=== PATIENT | female | born 1995 | race Caucasian/White ===

== ENCOUNTER 2016-12-07 15:36 | Inpatient (IN) | payer OTHER, MEDICAID ==
[~2016-12-07] VITALS: Ht 160 cm; Wt 86.2 kg
[~2016-12-07 15:36] MED LIST: /QUET25TA OR; ACET65TA OR; ZOLO25TA OR
[2016-12-07 16:21] LABS: MEAN CORPUSCULAR HGB CONC 35.8 g/dl (32.0-36.5); WHITE BLOOD COUNT 8.9 K/mm3 (4.0-10.0)
[2016-12-07 16:36] LABS: CONTROL LINE HCG INT CTR LINE PRESENT
[2016-12-07 16:42] LABS: METHADONE URINE NEGATIVE (NEGATIVE)
[2016-12-07 16:51] LABS: ALBUMIN 3.9 GM/DL (3.2-5.2); ALBUMIN/GLOBULIN RATIO 1.05 (1.00-1.93); ALKALINE PHOSPHATASE 64 U/L (45-117); ALT/SGPT 33 U/L (12-78); ANION GAP 9 MEQ/L (8-16); AST/SGOT 21 U/L (15-37); BILIRUBIN,DIRECT 0.2 MG/DL (0.0-0.2); BLOOD UREA NITROGEN 12 MG/DL (7-18); CALCIUM LEVEL 9.2 MG/DL (8.5-10.1); CARBON DIOXIDE LEVEL 24 MEQ/L (21-32); CHLORIDE LEVEL 104 MEQ/L (98-107); GLUCOSE, FASTING 82 MG/DL (70-105); POTASSIUM SERUM 3.9 MEQ/L (3.5-5.1); SODIUM LEVEL 137 MEQ/L (136-145); TOTAL PROTEIN 7.6 GM/DL (6.4-8.2)
[2016-12-07] MEDS ORDERED: NITROFURANTOIN (MACROBID) 100 MG CAP PO ONE (17:45)
[2016-12-07] MEDS ORDERED: GARC500T PO (18:10)
[2016-12-07] MEDS ORDERED: EXCETAB80 PO (18:10)
[2016-12-07 20:46] VITALS: BP 124/79
[2016-12-07] MEDS ORDERED: MOM 30ML SUSPENSION UDC PO PRN (21:45)
[2016-12-07] MEDS: traZODone 50 MG TAB PO PRN (23:31)
[2016-12-08 06:00] VITALS: BP 116/57
[2016-12-08 06:42] VITALS: BP 144/60
[2016-12-08] MEDS: MAALOX 30 ML SUSP *UDC PO PRN (13:08)
[2016-12-08] MEDS: EXCEDRIN MIGRAINE TABLET PO PRN (15:14)
[2016-12-08 18:00] VITALS: BP 132/74
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
[2016-12-08] MEDS: QUEtiapine FUMARATE 50 MG TAB PO SCH (22:02)
[2016-12-08] MEDS: AMOXICILLIN 500 MG CAP PO SCH (22:07)
[2016-12-08] MEDS ORDERED: SODIUM CHLORIDE NASAL 0.65% SPRAY BTL (OCEAN) PRN (23:00)
--- NOTE | 2016-12-09 03:44 | HPE ---
DATE OF ADMISSION: 12/07/2016 HISTORY OF PRESENT ILLNESS: Please refer to psychiatric history and evaluation for further details on this admission. This examination and history is intended for medical issues, which may need treatment, followup or consult on this 20-year-old female. ALLERGIES: None. PRIMARY CARE PROVIDER: Dr. Jonas. SOCIAL HISTORY: She is single. She has a boyfriend. Ethyl alcohol (EtOH) on weekends. Smokes one pack per day. Recreational drug use marijuana. PAST MEDICAL HISTORY: Negative. PAST SURGICAL HISTORY: Negative. HOME MEDICATIONS: None. FAMILY HISTORY: Noncontributory. REVIEW OF SYSTEMS: Was done. She was complaining of some pharyngitis, especially the right back side of her throat. She was complaining of some discomfort on bilateral thighs where she had done self-inflicted superficial lacerations. She was complaining of dry nostrils. Otherwise, 10-system review was unremarkable. PHYSICAL EXAMINATION: 20-year-old cooperative female in no acute distress. Height 63 inches, weight 85.5 kg, body mass index (BMI) 33.4. Blood pressure 124/79, pulse 77, respirations 18, temperature 97.4. The patient is alert and oriented times three. Pupils equal and react to light. Extraocular muscles intact. Cornea and sclerae clear. Conjunctivae were normal. No facial asymmetry. Pharynx is reddened. Tongue and gums pink and moist. Tongue is midline. Upper lip piercing present. Two lower lip piercings present. No redness. Neck is supple without lymphadenopathy. No thyromegaly, no goiter. Chest clear to auscultation without wheeze or retraction. Heart is regular. Abdomen is benign. Bowel sounds positive. Genitourinary/rectal: Not done. Extremities: No cyanosis, clubbing or edema. Numerous superficial lacerations bilateral thighs. Peripheral pulses equal and palpable bilaterally. IMPRESSION/PLAN: 1. Pharyngitis, tonsillitis. Amoxicillin 500 mg by mouth every 8 hours for 10 days. 2. Bacitracin to bilateral thighs for superficial lacerations. No other acute medical issues.
[2016-12-09] MEDS: AMOXICILLIN 500 MG CAP PO SCH ×3 (06:11→21:23)
[2016-12-09 06:33] VITALS: BP 126/64
[2016-12-09] MEDS: BACITRACIN OINT 30GM TOP SCH ×2 (08:40→21:00)
[2016-12-09] MEDS: VENLAFAXINE **XR** 75MG CAPSULE PO SCH (08:40)
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
[2016-12-09] MEDS: EXCEDRIN MIGRAINE TABLET PO PRN (11:59)
[2016-12-09 18:00] VITALS: BP 147/79
[2016-12-09] MEDS: hydrOXYzine 50 MG TAB PO PRN (19:03)
[2016-12-09] MEDS: QUEtiapine FUMARATE 50 MG TAB PO SCH (21:23)
[2016-12-10] MEDS: AMOXICILLIN 500 MG CAP PO SCH ×3 (05:55→21:31)
[2016-12-10 06:44] VITALS: BP 113/66
[2016-12-10] MEDS: VENLAFAXINE **XR** 75MG CAPSULE PO SCH (08:29)
[2016-12-10] MEDS: BACITRACIN OINT 30GM TOP SCH ×2 (08:30→21:00)
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
[2016-12-10] MEDS: MAALOX 30 ML SUSP *UDC PO PRN (16:21)
[2016-12-10 18:00] VITALS: BP 156/82
[2016-12-10] MEDS: hydrOXYzine 50 MG TAB PO PRN (18:04)
[2016-12-10] MEDS: QUEtiapine FUMARATE 50 MG TAB PO SCH (21:36)
[2016-12-10] MEDS: traZODone 50 MG TAB PO PRN (21:36)
[2016-12-11 06:07] VITALS: BP 112/69
[2016-12-11] MEDS: AMOXICILLIN 500 MG CAP PO SCH ×3 (06:12→21:44)
[2016-12-11] MEDS: VENLAFAXINE **XR** 75MG CAPSULE PO SCH (08:14)
[2016-12-11] MEDS: BACITRACIN OINT 30GM TOP SCH ×2 (08:15→21:00)
[2016-12-11] MEDS: hydrOXYzine 50 MG TAB PO PRN (11:30)
[2016-12-11] MEDS: MAALOX 30 ML SUSP *UDC PO PRN (13:27)
--- NOTE | 2016-12-11 17:47 | IPN ---
DATE: 12/11/2016 20-year-old female admitted for depression and self inflicted cutting. The patient was thinking on overdosing. SUBJECTIVE: "I am feeling better." OBJECTIVE: The patient is improving slowly. The patient reports, "I am sweaty," possibly a side effect of Effexor. The patient is able to contract for safety during the interview. She is interacting better with other patients and staff. The patient appears motivated for treatment. There is no evidence of psychotic symptoms. MENTAL STATUS EXAMINATION: The patient is dressed in [facility]. The patient is cooperative during the interview, has fair eye contact. Speech is normal in rate, volume, articulation. Is coherent and spontaneous. Mood is depressed and anxious but improving. Affect is congruent with mood. No delusions or hallucinations. Memory, attention, and concentration are fair. The patient is able to contract for safety during her hospitalization and denies suicidal or homicidal ideation during the interview. Insight and judgment is limited. ASSESSMENT: 1. Depression. 2. Suicidal ideation. PLAN: 1. Continue with Effexor XR 75 mg by mouth in the morning. 2. Continue with Seroquel 50 mg by mouth at night. 3. Continue with hydroxyzine 50 mg by mouth at night as needed for anxiety.
[2016-12-11 18:00] VITALS: BP 146/77
--- NOTE | 2016-12-11 20:56 | ECGEPIP ---
Stationary ECG Study [facility] Test Date: 2016-12-10 Pat Name: SUJATA PARHAM Department: Room: [place] [address] Gender: F Administration Clerk: FRIDA : 1995 Requested By: Yaquelin Manning Order Number: [id number] Reading MD: Maykel Valente Measurements Intervals [place] Rate: 72 P: 61 WI: 160 QRS: 59 QRSD: 96 T: 51 QT: 412 QTc: 451 Interpretive Statements SINUS RHYTHM Borderline QTc Comparison tracing not on file Electronically Signed On 12-11-2016 20:56:17 EDT by Maykel Valente
[2016-12-11] MEDS: QUEtiapine FUMARATE 50 MG TAB PO SCH (21:44)
[2016-12-11] MEDS: traZODone 50 MG TAB PO PRN (21:44)
[2016-12-12] MEDS: AMOXICILLIN 500 MG CAP PO SCH ×3 (06:08→20:23)
[2016-12-12 06:36] VITALS: BP 116/53
[2016-12-12] MEDS: EXCEDRIN MIGRAINE TABLET PO PRN (08:17)
[2016-12-12] MEDS: VENLAFAXINE **XR** 75MG CAPSULE PO SCH (08:17)
[2016-12-12] MEDS: BACITRACIN OINT 30GM TOP SCH ×2 (08:18→20:23)
[2016-12-12] MEDS: MAALOX 30 ML SUSP *UDC PO PRN (11:22)
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
[2016-12-12] MEDS: hydrOXYzine 50 MG TAB PO PRN (15:34)
[2016-12-12 18:30] VITALS: BP 134/77
[2016-12-12] MEDS: QUEtiapine FUMARATE 50 MG TAB PO SCH (21:34)
[2016-12-12] MEDS: traZODone 50 MG TAB PO PRN (21:34)
[2016-12-13] MEDS: AMOXICILLIN 500 MG CAP PO SCH (06:08)
[2016-12-13 07:17] VITALS: BP 151/70
[2016-12-13] MEDS: MAALOX 30 ML SUSP *UDC PO PRN (07:40)
[2016-12-13] MEDS: VENLAFAXINE **XR** 75MG CAPSULE PO SCH (08:12)
[2016-12-13] MEDS: BACITRACIN OINT 30GM TOP SCH (08:16)
[2016-12-13 11:14] VITALS: BP 148/76
[2016-12-13] MEDS ORDERED: TRAZO50TA PO (11:34)
[2016-12-13] MEDS ORDERED: HYDRO50TAB PO (11:34)
[2016-12-13] MEDS ORDERED: VENL75CA PO (11:34)
[2016-12-13] MEDS ORDERED: QUET5TAB PO (11:34)
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
[2016-12-13] MEDS ORDERED: AMOX500C PO (11:59)
== END 2016-12-13 12:15 | disposition home or self-care (01) | DRG 754 ==
LOC: M ED 16:20 → M ED INP 19:17 → M PSY 20:40
PROVIDERS: ADMIT Psychiatry & Neurology Psychiatry; ATTEND Psychiatry & Neurology Psychiatry
DX: F32.9 Major depressive disorder, single episode, unspecified (principal); F60.3 Borderline personality disorder; F43.10 Post-traumatic stress disorder, unspecified; F60.7 Dependent personality disorder; F50.2 Bulimia nervosa; Z79.899 Other long term (current) drug therapy; F17.200 Nicotine dependence, unspecified, uncomplicated; J03.90 Acute tonsillitis, unspecified

== ENCOUNTER 2017-08-14 16:55 | Inpatient (IN) | payer OTHER, MEDICAID ==
[2017-08-14 17:58] LABS: HEMATOCRIT 41.9 % (36.0-47.0); HEMOGLOBIN 14.1 g/dl (12.0-16.0); MEAN CORPUSCULAR HEMOGLOBIN 30.3 pg (27.0-33.0); MEAN CORPUSCULAR HGB CONC 33.7 g/dl (32.0-36.5); MEAN CORPUSCULAR VOLUME 89.9 fl (80.0-96.0); PLATELET COUNT, AUTOMATED 313 10^3/uL (150-450); RED BLOOD COUNT 4.66 10^6/uL (4.00-5.40); RED CELL DISTRIBUTION WIDTH 12.8 % (11.5-14.5); WHITE BLOOD COUNT 7.6 10^3/uL (4.0-10.0)
[2017-08-14 18:16] LABS: CONTROL LINE HCG INT CTR LINE PRESENT; HCG, SERUM QUALITATIVE NEGATIVE (NEGATIVE)
[2017-08-14 18:21] LABS: AMPHETAMINES LEVEL URINE NEGATIVE (NEGATIVE); BARBITURATES URINE NEGATIVE (NEGATIVE); BENZODIAZEPINES URINE NEGATIVE (NEGATIVE); CANNABINOIDS URINE POSITIVE (NEGATIVE); COCAINE METABOLITE URINE NEGATIVE (NEGATIVE); METHADONE URINE NEGATIVE (NEGATIVE); OPIATES URINE NEGATIVE (NEGATIVE); PHENCYCLIDINE URINE NEGATIVE (NEGATIVE)
[2017-08-14 18:30] LABS: ALBUMIN 3.9 GM/DL (3.2-5.2); ALBUMIN/GLOBULIN RATIO 1.18 (1.00-1.93); ALKALINE PHOSPHATASE 88 U/L (45-117); ALT/SGPT 34 U/L (12-78); ANION GAP 9 MEQ/L (8-16); AST/SGOT 17 U/L (7-37); BILIRUBIN,DIRECT < 0.1 MG/DL (0.0-0.2); BILIRUBIN,TOTAL 0.3 MG/DL (0.2-1.0); BLOOD UREA NITROGEN 14 MG/DL (7-18); CALCIUM LEVEL 8.7 MG/DL (8.5-10.1); CARBON DIOXIDE LEVEL 26 MEQ/L (21-32); CHLORIDE LEVEL 106 MEQ/L (98-107); ETHYL ALCOHOL (ETHANOL) < 0.003 % (0.000-0.010); GLUCOSE, FASTING 73 MG/DL (70-100); POTASSIUM SERUM 3.7 MEQ/L (3.5-5.1); SALICYLATE LEVEL < 1.7 MG/DL (5.0-30.0); SODIUM LEVEL 141 MEQ/L (136-145); TOTAL PROTEIN 7.2 GM/DL (6.4-8.2)
[2017-08-14 18:37] LABS: ACETAMINOPHEN LEVEL < 2.0 UG/ML (10.0-30.0)
[2017-08-14] MEDS ORDERED: MOM 30ML SUSPENSION UDC PO (19:15)
[2017-08-14] MEDS ORDERED: MAALOX 30 ML SUSP *UDC PO (19:15)
[2017-08-14] MEDS: traZODone 50 MG TAB PO (22:02)
[2017-08-14] MEDS: NICOTINE 21MG/24HR 1 EA TRANSDERMAL TD (22:02)
[2017-08-15] MEDS: INFLUENZA QUADRIVALENT PF VACCINE 0.5ML SYRINGE (90686) IM (08:19)
[2017-08-15] MEDS: hydrOXYzine 50 MG TAB PO ×2 (08:20→19:11)
[2017-08-15] MEDS: VENLAFAXINE **XR** 75MG CAPSULE PO (08:21)
[2017-08-15] MEDS: QUEtiapine FUMARATE 50 MG TAB PO ×2 (08:21→21:12)
[2017-08-15] MEDS ORDERED: QUEtiapine FUMARATE 100 MG TAB PO (21:00)
[2017-08-15] MEDS: traZODone 50 MG TAB PO (21:12)
[2017-08-16] MEDS: QUEtiapine FUMARATE 25 MG TAB PO (08:31)
[2017-08-16] MEDS: VENLAFAXINE **XR** 75MG CAPSULE PO (08:31)
[2017-08-16] MEDS: NICOTINE 21MG/24HR 1 EA TRANSDERMAL TD (08:31)
[2017-08-16] MEDS: hydrOXYzine 50 MG TAB PO (15:51)
[2017-08-16] MEDS: traZODone 50 MG TAB PO (21:17)
[2017-08-16] MEDS: QUEtiapine FUMARATE 50 MG TAB PO (21:17)
[2017-08-17] MEDS: QUEtiapine FUMARATE 25 MG TAB PO (08:43)
[2017-08-17] MEDS: VENLAFAXINE **XR** 75MG CAPSULE PO (08:43)
[2017-08-17] MEDS: NICOTINE 21MG/24HR 1 EA TRANSDERMAL TD (08:45)
[2017-08-17] MEDS: hydrOXYzine 50 MG TAB PO (11:56)
[2017-08-17] MEDS: ACETAMINOPHEN TAB 650MG DOSE (2X325MG) PO (15:16)
[2017-08-17] MEDS: QUEtiapine FUMARATE 50 MG TAB PO (21:58)
[2017-08-17] MEDS: traZODone 50 MG TAB PO (21:58)
[2017-08-17] MEDS: PRAZOSIN 1 MG CAP PO (21:59)
[2017-08-18] MEDS: QUEtiapine FUMARATE 25 MG TAB PO (09:14)
[2017-08-18] MEDS: VENLAFAXINE **XR** 75MG CAPSULE PO (09:14)
== END 2017-08-18 13:23 | disposition home or self-care (01) | DRG 755 ==
LOC: M ED 16:55 → M ED INP 19:09 → M PSY 21:05
DX: F43.23 Adjustment disorder with mixed anxiety and depressed mood (principal); F50.9 Eating disorder, unspecified; F12.90 Cannabis use, unspecified, uncomplicated; F60.3 Borderline personality disorder; M54.5 Low back pain; G47.00 Insomnia, unspecified; F41.9 Anxiety disorder, unspecified; F17.200 Nicotine dependence, unspecified, uncomplicated; Z79.899 Other long term (current) drug therapy

== ENCOUNTER → 2017-10-31 | Outpatient (REF) | payer OTHER, MEDICAID ==
[2017-11-01 12:41] LABS: CHLAMYDIA DNA AMPLIFICATION NEGATIVE (NEGATIVE); GC DNA AMPLIFICATION NEGATIVE (NEGATIVE)
== END ==
LOC: M SFHCLERA 20:26
DX: Z20.2 Contact with and (suspected) exposure to infections with a predominantly sexual mode of transmission (principal)

== ENCOUNTER 2017-11-23 18:40 | Emergency (ER) | payer OTHER ==
[2017-11-23] MEDS: NS 1,000 ML IV (20:00)
[2017-11-23 20:35] LABS: BASO % 0.3 % (0.0-1.0); EOS % 0.7 % (0.0-3.0); HEMATOCRIT 40.6 % (36.0-47.0); HEMOGLOBIN 13.4 g/dl (12.0-15.5); IMMATURE GRANULOCYTE % 0.2 % (0-3.0); LYMPH # 2.3 10^3/uL (1.5-6.5); LYMPH % 38.7 % (24.0-44.0); MEAN CORPUSCULAR HEMOGLOBIN 29.8 pg (27.0-33.0); MEAN CORPUSCULAR VOLUME 90.2 fl (80.0-96.0); MONO # 0.5 10^3/uL (0.0-0.8); MONO % 8.4 % (0.0-5.0); NEUTROPHILS # 3.1 10^3/uL (1.8-7.7); NEUTROPHILS % 51.7 % (36.0-66.0); PLATELET COUNT, AUTOMATED 281 10^3/uL (150-450); RED CELL DISTRIBUTION WIDTH 13.3 % (11.5-14.5); WHITE BLOOD COUNT 6.1 10^3/uL (4.0-10.0)
[2017-11-23 20:46] LABS: INR 1.06; PROTHROMBIN TIME 13.9 SECONDS (12.4-14.5)
[2017-11-23 20:47] LABS: PARTIAL THROMBOPLASTIN TIME 33.5 SECONDS (26.8-37.9)
[2017-11-23 21:02] LABS: CONTROL LINE HCG INT CTR LINE PRESENT; HCG, SERUM QUALITATIVE NEGATIVE (NEGATIVE)
[2017-11-23 21:06] LABS: ALBUMIN/GLOBULIN RATIO 1.11 (1.00-1.93); ALKALINE PHOSPHATASE 73 U/L (45-117); ALT/SGPT 25 U/L (12-78); ANION GAP 4 MEQ/L (8-16); AST/SGOT 20 U/L (7-37); BILIRUBIN,DIRECT 0.1 MG/DL (0.0-0.2); BILIRUBIN,TOTAL 0.4 MG/DL (0.2-1.0); BLOOD UREA NITROGEN 11 MG/DL (7-18); CALCIUM LEVEL 8.9 MG/DL (8.5-10.1); CARBON DIOXIDE LEVEL 30 MEQ/L (21-32); CHLORIDE LEVEL 108 MEQ/L (98-107); CREATININE FOR GFR 0.72 MG/DL (0.55-1.30); GLUCOSE, FASTING 77 MG/DL (70-100); LIPASE 71 U/L (73-393); SODIUM LEVEL 142 MEQ/L (136-145); TOTAL PROTEIN 7.6 GM/DL (6.4-8.2)
[2017-11-23 21:13] LABS: LACTIC ACID SEPSIS PROTOCOL 1.3 MMOL/L (0.4-2.0)
[2017-11-23 22:13] LABS: CHLAMYDIA DNA AMPLIFICATION NEGATIVE (NEGATIVE); GC DNA AMPLIFICATION NEGATIVE (NEGATIVE)
== END 2017-11-23 21:55 | disposition home or self-care (01) ==
LOC: M ED 18:40
DX: K60.2 Anal fissure, unspecified (principal); K58.9 Irritable bowel syndrome, unspecified; F50.2 Bulimia nervosa; K64.9 Unspecified hemorrhoids; F41.9 Anxiety disorder, unspecified; F32.9 Major depressive disorder, single episode, unspecified; F17.200 Nicotine dependence, unspecified, uncomplicated; Z79.899 Other long term (current) drug therapy
CPT/HCPCS: 83690

== ENCOUNTER 2017-12-23 11:49 | Emergency (ER) | payer OTHER ==
[2017-12-23] MEDS: DERMABOND TOPICAL SKIN ADHESIVE TOP (12:31)
== END 2017-12-23 13:22 | disposition home or self-care (01) ==
LOC: M ED 11:49
DX: S61.412A Laceration without foreign body of left hand, initial encounter (principal); W26.0XXA Contact with knife, initial encounter; Y92.832 Beach as the place of occurrence of the external cause; Y93.89 Activity, other specified; F17.200 Nicotine dependence, unspecified, uncomplicated; E07.9 Disorder of thyroid, unspecified; E28.2 Polycystic ovarian syndrome; F33.9 Major depressive disorder, recurrent, unspecified; F41.9 Anxiety disorder, unspecified; Z79.899 Other long term (current) drug therapy; Z86.59 Personal history of other mental and behavioral disorders
CPT/HCPCS: 12001

== ENCOUNTER 2018-01-01 12:51 | Emergency (ER) | payer OTHER ==
[2018-01-01 14:13] LABS: BASO % 0.2 % (0.0-1.0); EOS % 0.2 % (0.0-3.0); HEMOGLOBIN 14.7 g/dl (12.0-15.5); IMMATURE GRANULOCYTE % 0.2 % (0-3.0); LYMPH # 1.4 10^3/uL (1.5-6.5); LYMPH % 16.3 % (24.0-44.0); MEAN CORPUSCULAR HEMOGLOBIN 30.4 pg (27.0-33.0); MEAN CORPUSCULAR HGB CONC 34.2 g/dl (32.0-36.5); MEAN CORPUSCULAR VOLUME 88.8 fl (80.0-96.0); MONO % 11.7 % (0.0-5.0); NEUTROPHILS # 6.1 10^3/uL (1.8-7.7); NEUTROPHILS % 71.4 % (36.0-66.0); PLATELET COUNT, AUTOMATED 256 10^3/uL (150-450); RED BLOOD COUNT 4.84 10^6/uL (4.00-5.40); RED CELL DISTRIBUTION WIDTH 13.3 % (11.5-14.5); WHITE BLOOD COUNT 8.6 10^3/uL (4.0-10.0)
[2018-01-01] MEDS: ONDANSETRON 4MG/2ML VIAL (J2405) IV (14:14)
[2018-01-01] MEDS: NS 1,000 ML IV (14:14)
[2018-01-01 14:16] LABS: KETONE, URINE AUTO RFX NEGATIVE (NEGATIVE); LEUKOCYTE ESTERASE UR AUTO RFX TRACE (NEGATIVE); NITRITE, URINE AUTO RFX NEGATIVE (NEGATIVE); RBC, URINE AUTO RFX 1 /HPF (0-3); SPECIFIC GRAVITY UR AUTO RFX 1.002 (1.002-1.035); SQUAM EPITHELIAL CELL UR AURFX 1 /HPF (0-6); WBC, URINE AUTO RFX 2 /HPF (0-3)
[2018-01-01 14:25] LABS: CONTROL LINE HCG INT CTR LINE PRESENT; HCG, SERUM QUALITATIVE NEGATIVE (NEGATIVE)
[2018-01-01 14:34] LABS: ALBUMIN 3.7 GM/DL (3.2-5.2); ALBUMIN/GLOBULIN RATIO 0.88 (1.00-1.93); ALKALINE PHOSPHATASE 103 U/L (45-117); ALT/SGPT 27 U/L (12-78); ANION GAP 9 MEQ/L (8-16); AST/SGOT 13 U/L (7-37); BILIRUBIN,DIRECT 0.1 MG/DL (0.0-0.2); BILIRUBIN,TOTAL 0.4 MG/DL (0.2-1.0); BLOOD UREA NITROGEN 10 MG/DL (7-18); CALCIUM LEVEL 8.8 MG/DL (8.5-10.1); CARBON DIOXIDE LEVEL 25 MEQ/L (21-32); CHLORIDE LEVEL 107 MEQ/L (98-107); CREATININE FOR GFR 0.87 MG/DL (0.55-1.30); GLOMERULAR FILTRATION RATE > 60.0 (>60); GLUCOSE, FASTING 88 MG/DL (70-100); LIPASE 72 U/L (73-393); POTASSIUM SERUM 3.6 MEQ/L (3.5-5.1); SODIUM LEVEL 141 MEQ/L (136-145); TOTAL PROTEIN 7.9 GM/DL (6.4-8.2)
[2018-01-01] MEDS: KETOROLAC 30 MG/ML VIAL (J1885) IV (14:34)
[2018-01-01] MEDS ORDERED: ISOVUE-370 76% 100ML VIAL (Q9967) As Ordered (14:51)
[2018-01-01 17:36] LABS: CHLAMYDIA DNA AMPLIFICATION NEGATIVE (NEGATIVE); GC DNA AMPLIFICATION NEGATIVE (NEGATIVE)
== END 2018-01-01 16:05 | disposition home or self-care (01) ==
LOC: M ED 12:51
DX: R10.9 Unspecified abdominal pain (principal); R11.0 Nausea; R19.7 Diarrhea, unspecified; K60.2 Anal fissure, unspecified; R93.5 Abnormal findings on diagnostic imaging of other abdominal regions, including retroperitoneum; E28.2 Polycystic ovarian syndrome; E07.9 Disorder of thyroid, unspecified; F41.9 Anxiety disorder, unspecified; F17.210 Nicotine dependence, cigarettes, uncomplicated; Z79.899 Other long term (current) drug therapy
CPT/HCPCS: J2405

== ENCOUNTER 2018-03-02 23:10 | Emergency (ER) | payer OTHER | END 2018-03-03 00:33 | disposition home or self-care (01) | LOC: M ED 23:10 | DX: T76.21XA Adult sexual abuse, suspected, initial encounter (principal); Y92.9 Unspecified place or not applicable; Y93.9 Activity, unspecified; F41.9 Anxiety disorder, unspecified; Z79.899 Other long term (current) drug therapy | CPT/HCPCS: 99282 ==

== ENCOUNTER 2018-05-25 14:16 | Emergency (ER) | payer OTHER, MEDICAID | END 2018-05-25 15:06 | disposition home or self-care (01) | LOC: M ED 14:16 | DX: R21 Rash and other nonspecific skin eruption (principal) | CPT/HCPCS: 99282 ==

== ENCOUNTER 2018-07-01 12:41 | Emergency (ER) | payer OTHER ==
[~2018-07-01] VITALS: Ht 162.6 cm; Wt 90.9 kg
[~2018-07-01 12:41] MED LIST changes: +ACYC400T; +AMOX500C PO; +AUGM875T28 PO; +BENA25CA4 PO; +BENT10CA PO; +BUSP10TA; +BUSP10TA PO; +BUSP30TA PO; +DOXE50CA PO; +EFFE75CA2 PO; +EXCETAB80 PO; +GARC500T PO; +HYDR50TA70; +HYDR50TA70 PO; +HYDRO50TAB PO; +PRAZ1CAP PO; +PRED20TA PO; +QUET5TAB PO; +SERO1TAB PO; +SERO1TAB3 PO; +SERO200T PO; +SERO50TA PO; +TOPI25TA10; +TRAZ-160; +TRAZ-160 PO; +TRAZO50TA PO; +VENL100T PO; +VENL75CA2; +VENL75CA2 PO; +VENL75TA2 PO; +ZOFR4TAB14 PO; +buspar PO
[2018-07-01 14:21] LABS: URINE PREG TEST POSITIVE (NEGATIVE)
[2018-07-01 15:42] VITALS: BP 118/72
== END 2018-07-01 15:44 | disposition home or self-care (01) ==
LOC: M ED 12:41
DX: F33.9 Major depressive disorder, recurrent, unspecified (principal); F19.20 Other psychoactive substance dependence, uncomplicated; J45.909 Unspecified asthma, uncomplicated; E28.2 Polycystic ovarian syndrome; F50.2 Bulimia nervosa; Z79.899 Other long term (current) drug therapy; Z87.891 Personal history of nicotine dependence

== ENCOUNTER 2019-03-30 18:07 | Inpatient (IN) | payer OTHER ==
[~2019-03-30] VITALS: Ht 162.6 cm; Wt 113.3 kg
[~2019-03-30 18:07] MED LIST changes: -/QUET25TA OR; +HYDR1TAB33 PO; -HYDRO50TAB PO; +SERO1TAB3 OR; -TRAZ-160; -TRAZ-160 PO; +TRAZ-252; +TRAZ-252 PO; +TRAZ1TAB10 PO; -TRAZO50TA PO
[2019-03-30] MEDS ORDERED: VALA1TAB2 (18:16)
[2019-03-30] MEDS ORDERED: METF500T13 (18:16)
[2019-03-30 19:14] LABS: HEMOGLOBIN 11.8 g/dl (12.0-15.5); MEAN CORPUSCULAR HEMOGLOBIN 26.9 pg (27.0-33.0); MEAN CORPUSCULAR HGB CONC 31.9 g/dl (32.0-36.5); MEAN CORPUSCULAR VOLUME 84.3 fl (80.0-96.0); PLATELET COUNT, AUTOMATED 335 10^3/uL (150-450); RED BLOOD COUNT 4.39 10^6/uL (4.00-5.40); WHITE BLOOD COUNT 7.3 10^3/uL (4.0-10.0)
[2019-03-30 19:36] LABS: AMPHETAMINES LEVEL URINE NEGATIVE (NEGATIVE); BARBITURATES URINE NEGATIVE (NEGATIVE); BENZODIAZEPINES URINE NEGATIVE (NEGATIVE); CANNABINOIDS URINE NEGATIVE (NEGATIVE); COCAINE METABOLITE URINE NEGATIVE (NEGATIVE); METHADONE URINE NEGATIVE (NEGATIVE); OPIATES URINE NEGATIVE (NEGATIVE); PHENCYCLIDINE URINE NEGATIVE (NEGATIVE)
[2019-03-30 19:47] LABS: HCG, SERUM QUALITATIVE NEGATIVE (NEGATIVE)
[2019-03-30 19:52] LABS: ALT/SGPT 110 U/L (12-78); BLOOD UREA NITROGEN 12 MG/DL (7-18); CARBON DIOXIDE LEVEL 26 MEQ/L (21-32); CHLORIDE LEVEL 106 MEQ/L (98-107); CREATININE FOR GFR 0.73 MG/DL (0.55-1.30); GLOMERULAR FILTRATION RATE > 60.0 (>60); GLUCOSE, FASTING 82 MG/DL (70-100); SODIUM LEVEL 141 MEQ/L (136-145)
[2019-03-30 19:53] LABS: ACETAMINOPHEN LEVEL < 2.0 UG/ML (10.0-30.0); ALBUMIN 3.4 GM/DL (3.2-5.2); BILIRUBIN,DIRECT < 0.1 MG/DL (0.0-0.2); BILIRUBIN,TOTAL 0.2 MG/DL (0.2-1.0); ETHYL ALCOHOL (ETHANOL) < 0.003 % (0.000-0.010); SALICYLATE LEVEL < 1.7 MG/DL (5.0-30.0); TOTAL PROTEIN 6.7 GM/DL (6.4-8.2)
[2019-03-30] MEDS ORDERED: MOM 30ML SUSPENSION UDC PO PRN (23:15)
[2019-03-30] MEDS ORDERED: MAALOX 30 ML SUSP *UDC PO PRN (23:15)
[2019-03-30] MEDS ORDERED: VALT500T PO (23:39)
[2019-03-30] MEDS ORDERED: IBUP1TAB7 PO (23:39)
[2019-03-30] MEDS ORDERED: CETI10TA8 PO (23:39)
[2019-03-30] MEDS ORDERED: METF-839 PO (23:39)
[2019-03-31 01:45] VITALS: BP_SYST 118; BP_SYST 132; BP_DIAS 53; BP_DIAS 82
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
[2019-03-31] MEDS: ACETAMINOPHEN TAB 650MG DOSE (2X325MG) PO PRN ×2 (11:30→19:55)
--- NOTE | 2019-03-31 13:28 | HPEPDOC ---
[facility] Medical History & Physical Date of Admission Mar 31, 2019 Date of Service: Mar 31, 2019 History and Physical Chief complaint: depression History of present illness: This is the 23-year-old female with no significant medical history except for PCOD which she takes metformin and history of shingles , comes to the psychiatric unit and we have been consulted for medical reasons. The patient states that she delivered few weeks back and after that lately she has been having emotional outbursts and has been thinking of harming her baby. She also states that she got so depressed that she was planning to get into a car, but because she thought her family and did not do so. She went to her psychiatrist who told her to come and get admitted to the hospital. She currently has been admitted to the psychiatric facility and the management will be as per him. She denies any shortness of breath, any chest pain, any headache. She states that he does not have any intentions of hurting himself or anybody else at this point of time. Family history. Diabetes Social history. Occasional marijuana smoker. Denies any drug abuse. Denies any recreational drug use. Past medical history PCO S Past surgical history none as per patient Review of systems. Pertinent positive findings as per HPI and is negative PHYSICAL EXAMINATION: General: The patient is awake, alert, oriented x3, sitting up in the bed in no apparent distress. Head and Neck Exam: Extraocular muscles intact. Pupils equally round and re active to light. Mucous membranes are moist. Neck is supple. There is no jugular venous distention (JVD). Cardiovascular: S1 and S2, regular rate. No real edema Respiratory: Clear auscultation Abdomen: Soft. Positive bowel sounds. Nontender. No organomegaly. Genitourinary: Deferred Musculoskeletal: Clubbing of the fingernails, no cyanosis was noted. Central Nervous System ([employer]): No focal deficit. Power is 5/5 in all extremities. Medications reviewed Radiology reviewed Assessment and plan This is a 30-year-old male was been admitted to the psychiatric facility for clinical depression and we have been consulted for medical management. 1. depression. Management is per psychiatry. 2. History of PCO S. , Continue metformin Diet as per psychiatric Thank so much for consulting us on this patient, please reconsult if needed. We'll sign off Vital Signs Vital Signs Date Time Temp Pulse Resp B/P (MAP) Pulse Ox O2 Delivery O2 Flow Rate FiO2 03/31/19 01:45 97.9 85 16 132/82 (99) 03/31/19 01:45 97 03/30/19 23:27 Room Air Laboratory Data Labs 24H Laboratory Tests 2 03/30/19 19:04: Nucleated Red Blood Cells % (auto) 0.0, Anion Gap 9, Glomerular Filtration Rate > 60.0, Calcium Level 9.0, Aspartate Amino Transf (AST/SGOT) 59H, Alanine Aminotransferase (ALT/SGPT) 110H, Alkaline Phosphatase 131H, Total Bilirubin 0.2, Direct Bilirubin < 0.1, Total Protein 6.7, Albumin 3.4, Albumin/Globulin Ratio 1.03, Thyroid Stimulating Hormone (TSH) 5.620H, Human Chorionic Gonadotropin, Qual NEGATIVE, Salicylates Level < 1.7L, Urine Amphetamines Screen NEGATIVE, Urine Benzodiazepines Screen NEGATIVE, Urine Opiates Screen NEGATIVE, Urine Methadone Screen NEGATIVE, Acetaminophen Level < 2.0L, Urine Barbiturates Screen NEGATIVE, Urine Phencyclidine Screen NEGATIVE, Urine Cocaine Metabolite Screen NEGATIVE, Urine Cannabinoids Screen NEGATIVE, Ethyl Alcohol Level < 0.003 CBC/BMP Laboratory Tests 03/30/19 19:04 Red Blood Count 4.39, Mean Corpuscular Volume 84.3, Mean Corpuscular Hemoglobin 26.9 L, Mean Corpuscular Hemoglobin Concent 31.9 L, Red Cell Distribution Width 15.9 H Home Medications Scheduled Cetirizine HCl (Cetirizine HCl) 10 Mg Tablet, 10 MG PO DAILY Metformin HCl (Metformin HCl) 500 Mg Tablet, 500 MG PO QPM TAKES AT DINNERTIME Valacyclovir HCl (Valtrex) 500 Mg Tablet, 1,000 MG PO DAILY Scheduled PRN Ibuprofen (Ibuprofen) 800 Mg Tablet, 800 MG PO Q8H PRN for PAIN Allergies Coded Allergies: latex (Verified Allergy, Intermediate, Rash and itchiness, 03/31/19) A-FIB/CHADSVASC A-FIB History Current/History of A-Fib/PAF?: No Current PO Anticoag Therapy: No WINSTON DIMAS MD Mar 31, 2019 13:28
[2019-03-31 15:34] VITALS: BP 131/61
[2019-03-31] MEDS: metFORMIN (GLUCOPHAGE) 500 MG TAB PO SCH (20:56)
[2019-04-01 06:31] VITALS: BP 139/60
[2019-04-01 08:18] LABS: HEMOGLOBIN A1c 4.6 %
[2019-04-01 08:32] LABS: CHOLESTEROL RISK RATIO 3.634 (<5)
[2019-04-01] MEDS: ACETAMINOPHEN TAB 650MG DOSE (2X325MG) PO PRN ×2 (08:33→15:06)
[2019-04-01] MEDS: valACYclovir HCL 500 MG TAB PO SCH (08:33)
--- NOTE | 2019-04-01 10:27 | MHIPNPDOC ---
[facility] Progress Note Progress Note DATE OF SERVICE: 04/01/19 HISTORY: The patient is a 23-year-old woman who presents to [facility] with severe suicidal thoughts and thoughts of injuring her young infant giovanna carreon has recently born several weeks ago. She reports that since his , she has become extremely stressed, has had low mood, loss of energy, fatigue, concentration problems, excessive guilt and difficulty adjusting to the situation. She reports having a history of bipolar disorder with manic episodes as well as mixed episodes where she increases her energy level, decreases her wa ed for sleep and has episodes of impulsivity with increased anger and irritability. She reports that she was taken off her medication when she was and now restarted on them. She was previously on Abilify. She reports that she is concerned about her thoughts towards her infant and had avoided the infant and brought herself in for assessment due to concerns. I discussed with the patient the concerns with her situation and that due the concerning thoughts hospital will need to report this to CPS, she became fairly upset. Additionally, when she was asked to be seen on the unit, it was declined due to policy additionally as well as safety, she left the interview and slammed the doors with engaging of further behavioral problems. VITAL SIGNS: See below. NEW TEST RESULTS: See below. CURRENT MEDICATIONS: See below. MENTAL STATUS EXAMINATION: General: Well dressed with good hygiene Speech: Spontaneous and fluid Thought processes: Linear and logical MSK: Smooth and coordinated gait, no signs of tremors or involuntary orofacial movements Thought content: depressed, SI toward herself, no long toward her son, denies intent/plan Abstract reasoning, and computation: Intact Description of associations: Intact Description of abnormal or psychotic thoughts: SI toward herself, no long toward her son, denies intent/plan. Denies any auditory or visual hallucinations. Does not appear to be responding to internal stimuli. Judgment: Poor. Insight: Poor. Orientation: Alert and orientated 3 Cognition: Grossly normal Recent and remote memory: Intact Attention span and concentration: Intact Fund of knowledge: Adequate Mood: "better" Affect: Highly dysthymic with a constricted range. DIAGNOSES: Bipolar disorder type 2, depressed. Borderline personality disorder. PTSD, chronic. ASSESSMENT:Pt seen and states she feels a little better today after starting abilify that she states she tolerating well. Continues to endorse SI toward herself with no intent or plan and denies HI toward her 7wk old son. States she's taken a lot of SSRI and SNRI meds in the past that she never really found beneficial. Is agreeable to trying prozac for depression as it should work well with the use of abilify as an antidepressant augmenter. Risks/benefits discussed. Continues to endorses depressed mood but states it is mildly better today. STates she slept well last night. Denies hallucinations, delusions. Feels safe here. MANAGEMENT PLAN: start prozac for mood Medications: Abilify 5 mg nightly prozac 20mg daily TIME SPENT: 30 minutes. Vital Signs Vital Signs Date Time Temp Pulse Resp B/P (MAP) Pulse Ox O2 Delivery O2 Flow Rate FiO2 04/01/19 06:31 98.6 65 16 139/60 (86) 03/31/19 01:45 97 03/30/19 23:27 Room Air Laboratory Data 24H Labs Laboratory Tests 2 04/01/19 07:34: Estimated Mean Plasma Glucose 85, Hemoglobin A1c 4.6, Triglycerides Level 143, LDL Cholesterol 108H, Total Cholesterol 189, Non-HDL Cholesterol (LDL + VLDL) 137, Total HDL Cholesterol 52, Cholesterol/HDL Ratio 3.634 Current Medications Current Medications Medications (Trade) Dose Ordered Sig/Rafael Route PRN Reason Start Time Stop Time Status Last Admin Dose Admin Acetaminophen (Tylenol Tab) 650 mg Q6HP PRN PO HEADACHE or DISCOMFORT 03/30/19 23:15 04/01/19 08:33 Al Hydrox/Mg Hydrox/Simethicone (Mylanta) 30 ml Q4HP PRN PO HEARTBURN/INDIGESTION 03/30/19 23:15 Aripiprazole (AbiLIFY) 5 mg QHS PO 03/31/19 21:00 03/31/19 19:56 Home Med (Med Rec Complete!) ASDIRECTED XX 03/30/19 23:45 03/30/19 23:45 DC Magnesium Hydroxide (Milk Of Magnesia) 30 ml DAILYPRN PRN PO CONSTIPATION 03/30/19 23:15 Metformin HCl (Glucophage) 500 mg QPM@1800 PO 03/31/19 18:00 03/31/19 20:56 Olanzapine (ZyPREXA ZYDIS) 5 mg Q6HP PRN PO ANXIETY/AGITATION 03/30/19 23:15 Trazodone HCl (Desyrel) 50 mg QHSP PRN PO INSOMNIA 03/30/19 23:15 Valacyclovir HCl (Valtrex) 1,000 mg DAILY PO 04/01/19 09:00 04/01/19 08:33 Allergies Coded Allergies: latex (Verified Allergy, Intermediate, Rash and itchiness, 03/31/19) ROHIT COBB DO Apr 01, 2019 10:27 am
[2019-04-01] MEDS ORDERED: FLUoxetine 20 MG CAP PO ONE (11:00)
[2019-04-01] MEDS: CETIRIZINE (ZyrTEC) 10 MG TAB PO SCH ×2 (12:35→20:51)
[2019-04-01] MEDS: metFORMIN (GLUCOPHAGE) 500 MG TAB PO SCH (17:07)
[2019-04-01 18:38] VITALS: BP 142/85
[2019-04-01] MEDS: traZODone 50 MG TAB PO PRN (20:51)
[2019-04-02 05:58] VITALS: BP 104/51
[2019-04-02 06:02] VITALS: BP 104/51
--- NOTE | 2019-04-02 09:06 | MHIPNPDOC ---
[facility] Progress Note Progress Note DATE OF SERVICE: 04/02/19 HISTORY: The patient is a 23-year-old woman who presents to [facility] with severe suicidal thoughts and thoughts of injuring her young infant giovanna carreon has recently born several weeks ago. She reports that since his , she has become extremely stressed, has had low mood, loss of energy, fatigue, concentration problems, excessive guilt and difficulty adjusting to the situation. She reports having a history of bipolar disorder with manic episodes as well as mixed episodes where she increases her energy level, decreases her me ed for sleep and has episodes of impulsivity with increased anger and irritability. She reports that she was taken off her medication when she was and now restarted on them. She was previously on Abilify. She reports that she is concerned about her thoughts towards her infant and had avoided the infant and brought herself in for assessment due to concerns. I discussed with the patient the concerns with her situation and that due the concerning thoughts hospital will need to report this to CPS, she became fairly upset. Additionally, when she was asked to be seen on the unit, it was declined due to policy additionally as well as safety, she left the interview and slammed the doors with engaging of further behavioral problems. VITAL SIGNS: See below. NEW TEST RESULTS: none CURRENT MEDICATIONS: See below. MENTAL STATUS EXAMINATION: General: Well dressed with good hygiene Speech: Spontaneous and fluid Thought processes: Linear and logical MSK: Smooth and coordinated gait, no signs of tremors or involuntary orofacial movements Thought content: depressed, denies SI and HI toward her son, denies intent/plan Abstract reasoning, and computation: Intact Description of associations: Intact Description of abnormal or psychotic thoughts: SI toward herself, no long toward her son, denies intent/plan. Denies any auditory or visual hallucinations. Does not appear to be responding to internal stimuli. Judgment: Poor. Insight: Poor. Orientation: Alert and orientated 3 Cognition: Grossly normal Recent and remote memory: Intact Attention span and concentration: Intact Fund of knowledge: Adequate Mood: "better" Affect: less dysthymic with a constricted range. DIAGNOSES: Bipolar disorder type 2, depressed. Borderline personality disorder. PTSD, chronic. ASSESSMENT:Pt seen and states she feels a "better... just tired" today. States she's tolerating her newly started prozac and is finding it beneficial, tolerating it well in combination with abilify. Denies SI today and HI toward her son. States she's missing her son very much and is hopeful to having special visitation privileges with him on Friday which I agreed to let her have. Continues to endorses depressed mood but states it is mildly getting better today. States she slept really well last night. States she's attending groups and finding it beneficial. Denies SI/HI, hallucinations, delusions. Feels safe here. MANAGEMENT PLAN: continue plan Medications: Abilify 5 mg nightly prozac 20mg daily TIME SPENT: 30 minutes. Vital Signs Vital Signs Date Time Temp Pulse Resp B/P (MAP) Pulse Ox O2 Delivery O2 Flow Rate FiO2 04/02/19 06:02 98.3 66 20 104/51 (68) 03/31/19 01:45 97 03/30/19 23:27 Room Air Current Medications Current Medications Medications (Trade) Dose Ordered Sig/Rafael Route PRN Reason Start Time Stop Time Status Last Admin Dose Admin Acetaminophen (Tylenol Tab) 650 mg Q6HP PRN PO HEADACHE or DISCOMFORT 03/30/19 23:15 04/01/19 15:06 Al Hydrox/Mg Hydrox/Simethicone (Mylanta) 30 ml Q4HP PRN PO HEARTBURN/INDIGESTION 03/30/19 23:15 Aripiprazole (AbiLIFY) 5 mg QHS PO 03/31/19 21:00 04/01/19 20:51 Cetirizine HCl (ZyrTEC) 5 mg BID PO 04/01/19 13:00 04/02/19 21:01 04/01/19 20:51 Fluoxetine HCl (PROzac) 20 mg DAILY PO 04/02/19 09:00 Home Med (Med Rec Complete!) ASDIRECTED XX 03/30/19 23:45 03/30/19 23:45 DC Magnesium Hydroxide (Milk Of Magnesia) 30 ml DAILYPRN PRN PO CONSTIPATION 03/30/19 23:15 Metformin HCl (Glucophage) 500 mg QPM@1800 PO 03/31/19 18:00 04/01/19 17:07 Olanzapine (ZyPREXA ZYDIS) 5 mg Q6HP PRN PO ANXIETY/AGITATION 03/30/19 23:15 Trazodone HCl (Desyrel) 50 mg QHSP PRN PO INSOMNIA 03/30/19 23:15 04/01/19 20:51 Valacyclovir HCl (Valtrex) 1,000 mg DAILY PO 04/01/19 09:00 04/01/19 08:33 Allergies Coded Allergies: latex (Verified Allergy, Intermediate, Rash and itchiness, 03/31/19) ROHIT COBB DO Apr 02, 2019 9:06 am
[2019-04-02] MEDS: valACYclovir HCL 500 MG TAB PO SCH (09:22)
[2019-04-02] MEDS: FLUoxetine 20 MG CAP PO SCH (09:22)
[2019-04-02] MEDS: CETIRIZINE (ZyrTEC) 10 MG TAB PO SCH ×2 (09:22→21:15)
[2019-04-02] MEDS: metFORMIN (GLUCOPHAGE) 500 MG TAB PO SCH (17:17)
[2019-04-02 18:10] VITALS: BP 141/82
[2019-04-02] MEDS: traZODone 50 MG TAB PO PRN (21:14)
[2019-04-03 06:31] VITALS: BP 105/57
[2019-04-03] MEDS: valACYclovir HCL 500 MG TAB PO SCH (08:35)
[2019-04-03] MEDS: FLUoxetine 20 MG CAP PO SCH (08:35)
--- NOTE | 2019-04-03 10:06 | MHIPNPDOC ---
[facility] Progress Note Progress Note Inpatient Progress Note Mariaelena Elmore MRN: N/A Date of : N/A Date of Service: 04/03/2019 History of Present Illness The patient is a 23-year-old woman who presents to [facility] with severe suicidal thoughts and thoughts of injuring her young who has recently born several weeks ago. She reports that since his , she has become extremely stressed, has had low mood, loss of energy, fatigue, concentration problems, excessive guilt and difficulty adjusting to the situation. She reports having a history of bipolar disorder with manic episodes as well as mixed episodes where she increases her energy level, decreases her need for sleep and has episodes of impulsivity with increased anger and irritability. She reports that she was taken off her medication when she was and now restarted on them. She was previously on Abilify. She reports that she is concerned about her thoughts towards her infant and had avoided the infant and brought herself in for assessment due to concerns. I discussed with the patient the concerns with her situation and that due the nature of this that the hospital will need to report this to CPS, she became fairly upset. Additionally, when she was asked to be seen on the unit, it was declined due to policy additionally as well as safety, she left the interview and slammed the doors with engaging of further behavioral problems. Interval History The patient is met with today. She reports that she still has some on-again off- again mood problems, at times numb and at other times depressed. She has had no major problems. Denies any suicidal or homicidal ideation towards her infant. She reports that she has had some minor improvement from the Prozac and the Abilify and describes that she is making some slow progress. She reports that at times, she will feel fairly depressed and at other times, she will feel numb. She is unclear as to if there are any stressors. No major events overnight. Review Of Systems General: Denies fever or weight changes Cardiovascular: Denies Chest pain or palpitations GI: Denies Nausea, vomiting, or bowel changes Respiratory: Denies shortness of breath or cough Neuro: Denies dizziness, tremors Derm: Denies any rashes or pruritus : Denies any dysuria or hesitancy MSK: Denies any muscle tightness or stiffness HEENT: Denies any vision changes or headaches Heme/Lymph: Denies any bruising or bleeding Endo: Denies any cold/heat intolerance or water intake changes Psychotherapy None on this visit. Vital Signs Reviewed. Mental Status Examination General: Well dressed with good hygiene Speech: Spontaneous and fluid Thought processes: Linear and logical MSK: Smooth and coordinated gait, no signs of tremors or involuntary orofacial movements Thought content: Severe hopelessness. Abstract reasoning, and computation: Intact Description of associations: Intact Description of abnormal or psychotic thoughts: Denies any suicidal or homicidal ideation. Denies auditory or visual hallucinations. Judgment: Improving Insight: Improving Orientation: Alert and orientated 3 Cognition: Grossly normal Recent and remote memory: Intact Attention span and concentration: Intact Fund of knowledge: Adequate Mood: "Fine" Affect: Highly dysthymic with a constricted range. Diagnoses Bipolar disorder type 1, most recent episode depressed. Borderline personality disorder. PTSD, chronic. Assessment and Plan Continue medications as below. Disposition The patient will need a longer inpatient admission in order to effectively treat her depression and mood variation and to ascertain her stability for possible discharge. Time Spent 20 minutes [id number]. Friday Vital Signs Vital Signs Date Time Temp Pulse Resp B/P (MAP) Pulse Ox O2 Delivery O2 Flow Rate FiO2 04/03/19 06:31 97.2 74 20 105/57 (73) 03/31/19 01:45 97 03/30/19 23:27 Room Air Laboratory Data 24H Labs Laboratory Tests 2 04/02/19 22:15: Urine Color YELLOW, Urine Appearance CLEAR, Urine pH 5.0, Urine Specific Penrose 1.015, Urine Protein NEGATIVE, Urine Glucose (UA) NEGATIVE, Urine Ketones NEGATIVE, Urine Blood NEGATIVE, Urine Nitrite NEGATIVE, Urine Bilirubin NEGATIVE, Urine Urobilinogen 0.2, Urine Leukocyte Esterase NEGATIVE, Urine WBC (Auto) 1, Urine RBC (Auto) 1, Urine Hyaline Casts (Auto) 0, Urine Bacteria (Auto) NEGATIVE, Urine Squamous Epithelial Cells 2, Urine Sperm (Auto) Current Medications Current Medications Medications (Trade) Dose Ordered Sig/Rafael Route PRN Reason Start Time Stop Time Status Last Admin Dose Admin Acetaminophen (Tylenol Tab) 650 mg Q6HP PRN PO HEADACHE or DISCOMFORT 03/30/19 23:15 04/01/19 15:06 Al Hydrox/Mg Hydrox/Simethicone (Mylanta) 30 ml Q4HP PRN PO HEARTBURN/INDIGESTION 03/30/19 23:15 Aripiprazole (AbiLIFY) 5 mg QHS PO 03/31/19 21:00 04/02/19 21:14 Cetirizine HCl (ZyrTEC) 5 mg BID PO 04/01/19 13:00 04/02/19 21:01 DC 04/02/19 21:15 Fluoxetine HCl (PROzac) 20 mg DAILY PO 04/02/19 09:00 04/03/19 08:35 Home Med (Med Rec Complete!) ASDIRECTED XX 03/30/19 23:45 03/30/19 23:45 DC Magnesium Hydroxide (Milk Of Magnesia) 30 ml DAILYPRN PRN PO CONSTIPATION 03/30/19 23:15 Metformin HCl (Glucophage) 500 mg QPM@1800 PO 03/31/19 18:00 04/02/19 17:17 Olanzapine (ZyPREXA ZYDIS) 5 mg Q6HP PRN PO ANXIETY/AGITATION 03/30/19 23:15 Trazodone HCl (Desyrel) 50 mg QHSP PRN PO INSOMNIA 03/30/19 23:15 04/02/19 21:14 Valacyclovir HCl (Valtrex) 1,000 mg DAILY PO 04/01/19 09:00 04/03/19 08:35 Allergies Coded Allergies: latex (Verified Allergy, Intermediate, Rash and itchiness, 03/31/19) DAVID MOURA DO Apr 03, 2019 10:06
[2019-04-03 15:49] VITALS: BP 137/75
[2019-04-03] MEDS: metFORMIN (GLUCOPHAGE) 500 MG TAB PO SCH (17:20)
[2019-04-03] MEDS: OLANZapine ORAL DISINTEGRATING TAB 5MG PO PRN (19:33)
[2019-04-03] MEDS: traZODone 50 MG TAB PO PRN (21:08)
[2019-04-04 06:35] VITALS: BP 91/53
[2019-04-04] MEDS: valACYclovir HCL 500 MG TAB PO SCH (08:33)
[2019-04-04] MEDS: OLANZapine ORAL DISINTEGRATING TAB 5MG PO PRN ×2 (08:33→23:08)
[2019-04-04] MEDS: FLUoxetine 10 MG CAP PO SCH (08:33)
--- NOTE | 2019-04-04 12:58 | MHIPNPDOC ---
[facility] Progress Note Progress Note Inpatient Progress Note Mariaelena Elmore MRN: N/A Date of : N/A Date of Service: 04/04/2019 History of Present Illness The patient is a 23-year-old woman who presents to [facility] with severe suicidal thoughts and thoughts of injuring her young who has recently born several weeks ago. She reports that since his , she has become extremely stressed, has had low mood, loss of energy, fatigue, concentration problems, excessive guilt and difficulty adjusting to the situation. She reports having a history of bipolar disorder with manic episodes as well as mixed episodes where she increases her energy level, decreases her need for sleep and has episodes of impulsivity with increased anger and irritability. She reports that she was taken off her medication when she was and now restarted on them. She was previously on Abilify. She reports that she is concerned about her thoughts towards her infant and had avoided the infant and brought herself in for assessment due to concerns. I discussed with the patient the concerns with her situation and that due the nature of this that the hospital will need to report this to CPS, she became fairly upset. Additionally, when she was asked to be seen on the unit, it was declined due to policy additionally as well as safety, she left the interview and slammed the doors with engaging of further behavioral problems. Interval History The patient is met with today. She reports doing well. Her mood, focus, concentration, energy, and motivation are much improved. She reports that she feels for discharge of the unit. She has been engaging in groups and becoming more social, no major problems overnight. Review Of Systems General: Denies fever or weight changes Cardiovascular: Denies Chest pain or palpitations GI: Denies Nausea, vomiting, or bowel changes Respiratory: Denies shortness of breath or cough Neuro: Denies dizziness, tremors Derm: Denies any rashes or pruritus : Denies any dysuria or hesitancy MSK: Denies any muscle tightness or stiffness HEENT: Denies any vision changes or headaches Heme/Lymph: Denies any bruising or bleeding Endo: Denies any cold/heat intolerance or water intake changes Psychotherapy None on this visit. Vital Signs Reviewed. Mental Status Examination General: Well dressed with good hygiene Speech: Spontaneous and fluid Thought processes: Linear and logical MSK: Smooth and coordinated gait, no signs of tremors or involuntary orofacial movements Thought content: Severe hopelessness. Abstract reasoning, and computation: Intact Description of associations: Intact Description of abnormal or psychotic thoughts: Denies any suicidal or homicidal ideation. Denies auditory or visual hallucinations. Judgment: Improving Insight: Improving Orientation: Alert and orientated 3 Cognition: Grossly normal Recent and remote memory: Intact Attention span and concentration: Intact Fund of knowledge: Adequate Mood: "Fine" Affect: Less dysthymic. Diagnoses Bipolar disorder type 1, most recent episode depressed. Borderline personality disorder. PTSD, chronic. Assessment and Plan Continue medications as below. Disposition The patient will need a longer inpatient admission in order to effectively treat her depression and mood variation and to ascertain her stability for possible discharge. Time Spent 20 minutes [id number]. Friday Vital Signs Vital Signs Date Time Temp Pulse Resp B/P (MAP) Pulse Ox O2 Delivery O2 Flow Rate FiO2 04/04/19 06:35 99.0 60 14 91/53 (66) 03/31/19 01:45 97 03/30/19 23:27 Room Air Current Medications Current Medications Medications (Trade) Dose Ordered Sig/Rafael Route PRN Reason Start Time Stop Time Status Last Admin Dose Admin Acetaminophen (Tylenol Tab) 650 mg Q6HP PRN PO HEADACHE or DISCOMFORT 03/30/19 23:15 04/01/19 15:06 Al Hydrox/Mg Hydrox/Simethicone (Mylanta) 30 ml Q4HP PRN PO HEARTBURN/INDIGESTION 03/30/19 23:15 Aripiprazole (AbiLIFY) 5 mg QHS PO 03/31/19 21:00 04/03/19 21:08 Cetirizine HCl (ZyrTEC) 5 mg BID PO 04/01/19 13:00 04/02/19 21:01 DC 04/02/19 21:15 Fluoxetine HCl (PROzac) 20 mg DAILY PO 04/02/19 09:00 04/03/19 13:26 DC 04/03/19 08:35 Fluoxetine HCl (PROzac) 30 mg DAILY PO 04/04/19 09:00 04/04/19 08:33 Home Med (Med Rec Complete!) ASDIRECTED XX 03/30/19 23:45 03/30/19 23:45 DC Magnesium Hydroxide (Milk Of Magnesia) 30 ml DAILYPRN PRN PO CONSTIPATION 03/30/19 23:15 Metformin HCl (Glucophage) 500 mg QPM@1800 PO 03/31/19 18:00 04/03/19 17:20 Olanzapine (ZyPREXA ZYDIS) 5 mg Q6HP PRN PO ANXIETY/AGITATION 03/30/19 23:15 04/04/19 08:33 Trazodone HCl (Desyrel) 50 mg QHSP PRN PO INSOMNIA 03/30/19 23:15 04/03/19 21:08 Valacyclovir HCl (Valtrex) 1,000 mg DAILY PO 04/01/19 09:00 04/04/19 08:33 Allergies Coded Allergies: latex (Verified Allergy, Intermediate, Rash and itchiness, 03/31/19) DAVID MOURA DO Apr 04, 2019 12:58
[2019-04-04 15:36] VITALS: BP 128/76
[2019-04-04] MEDS: metFORMIN (GLUCOPHAGE) 500 MG TAB PO SCH (17:36)
[2019-04-04] MEDS: traZODone 50 MG TAB PO PRN (21:00)
[2019-04-05 06:26] VITALS: BP 122/69
[2019-04-05] MEDS: valACYclovir HCL 500 MG TAB PO SCH (08:31)
[2019-04-05] MEDS: FLUoxetine 10 MG CAP PO SCH (08:32)
--- NOTE | 2019-04-05 09:07 | MHIPNPDOC ---
[facility] Progress Note Progress Note DATE OF SERVICE: 04/05/19 HISTORY: The patient is a 23-year-old woman who presents to [facility] with severe suicidal thoughts and thoughts of injuring her young infant giovanna carreon has recently born several weeks ago. She reports that since his , she has become extremely stressed, has had low mood, loss of energy, fatigue, concentration problems, excessive guilt and difficulty adjusting to the situation. She reports having a history of bipolar disorder with manic episodes as well as mixed episodes where she increases her energy level, decreases her de ed for sleep and has episodes of impulsivity with increased anger and irritability. She reports that she was taken off her medication when she was and now restarted on them. She was previously on Abilify. She reports that she is concerned about her thoughts towards her infant and had avoided the infant and brought herself in for assessment due to concerns. I discussed with the patient the concerns with her situation and that due the concerning thoughts hospital will need to report this to CPS, she became fairly upset. Additionally, when she was asked to be seen on the unit, it was declined due to policy additionally as well as safety, she left the interview and slammed the doors with engaging of further behavioral problems. VITAL SIGNS: See below. NEW TEST RESULTS: none CURRENT MEDICATIONS: See below. MENTAL STATUS EXAMINATION: General: Well dressed with good hygiene Speech: Spontaneous and fluid Thought processes: Linear and logical MSK: Smooth and coordinated gait, no signs of tremors or involuntary orofacial movements Thought content: depressed, denies SI and HI toward her son, denies intent/plan Abstract reasoning, and computation: Intact Description of associations: Intact Description of abnormal or psychotic thoughts: SI toward herself, no long toward her son, denies intent/plan. Denies any auditory or visual hallucinations. Does not appear to be responding to internal stimuli. Judgment: Poor. Insight: Poor. Orientation: Alert and orientated 3 Cognition: Grossly normal Recent and remote memory: Intact Attention span and concentration: Intact Fund of knowledge: Adequate Mood: "alright" Affect: congruent, euthymic DIAGNOSES: Bipolar disorder type 2, depressed. Borderline personality disorder. PTSD, chronic. ASSESSMENT:Pt seen and states she feels a "alright" today. States she say her son yesterday during visiting hours and that it was "great" as he's starting to "extension course coordinator" among other behavioral growth. Denies any thoughts to harm him during visiting hours and just enjoyed being with him. States she's tolerating her newly started prozac and is finding it beneficial, tolerating it well in combination with abilify. Denies SI today and HI toward her son. Continues to endorses depressed mood but states it is getting better today. States she slept really well last night. States she's attending groups and finding it beneficial. Denies SI/HI, hallucinations, delusions. Feels safe here. MANAGEMENT PLAN: continue plan Medications: Abilify 5 mg nightly prozac 20mg daily TIME SPENT: 30 minutes. Vital Signs Vital Signs Date Time Temp Pulse Resp B/P (MAP) Pulse Ox O2 Delivery O2 Flow Rate FiO2 04/05/19 06:26 97.6 81 12 122/69 (86) 03/31/19 01:45 97 03/30/19 23:27 Room Air Current Medications Current Medications Medications (Trade) Dose Ordered Sig/Rafael Route PRN Reason Start Time Stop Time Status Last Admin Dose Admin Acetaminophen (Tylenol Tab) 650 mg Q6HP PRN PO HEADACHE or DISCOMFORT 03/30/19 23:15 04/01/19 15:06 Al Hydrox/Mg Hydrox/Simethicone (Mylanta) 30 ml Q4HP PRN PO HEARTBURN/INDIGESTION 03/30/19 23:15 Aripiprazole (AbiLIFY) 5 mg QHS PO 03/31/19 21:00 04/04/19 21:00 Cetirizine HCl (ZyrTEC) 5 mg BID PO 04/01/19 13:00 04/02/19 21:01 DC 04/02/19 21:15 Fluoxetine HCl (PROzac) 20 mg DAILY PO 04/02/19 09:00 04/03/19 13:26 DC 04/03/19 08:35 Fluoxetine HCl (PROzac) 30 mg DAILY PO 04/04/19 09:00 04/05/19 08:32 Home Med (Med Rec Complete!) ASDIRECTED XX 03/30/19 23:45 03/30/19 23:45 DC Magnesium Hydroxide (Milk Of Magnesia) 30 ml DAILYPRN PRN PO CONSTIPATION 03/30/19 23:15 Metformin HCl (Glucophage) 500 mg QPM@1800 PO 03/31/19 18:00 04/04/19 17:36 Olanzapine (ZyPREXA ZYDIS) 5 mg Q6HP PRN PO ANXIETY/AGITATION 03/30/19 23:15 04/04/19 23:08 Trazodone HCl (Desyrel) 50 mg QHSP PRN PO INSOMNIA 03/30/19 23:15 04/04/19 21:00 Valacyclovir HCl (Valtrex) 1,000 mg DAILY PO 04/01/19 09:00 04/05/19 08:31 Allergies Coded Allergies: latex (Verified Allergy, Intermediate, Rash and itchiness, 03/31/19) ROHIT COBB DO Apr 05, 2019 9:07 am
[2019-04-05] MEDS: metFORMIN (GLUCOPHAGE) 500 MG TAB PO SCH (17:28)
[2019-04-05 18:01] VITALS: BP 145/88
[2019-04-05] MEDS: traZODone 50 MG TAB PO PRN (21:28)
[2019-04-05] MEDS: ACETAMINOPHEN TAB 650MG DOSE (2X325MG) PO PRN (22:42)
[2019-04-06 06:37] VITALS: BP 108/58
[2019-04-06] MEDS: ACETAMINOPHEN TAB 650MG DOSE (2X325MG) PO PRN (07:06)
[2019-04-06] MEDS: OLANZapine ORAL DISINTEGRATING TAB 5MG PO PRN (08:18)
[2019-04-06] MEDS: FLUoxetine 10 MG CAP PO SCH (08:18)
[2019-04-06] MEDS: valACYclovir HCL 500 MG TAB PO SCH (08:18)
[2019-04-06] MEDS ORDERED: ABIL1TAB11 PO ×2 (08:59→10:51)
[2019-04-06] MEDS ORDERED: FLUO10CA8 PO (08:59)
--- NOTE | 2019-04-06 08:59 | MHDSPDOC ---
[facility] Discharge Summary Discharge Summary DATE OF ADMISSION: Mar 30, 2019 at 11:04 pm DATE OF DISCHARGE: Apr 06, 2019 DISCHARGE DIAGNOSES: Bipolar disorder type 2, depressed. Borderline personality disorder. PTSD, chronic. REASON FOR ADMISSION: The patient is a 23-year-old woman who presents to [facility] with severe suicidal thoughts and thoughts of injuring her young infant who has recently born several weeks ago. She reports that since his , she has become extremely stressed, has had low mood, loss of energy, fatigue, concentration problems, excessive guilt and difficulty adjusting to the situation. She reports having a history of bipolar disorder with manic episodes as well as mixed episodes where she increases her energy level, decreases her need for sleep and has episodes of impulsivity with increased anger and irritabi lity. She reports that she was taken off her medication when she was and now restarted on them. She was previously on Abilify. She reports that she is concerned about her thoughts towards her infant and had avoided the and brought herself in for assessment due to concerns. I discussed with the patient the concerns with her situation and that due the concerning thoughts hospital will need to report this to CPS, she became fairly upset. Additionally, when she was asked to be seen on the unit, it was declined due to policy additionally as well as safety, she left the interview and slammed the doors with engaging of further behavioral problems. CONSULTANTS INVOLVED: none TREATMENT AND PROGRESS ON THE UNIT : Pt was admitted to [facility], seen for psychiatric assessment and restarted on abilify 5mg qhs for bipolar d/o. She was started on prozac increased to 30mg daily for mood. She was provided trazodone 50mg qhs prn insomnia. Pt found her medications beneficial and tolerated them well. She had a visit with her infant son during her admission that pt enjoyed and denied thoughts to harm her son but more care for and love him during her visit. Per staff her visit went very well. She attended groups daily during her stay. Her symptoms improved with treatment. On day of discharge she denied depression, anxiety, insomnia, SI/HI, hallucinations, delusions. She was discharged home after family meeting with her mother with follow-up at [facility]. She felt safe for discharge. DISCHARGE ASSESSMENT: Pt seen and states she feels a "good" today and is looking forward to going home and being with her son who she misses. She denies thoughts to harm her son or herself. States she's tolerating her newly started prozac and is finding it beneficial, tolerating it well in combination with abilify. Denies SI today and HI toward her son. States she slept really well last night. States she's attending groups and finding it beneficial. Denies depression, anxiety, insomnia, SI/HI, hallucinations, delusions. Feels safe to discharge home with her mother today. MENTAL STATUS EXAMINATION ON DISCHARGE: General: Well dressed with good hygiene Speech: Spontaneous and fluid Thought processes: Linear and logical MSK: Smooth and coordinated gait, no signs of tremors or involuntary orofacial movements Thought content: depressed, denies SI and HI toward her son, denies intent/plan Abstract reasoning, and computation: Intact Description of associations: Intact Description of abnormal or psychotic thoughts: SI toward herself, no long toward her son, denies intent/plan. Denies any auditory or visual hallucinations. Does not appear to be responding to internal stimuli. Judgment: good. Insight: good. Orientation: Alert and orientated 3 Cognition: Grossly normal Recent and remote memory: Intact Attention span and concentration: Intact Fund of knowledge: Adequate Mood: "good" Affect: congruent, euthymic MEDICATIONS ON DISCHARGE: Abilify 5 mg nightly prozac 30mg daily PLAN/FOLLOWUP ARRANGEMENTS: D/c home with follow-up at [facility]. The amount of time spent in the coordination of care for this patient was approximately 30 minutes. Vital Signs/I&Os Vital Signs Date Time Temp Pulse Resp B/P (MAP) Pulse Ox O2 Delivery O2 Flow Rate FiO2 04/06/19 06:37 97.7 55 12 108/58 (75) 03/31/19 01:45 97 Medications Scheduled Cetirizine HCl (Cetirizine HCl) 10 Mg Tablet, 10 MG PO DAILY, (Reported) Metformin HCl (Metformin HCl) 500 Mg Tablet, 500 MG PO QPM, (Reported) TAKES AT DINNERTIME Valacyclovir HCl (Valtrex) 500 Mg Tablet, 1,000 MG PO DAILY, (Reported) Scheduled PRN Ibuprofen (Ibuprofen) 800 Mg Tablet, 800 MG PO Q8H PRN for PAIN, (Reported) Allergies Coded Allergies: latex (Verified Allergy, Intermediate, Rash and itchiness, 03/31/19) ROHIT COBB DO Apr 06, 2019 8:59 am
[2019-04-06] MEDS ORDERED: PROZ10CA7 PO (10:51)
[2019-04-06] MEDS ORDERED: TRAZ-252 PO (10:51)
[2019-04-06] MEDS ORDERED: ZYPR5TAB2 PO (19:27)
== END 2019-04-06 12:15 | disposition home or self-care (01) | DRG 753 ==
LOC: M ED 18:07 → M ED INP 23:04 → M PSY 03-31 01:43
PROVIDERS: ADMIT Psychiatry & Neurology Psychiatry; ATTEND Psychiatry & Neurology Psychiatry
DX: F31.81 Bipolar II disorder (principal); F60.3 Borderline personality disorder; F43.12 Post-traumatic stress disorder, chronic; Z91.14 Patient's other noncompliance with medication regimen; Z79.899 Other long term (current) drug therapy; Z91.040 Latex allergy status; F53.0 Postpartum depression; E28.2 Polycystic ovarian syndrome; Z86.19 Personal history of other infectious and parasitic diseases

== ENCOUNTER 2019-05-24 19:42 | Inpatient (IN) | payer OTHER ==
[~2019-05-24] VITALS: Ht 162.6 cm; Wt 113.2 kg
[~2019-05-24 19:42] MED LIST changes: +ABIL1TAB11 PO; +CETI10TA8 PO; +FLUO10CA8 PO; +IBUP1TAB7 PO; +METF-839 PO; +METF500T13; +PROZ10CA7 PO; +VALA1TAB2; +VALT500T PO; +ZYPR5TAB2 PO
[2019-05-24] MEDS ORDERED: FLUO10CA8 PO (20:03)
[2019-05-24] MEDS ORDERED: RISP0.253 PO (20:03)
[2019-05-24] MEDS ORDERED: PROAAER10 INH (20:04)
[2019-05-24 21:00] LABS: HEMATOCRIT 42.1 % (36.0-47.0); MEAN CORPUSCULAR HEMOGLOBIN 26.6 pg (27.0-33.0); MEAN CORPUSCULAR HGB CONC 30.9 g/dl (32.0-36.5); MEAN CORPUSCULAR VOLUME 86.1 fl (80.0-96.0); PLATELET COUNT, AUTOMATED 409 10^3/uL (150-450); RED BLOOD COUNT 4.89 10^6/uL (4.00-5.40); WHITE BLOOD COUNT 10.5 10^3/uL (4.0-10.0)
[2019-05-24 21:11] LABS: AMPHETAMINES LEVEL URINE NEGATIVE (NEGATIVE); BARBITURATES URINE NEGATIVE (NEGATIVE); BENZODIAZEPINES URINE NEGATIVE (NEGATIVE); CANNABINOIDS URINE POSITIVE (NEGATIVE); COCAINE METABOLITE URINE NEGATIVE (NEGATIVE); METHADONE URINE NEGATIVE (NEGATIVE); OPIATES URINE NEGATIVE (NEGATIVE); PHENCYCLIDINE URINE NEGATIVE (NEGATIVE)
[2019-05-24 21:19] LABS: HCG, SERUM QUALITATIVE NEGATIVE (NEGATIVE)
[2019-05-24 21:20] LABS: ACETAMINOPHEN LEVEL < 2.0 UG/ML (10.0-30.0); ALT/SGPT 52 U/L (12-78); BILIRUBIN,DIRECT < 0.1 MG/DL (0.0-0.2); BILIRUBIN,TOTAL 0.4 MG/DL (0.2-1.0); BLOOD UREA NITROGEN 10 MG/DL (7-18); CALCIUM LEVEL 9.7 MG/DL (8.5-10.1); CARBON DIOXIDE LEVEL 23 MEQ/L (21-32); CHLORIDE LEVEL 107 MEQ/L (98-107); CREATININE FOR GFR 0.94 MG/DL (0.55-1.30); ETHYL ALCOHOL (ETHANOL) < 0.003 % (0.000-0.010); GLOMERULAR FILTRATION RATE > 60.0 (>60); GLUCOSE, FASTING 93 MG/DL (70-100); POTASSIUM SERUM 3.8 MEQ/L (3.5-5.1); SALICYLATE LEVEL < 1.7 MG/DL (5.0-30.0); SODIUM LEVEL 140 MEQ/L (136-145); TOTAL PROTEIN 7.7 GM/DL (6.4-8.2)
[2019-05-24] MEDS ORDERED: MAALOX 30 ML SUSP *UDC PO PRN (23:15)
[2019-05-24] MEDS ORDERED: ACETAMINOPHEN TAB 650MG DOSE (2X325MG) PO PRN (23:15)
[2019-05-24] MEDS ORDERED: MOM 30ML SUSPENSION UDC PO PRN (23:15)
[2019-05-25 01:00] VITALS: BP 129/75
[2019-05-25] MEDS: traZODone 50 MG TAB PO PRN ×2 (01:14→21:54)
[2019-05-25 06:41] VITALS: BP 120/75
[2019-05-25] MEDS: NICOTINE 21MG/24HR 1 EA TRANSDERMAL TD SCH (09:05)
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
[2019-05-25] MEDS ORDERED: FLUoxetine 20 MG CAP PO ONE (12:00)
[2019-05-25] MEDS: hydrOXYzine 50 MG TAB PO PRN ×2 (13:12→21:54)
[2019-05-25] MEDS: metFORMIN (GLUCOPHAGE) 500 MG TAB PO SCH (17:32)
[2019-05-25 18:06] VITALS: BP 132/69
[2019-05-25] MEDS: TRIAMCINOLONE ACET 0.1% OINTMENT 15 GM TOP SCH (21:00)
[2019-05-25] MEDS: diphenhydrAMINE CREAM 30GM TOP SCH (21:45)
[2019-05-26 06:28] VITALS: BP 133/82
--- NOTE | 2019-05-26 07:28 | HPE ---
DATE OF ADMISSION: 05/24/2019 CHIEF COMPLAINT: Depression. HISTORY OF PRESENT ILLNESS: This is a 23-year-old female, history of depression, bipolar disorder, posttraumatic stress disorder (PTSD), admitted to the inpatient mental health unit due to suicidal ideation. Patient has a past history of asthma, polycystic ovarian syndrome (PCOS) and cyst in the right ovary on chronic metformin and valacyclovir requesting resumption of the metformin and valacyclovir. She complains of bilateral erythematous rash on the skin in the upper extremities. No fever, chills. Neck rigidity that has been there for several years, worsened in the past month described as pruritic. PAST MEDICAL HISTORY: PCOS. Cyst in the right ovary. Depression and suicidal ideation. Bipolar disorder. Posttraumatic stress disorder. PAST SURGICAL HISTORY: None. SOCIAL HISTORY: Lives in [place]. Has a 2-month-old child. Unemployed. Has a GED. Never been . FAMILY HISTORY: Mother and father alive and well. No medical problems. Patient smokes cigarettes and social alcohol use. PHYSICAL EXAMINATION: Temperature 97.5, pulse 87, respiratory rate 18, blood pressure 170/82, 100% on room air. Generally, awake, alert, oriented times three. Answers questions appropriately. Lungs are clear to auscultation. No wheezing, rales or rhonchi. Heart: S1, S2, sinus rhythm. Abdomen: Obese, soft, nontender, nondistended. Extremities: No edema. Extremities has an erythematous generalized nontender rash on the bilateral upper extremities only. LABORATORY DATA: White count 10.5, hemoglobin 13, hematocrit 42, platelet count 409. Sodium 140, potassium 3.8, chloride 107, bicarbonate 23, BUN, creatinine 0.94, glucose 93. TSH 5.19. HOSPITAL MEDICATIONS: - Prozac - Valtrex - Abilify - Kenalog - Benadryl - metformin - Atarax - nicotine patch - Desyrel - Tylenol - Milk of Magnesia - Mylanta ASSESSMENT/PLAN: 23-year-old female with PCOS, asthma, right ovarian cyst, bipolar disorder, admitted to inpatient mental health unit ([facility]). Current Issues: 1. Rash: Topical triamcinolone, topical Benadryl cream. 2. PCOS: Resumed on home dose of metformin. 3. Depression, bipolar disorder: Managed by psychiatrist. 4. Deep venous thrombosis (DVT) prophylaxis: Encourage ambulation. MTDD
[2019-05-26] MEDS: NICOTINE 21MG/24HR 1 EA TRANSDERMAL TD SCH (08:12)
[2019-05-26] MEDS: TRIAMCINOLONE ACET 0.1% OINTMENT 15 GM TOP SCH ×2 (08:12→20:10)
[2019-05-26] MEDS: FLUoxetine 20 MG CAP PO SCH (08:13)
[2019-05-26] MEDS: valACYclovir HCL 500 MG TAB PO SCH (08:13)
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
[2019-05-26] MEDS: hydrOXYzine 50 MG TAB PO PRN ×2 (11:22→18:47)
[2019-05-26] MEDS: metFORMIN (GLUCOPHAGE) 500 MG TAB PO SCH (17:10)
[2019-05-26 19:06] VITALS: BP 142/86
[2019-05-26] MEDS: traZODone 50 MG TAB PO PRN (20:09)
[2019-05-26] MEDS: diphenhydrAMINE CREAM 30GM TOP SCH (20:10)
[2019-05-27 06:34] VITALS: BP 114/70
[2019-05-27] MEDS: TRIAMCINOLONE ACET 0.1% OINTMENT 15 GM TOP SCH ×2 (08:09→20:18)
[2019-05-27] MEDS: FLUoxetine 20 MG CAP PO SCH (08:10)
[2019-05-27] MEDS: valACYclovir HCL 500 MG TAB PO SCH (08:10)
[2019-05-27] MEDS: NICOTINE 21MG/24HR 1 EA TRANSDERMAL TD SCH (08:10)
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
[2019-05-27] MEDS ORDERED: ARIPiprazole MONOHYDRATE 400 MG INJ (ABILIFY)(J0401) IM ONE (14:00)
[2019-05-27] MEDS: hydrOXYzine 50 MG TAB PO PRN ×2 (14:01→20:21)
[2019-05-27] MEDS: metFORMIN (GLUCOPHAGE) 500 MG TAB PO SCH (17:23)
[2019-05-27 18:00] VITALS: BP 117/59
[2019-05-27] MEDS: traZODone 50 MG TAB PO PRN (20:21)
[2019-05-27] MEDS: diphenhydrAMINE CREAM 30GM TOP SCH (20:21)
[2019-05-28 06:17] VITALS: BP 120/59
[2019-05-28] MEDS: TRIAMCINOLONE ACET 0.1% OINTMENT 15 GM TOP SCH (09:00)
[2019-05-28] MEDS ORDERED: HYDR50TA70 PO (09:03)
[2019-05-28] MEDS ORDERED: TRAZ-252 PO (09:03)
[2019-05-28] MEDS ORDERED: ABIL1INJ2 IM (09:03)
[2019-05-28] MEDS ORDERED: FLUO20CA19 PO (09:03)
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
[2019-05-28] MEDS: FLUoxetine 20 MG CAP PO SCH (09:13)
[2019-05-28] MEDS: NICOTINE 21MG/24HR 1 EA TRANSDERMAL TD SCH (09:14)
[2019-05-28] MEDS: valACYclovir HCL 500 MG TAB PO SCH (09:14)
== END 2019-05-28 11:00 | disposition home or self-care (01) | DRG 753 ==
LOC: M ED 19:42 → M ED INP 23:08 → M PSY 05-25 00:15
PROVIDERS: ADMIT Psychiatry & Neurology Psychiatry; ATTEND Psychiatry & Neurology Psychiatry
DX: F31.9 Bipolar disorder, unspecified (principal); E28.2 Polycystic ovarian syndrome; F43.10 Post-traumatic stress disorder, unspecified; Z79.899 Other long term (current) drug therapy; R21 Rash and other nonspecific skin eruption

== ENCOUNTER 2019-09-23 16:25 | Inpatient (IN) | payer OTHER ==
[~2019-09-23] VITALS: Ht 160 cm; Wt 118.2 kg
[~2019-09-23 16:25] MED LIST changes: +ABIL1INJ2 IM; +FLUO10CA15 PO; -FLUO10CA8 PO; +FLUO20CA22 PO; +PROAAER10 INH; +RISP0.253 PO; -VALA1TAB2; +VALA1TAB5
[2019-09-23 17:28] LABS: HEMATOCRIT 39.1 % (36.0-47.0); MEAN CORPUSCULAR HEMOGLOBIN 26.3 pg (27.0-33.0); MEAN CORPUSCULAR HGB CONC 30.7 g/dl (32.0-36.5); MEAN CORPUSCULAR VOLUME 85.7 fl (80.0-96.0); PLATELET COUNT, AUTOMATED 289 10^3/uL (150-450); RED BLOOD COUNT 4.56 10^6/uL (4.00-5.40)
[2019-09-23 17:54] LABS: HCG, SERUM QUALITATIVE NEGATIVE (NEGATIVE)
[2019-09-23 18:03] LABS: ACETAMINOPHEN LEVEL < 2.0 UG/ML (10.0-30.0); ALBUMIN 3.5 GM/DL (3.2-5.2); ALT/SGPT 45 U/L (12-78); BILIRUBIN,DIRECT < 0.1 MG/DL (0.0-0.2); BILIRUBIN,TOTAL 0.2 MG/DL (0.2-1.0); BLOOD UREA NITROGEN 22 MG/DL (7-18); CALCIUM LEVEL 8.4 MG/DL (8.5-10.1); CARBON DIOXIDE LEVEL 26 MEQ/L (21-32); CHLORIDE LEVEL 111 MEQ/L (98-107); CREATININE FOR GFR 0.77 MG/DL (0.55-1.30); ETHYL ALCOHOL (ETHANOL) < 0.003 % (0.000-0.010); GLOMERULAR FILTRATION RATE > 60.0 (>60); GLUCOSE, FASTING 79 MG/DL (70-100); POTASSIUM SERUM 4.4 MEQ/L (3.5-5.1); SALICYLATE LEVEL < 1.7 MG/DL (5.0-30.0); SODIUM LEVEL 141 MEQ/L (136-145); TOTAL PROTEIN 6.9 GM/DL (6.4-8.2)
[2019-09-23 18:08] LABS: AMPHETAMINES LEVEL URINE NEGATIVE (NEGATIVE); BARBITURATES URINE NEGATIVE (NEGATIVE); BENZODIAZEPINES URINE NEGATIVE (NEGATIVE); CANNABINOIDS URINE NEGATIVE (NEGATIVE); COCAINE METABOLITE URINE NEGATIVE (NEGATIVE); METHADONE URINE NEGATIVE (NEGATIVE); OPIATES URINE NEGATIVE (NEGATIVE); PHENCYCLIDINE URINE NEGATIVE (NEGATIVE)
[2019-09-23] MEDS ORDERED: traZODone 50 MG TAB PO PRN (18:45)
[2019-09-23] MEDS ORDERED: MAALOX 30 ML SUSP *UDC PO PRN (18:45)
[2019-09-23] MEDS ORDERED: ACETAMINOPHEN TAB 650MG DOSE (2X325MG) PO PRN (18:45)
[2019-09-23] MEDS ORDERED: MOM 30ML SUSPENSION UDC PO PRN (18:45)
[2019-09-23] MEDS ORDERED: TRAZ-189 PO (19:10)
[2019-09-23] MEDS ORDERED: MELO7.5T35 PO (19:10)
[2019-09-23] MEDS ORDERED: OMEP-218 PO (19:10)
[2019-09-23] MEDS ORDERED: FLUO40CA PO (19:10)
[2019-09-23] MEDS ORDERED: VALT1TAB PO (19:10)
[2019-09-23] MEDS ORDERED: ABIL1INJ2 IM (19:10)
[2019-09-23] MEDS ORDERED: ALPR0.25 PO (19:10)
[2019-09-23] MEDS ORDERED: PRAZ2CAP PO (19:10)
[2019-09-23] MEDS ORDERED: CLONI1TA PO (19:10)
[2019-09-23] MEDS ORDERED: TOPI25TA10 PO (19:10)
[2019-09-23 20:07] VITALS: BP 141/71
[2019-09-23] MEDS: cloNIDine 0.1 MG TAB PO SCH (21:10)
[2019-09-23] MEDS: TOPIRAMATE (TopAMAX) 25 MG TAB PO SCH (21:10)
[2019-09-23] MEDS: traZODone 100 MG TAB PO SCH (21:11)
[2019-09-23] MEDS: PRAZOSIN 1 MG CAP PO SCH (21:11)
[2019-09-24 06:32] VITALS: BP 126/61
[2019-09-24] MEDS: valACYclovir HCL 500 MG TAB PO SCH (08:35)
[2019-09-24] MEDS: OMEPRAZOLE 20 MG CAP PO SCH (08:35)
[2019-09-24] MEDS: cloNIDine 0.1 MG TAB PO SCH ×2 (08:35→20:38)
[2019-09-24] MEDS: MELOXICAM (MOBIC) 7.5 MG TAB PO SCH (08:35)
[2019-09-24] MEDS: FLUoxetine 20 MG CAP PO SCH (08:35)
[2019-09-24] MEDS: NICOTINE 21MG/24HR 1 EA TRANSDERMAL TD SCH (08:36)
--- NOTE | 2019-09-24 10:31 | HPEPDOC ---
General Date of Admission Sep 23, 2019 at 18:35 Date of Service: Sep 24, 2019 Chief Complaint The patient is a 23-year-old female admitted with a reason for visit of Unspecified Depressive Disorder. Source: Patient Exam Limitations: No limitations Associated Symptoms: Denies Symptoms History of Present Illness Patient is a 23-year-old female who was admitted to the behavioral health unit with a diagnosis of worsening depression, with suicide attempt. Patient reports a history of depression, she has not missed her medications. However, yesterday she signed the adoption papers for her son; her parents will be taking full cus tody. Patient has superficial cuts to her left arm. She contacted her counselor who then directed her to the hospital. Patient has a past medical history which includes PCOS, GERD, fibromyalgia, herp es, and shingles. She has denied any new or worsening medical concerns. Home Medications Scheduled Aripiprazole (Abilify Maintena) 400 Mg Suser.syr, 400 MG IM QMONTH, (Reported) APPT. SCHEDULED FOR September Clonidine Hcl (Clonidine HCl) 0.1 Mg Tablet, 0.1 MG PO BID, (Reported) Fluoxetine Hcl (Fluoxetine HCl) 40 Mg Capsule, 40 MG PO DAILY, (Reported) Meloxicam (Meloxicam) 7.5 Mg Tablet, 7.5 MG PO DAILY, (Reported) Metformin HCl (Metformin HCl) 500 Mg Tablet, 500 MG PO QPM, (Reported) TAKES AT DINNERTIME Omeprazole (Omeprazole) 20 Mg Capsule.dr, 20 MG PO DAILY, (Reported) Prazosin Hcl (Prazosin HCl) 2 Mg Capsule, 2 MG PO QHS, (Reported) Topiramate (Topiramate) 25 Mg Tablet, 25 MG PO QHS, (Reported) Trazodone HCl (Trazodone HCl) 100 Mg Tablet, 100 MG PO QHS, (Reported) Valacyclovir HCl (Valtrex) 1,000 Mg Tablet, 1 GM PO DAILY, (Reported) Scheduled PRN Alprazolam (Alprazolam) 0.25 Mg Tablet, 0.25 MG PO DAILY PRN for ANXIETY, (Reported) Allergies Coded Allergies: latex (Verified Allergy, Intermediate, Rash and itchiness, 03/31/19) Past Medical History Medical History PCOS, GERD, fibromyalgia, herpes, and shingles. Surgical History Family History Significant Family History: No pertinent family hx Social History * Smoker: current smoker, other (started developing 3 or 4 months ago; former cigarette smoker) Alcohol: occationally Drugs: denies, other (previously used marijuana) A-FIB/CHADSVASC A-FIB History Current/History of A-Fib/PAF?: No Current PO Anticoag Therapy: No Review of Systems Constitutional: Denies: Chills, Fever, Night Sweats Eyes: Denies: Pain ENT: Denies: Head Aches Skin: Denies: Rash Pulmonary: Denies: Dyspnea, Cough Cardiovascular: Denies: Chest Pain, Palpitations, Edema Gastrointestinal: Denies: Nausea, Vomiting, Abdominal Pain, Diarrhea, Constipation Genitourinary: Denies: Dysuria Hematologic: Denies: Bruising Musculoskeletal: Denies: Neck Pain, Back Pain, Joint Pain, Muscle Pain, Spasms Neurological: Denies: Weakness, Numbness Psych: Reports: Depression, Thoughts of Self Harm; Denies: Mood Normal, Thoughts of Harming Other Physical Examination General Exam: Positive: Alert, No Acute Distress Eye Exam: Positive: PERRLA, Conjunctiva & lids normal, EOMI; Negative: Sclera icteric ENT Exam: Positive: Atraumatic, Mucous membr. moist/pink, Pharynx Normal Neck Exam: Positive: Supple; Negative: thyromegaly Chest Exam: Positive: Clear to auscultation, Normal air movement Heart Exam: Positive: Rate Normal, Regular Rhythm, Normal S1, Normal S2; Negative: Murmurs, Rubs Telemetry: Positive: No significant arrhythmia Abdomen Exam: Positive: Normal bowel sounds, Soft; Negative: Tenderness Extremity Exam: Positive: Normal pulses; Negative: Clubbing, Cyanosis, Edema Skin Exam: Positive: Nl turgor and temperature Neuro Exam: Positive: Normal Gait, Normal Speech, Cranial Nerves 3-12 NL Psych Exam: Negative: Mood NL (depressed) Vital Signs Vital Signs Date Time Temp Pulse Resp B/P (MAP) Pulse Ox O2 Delivery O2 Flow Rate FiO2 09/24/19 08:35 128/61 09/24/19 06:32 99.2 61 16 09/23/19 20:07 100 Room Air Laboratory Data Labs 24H Laboratory Tests 2 09/23/19 17:12: Nucleated Red Blood Cells % (auto) 0.0, Anion Gap 4L, Glomerular Filtration Rate > 60.0, Calcium Level 8.4L, Total Bilirubin 0.2, Direct Bilirubin < 0.1, Aspartate Amino Transf (AST/SGOT) 18, Alanine Aminotransferase (ALT/SGPT) 45, Alkaline Phosphatase 82, Total Protein 6.9, Albumin 3.5, Albumin/Globulin Ratio 1.03, Thyroid Stimulating Hormone (TSH) 3.020, Human Chorionic Gonadotropin, Qual NEGATIVE, Salicylates Level < 1.7L, Urine Opiates Screen NEGATIVE, Urine Methadone Screen NEGATIVE, Acetaminophen Level < 2.0L, Urine Barbiturates Screen NEGATIVE, Urine Phencyclidine Screen NEGATIVE, Urine Amphetamines Screen NEGATIVE, Urine Benzodiazepines Screen NEGATIVE, Urine Cocaine Metabolite Screen NEGATIVE, Urine Cannabinoids Screen NEGATIVE, Ethyl Alcohol Level < 0.003 CBC/BMP Laboratory Tests 09/23/19 17:12 Assessment/Plan Patient is a 23-year-old female who was admitted to the behavioral health unit with a diagnosis of worsening depression, with suicide attempt. Patient reports a history of depression, she has not missed her medications. However, yesterday she signed the adoption papers for her son; her parents will be taking full custody. Patient has superficial cuts to her left arm. She contacted her counselor who then directed her to the hospital. Patient has a past medical history which includes PCOS, GERD, fibromyalgia, herpes, and shingles. She has denied any new or worsening medical concerns. Depression with suicidal thoughts. Management per psychiatry PCOS Continue metformin Herpes simplex/shingles prophylaxis. Continue valacyclovir GERD. Continue omeprazole Fibromyalgia. Continue meloxicam Medicine will sign off at this time. Please feel free to re-consult as needed. Plan / VTE VTE Prophylaxis Ordered?: No PEYTON VANCE PA-C Sep 24, 2019 10:31
--- NOTE | 2019-09-24 10:38 | MHHPEPDOC ---
[facility] History & Physical History and Physical DATE OF ADMISSION: Sep 23, 2019 at 18:35 New Patient Mariaelena Elmore MRN: N/A Date of : N/A Date of Service: 09/24/2019 Chief Complaint "I don't like people." History of Present Illness The patient a 23-year-old woman with likely borderline personality disorder presents after reportedly having some stressors in the form of her child being taken by her mother and custody being surrendered. The patient currently lives [facility]. She reported some difficulties with low mood and hopelessness and reported suicidal ideation for several days presenting for unclear reasons. For admission, she was admitted at abundance of caution. When I met with the patient, she reported that she was not suicidal and that her adjustment had improved. The patient has a reported history of bipolar with p otential manic episodes, however, they have never been observed at this time. Her psychosocial information is updated as appropriate. She reports no changes in her other psychiatric symptoms. Review Of Systems Depression: As above. Anxiety: No changes. Jena: No changes. Psychotic: No changes. Trauma: No changes. Borderline: No changes. Past Psychiatric History The patient was last admitted in June, is on several different medication. She is at [facility] for therapy and medications. She reports suicide attempts in the past, but reportedly vague. Allergies Please see below. Family Psychiatric History Reportedly has family members substance abuse problems, but no metal health or suicide in the family. Social History The patient lives in the local area, is unmarried and has her first child who is several months-old who is in custody of her mother. She lives at [facility] at this time. She has no history of legal problems, completed her GED. She has been convicted of young theft, but no violent crime. Substance Abuse History The patient denies any excessive alcohol use, tobacco or illicit drug use, denies history of substance use treatment. Medical History Patient has no significant past medical history. Mental Status Examination General: Well dressed with good hygiene Speech: Spontaneous and fluid Thought processes: Linear and logical MSK: Smooth and coordinated gait, no signs of tremors or involuntary orofacial movements Thought content: Future orientated Abstract reasoning, and computation: Intact Description of associations: Intact Description of abnormal or psychotic thoughts: Denies any suicidal or homicidal ideation. Denies any auditory or visual hallucinations. Does not appear to be responding to internal stimuli. Does not appear to be endorsing any bizarre or paranoid ideation. Judgment: Chronically limited Insight: Chronically limited Orientation: Alert and orientated 3 Cognition: Grossly normal Recent and remote memory: Intact Attention span and concentration: Intact Fund of knowledge: Adequate Mood: "okay" Affect: Euthymic with a full range Diagnoses Unspecified depressive disorder. Like adjustment versus fabrication. Borderline personality disorder. Unspecified bipolar disorder-unclear if manufactured as well. Assessment and Plan Unspecified depressive disorder: Resume patient's home medications. Borderline personality disorder: Monitor for disruptive behavior convert to voluntary status. Disposition Patient will be observed over the weekend as [facility] will not be able to bring her back at this time due to the coronavirus epidemic. She will be scheduled for discharge on Friday. Problem List 1. Risk of suicide. 2. Ineffective coping. Initial Treatment Plan 1. Patient was admitted on a 9.39 legal status. 2. Complete history was obtained. 3. With patients permission, family will be contacted and database will be expanded. 4. Patients medication regimen will be reviewed and changed accordingly. 5. Patient will be provided with protected environment. 6. Patient will be treated with individual, group, and milieu therapies. 7. Patient will receive supportive psych-education. 8. Discharge planning will commence immediately. 9. Outpatient follow-up treatment will be strongly recommended. 10. The initial treatment plan will focus initially on: Estimated Length Of Stay 3 days. Time Spent 70 minutes with greater than 50% of time on counselling section and coordination of care. Friday Vital Signs Vital Signs Date Time Temp Pulse Resp B/P (MAP) Pulse Ox O2 Delivery O2 Flow Rate FiO2 09/24/19 08:35 128/61 09/24/19 06:32 99.2 61 16 09/23/19 20:07 100 Room Air Laboratory Data 24H Labs Laboratory Tests 2 09/23/19 17:12: Nucleated Red Blood Cells % (auto) 0.0, Anion Gap 4L, Glomerular Filtration Rate > 60.0, Calcium Level 8.4L, Total Bilirubin 0.2, Direct Bilirubin < 0.1, Aspartate Amino Transf (AST/SGOT) 18, Alanine Aminotransferase (ALT/SGPT) 45, Alkaline Phosphatase 82, Total Protein 6.9, Albumin 3.5, Albumin/Globulin Ratio 1.03, Thyroid Stimulating Hormone (TSH) 3.020, Human Chorionic Gonadotropin, Qual NEGATIVE, Salicylates Level < 1.7L, Urine Opiates Screen NEGATIVE, Urine Methadone Screen NEGATIVE, Acetaminophen Level < 2.0L, Urine Barbiturates Screen NEGATIVE, Urine Phencyclidine Screen NEGATIVE, Urine Amphetamines Screen NE GATIVE, Urine Benzodiazepines Screen NEGATIVE, Urine Cocaine Metabolite Screen NEGATIVE, Urine Cannabinoids Screen NEGATIVE, Ethyl Alcohol Level < 0.003 CBC/BMP Laboratory Tests 09/23/19 17:12 Medications Scheduled Aripiprazole (Abilify Maintena) 400 Mg Suser.syr, 400 MG IM QMONTH, (Reported) APPT. SCHEDULED FOR September Clonidine Hcl (Clonidine HCl) 0.1 Mg Tablet, 0.1 MG PO BID, (Reported) Fluoxetine Hcl (Fluoxetine HCl) 40 Mg Capsule, 40 MG PO DAILY, (Reported) Meloxicam (Meloxicam) 7.5 Mg Tablet, 7.5 MG PO DAILY, (Reported) Metformin HCl (Metformin HCl) 500 Mg Tablet, 500 MG PO QPM, (Reported) TAKES AT DINNERTIME Omeprazole (Omeprazole) 20 Mg Capsule.dr, 20 MG PO DAILY, (Reported) Prazosin Hcl (Prazosin HCl) 2 Mg Capsule, 2 MG PO QHS, (Reported) Topiramate (Topiramate) 25 Mg Tablet, 25 MG PO QHS, (Reported) Trazodone HCl (Trazodone HCl) 100 Mg Tablet, 100 MG PO QHS, (Reported) Valacyclovir HCl (Valtrex) 1,000 Mg Tablet, 1 GM PO DAILY, (Reported) Scheduled PRN Alprazolam (Alprazolam) 0.25 Mg Tablet, 0.25 MG PO DAILY PRN for ANXIETY, (Reported) Allergies Coded Allergies: latex (Verified Allergy, Intermediate, Rash and itchiness, 03/31/19) ADVID MOURA DO Sep 24, 2019 10:38
[2019-09-24 16:25] VITALS: BP 123/58
[2019-09-24] MEDS ORDERED: metFORMIN (GLUCOPHAGE) 500 MG TAB PO SCH (18:00)
[2019-09-24] MEDS: PRAZOSIN 1 MG CAP PO SCH (20:38)
[2019-09-24] MEDS: traZODone 100 MG TAB PO SCH (20:38)
[2019-09-24] MEDS: TOPIRAMATE (TopAMAX) 25 MG TAB PO SCH (20:38)
[2019-09-25 06:15] VITALS: BP 141/77
[2019-09-25] MEDS: valACYclovir HCL 500 MG TAB PO SCH (08:14)
[2019-09-25] MEDS: OMEPRAZOLE 20 MG CAP PO SCH (08:14)
[2019-09-25] MEDS: FLUoxetine 20 MG CAP PO SCH (08:14)
[2019-09-25 08:15] VITALS: BP 130/68
[2019-09-25] MEDS: NICOTINE 21MG/24HR 1 EA TRANSDERMAL TD SCH (08:15)
[2019-09-25] MEDS: cloNIDine 0.1 MG TAB PO SCH (08:15)
[2019-09-25] MEDS: MELOXICAM (MOBIC) 7.5 MG TAB PO SCH (08:16)
--- NOTE | 2019-09-25 12:29 | MHDSPDOC ---
[facility] Discharge Summary Discharge Summary DATE OF ADMISSION: Sep 23, 2019 at 18:35 DATE OF DISCHARGE: 09/25/19 Mariaelena Elmore Discharge Mariaelena Elmore Select Gender MRN: N/A Date of : MM/DD/YYYY Date of Service: 09/25/2019 Diagnoses Unspecified depressive disorder. Like adjustment versus fabrication. Borderline personality disorder. Unspecified bipolar disorder-unclear if manufactured as well. History of Present Illness The patient is a 23-year-old woman with likely borderline personality disorder presents after reportedly having some stressors in the form of her child being taken by her mother and custody being surrendered. The patient currently lives at [facility]. She reported some difficulties with low mood and hopelessness and reported suicidal ideation for several days presenting for unclear reasons. For admission, she was admitted at abundance of caution. When I met with the patient, she reported that she was not suicidal and that her adjustment had improved. The patient has a reported history of bipolar with potential manic episodes, however, they have never been observed at this time. Her psychosocial information is updated as appropriate. She reports no changes in her other psychiatric symptoms. Consultants Involved Hospitalist/PCP screening Treatment and Progress On The Unit Patient was admitted to the inpatient unit where her suicidality resolved quite quickly, she denied any suicidality once she had reached the unit. Reports situational anxiety and depression. The patient was observed for 48 hours and subsequently once discharge plans could be made, she was arranged for discharge. No behavioral problems, attended groups when available on the unit. Discharge Assessment 23-year-old woman with a history of borderline personality disorder admitted after some situational stressors, improves with supportive treatment only. The patient at the time of discharge did not meet criteria for involuntary admission/extension due to having a normal mental status exam, fair insight into the situation, They are engaged in the discharge process, as well as being friendly and amenable in behavioral control and havent been engaging in any observed concerning behavior or ideation recently. They decline voluntary extension/admission at this time and must be discharged in good bakari, as Im unable to make a case for holding the patient against their will. They may have historical risk factors of admissions and other interactions with psychiatry however, those are not modifiable from a clinical perspective. The patient will need to be discharged in good bakari. Mental Status Examination General: Well dressed with good hygiene Speech: Spontaneous and fluid Thought processes: Linear and logical MSK: Smooth and coordinated gait, no signs of tremors or involuntary orofacial movements Thought content: Future orientated Abstract reasoning, and computation: Intact Description of associations: Intact Description of abnormal or psychotic thoughts: Denies any suicidal or homicidal ideation. Denies any auditory or visual hallucinations. Does not appear to be responding to internal stimuli. Does not appear to be endorsing any bizarre or paranoid ideation. Judgment: Chronically limited. Insight: Chronically limited. Orientation: Alert and orientated 3 Cognition: Grossly normal Recent and remote memory: Intact Attention span and concentration: Intact Fund of knowledge: Adequate Mood: "okay" Affect: Euthymic with a full range Follow Up The social work team worked during the predischarge meeting in order to evaluate for further issues of lethality address them fully before discharge. They worked on safety planning with the patient's family members in order to ensure that the patient will have a safe and effective discharge. Time Spent The amount of time spent in the coordination of care for this patient was approximately 45 minutes. Vital Signs/I&Os Vital Signs Date Time Temp Pulse Resp B/P (MAP) Pulse Ox O2 Delivery O2 Flow Rate FiO2 09/25/19 08:15 130/68 09/25/19 06:15 98.8 63 16 09/23/19 20:07 100 Room Air Medications Scheduled Aripiprazole (Abilify Maintena) 400 Mg Suser.syr, 400 MG IM QMONTH, (Reported) APPT. SCHEDULED FOR September Clonidine Hcl (Clonidine HCl) 0.1 Mg Tablet, 0.1 MG PO BID, (Reported) Fluoxetine Hcl (Fluoxetine HCl) 40 Mg Capsule, 40 MG PO DAILY, (Reported) Meloxicam (Meloxicam) 7.5 Mg Tablet, 7.5 MG PO DAILY, (Reported) Metformin HCl (Metformin HCl) 500 Mg Tablet, 500 MG PO QPM, (Reported) TAKES AT DINNERTIME Nicotine (Nicotine Patch) 21 Mg Patch.td24, 1 PATCH TD DAILY for tobacco for 30 Days, #30 Omeprazole (Omeprazole) 20 Mg Capsule.dr, 20 MG PO DAILY, (Reported) Prazosin Hcl (Prazosin HCl) 2 Mg Capsule, 2 MG PO QHS, (Reported) Topiramate (Topiramate) 25 Mg Tablet, 25 MG PO QHS, (Reported) Trazodone HCl (Trazodone HCl) 100 Mg Tablet, 100 MG PO QHS, (Reported) Valacyclovir HCl (Valtrex) 1,000 Mg Tablet, 1 GM PO DAILY, (Reported) Scheduled PRN Alprazolam (Alprazolam) 0.25 Mg Tablet, 0.25 MG PO DAILY PRN for ANXIETY, (Reported) Allergies Coded Allergies: latex (Verified Allergy, Intermediate, Rash and itchiness, 03/31/19) DAVID MOURA DO Sep 25, 2019 12:29
[2019-09-25] MEDS ORDERED: NICO21PAT TD (13:12)
== END 2019-09-25 15:30 | disposition home or self-care (01) | DRG 754 ==
LOC: M ED 16:25 → M ED INP 18:35 → M PSY 19:42
PROVIDERS: ADMIT Psychiatry & Neurology Psychiatry; ATTEND Psychiatry & Neurology Addiction Medicine
DX: F32.9 Major depressive disorder, single episode, unspecified (principal); Z63.5 Disruption of family by separation and divorce; E28.2 Polycystic ovarian syndrome; K21.9 Gastro-esophageal reflux disease without esophagitis; M79.7 Fibromyalgia; B00.9 Herpesviral infection, unspecified; Z86.19 Personal history of other infectious and parasitic diseases; Z91.040 Latex allergy status; Z79.899 Other long term (current) drug therapy; F17.200 Nicotine dependence, unspecified, uncomplicated; F60.3 Borderline personality disorder; Z81.4 Family history of other substance abuse and dependence; F43.20 Adjustment disorder, unspecified; Z76.5 Malingerer [conscious simulation]

== ENCOUNTER 2019-10-15 14:00 | Emergency (ER) | payer OTHER ==
[~2019-10-15] VITALS: Ht 162.6 cm; Wt 119.0 kg
[~2019-10-15 14:00] MED LIST changes: +ALPR0.25 PO; +CLONI1TA PO; +FLUO40CA PO; +MELO7.5T35 PO; +NICO21PAT TD; +OMEP-218 PO; +PRAZ2CAP PO; +TOPI25TA10 PO; +TRAZ-189 PO; +VALT1TAB PO
[2019-10-15] MEDS ORDERED: METF500T13 PO (14:25)
[2019-10-15] MEDS ORDERED: GABA-843 PO (14:25)
[2019-10-15] MEDS ORDERED: PRED10TA2 (14:25)
[2019-10-15] MEDS ORDERED: HYDR-3363 PO (14:25)
[2019-10-15] MEDS ORDERED: BACL10TA8 PO (14:25)
[2019-10-15 14:59] LABS: BASO % 0.1 % (0.0-1.0); EOS % 0.1 % (0.0-3.0); HEMATOCRIT 39.2 % (36.0-47.0); HEMOGLOBIN 12.8 g/dl (12.0-15.5); LYMPH # 0.9 10^3/uL (1.5-5.0); LYMPH % 11.6 % (24.0-44.0); MEAN CORPUSCULAR HEMOGLOBIN 26.9 pg (27.0-33.0); MEAN CORPUSCULAR HGB CONC 32.7 g/dl (32.0-36.5); MEAN CORPUSCULAR VOLUME 82.5 fl (80.0-96.0); MONO # 0.2 10^3/uL (0.0-0.8); MONO % 1.8 % (0.0-5.0); PLATELET COUNT, AUTOMATED 332 10^3/uL (150-450); RED BLOOD COUNT 4.75 10^6/uL (4.00-5.40); WHITE BLOOD COUNT 8.1 10^3/uL (4.0-10.0)
[2019-10-15 15:32] LABS: ERYTHROCYTE SEDIMENTATION RATE 12 mm/hr (0-20)
--- NOTE | 2019-10-15 15:55 | REP ---
CT STUDY OF THE CERVICAL SPINE WITHOUT CONTRAST: HISTORY: Arm tingling. No comparison cervical spine imaging. TECHNIQUE: Helical scanning is acquired and overlapping 2 mm high resolution axial images were generated and reviewed at bone and soft tissue window settings. Coronal and sagittal multiplanar re-formations images are generated. CT FINDINGS: There is no evidence of cervical spine element fracture. No skull base fracture is seen. Cervical vertebral body heights are preserved. Alignment is normal. Facet joints are normally aligned bilaterally at each cervical level on multiplanar re-formations images. No evidence of cervical disc protrusion or paraspinal lesion. No extra vertebral abnormality is seen. IMPRESSION: Negative CT study of the cervical spine without contrast. No fracture or other acute abnormality seen. Electronically Signed by Weston Deshpande MD 10/15/2019 04:27 P
[2019-10-15 15:56] VITALS: BP 114/56
--- NOTE | 2019-10-15 15:59 | REP ---
CT LUMBAR SPINE WITHOUT CONTRAST: HISTORY: Worsening back pain. Comparison is made with plain radiographs from August 15, [address] images from January 01, 2018. FINDINGS: Lumbar vertebral body heights are preserved alignment is normal. There is no evidence of spondylolysis or spondylolisthesis. Axial and sagittal images taken at L5-S1 demonstrate a broad-based central focal disc protrusion with associated discogenic spurring. The disc protrusion measures 6 mm in greatest anteroposterior dimension and contacts the ventral margin of the thecal sac. It is unchanged from the January 01, [address] study[address] There is no evidence of neural foraminal narrowing. There is no bony destructive lesion. At L4-5 there is no evidence of disc protrusion, central canal stenosis, or foraminal stenosis. The L3-4 disc level demonstrates minimal diffuse disc bulging. L2-3 and L1-2 disc level are unremarkable. IMPRESSION: Chronic central broad-based focal disc protrusion at L5-S1 with associated spurring unchanged from January 01, 2018. Minimal disc bulging L3-4. Otherwise negative CT study of the lumbar spine. Electronically Signed by Weston Deshpande MD 10/15/2019 04:28 P
== END 2019-10-15 15:58 | disposition home or self-care (01) ==
LOC: M ED 14:00
DX: M54.16 Radiculopathy, lumbar region (principal); M51.27 Other intervertebral disc displacement, lumbosacral region; G89.29 Other chronic pain; E11.9 Type 2 diabetes mellitus without complications; K21.9 Gastro-esophageal reflux disease without esophagitis; G43.909 Migraine, unspecified, not intractable, without status migrainosus; E28.2 Polycystic ovarian syndrome; M79.7 Fibromyalgia; F31.9 Bipolar disorder, unspecified; F43.10 Post-traumatic stress disorder, unspecified; F25.9 Schizoaffective disorder, unspecified; F17.210 Nicotine dependence, cigarettes, uncomplicated; Z91.040 Latex allergy status; Z79.899 Other long term (current) drug therapy; Z79.84 Long term (current) use of oral hypoglycemic drugs

== ENCOUNTER 2020-07-17 17:54 | Emergency (ER) | payer OTHER ==
[~2020-07-17] VITALS: Ht 162.6 cm; Wt 125.4 kg
[~2020-07-17 17:54] MED LIST changes: +BACL10TA8 PO; -FLUO10CA15 PO; +FLUO10CA16 PO; +GABA-282 PO; +HYDR-3363 PO; +METF500T13 PO; +PRED10TA2
--- OUTSIDE RECORDS SUMMARY | 2020-07-17 18:01 | CCD | Continuity of Care Document ---
Author Author Mariaelena DONALDSON PA Organization Unknown Address [address] [facility] [place] [address] Phone [phone] Care Team Providers Care Secondary Special Education Teacher Name Role Phone Kate Chauhan PA-C AUTM Elba Frazier MD AUTM Unavailable Problems Description No Information Available Social History Type Date Description Comments Sex Unknown ETOH Use Rarely consumes alcohol Tobacco Use Start: Unknown Patient is a current smoker, smo kes every day Allergies, Adverse Reactions, Alerts Description No Known Drug Allergies Medications Active Medications SIG Qnty Indications Ordering Provide r Date Tizanidine HCL 4mg Tablets 1 by mouth three times a day 30tabs Lanre Miramontes MD 05/18/2020 Gabapentin 300mg Capsules 1 tab po qhs for one week, then one tab po bid for one week then one tab po tid 90caps Lanre Miramontes MD 05/18/2020 Freestyle Lite Test Strips T est qid Unknown Freestyle Lancets Misc Test qid Unknown Aripiprazole 5mg Tablets T yazmin 1 T PO qd Unknown Albuterol Sulfate (2 .5mg/3ML) 0.083% Nebulizer Inhale [address] Nebulizer Q 4 To 6 H prn For Acute Asthma Symp toms Unknown Hydroxyzine HCL 50mg Tablets TK 1 T PO Q 6 H Pra And Agitation. Unknown Prazosin HCL 1mg Capsules TK One C PO hs PRF Nightmares. Unknown Polyethylene Glycol 3350 17gm Pack et Take 1 Packet Dissolved In Water qd Unknown 0 Bupropion HCL 75mg Tablets Unknown Abilify Maintena 400mg Prsy Unknown Metformin HCL ER 500mg Tablets ER 24HR TK 2 TS PO bid Unknown Valacyclovir HCL 1gm Tablets TK 1 T PO qd For Suppression Of Recurrent Herpes Unknown Oxcarbazepine 150mg Tablets Unknown Omeprazole 20mg Capsules Kate Chavarria PA-C Meloxicam 7.5mg Tablets Kate Chauhan PA-C Clonidine HCL 0.1mg Tablets Unknown Trazodone HCL 100mg Tablets Unknown Baclofen 10mg Tablets Kate Chauhan PA-C History Medications Gabapentin 300mg Capsules 1 tab po qhs for one week, then one tab po bid for one week then one tab po tid 90caps Lanre Miramontes MD 05/18/2020 - 05/18/2020 Immunizations Description No Information Available Vital Signs Date Vital Result Comment 01/12/2020 11:03am Body Temperature 96.0 F Height 65 inches 5'5" Weight 278.00 lb BMI (Body Mass Index) 46.3 kg/m2 Results Description No Information Available Procedures Date Code Description Status 01/12/2020 75337 Nerve Conduction 7-8 Studies Com pleted 01/12/2020 31131 Needle Electromyography,Complete Five Or More Muscles Studied Completed 12/23/2019 07730 Manual Therapy Each 15 Minutes C ompleted 12/23/2019 86215 Therapeutic Procedure, Each 15 M inutes Completed 12/20/2019 53417 Manual Therapy Each 15 Minutes C ompleted 12/20/2019 54611 Therapeutic Procedure, Each 15 M inutes Completed 12/16/2019 96862 Manual Therapy Each 15 Minutes C ompleted 12/16/2019 57291 Therapeutic Procedure, Each 15 M inutes Completed 12/16/2019 38670 Electrical Stimulati on Manual, Each 15 Min, Constant Attendance Completed 12/09/2019 55034 Manual Therapy Each 15 Minutes C ompleted 12/09/2019 47690 Therapeutic Procedure, Each 15 M inutes Completed 12/09/2019 03108 Electrical Stimulati on Manual, Each 15 Min, Constant Attendance Completed 11/23/2019 02569 Physical Therapy Eval - Mod Comp lexity Completed 11/23/2019 70881 Electrical Stimulati on Manual, Each 15 Min, Constant Attendance Completed Medical Devices Description No Information Available Encounters Type Date Location Provider Dx Diagnosis Office Visit 05/18/2020 2:40p [place] MENDEZ Dubois 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, lumbosacral region M51.27 Other intervertebral disc di splacement, lumbosacral region M54.16 Radiculopathy, lumbar region Office Visit 02/22/2020 11:00a [place] MENDEZ Dubois 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, lumbosacral region M51.27 Other intervertebral disc di splacement, lumbosacral region Office Visit 01/12/2020 11:00a [place] Nik Madrid MD 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, lumbosacral region M51.37 Other intervertebral disc de generation, lumbosacral region M51.27 Other intervertebral disc di splacement, lumbosacral region Office Visit 12/20/2019 1:00p [place] MENDEZ Dubois M54.16 Radiculopathy, lumbar region M51.26 Other intervertebral disc di splacement, lumbar region Assessments Date Code Description Provider 05/18/2020 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, lumbosacral region MENDEZ Dubois 05/18/2020 M51.27 Other intervertebral disc displa cement, lumbosacral region MENDEZ Dubois 05/18/2020 M54.16 Radiculopathy, lumbar region Celia MENDEZ Miranda 02/22/2020 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, lumbosacral region MENDEZ Dubois 02/22/2020 M51.27 Other intervertebral disc displa cement, lumbosacral region MENDEZ Dubois 01/12/2020 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, lumbosacral region Nik Madrid MD 01/12/2020 M51.37 Other intervertebral disc degene ration, lumbosacral region Nik Madrid MD 01/12/2020 M51.27 Other intervertebral disc displa cement, lumbosacral region Nik Madrid MD 12/23/2019 M54.16 Radiculopathy, lumbar region Marjorie francisca Garner, P.T.A. 12/20/2019 M54.16 Radiculopathy, lumbar region Marjorie francisca Garner, P.T.A. 12/20/2019 M54.16 Radiculopathy, lumbar region Celia Donaldson, PA 12/20/2019 M51.26 Other intervertebral disc displa cement, lumbar region Joel Donaldson, PA 12/16/2019 M54.16 Radiculopathy, lumbar region Marjorie francisca Garner, P.T.A. 12/09/2019 M54.16 Radiculopathy, lumbar region All daniela Lucero, MSPT 11/23/2019 M54.16 Radiculopathy, lumbar region All daniela Lucero, MSPT Plan of Treatment No Information Available Functional Status Description No Information Available Mental Status Description No Information Available Referrals Refer to Dr Reason for Referral Status Appt Date Suleiman Brown MD EM[facility] NO AUTH REQUIRED TO SCHEDULING NT Create d [address] [place], [place] [address] [phone] PT - 10 VISITS FROM 11/23-01/30/20 AUTH #[id number] 102. BS Created
--- OUTSIDE RECORDS SUMMARY | 2020-07-17 18:01 | CCD | Summary of Care ---
Author Author [facility] Address Unknown Phone Unavailable Care Team Providers Care Orchestra Leader Name Role Phone Elba Frazier MD PCP Reason for Visit * Reason Comments ED To ED Transfer Encounter Details Care Team Description Date Type Department Shilpi Michaud MD [address] [place] [address] [phone] Jason Knutson MD [address] [place] [address] [phone] Lumbosacral disc herniation (Primary Dx) 07/14/2020 Emergency [facility] [address] [place] [address] Allergies No Known Allergiesdocumented as of this encounter (statuses as of 07/14/2020) Medications End Date Status Medication Sig Dispensed Refills Start Date Active ARIPiprazole 10 MG Oral 0 Tablet (ABILIFY) 1 Active buPROPion HCl ER (XL) 300 0 MG Oral Tablet Extended 0 Release 24 Hour (WELLBUTRIN XL) Active Gabapentin 300 MG Oral 0 Capsule (NEURONTIN) 0 Active OXcarbazepine 150 MG Oral 0 Tablet (TRILEPTAL) 0 Active tiZANidine HCl 4 MG Oral 0 Tablet (ZANAFLEX) 0 Active traZODone HCl 100 MG Oral 0 Tablet (DESYREL) 0 07/21/2020 Active methylPREDNISolone 4 MG follow 21 tablet 0 Oral Tablet Therapy Pack package 1 (MEDROL DOSEPACK) directions documented as of this encounter (statuses as of 07/14/2020) Active Problems Not on filedocumented as of this encounter (statuses as of 07/14/2020) Social History Date Tobacco Use Types Packs/Day Years Used Former Smoker Sex Assigned at Date Recorded Not on file Date Recorded COVID-19 Exposure Response 07/13/2020 9:32 PM EST In the last month, have you been in contact with No / Unsure someone who was confirmed or suspected to have Coronavirus / COVID-19? documented as of this encounter Last Filed Vital Signs Reading Time Taken Comments Vital Sign 131/75 07/14/2020 1:23 PM EST Blood Pressure 77 07/14/2020 1:23 PM EST Pulse 36.7 C (98.1 F) 07/14/2020 1:23 PM EST Temperature 16 07/14/2020 1:23 PM EST Respiratory Rate 98% 07/14/2020 1:23 PM EST Oxygen Saturation - - Inhaled Oxygen Concentration 123.8 kg (273 lb) 07/14/2020 2:42 AM EST Weight 162.6 cm (5' 4") 07/14/2020 2:42 AM EST Height 46.86 07/14/2020 2:42 AM EST Body Mass Index documented in this encounter Discharge Instructions * Attachments The following attachments cannot be sent through Care Everywhere.* Herniated Intervertebral Disc (Armenian) documented in this encounter ED Notes * Judy Ponce RN - 07/14/2020 1:28 PM EST Written and verbal instructions given and pt discharged to home * Judy Ponce RN - 07/14/2020 10:35 AM EST Pt states pain increased 6/10 and feels nauseas due to not eating since yesterda y Will advise the doctor * Judy Ponce RN - 07/14/2020 10:20 AM EST Neurosurgery again at the bedside * Judy Ponce RN - 07/14/2020 9:57 AM EST oob and ambulates to the bathroom without difficulty * Judy Ponce RN - 07/14/2020 9:29 AM EST Neurosurgery at bedside * Judy Ponce RN - 07/14/2020 8:58 AM EST Pt resting comfortably At this time. Expressing no needs or concerns during niesha rly rounding. Safety maintained, will continue to monitor * Judy Ponce RN - 07/14/2020 8:18 AM EST Pt resting comfortably At this time. Expressing no needs or concerns during niesha rly rounding. Safety maintained, will continue to monitor * Erika Ma MD - 07/14/2020 8:00 AM EST The patient was initially seen and examined by the previous team; please see Dr. Serna's note for the complete history and physical as well as the initial imp ression and plan. In brief, Mariaelena Elmore is a 24 year old woman who presented as a transfer fo r lumbar spine MRI. At the time of signout, I reviewed all labs and imaging as available. The patien t was pending interpretation of her MRI at the time of signout. MRI showed mild discogenic degenerative changes with large central disc protrusi on at L5-S1 with 5 mm of retropulsion causing moderate central canal stenosis an d mild bilateral neural foraminal narrowing. On reassessment, she was resting co mfortably. She did complain of mild abdominal discomfort and nausea from having been n.p.o. for so long. She was given acetaminophen and ondansetron. Neurosurgical consultation was obtained. After a lengthy discussion with the barron rodgers, the plan was ultimately made for a short course of steroids and follow-up in 1 week to plan for likely outpatient procedure. She was instructed to return for any worsening symptoms. She expressed understanding of the results, plan, and return precautions. Impression: Lumbosacral disc herniation Condition: Stable Disposition: Discharged Erika Ma MD Resident 07/14/20 1313 Associated attestation - Jason Knutson MD - 07/14/2020 2:30 PM EST I saw and evaluated the patient. Discussed with the resident and agree with res idents findings as documented in the resident's note. * Judy Ponce RN - 07/14/2020 7:45 AM EST Returns from MRI Awake and alert ,back pain /10 Numbness and tingling genital area Rectal tone normal Numbness to inner thigh area has subsided Dr Michaud at bedside for examination Awaiting MRI results * Judy Ponce RN - 07/14/2020 7:20 AM EST Report received Pt remains in MRI * Marleny Diamond LPN - 07/14/2020 6:26 AM EST Pt reports that after ambulating her pain has started to come back. 10/14 * Katie Gresham RN - 07/14/2020 2:28 AM EST Transfer from [facility]. Pt has a hx of back issues from age 15 and stat es a couple days ago she went to get up and began with intense low back pain. Pe r report, pt has L5-L6 slipped disc. C/o right inner thigh numbness and genital numbness. Denies incontinence. Tylenol and Vicodin PO given prior to transport. documented in this encounter Plan of Treatment Health Maintenance Due Date Last Done Comments MMR Vaccines (1 of - 1997 Standard series) Varicella Vaccines (1 of 1997 2 - 2-dose childhood series) DTaP,Tdap,and Td Vaccines 12/26/2003 (1 - Tdap) HPV Vaccines (1 - 2-dose 12/26/2007 series) HIV Screening 2009 Chlamydia Screening 2012 Cervical Cancer Screening 2017 3 years Influenza Vaccine 04/06/2020 Pneumococcal Vaccine: 65+ 2061 Years (1 of 1 - PPSV23) HIB Vaccines Aged Out No longer eligible based on patient's age to complete this topic Hepatitis A Vaccines Aged Out No longer eligibl e based on patient's age to complete this topic Hepatitis B Vaccines Aged Out No longer eligibl e based on patient's age to complete this topic IPV Vaccines Aged Out No longer eligible based on patient's age to complete this topic Pneumococcal Vaccine: Aged Out No longer eligib le based on patient's age to Pediatrics (0 to 5 Years) complete this topic and At-Risk Patients (6 to 64 Years) documented as of this encounter Procedures Comments Procedure Name Priority Date/Time Associated Diag nosis MR LUMBAR SPINE WITHOUT STAT 07/14/2020 CONTRAST 65279 7:37 AM EST documented in this encounter Results * MR Lumbar Spine without Contrast (07/14/2020 7:37 AM EST) Specimen Impressions Performed At IMPRESSION: [facility] 1. Mild discogenic degenerative changes w ith large central disc protrusion at L5-S1 with 5 mm of retropulsion causing moderate central canal stenosis and mild bilateral neural foraminal narrowing. 2. Signal characteristics in the conus me dullaris and cauda equina nerve roots is normal. No evidence of arachnoiditis. N o intradural or extradural collection. No edematous changes. Narrative Performed At EXAMINATION: MR LUMBAR SPINE WITHOUT IV CONTRAST 7214 8 [facility] CLINICAL INDICATION: Lumbar pain, leg n umbness. Canal narrowing on prior outside CT. TECHNIQUE: Multiplanar, multisequence M R images of the lumbar spine were obtained without contrast. COMPARISON: Outside CT lumbar spine sánchez ed 07/13/2020. FINDINGS: For the purpose of counting t he vertebrae, the lowest complete intervertebral disc space is designated L5-S1. No significant scoliotic changes. Mild intervertebral disc space narrowing with disc desiccation at L5-S1 level. Verteb ral heights are preserved. Focal T2 and STIR intermediate signal hyperintensity within the T12 vertebral body may reflect degenerative change. Vertebral body marrow signal is otherwise within normal limits. There is grade 1 retroli sthesis of L5 on S1. Alignment is normal otherwise. Conus medullaris ends at L1 level and cauda equina nerve root signal is normal. There is a large central dis c protrusion at L5-S1 with 5 mm of retropulsion. This causes moderate foca l central canal and mild bilateral neural foraminal narrowing at L5-S1. Mild eh enital central canal narrowing is seen throughout. There is no high-grade cent ral canal or neural narrowing or nerve root impingement seen and lumbar spine. The ligaments are intact. No prevertebral collections are seen. Sacr oiliac joint is grossly unremarkable bilaterally. The paraspinal soft tissue s are unremarkable. Procedure Note Interface, Received Via [employer] [facility] - 07/14/2020 8:37 AM EST EXAMINATION: MR LUMBAR SPINE WITHOUT IV CONTRAST 09670 CLINICAL INDICATION: Lumbar pain, leg numbness. Canal narrowing on prior outside CT. TECHNIQUE: Multiplanar, multisequence MR images of the lumbar spine were obtained without contrast. COMPARISON: Outside CT lumbar spine dated 07/13/2020. FINDINGS: For the purpose of counting the vertebrae, the lowest complete intervertebral disc space is designated L5-S1. No significant scoliotic changes. Mild intervertebral disc space narrowing with disc desiccation at L5-S1 level. Vertebral heights are preserved. Focal T2 and STIR intermediate signal hyperintensity within the T12 vertebral body may reflect degenerative change. Vertebral body marrow signal is otherwise within normal limits. There is grade 1 retrolisthesis of L5 on S1. Alignment is normal otherwise. Conus medullaris ends at L1 level and cauda equina nerve root signal is normal. There is a large central disc protrusion at L5-S1 with 5 mm of retropulsion. This causes moderate focal central canal and mild bilateral neural foraminal narrowing at L5-S1. Mild congenital central canal narrowing is seen throughout. There is no high-grade central canal or neural narrowing or nerve root impingement seen and lumbar spine. The ligaments are intact. No prevertebral collections are seen. Sacroiliac joint is grossly unremarkable bilaterally. The paraspinal soft tissues are unremarkable. IMPRESSION: 1. Mild discogenic degenerative changes with large central disc protrusion at L5-S1 with 5 mm of retropulsion causing moderate central canal stenosis and mild bilateral neural foraminal narrowing. 2. Signal characteristics in the conus medullaris and cauda equina nerve roots is normal. No evidence of arachnoiditis. No intradural or extradural collection. No edematous changes. Performing Organization Address City/State/Zipcode Ph one Number [facility] [address] [place] [address] documented in this encounter Visit Diagnoses Diagnosis Lumbosacral disc herniation - Primary Displacement of lumbar intervertebral d isc without myelopathy documented in this encounter Administered Medications Action Date Dose Rate Site Medication Order MAR Action 07/14/2020 11:25 AM EST 975 mg acetaminophen (TYLENOL) tablet 975 mg Given 975 mg, Oral, Once, Fri07/14/20 at 1045, For 1 dose, Maximum daily dose of acetaminophen is 3,000 mg from all sources in 24 hours., 07/14/2020 11:25 AM EST 4 mg ondansetron (ZOFRAN-ODT) disintegrating Given tablet 4 mg 4 mg, Oral, Once, Fri07/14/20 at 1130, For 1 dose, Dissolve on tongue., documented in this encounter
--- OUTSIDE RECORDS SUMMARY | 2020-07-17 18:01 | CCD | Continuity of Care Document ---
Author Author Mariaelena GRIMES PA Organization Unknown Address [address] [facility] [place] [address] Phone [phone] Care Team Providers Care Visual Merchandising Coordinator Name Role Phone Kate Chauhan PA-C AUTM [...] Available Procedures Date Code Description Status 01/12/2020 58093 Nerve Conduction 7-8 Studies Com pleted 01/12/2020 82735 Needle Electromyography,Complete Five Or More Muscles Studied Completed 12/23/2019 25069 Manual Therapy Each 15 Minutes C ompleted 12/23/2019 35134 Therapeutic Procedure, Each 15 M inutes Completed 12/20/2019 00117 Manual Therapy Each 15 Minutes C ompleted 12/20/2019 34281 Therapeutic Procedure, Each 15 M inutes Completed 12/16/2019 63052 Manual Therapy Each 15 Minutes C ompleted 12/16/2019 23215 Therapeutic Procedure, Each 15 M inutes Completed 12/16/2019 91906 Electrical Stimulati on Manual, Each 15 Min, Constant Attendance Completed 12/09/2019 50855 Manual Therapy Each 15 Minutes C ompleted 12/09/2019 89458 Therapeutic Procedure, Each 15 M inutes Completed 12/09/2019 43732 Electrical Stimulati on Manual, Each 15 Min, Constant Attendance Completed Medical Devices Description No Information Available Encounters Type Date Location Provider Dx Diagnosis Office Visit 05/18/2020 2:40p [place] MENDEZ Dubois 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, lumbosacral region M51.27 Other intervertebral disc di splacement, lumbosacral region Office Visit 02/22/2020 11:00a [place] MENDEZ Dubois 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, lumbosacral region M51.27 Other intervertebral disc di splacement, lumbosacral region Office Visit 01/12/2020 11:00a [place] Nik Madrid MD 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, lumbosacral region M51.37 Other intervertebral disc de generation, lumbosacral region M51.27 Other intervertebral disc di splacement, lumbosacral region Office Visit 12/20/2019 1:00p [place] M54.16 Radiculopathy, lumbar region M51.26 Other intervertebral disc di splacement, lumbar region Assessments Date Code Description Provider 05/18/2020 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, lumbosacral region MENDEZ Dubois 05/18/2020 M51.27 Other intervertebral disc displa cement, lumbosacral region MENDEZ Dubois 02/22/2020 M47.27 Other spondylosis with radiculop athy, [...] P.T.A. 12/20/2019 M54.16 Radiculopathy, lumbar region Marjorie Garner P.T.ARuby 12/20/2019 M54.16 Radiculopathy, lumbar region [place] MENDEZ Miranda 12/20/2019 M51.26 Other intervertebral disc displa cement, lumbar region MENDEZ Dubois 12/16/2019 M54.16 Radiculopathy, lumbar region Marjorie Garner P.T.ARuby 12/09/2019 M54.16 Radiculopathy, lumbar region Deniz Lucero, MSPT Plan of Treatment No Information Available Functional Status Description No Information Available Mental Status Description No Information Available Referrals Refer to Dr Reason for Referral Status Appt Date Suleiman Brown MD EMG NO AUTH REQUIRED TO SCHEDULING NT Create d [address] [facility], [address] [place] [id number] [phone]
--- OUTSIDE RECORDS SUMMARY | 2020-07-17 18:02 | CCD ---
Author Author [facility] Organization [facility] Address Unknown Phone Unavailable Care Team Providers Care Human Resources Technician Name Role Phone Aye VAN Unavailable Unavailable Shelia Brown MD Unavailable Unavailable Shelia Brown MD Unavailable Unavailable Shelia Brown MD Unavailable Unavailable Shelia Brown MD Unavailable Unavailable Shelia Brown MD Unavailable Unavailable Shelia Brown MD Unavailable Unavailable Shelia Brown MD Unavailable Unavailable Shelia Brown MD Unavailable Unavailable Shelia Brown MD Unavailable Unavailable Shelia Brown MD Unavailable Unavailable Shelia Brown MD Unavailable Unavailable Shelia Brown MD Unavailable Unavailable Shelia Brown MD Unavailable Unavailable Shelia Brown MD Unavailable Unavailable Shelia Brown MD Unavailable Unavailable Brown, L Suleiman ADRIAN Unavailable Unavailable Brown, Shelia Bearden MD Unavailable Unavailable Brown, L Suleiman ADRIAN Unavailable Unavailable Brown, L Suleiman ADRIAN Unavailable Unavailable Brown, L Suleiman ADRIAN Unavailable Unavailable Brown, L Suleiman ADRIAN Unavailable Unavailable Brown, Shelia Bearden MD Unavailable Unavailable Brown, Shelia Bearden MD Unavailable Unavailable Brown, Shelia Bearden MD Unavailable Unavailable Brown, Shelia Bearden MD Unavailable Unavailable Brown, L Suleiman ADRIAN Unavailable Unavailable Brown, L Suleiman ADRIAN Unavailable Unavailable Brown, L Suleiman ADRIAN Unavailable Unavailable Brown, L Suleiman ADRIAN Unavailable Unavailable Brown, L Suleiman ADRIAN Unavailable Unavailable Brown, L Suleiman ADRIAN Unavailable Unavailable Brown, L Suleiman ADRIAN Unavailable Unavailable Brown, L Suleiman ADRIAN Unavailable Unavailable Brown, L Suleiman ADRIAN Unavailable Unavailable Brown, Shelia Bearden MD Unavailable Unavailable Brown, L Suleiman ADRIAN Unavailable Unavailable Brown, L Suleiman ADRIAN Unavailable Unavailable Brown, Shelia Bearden MD Unavailable Unavailable Brown, Shelia Bearden MD Unavailable Unavailable Brown, Shelia Bearden MD Unavailable Unavailable Brown, Shelia Bearden MD Unavailable Unavailable Brown, Shelia Bearden MD Unavailable Unavailable Bronw, Shelia Bearden MD Unavailable Unavailable Brown, L Suleiman ADRIAN Unavailable Unavailable Brown, Shelia Bearden MD Unavailable Unavailable Brown, L Suleiman ADRIAN Unavailable Unavailable Brown, L Suleiman ADRIAN Unavailable Unavailable Cathie MAYER MD Unavailable Unavailable Cathie MAYER MD Unavailable Unavailable Cathie MAYER MD Unavailable Unavailable Cathie MAEYR MD Unavailable Unavailable DRAZEK, I JERMAINE PA Unavailable Unavailable DRAZEK, I JERMAINE PA Unavailable Unavailable DRAZEK, I JERMAINE PA Unavailable Unavailable DRAZEK, I JERMAINE PA Unavailable Unavailable DRAZEK, I JERMAINE PA Unavailable Unavailable DRAZEK, I JERMAINE PA Unavailable Unavailable DRAZEK, I JERMAINE PA Unavailable Unavailable DRAZEK, I JERMAINE PA Unavailable Unavailable DRAZEK, I JERMAINE PA Unavailable Unavailable DRAZEK, I JERMAINE PA Unavailable Unavailable DRAZEK, I JERMAINE PA Unavailable Unavailable DRAZEK, I JERMAINE PA Unavailable Unavailable DRAZEK, I JERMAINE PA Unavailable Unavailable DRAZEK, I JERMAINE PA Unavailable Unavailable DRAZEK, I JERMAINE PA Unavailable Unavailable DRAZEK, I JERMAINE PA Unavailable Unavailable DRAZEK, I JERMAINE PA Unavailable Unavailable DRAZEK, I JERMAINE PA Unavailable Unavailable DRAZEK, I JERMAINE PA Unavailable Unavailable DRAZEK, I JERMAINE PA Unavailable Unavailable DRAZEK, I JERMAINE PA Unavailable Unavailable DRAZEK, I JERMAINE PA Unavailable Unavailable DRAZEK, I JERMAINE PA Unavailable Unavailable DRAZEK, I JERMAINE PA Unavailable Unavailable DRAZEK, I JERMAINE PA Unavailable Unavailable DRAZEK, I JERMAINE PA Unavailable Unavailable DRAZEK, I JERMAINE PA Unavailable Unavailable DRAZEK, I JERMAINE PA Unavailable Unavailable DRAZEK, I JERMAINE PA Unavailable Unavailable DRAZEK, I JERMAINE PA Unavailable Unavailable COOK, B KALEB FISHING TACKLE REPAIRER Unavailable Unavailable COOK, B KALEB FISHING TACKLE REPAIRER Unavailable Unavailable COOK, B KALEB FISHING TACKLE REPAIRER Unavailable Unavailable COOK, B KALEB FISHING TACKLE REPAIRER Unavailable Unavailable COOK, B KALEB FISHING TACKLE REPAIRER Unavailable Unavailable COOK, B KALEB FISHING TACKLE REPAIRER Unavailable Unavailable COOK, B KALEB FISHING TACKLE REPAIRER Unavailable Unavailable COOK, B KALEB FISHING TACKLE REPAIRER Unavailable Unavailable COOK, B KALEB FISHING TACKLE REPAIRER Unavailable Unavailable COOK, B KALEB FISHING TACKLE REPAIRER Unavailable Unavailable COOK, B KALEB FISHING TACKLE REPAIRER Unavailable Unavailable COOK, B KALEB FISHING TACKLE REPAIRER Unavailable Unavailable COOK, B KALEB FISHING TACKLE REPAIRER Unavailable Unavailable COOK, B KALEB FISHING TACKLE REPAIRER Unavailable Unavailable COOK, B KALEB FISHING TACKLE REPAIRER Unavailable Unavailable COOK, B KALEB FISHING TACKLE REPAIRER Unavailable Unavailable COOK, B KALEB FISHING TACKLE REPAIRER Unavailable Unavailable COOK, B KALEB FISHING TACKLE REPAIRER Unavailable Unavailable COOK, B KALEB FISHING TACKLE REPAIRER Unavailable Unavailable COOK, B KALEB FISHING TACKLE REPAIRER Unavailable Unavailable COOK, B KALEB FISHING TACKLE REPAIRER Unavailable Unavailable COOK, B KALEB FISHING TACKLE REPAIRER Unavailable Unavailable COOK, B KALEB FISHING TACKLE REPAIRER Unavailable Unavailable COOK, B KALEB FISHING TACKLE REPAIRER Unavailable Unavailable COOK, B KALEB FISHING TACKLE REPAIRER Unavailable Unavailable COOK, B KALEB FISHING TACKLE REPAIRER Unavailable Unavailable COOK, B KALEB FISHING TACKLE REPAIRER Unavailable Unavailable COOK, B KALEB FISHING TACKLE REPAIRER Unavailable Unavailable COOK, B KALEB FISHING TACKLE REPAIRER Unavailable Unavailable COOK, B KALEB FISHING TACKLE REPAIRER Unavailable Unavailable COOK, B KALEB FISHING TACKLE REPAIRER Unavailable Unavailable COOK, B KALEB FISHING TACKLE REPAIRER Unavailable Unavailable COOK, B KALEB FISHING TACKLE REPAIRER Unavailable Unavailable COOK, B KALEB FISHING TACKLE REPAIRER Unavailable Unavailable COOK, B KALEB FISHING TACKLE REPAIRER Unavailable Unavailable COOK, B KALEB FISHING TACKLE REPAIRER Unavailable Unavailable COOK, B KALEB FISHING TACKLE REPAIRER Unavailable Unavailable COOK, B KALEB FISHING TACKLE REPAIRER Unavailable Unavailable COOK, B KALEB FISHING TACKLE REPAIRER Unavailable Unavailable COOK, B KALEB FISHING TACKLE REPAIRER Unavailable Unavailable COOK, B KALEB FISHING TACKLE REPAIRER Unavailable Unavailable COOK, B KALEB FISHING TACKLE REPAIRER Unavailable Unavailable COOK, B KALEB FISHING TACKLE REPAIRER Unavailable Unavailable COOK, B KALEB FISHING TACKLE REPAIRER Unavailable Unavailable COOK, B KALEB FISHING TACKLE REPAIRER Unavailable Unavailable COOK, B KALEB FISHING TACKLE REPAIRER Unavailable Unavailable COOK, B KALEB FISHING TACKLE REPAIRER Unavailable Unavailable COOK, B KALEB FISHING TACKLE REPAIRER Unavailable Unavailable COOK, B KALEB FISHING TACKLE REPAIRER Unavailable Unavailable COOK, B KALEB FISHING TACKLE REPAIRER Unavailable Unavailable COOK, B KALEB FISHING TACKLE REPAIRER Unavailable Unavailable COOK, B KALEB FISHING TACKLE REPAIRER Unavailable Unavailable COOK, B KALEB FISHING TACKLE REPAIRER Unavailable Unavailable COOK, B KALEB FISHING TACKLE REPAIRER Unavailable Unavailable COOK, B KALEB FISHING TACKLE REPAIRER Unavailable Unavailable COOK, B KALEB FISHING TACKLE REPAIRER Unavailable Unavailable COOK, B KALEB FISHING TACKLE REPAIRER Unavailable Unavailable COOK, B KALEB FISHING TACKLE REPAIRER Unavailable Unavailable COOK, B KALEB FISHING TACKLE REPAIRER Unavailable Unavailable COOK, B KALEB FISHING TACKLE REPAIRER Unavailable Unavailable COOK, B KALEB FISHING TACKLE REPAIRER Unavailable Unavailable COOK, B KALEB FISHING TACKLE REPAIRER Unavailable Unavailable COOK, B KALEB FISHING TACKLE REPAIRER Unavailable Unavailable Crystal DIXON MD Unavailable Unavailable Crystal DIXON MD Unavailable Unavailable Crystal DIXON MD Unavailable Unavailable Crystal DIXON MD Unavailable Unavailable Crystal DIXON MD Unavailable Unavailable GALSUSANA SIMS MD Unavailable Unavailable GALGANSUSANA Crum MD Unavailable Unavailable GALGANOSUSANA MD Unavailable Unavailable GALGANOSUSANA MD Unavailable Unavailable GALGANOSUSANA MD Unavailable Unavailable GALGANOSUSANA MD Unavailable Unavailable GALGANOSUSANA MD Unavailable Unavailable GALGANOSUSANA MD Unavailable Unavailable GALGANOSUSANA MD Unavailable Unavailable GALGANOSUSANA MD Unavailable Unavailable GALGANOSUSANA MD Unavailable Unavailable GALGANOSUSANA MD Unavailable Unavailable GALGANOSUSANA MD Unavailable Unavailable GALGANOSUSANA MD Unavailable Unavailable GALGANSUSANA Crum MD Unavailable Unavailable GALGANSUSANA Crum MD Unavailable Unavailable GALGANOSUSANA MD Unavailable Unavailable GALGANOSUSANA MD Unavailable Unavailable GALGANOSUSANA MD Unavailable Unavailable GALGANOSUSANA MD Unavailable Unavailable GALGANOSUSANA MD Unavailable Unavailable GALGANOSUSANA MD Unavailable Unavailable GALGANOSUSANA MD Unavailable Unavailable GALGANOSUSANA MD Unavailable Unavailable GALGANOSUSANA MD Unavailable Unavailable GALGANOSUSANA MD Unavailable Unavailable GALGANOSUSANA MD Unavailable Unavailable GALGANOSUSANA MD Unavailable Unavailable Chauhan, M Kate PA-C Unavailable Unavailable Chauhan, M Kate PA-C Unavailable Unavailable Chauhan, M Kate PA-C Unavailable Unavailable Chauhan, M Kate PA-C Unavailable Unavailable Chauhan, M Kate PA-C Unavailable Unavailable Chauhan, M Kate PA-C Unavailable Unavailable Chauhan, M Kate PA-C Unavailable Unavailable Chauhan, M Kate PA-C Unavailable Unavailable Chauhan, M Kate PA-C Unavailable Unavailable Chauhan, M Kate PA-C Unavailable Unavailable Chauhan, M Kate PA-C Unavailable Unavailable Chauhan, M Kate PA-C Unavailable Unavailable Chauhan, M Kate PA-C Unavailable Unavailable Chauhan, M Kate PA-C Unavailable Unavailable Chauhan, M Kate PA-C Unavailable Unavailable Chauhan, M Kate PA-C Unavailable Unavailable Chauhan, M Kate PA-C Unavailable Unavailable Chauhan, M Kate PA-C Unavailable Unavailable Chauhan, M Kate PA-C Unavailable Unavailable Chauhan, M Kate PA-C Unavailable Unavailable Chauhan, M Kate PA-C Unavailable Unavailable Chauhan, M Kate PA-C Unavailable Unavailable Chauhan, M Kate PA-C Unavailable Unavailable Chauhan, M Kate PA-C Unavailable Unavailable Chauhan, M Kate PA-C Unavailable Unavailable Chauhan, M Kate PA-C Unavailable Unavailable Chauhan, M Kate PA-C Unavailable Unavailable Chauhan, M Kate PA-C Unavailable Unavailable Chauhan, M Kate PA-C Unavailable Unavailable Chauhan, M Kate PA-C Unavailable Unavailable Chauhan, M Kate PA-C Unavailable Unavailable Kunnumpurath, F Elba MD Unavailable Unavailable Kunnumpurath, F Elba MD Unavailable Unavailable Kunnumpurath, F Elba MD Unavailable Unavailable Kunnumpurath, F Elba MD Unavailable Unavailable Kunnumpurath, F Elba MD Unavailable Unavailable Kunnumpurath, F Elba MD Unavailable Unavailable Kunnumpurath, F Elab MD Unavailable Unavailable Kunnumpurath, F Elba MD Unavailable Unavailable Kunnumpurath, F Elba MD Unavailable Unavailable Kunnumpurath, F Elba MD Unavailable Unavailable Kunnumpurath, F Elba MD Unavailable Unavailable Kunnumpurath, F Elba MD Unavailable Unavailable Kunnumpurath, F Elba MD Unavailable Unavailable Kunnumpurath, F Elba MD Unavailable Unavailable Kunnumpurath, F Elba MD Unavailable Unavailable Kunnumpurath, F Elba MD Unavailable Unavailable Kunnumpurath, F Elba MD Unavailable Unavailable Kunnumpurath, F Elba MD Unavailable Unavailable Kunnumpurath, F Elba MD Unavailable Unavailable Kunnumpurath, F Elba MD Unavailable Unavailable Kunnumpurath, F Elba MD Unavailable Unavailable Kunnumpurath, F Elba MD Unavailable Unavailable Kunnumpurath, F Elba MD Unavailable Unavailable Kunnumpurath, F Elba MD Unavailable Unavailable Kunnumpurath, F Elba MD Unavailable Unavailable Kunnumpurath, F Elba MD Unavailable Unavailable Kunnumpurath, F Elba MD Unavailable Unavailable Kunnumpurath, F Elba MD Unavailable Unavailable Kunnumpurath, F Elba MD Unavailable Unavailable Kunnumpurath, F Elba MD Unavailable Unavailable Kunnumpurath, F Elba MD Unavailable Unavailable Kunnumpurath, F Elba MD Unavailable Unavailable Kunnumpurath, F Elba MD Unavailable Unavailable Kunnumpurath, F Elba MD Unavailable Unavailable Kunnumpurath, F Leba MD Unavailable Unavailable Kunnumpurath, F Elba MD Unavailable Unavailable Kunnumpurath, F Elba MD Unavailable Unavailable Kunnumpurath, F Elba MD Unavailable Unavailable Kunnumpurath, F Elba MD Unavailable Unavailable Kunnumpurath, F Elba MD Unavailable Unavailable Kunnumpurath, F Elba MD Unavailable Unavailable Kunnumpurath, F Elba MD Unavailable Unavailable Kunnumpurath, F Elba MD Unavailable Unavailable Kunnumpurath, F Elba MD Unavailable Unavailable Kunnumpurath, F Elba MD Unavailable Unavailable Kunnumpurath, F Elba MD Unavailable Unavailable Kunnumpurath, F Elba MD Unavailable Unavailable Kunnumpurath, F Elba MD Unavailable Unavailable Kunnumpurath, F Elba MD Unavailable Unavailable Kunnumpurath, F Elba MD Unavailable Unavailable Kunnumpurath, F Elba MD Unavailable Unavailable Kunnumpurath, F Elba MD Unavailable Unavailable Kunnumpurath, F Elba MD Unavailable Unavailable Kunnumpurath, F Elba MD Unavailable Unavailable Kunnumpurath, F Elba MD Unavailable Unavailable Kunnumpurath, F Elba MD Unavailable Unavailable Kunnumpurath, F Elba MD Unavailable Unavailable Kunnumpurath, F Elba MD Unavailable Unavailable Kunnumpurath, F Elba MD Unavailable Unavailable Kunnumpurath, F Elba MD Unavailable Unavailable Kunnumpurath, F Elba MD Unavailable Unavailable Kunnumpurath, F Elba MD Unavailable Unavailable Kunnumpurath, F Elba MD Unavailable Unavailable Kunnumpurath, F Elba MD Unavailable Unavailable Kunnumpurath, F Elba MD Unavailable Unavailable Kunnumpurath, F Elba MD Unavailable Unavailable Kunnumpurath, F Elba MD Unavailable Unavailable Kunnumpurath, F Elba MD Unavailable Unavailable Kunnumpurath, F Elba MD Unavailable Unavailable Kunnumpurath, F Elba MD Unavailable Unavailable Kunnumpurath, F Elba MD Unavailable Unavailable Kunnumpurath, F Elba MD Unavailable Unavailable Kunnumpurath, F Elba MD Unavailable Unavailable Kunnumpurath, F Elba MD Unavailable Unavailable Kunnumpurath, F Elba MD Unavailable Unavailable Kunnumpurath, F Elba MD Unavailable Unavailable TURRIN, ZOILA Unavailable Unavailable TURRIN, ZOILA Unavailable Unavailable TURRIN, ZOILA Unavailable Unavailable TURRIN, ZOILA Unavailable Unavailable LISA, F AURORA DO Unavailable LISA, F AURORA DO Unavailable LISA, F AURORA DO Unavailable LISA, F AURORA DO Unavailable LISA, F AURORA DO Unavailable LISA, F AURORA DO Unavailable LISA, F AURORA DO Unavailable LISA, F AURORA DO Unavailable LISA, F AURORA DO Unavailable LISA, F AURORA DO Unavailable LISA, F AURORA DO Unavailable LISA, F AURORA DO Unavailable LISA, F AURORA DO Unavailable LISA, F AURORA DO Unavailable LISA, F AURORA DO Unavailable LISA, F AURORA DO Unavailable LISA, F AURORA DO Unavailable LISA, F AURORA DO Unavailable LISA, F AURORA DO Unavailable LISA, F AURORA DO Unavailable LISA, F AURORA DO Unavailable LISA, F AURORA DO Unavailable LISA, F AURORA DO Unavailable LISA, F AURORA DO Unavailable LISA, F AURORA DO Unavailable LISA, F AURORA DO Unavailable LISA, F AURORA DO Unavailable LISA, F AURORA DO Unavailable LISA, F AURORA DO Unavailable Sergio, L Jagjit CNM Unavailable Unavailable Sergio, L Jagjit CNM Unavailable Unavailable Sergio, L Jagjit CNM Unavailable Unavailable Sergio, L Jagjit CNM Unavailable Unavailable Sergio, L Jagjit CNM Unavailable Unavailable Sergio, L Jagjit CNM Unavailable Unavailable Sergio, L Jagjit CNM Unavailable Unavailable Sergio, L Jagjit CNM Unavailable Unavailable Sergio, L Jagjit CNM Unavailable Unavailable Sergio, L Jagjit CNM Unavailable Unavailable Sergio, L Jagjit CNM Unavailable Unavailable Sergio, L Jagjit CNM Unavailable Unavailable Sergio, L Jagjit CNM Unavailable Unavailable Sergio, L Jagjit CNM Unavailable Unavailable Sergio, L Jagjit CNM Unavailable Unavailable Sergio, L Jagjit CNM Unavailable Unavailable Sergio, L Jagjit CNM Unavailable Unavailable Sergio, L Jagjit CNM Unavailable Unavailable Sergio, L Jagjit CNM Unavailable Unavailable Sergio, L Jagjit CNM Unavailable Unavailable Sergio, L Jagjit CNM Unavailable Unavailable Sergio, L Jagjit CNM Unavailable Unavailable Sergio, L Jagjit CNM Unavailable Unavailable Sergio, L Jagjit CNM Unavailable Unavailable Sergio, L Jagjit CNM Unavailable Unavailable Sergio, L Jagjit CNM Unavailable Unavailable Sergio, L Jagjit CNM Unavailable Unavailable Sergio, L Jagjit CNM Unavailable Unavailable TOVAR, FRANCISCO HERNANDEZ FISHING TACKLE REPAIRER Unavailable Unavailable TOVAR, FRANCISCO HERNANDEZ FISHING TACKLE REPAIRER Unavailable Unavailable TOVAR, FRANCISCO HERNANDEZ FISHING TACKLE REPAIRER Unavailable Unavailable TOVAR, FRANCISOC HERNANDEZ FISHING TACKLE REPAIRER Unavailable Unavailable TOVAR, FRANCISCO HERNANDEZ FISHING TACKLE REPAIRER Unavailable Unavailable TOVAR, FRANCISCO HERNANDEZ FISHING TACKLE REPAIRER Unavailable Unavailable TOVAR, FRANCISCO HERNANDEZ FISHING TACKLE REPAIRER Unavailable Unavailable TOVAR, FRANCISCO HERNANDEZ FISHING TACKLE REPAIRER Unavailable Unavailable TOVAR, FRANCISCO HERNANDEZ FISHING TACKLE REPAIRER Unavailable Unavailable TOVAR, FRANCISCO HERNANDEZ FISHING TACKLE REPAIRER Unavailable Unavailable TOVAR, FRANCISCO HERNANDEZ FISHING TACKLE REPAIRER Unavailable Unavailable TOVAR, FRANCISCO HERNANDEZ FISHING TACKLE REPAIRER Unavailable Unavailable TOVAR, FRANCISCO HERNANDEZ FISHING TACKLE REPAIRER Unavailable Unavailable TOVAR, FRANCISCO HERNANDEZ FISHING TACKLE REPAIRER Unavailable Unavailable TOVAR, FRANCISCO HERNANDEZ FISHING TACKLE REPAIRER Unavailable Unavailable TOVAR, FRANCISCO HERNANDEZ FISHING TACKLE REPAIRER Unavailable Unavailable TOVAR, FRANCISCO HERNANDEZ FISHING TACKLE REPAIRER Unavailable Unavailable TOVAR, FRANCISCO HERNANDEZ FISHING TACKLE REPAIRER Unavailable Unavailable TOVAR, FRANCISCO HERNANDEZ FISHING TACKLE REPAIRER Unavailable Unavailable TOVAR, FRANCISCO HERNANDEZ FISHING TACKLE REPAIRER Unavailable Unavailable TOVAR, FRANCISCO HERNANDEZ FISHING TACKLE REPAIRER Unavailable Unavailable TOVAR, FRANCISCO HERNANDEZ FISHING TACKLE REPAIRER Unavailable Unavailable TOVAR, FRANCISCO HERNANDEZ FISHING TACKLE REPAIRER Unavailable Unavailable Chauhan, M Kate PA-C Unavailable Unavailable Chauhan, M Kate PA-C Unavailable Unavailable Chauhan, M Kate PA-C Unavailable Unavailable Chauhan, M Kate PA-C Unavailable Unavailable Chauhan, M Kate PA-C Unavailable Unavailable Chauhan, M Kate PA-C Unavailable Unavailable Chauhan, M Kate PA-C Unavailable Unavailable Chauhan, M Kate PA-C Unavailable Unavailable Chauhan, M Kate PA-C Unavailable Unavailable Chauhan, M Kate PA-C Unavailable Unavailable Chauhan, M Kate PA-C Unavailable Unavailable Chauhan, M Kate PA-C Unavailable Unavailable Chauhan, M Kate PA-C Unavailable Unavailable Chauhan, M Kate PA-C Unavailable Unavailable Chauhan, M Kate PA-C Unavailable Unavailable Chauhan, M Kate PA-C Unavailable Unavailable Chauhan, M Kate PA-C Unavailable Unavailable Chauhan, M Kate PA-C Unavailable Unavailable Chauhan, M Kate PA-C Unavailable Unavailable Chauhan, M Kate PA-C Unavailable Unavailable Chauhan, M Kate PA-C Unavailable Unavailable Chauhan, M Kate PA-C Unavailable Unavailable Chauhan, M Kate PA-C Unavailable Unavailable Chauhan, M Kate PA-C Unavailable Unavailable Chauhan, M Kate PA-C Unavailable Unavailable Chauhan, M Kate PA-C Unavailable Unavailable Chauhan, M Kate PA-C Unavailable Unavailable Chauhan, M Kate PA-C Unavailable Unavailable Chauhan, M Kate PA-C Unavailable Unavailable Chauhan, M Kate PA-C Unavailable Unavailable Chauhan, M Kate PA-C Unavailable Unavailable Nik Madrid Unavailable Unavailable Julius Nik Unavailable Unavailable [place], Nik Unavailable Unavailable [place], Nik Unavailable Unavailable [place], Nik Unavailable Unavailable [place], Nik Unavailable Unavailable [place], Nik Unavailable Unavailable [place], Nik Unavailable Unavailable [place], Nik Unavailable Unavailable [place], Nik Unavailable Unavailable [place], Nik Unavailable Unavailable [place], Nik Unavailable Unavailable [place], Nik Unavailable Unavailable [place], Nik Unavailable Unavailable [place], Nik Unavailable Unavailable [place], Nik Unavailable Unavailable [place], Nik Unavailable Unavailable [place], Nik Unavailable Unavailable [place], Nik Unavailable Unavailable [place], Nik Unavailable Unavailable [place], Nik Unavailable Unavailable [place], Nik Unavailable Unavailable [place], Nik Unavailable Unavailable [place], Nik Unavailable Unavailable [place], Nik Unavailable Unavailable [place], Nik Unavailable Unavailable [place], Nik Unavailable Unavailable [place], Nik Unavailable Unavailable [place], Nik Unavailable Unavailable [place], Nik Unavailable Unavailable [place], Nik Unavailable Unavailable [place], Nik Unavailable Unavailable [place], Nik Unavailable Unavailable [place], Nik Unavailable Unavailable [place], Nik Unavailable Unavailable [place], Nik Unavailable Unavailable [place], Nik Unavailable Unavailable [place], Nik Unavailable Unavailable [place], Nik Unavailable Unavailable [place], Nik Unavailable Unavailable [place], Nik Unavailable Unavailable [place], Nik Unavailable Unavailable [place], Nik Unavailable Unavailable [place], Nik Unavailable Unavailable Brown, Shelia Bearden MD Unavailable Unavailable Brown, Shelia Bearden MD Unavailable Unavailable Brown, Shelia Bearden MD Unavailable Unavailable BrownShelia MD Unavailable Unavailable BrownShelia MD Unavailable Unavailable BrownShelia MD Unavailable Unavailable BrownShelia MD Unavailable Unavailable BrownShelia MD Unavailable Unavailable BrownShelia MD Unavailable Unavailable BrownShelia MD Unavailable Unavailable BrownShelia MD Unavailable Unavailable BrownShelia MD Unavailable Unavailable BrownShelia MD Unavailable Unavailable BrownShelia MD Unavailable Unavailable BrownShelia MD Unavailable Unavailable BrownShelia MD Unavailable Unavailable BrownShelia MD Unavailable Unavailable BrownShelia MD Unavailable Unavailable BrownShelia MD Unavailable Unavailable BrownShelia MD Unavailable Unavailable BrownShelia MD Unavailable Unavailable BrownShelia MD Unavailable Unavailable BrownShelia MD Unavailable Unavailable BrownShelia MD Unavailable Unavailable BrownShelia MD Unavailable Unavailable BrownShelia MD Unavailable Unavailable BrownShelia MD Unavailable Unavailable BrownShelia MD Unavailable Unavailable BrownShelia MD Unavailable Unavailable BrownShelia MD Unavailable Unavailable BrownShelia MD Unavailable Unavailable BrownShelia MD Unavailable Unavailable BrownShelia MD Unavailable Unavailable BrownShelia MD Unavailable Unavailable Brown, L Suleiman MD Unavailable Unavailable Brown, L Suleiman MD Unavailable Unavailable Brown, L Suleiman MD Unavailable Unavailable Brown, L Suleiman MD Unavailable Unavailable Brown, L Suleiman MD Unavailable Unavailable Brown, L Suleiman MD Unavailable Unavailable Brown, L Suleiman MD Unavailable Unavailable Brown, L Suleiman MD Unavailable Unavailable Brown, L Suleiman MD Unavailable Unavailable Brown, L Suleiman MD Unavailable Unavailable Brown, L Suleiman MD Unavailable Unavailable Brown, L Suleiman MD Unavailable Unavailable Brown, L Suleiman MD Unavailable Unavailable Re-disclosure Warning The records that you are about to access may contain information from federally-assisted alcohol or drug abuse programs. If such information is present, then the following federally mandated warning applies: This information has been disclosed to you from records protected by federal confidentiality rules (42 CFR part 2). The federal rules prohibit you from making any further disclosure of this information unless further disclosure is expressly permitted by the written consent of the person to whom it pertains or as otherwise permitted by 42 CFR part 2. A general authorization for the release of medical or other information is NOT sufficient for this purpose. The Federal rules restrict any use of the information to criminally investigate or prosecute any alcohol or drug abuse patient.The records that you are about to access may contain highly sensitive health information, the redisclosure of which is protected by Article 27-F of the [facility] Public Health law. If you continue you may have access to information: Regarding HIV / AIDS; Provided by facilities licensed or operated by the [facility] Office of Mental Health; or Provided by the [facility] Office for People With Developmental Disabilities. If such information is present, then the following [facility] mandated warning applies: This information has been disclosed to you from confidential records which are protected by state law. State law prohibits you from making any further disclosure of this information without the specific written consent of the person to whom it pertains, or as otherwise permitted by law. Any unauthorized further disclosure in violation of state law may result in a fine or fdc sentence or both. A general authorization for the release of medical or other information is NOT sufficient authorization for further disc losure. Allergies and Adverse Reactions Type Description Substance Reaction Status Data Source(s ) No Known Drug Allergies No Known Drug Allergies [facility] No Known Environmental Allergies No Known Environmental Al lergies [facility] No Known Food Allergies No Known Food Allergies [facility] Family History Family Member Name Family Member Gender Family Member Status Date o f Status Description Data Source(s) Unknown Female Problem [facility] ([facility]) Encounters Encounter Providers Location Date Indications Data Source(s ) Outpatient Attender: SUSANA DUKES MD 07/25/2020 12:00:0 0 AM EST [facility] Emergency Attender: FLORENCIO DIXON MDAttender: ALEXEI MAYER MD 07A-ERMADULT 07/13/2020 09:32:00 PM EST - 07/14/2020 01:36:00 PM EST Other intervertebral disc displacement, lumbosacral region [facility] Other intervertebral disc displacement, lumbosacral region Patient discharged. Emergency Attender: REHAN MOSERCOConsultant: Elba orta MD 07/13/2020 06:06:00 PM EST - 07/14/2020 12:42:[address] [facility] Patient discharged. Office Visit Attender: JERMAINE SIMMS Physical Therapy 2019 01:40:00 PM EST [facility] ([facility]) Outpatient Attender: JERMAINE SIMMS Physical Therapy 02/22/2020 1 1:00:00 AM EDT [facility] ([facility]) Outpatient Attender: HERNANDEZ TOVAR NPConsultant: Elba mcdermott MD 02/01/2020 09:01:00 AM EDT - 02/01/2020 09:01:[address] [facility] Outpatient Attender: HERNANDEZ TOVAR NP Family Practice 02/01/2020 09 :00:00 AM EDT [facility] ([facility]) OFFICE OUTPATIENT NEW 30 MINUTES Attender: Nik Madrid Physical Therapy 01/12/2020 11:00:00 AM EDT [facility] ([facility]) Outpatient Attender: KALEB ARROYO NP Physical Therapy 01/05/2020 0 2:45:00 PM EDT [facility] ([facility]) Outpatient Attender: Kate SIMMS-CConsultant: Elba rose MD 12/30/2019 11:22:00 AM EDT - 12/30/2019 11:22:[address] [facility] Outpatient Attender: Elba Frazier MD Family Practice 0 12/28/2019 03:20:00 PM EDT [facility] ([facility]) Outpatient Attender: Elba Frazier MDConsultant: Elba scruggs MD 12/28/2019 02:59:00 PM EDT - 12/28/2019 02:59:[address] [facility] Outpatient Attender: JERMAINE SIMMS Physical Therapy 12/20/2019 0 1:00:00 PM EDT [facility] ([facility]) Outpatient Referrer: Suleiman Brown MD 11/25/2019 10:38:00 AM EDT [facility] Outpatient Referrer: Suleiman Brown MD 11/25/2019 10:34:00 AM EDT [facility] Outpatient Referrer: Suleiman Brown MD 11/20/2019 01:48:00 PM EDT [facility] Outpatient Referrer: Suleiman Brown MD 11/17/2019 02:40:00 PM EDT [facility] Outpatient Referrer: Suleiman Brown MD 11/17/2019 02:37:00 PM EDT [facility] Outpatient 11/17/2019 02:34:00 PM EDT [facility] Outpatient 11/17/2019 02:27:00 PM EDT [facility] Outpatient 11/10/2019 06:10:00 AM EDT [facility] Outpatient Attender: Suleiman Brown MD Physical Therapy 11/09/2019 1 0:30:00 AM EDT [facility] ([facility]) Outpatient Attender: Kate SIMMS-CConsultant: Elba rose MD 10/29/2019 08:13:00 AM EDT - 10/29/2019 08:13:[address] [facility] Outpatient Attender: Elba Frazier MDConsultant: Elba scrgugs MD 10/19/2019 10:19:00 AM EDT - 10/19/2019 10:19:[address] [facility] Outpatient Attender: Elba Frazier MDConsultant: Elba scruggs MD 10/15/2019 01:25:00 PM EDT - 10/15/2019 01:25:[address] [facility] Office Visit Attender: Elba Frazier MD Family Practice 0 10/15/2019 01:00:00 PM EDT [facility] ([facility]) Outpatient Attender: Elba Frazier MDAttender: Kate THOMASCConsultant: Elba Frazier MD 10/13/2019 03:40:00 PM EDT - 10/13/2019 03:40:[address] [facility] Outpatient Attender: Elba Frazier MD Family Practice 0 10/13/2019 03:40:00 PM EDT [facility] ([facility]) Outpatient Attender: Kate THOMASCConsultant: Elba rose MD 10/05/2019 03:01:00 PM EDT - 10/05/2019 03:01:[address] [facility] Outpatient Attender: Kate Chauhan PA-C 09/17/2019 10:07:00 AM EDT R30.9 [facility] R30.9 Outpatient Attender: Kate GILMOREonsultant: Elba rose MD 09/17/2019 08:43:00 AM EDT - 09/17/2019 08:43:[address] [facility] Outpatient 08/28/2019 02:10:00 PM EST [facility] Emergency Attender: AURORA GONZALEZ DOConsultant: Elba wan MD 08/28/2019 02:05:00 PM EST - 08/28/2019 05:58:00 PM [facility] Patient discharged. Outpatient Attender: Jagjit GONZALEStt teresa: Elba Frazier MDConsultant: Elba Frazier MD 08/10/2019 02:10:00 PM EST - 08/10/2019 02:10:00 PM [facility] Outpatient Attender: Jagjit Hill CNMRef errer: Jagjit BARRIOSMConsultant: Elba Frazier MD 08/10/2019 01:22:00 PM EST - 08/10/2019 01:32:00 PM [facility] Patient discharged. Outpatient Attender: Jagijt BARRIOS Family Practice 08/10/2019 0 1:15:00 PM EST [facility] ([facility]) Outpatient Attender: Elba Frazier MDConsultant: Elba scruggs MD 08/04/2019 01:01:00 PM EST - 08/04/2019 01:01:00 PM [facility] Outpatient Attender: Elba Frazier MD Family Practice 0 08/04/2019 12:00:00 PM EST [facility] ([facility]) Outpatient Attender: Elba Frazier MDConsultant: Elba scruggs MD 07/21/2019 08:38:00 AM EST - 07/21/2019 08:38:[address] [facility] Outpatient Attender: Elba Frazier MD Family Practice 0 07/21/2019 07:40:00 AM EST [facility] ([facility]) Outpatient Attender: Elba Frazier MDConsultant: Elba scruggs MD 06/08/2019 10:02:00 AM EST - 06/08/2019 10:02:00 AM [facility] Outpatient Attender: Elba Frazier MD Family Practice 1 08/09/2018 09:00:00 AM EST [facility] ([facility]) Outpatient Attender: Jagjit ENCISOonsultant: Elba wan MD 05/07/2019 08:27:00 AM EDT - 05/07/2019 08:27:[address] [facility] Emergency Attender: ZOILA DUConsultant: Elba wan MD 05/03/2019 01:53:00 PM EDT - 05/03/2019 02:44:[address] [facility] Patient discharged. Outpatient Attender: Jagjit ENCISOonsultant: Elba wan MD 04/27/2019 11:50:00 AM EDT - 04/27/2019 12:50:[address] [facility] Outpatient Attender: Kate THOMASCConsultant: Elba rose MD 04/12/2019 12:46:36 PM EDT - 04/12/2019 02:09:[address] [facility] Patient discharged. Medications Medication Brand Name Start Date Product Form Dose Route Admi nistrative Instructions Pharmacy Instructions Status Indications Reaction Description Data Source(s) 4 mg 07/15/2020 12:00:00 AM EST tablets,dose pack 21 TAKE DIRECTED TAKE DIRECTED SOLD: 07/15/2020 [facility] Ondansetron 4 MG Disintegrating Oral Tab let ondansetron (ZOFRAN-ODT) disintegrating tablet 4 mg ondansetron (ZOFRAN-ODT) disintegrating tablet 4 mg 07/14/2020 11:30:00 AM EST 4 mg Oral completed 4 mg, Oral, Once, Fri07/14/20 at 1130, For 1 dose
Dissolve on tongue.
[facility] Medication administered onsite Acetaminophen 325 MG Oral Tablet acetaminophen (TYLENO L) tablet 975 mg acetaminophen (TYLENOL) tablet 975 mg 07/14/2020 10:45:00 AM EST 97 5 mg Oral completed 975 mg, Oral, O nce, Fri07/14/20 at 1045, For 1 dose
Maximum daily dose of acetaminophen is 3,000 mg from all sources in 24 hours.
[facility] Medication administered onsite methylPREDNISolone 4 MG Oral Tablet Therapy Pack (MEDROL DOS TIGIST) 1448-1736-24 07/14/2020 12:00:00 AM EST active follow package directions [facility] aripiprazole 10 MG Oral Tablet ARIPiprazole 10 MG Oral Tablet (ABILIFY) ARIPiprazole 10 MG Oral Tablet (ABILIFY) 07/11/2020 12:00:00 AM EST active [facility] oxcarbazepine 150 MG Oral Tablet OXcarbazepine 150 MG Oral Tablet (TRILEPTAL) OXcarbazepine 150 MG Oral Tablet (TRILEPTAL) 07/06/2020 12:00:00 AM EST active [facility] 24 HR Bupropion Hydrochloride 300 MG Ext ended Release Oral Tablet buPROPion HCl ER (XL) 300 MG Oral Tablet Extended Release 24 Hour (WELLBUTRIN XL) buPROPion HCl ER (XL) 300 MG Oral Tablet Extended Release 24 Hour (WELLBUTRIN XL) 07/05/2020 12:00:00 AM EST active [facility] Trazodone Hydrochloride 100 MG Oral Tabl et traZODone HCl 100 MG Oral Tablet (DESYREL) traZODone HCl 100 MG Oral Tablet (DESYREL) 07/05/2020 12:00: 00 AM EST [facility] gabapentin 300 MG Oral Capsule Gabapentin 300 MG Oral Capsule (NEURONTIN) Gabapentin 300 MG Oral Capsule (NEURONTIN) 06/16/2020 12:00:00 AM EST active [facility] tizanidine 4 MG Oral Tablet tiZANidine HCl 4 MG Oral T ablet (ZANAFLEX) tiZANidine HCl 4 MG Oral Tablet (ZANAFLEX) 06/14/2020 12:00:00 AM EST active [facility] tizanidine 4 MG Oral Tablet Tizanidine HCL 05/18/2020 12:00:00 AM EST ORAL active [facility] ([facility] gabapentin 300 MG Oral Capsule Gabapentin 05/18/2020 12:00:00 AM EST ORAL completed [facility] ([facility] gabapentin 300 MG Oral Capsule Gabapentin 05/18/2020 12:00:00 AM EST ORAL active [facility] ([facility] ) Azithromycin 500 MG Oral Tablet Azithromycin 02/03/2020 12:00:00 AM E DT ORAL active [facility] ([facility]) Fluconazole 150 MG Oral Tablet Fluconazole 02/01/2020 12:00:00 AM EDT ORAL active [facility] ([facility]) 24 HR Metformin hydrochloride 500 MG Extended Release Oral Tablet Metformin HCL ER 01/05/2020 12:00:00 AM EDT ORAL active [facility] ([facility] meloxicam 7.5 MG Oral Tablet Meloxicam 11/12/2019 12:00:00 AM EDT active [facility] ([facility]) gabapentin 300 MG Oral Capsule Gabapentin 10/13/2019 12:00:00 AM EDT ORAL active [facility] ([facility]) Prednisone 10 MG Oral Tablet Prednisone 10/13/2019 12:00:00 AM EDT ORAL completed [facility] ([facility]) Baclofen 10 MG Oral Tablet Baclofen 10/05/2019 12:00:00 AM EDT ORAL active [facility] ([facility]) Omeprazole 20 MG Delayed Release Oral Capsule Omeprazole 09/17/2019 12:00:00 AM EDT ORAL active [facility] ([facility]) meloxicam 7.5 MG Oral Tablet [Mobic] Mobic 09/17/2019 12:00:00 AM EDT ORAL completed [facility] ([facility]) Metronidazole 500 MG Oral Tablet Metronidazole 08/17/2019 12:00:00 AM EST ORAL completed [facility] ([facility]) Cholecalciferol 1000 UNT Oral Capsule Vitamin D3 08/04/2019 12:00:00 AM EST ORAL completed [facility] ([facility]) Triamcinolone Acetonide 5 MG/ML Topical Cream Triamcinolone Acetonide 08/04/2019 12:00:00 AM EST completed [facility] ([facility]) Mupirocin 0.02 MG/MG Topical Ointment Mupirocin 06/08/2019 12:00:00 AM EST completed [facility] ([facility]) Prednisone 10 MG Oral Tablet Prednisone 04/21/2019 12:00:00 AM EDT ORAL completed [facility] ([facility]) Azithromycin 250 MG Oral Tablet Azithromycin 04/17/2019 12:00:00 AM E DT ORAL completed [facility] ([facility]) Nebulizer 04/17/2019 12:00:00 AM EDT complete d [facility] ([facility]) Albuterol 0.83 MG/ML Inhalant Solution Albuterol Sulfate 1 12:00:00 AM EDT completed [facility] ([facility]) Nebulizer Kit/Tubing/Mouthpiece 04/17/2019 12:00:00 AM EDT completed [facility] ([facility]) Misoprostol 0.2 MG Oral Tablet Misoprostol 04/15/2019 12:00:00 AM EDT completed [facility] ([facility]) cetirizine hydrochloride 10 MG Oral Tablet [Zyrtec] Zyrtec A llergy 03/25/2019 12:00:00 AM EDT ORAL completed [facility] ([facility]) Insurance Providers Payer name Policy type / Coverage type Policy ID Covered republican ID Covered republican's relationship to [place] Policy [place] Plan Information PHILLIP [id number] SP [id number] PHILLIP Bose [id number] Self [id number] [place] [id number] 18 [id number] [facility] [id number] S [id number] [place] [id number] S [id number] [place] -PHYSIC[place] [id number] 18 [id number] [place] [id number] 18 [id number] PHILLIP CARE [id number] 18 [id number] UNAVAILABLE UNAVAILA BLE [place] -RECURRING [id number] 18 [id number] [place] -[place]/P [id number] 18 [id number] [employer] [id number] Self 7 [id number] [place] [id number] Self [id number] [employer] Commercial [id number] Self 7 [id number] [place] [id number] Self 7 [id number] [employer] [id number] Self 7 [id number] [place] [employer] [place] [id number] Self 7 [id number] [employer] Commercial [id number] Self 7 [id number] [employer] [place] [id number] Self 7 [id number] [employer] Commercial [id number] Self 7 [id number] [place] [employer] [place] [id number] Self 7 [id number] [employer] Commercial [id number] Self 7 [id number] [place] [employer] [place] [id number] Self 7 [id number] [employer] Commercial [id number] Self 7 [id number] [employer] [place] [id number] Self 7 [id number] [employer] Commercial [id number] Self 7 [id number] [employer] [place] [id number] Self 7 [id number] [employer] [id number] Self 7 [id number] [employer] [place] [id number] Self 7 [id number] [employer] Commercial [id number] Self 7 [id number] [employer] [place] [id number] Self 7 [id number] [employer] Commercial [id number] Self 7 [id number] [place] [employer] [place] [id number] Self 7 [id number] [employer] Commercial [id number] Self 7 [id number] [place] [employer] [place] Commercial [id number] Self 7 [id number] [employer] [id number] Self 7 [id number] [place] [employer] [place] Commercial [id number] Self 7 [id number] ANSI-Medicaid [id number] ANSI-Commercial [id number] [employer] [id number] Self 7 [id number] [employer] [place] Commercial [id number] Self [id number] [facility] OFFICE OF VICTIM SERVICES [id number] SP [id number] MEDICAID [id number] SP [id number] ANSI-Medicaid [id number] ANSI-Commercial [id number] [employer] Commercial [id number] Self 7 [id number] [employer] [place] Commercial [id number] Self 7 [id number] [employer] [id number] Self 7 [id number] [employer] [place] [id number] Self 7 [id number] [employer] Commercial [id number] Self 7 [id number] [place] [employer] [place] [id number] Self 7 [id number] [place] [employer] [place] Commercial [id number] Self 7 [id number] [employer] Commercial [id number] Self 7 [id number] PHILLIP CARE [facility] XIX MAN -CLINIC [id number] 18 [id number] [employer] [place] Commercial [id number] Self 7 [id number] [employer] Commercial [id number] Self 7 [id number] [employer] Commercial [id number] Self 7 [id number] [place] [employer] [place] Commercial [id number] Self 7 [id number] Phillip [employer] Commercial [id number] Self 7 [id number] [place] Commercial [id number] Self 7 [id number] [place] [employer] [place] Commercial [id number] Self 7 [id number] [employer] Commercial [id number] Self 7 [id number] [facility] [place] [id number] SF2 [id number] MEDICAID -RECURRING [id number] [place] [id number] 18 [id number] [place] [employer] [place] [id number] Self [id number] [place] [id number] [place] [employer] [place] Commercial Self N REGIONAL CLAIMS JENNIFER-PHYSICIAN [id number] 19 [id number] N REGIONAL CLAIMS JENNIFER-CLINIC [id number] 19 [id number] [place] -CLINIC [id number] 18 [id number] [place] [id number] 18 [id number] N REGIONAL CLAIMS JENNIFER-RECURRING [id number] 19 [id number] N REGIONAL CLAIMS JENNIFER-O/P [id number] 19 [id number] Problems, Conditions, and Diagnoses Code Display Name Description Problem Type Effective Dates Data Source(s) 862409005 Obesity Obesity Problem 08/04/2019 12:00:00 AM ES T [facility] ([facility]) [id number] Contact dermatitis Contact dermatitis Problem 12:00:00 AM EST [facility] ([facility]) [id number] Polycystic ovary syndrome Polycystic ovary syndrome Pr oblem 07/21/2019 12:00:00 AM EST [facility] ([facility]) 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 K45229 Encounter for routine checking of intrau terine contraceptive device Encounter for routine checking of intrauterine contraceptive device Diagnosis 02/01/2020 09:01:[address] [facility] B373 Candidiasis of vulva and vagina Candidiasis of vulva a nd vagina Diagnosis 02/01/2020 09:01:[address] [facility] N49072 Encounter for gynecological examination (general) (routine) with abnormal findings Encounter for gynecological examination (general) (routine) with abnormal findings Diagnosis 02/01/2020 09:01:[address] [facility] R635 Abnormal weight gain Abnormal weight gain Diagnosis 12/30/2019 11:22:[address] 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 M545 Low back pain Low back pain Diagnosis 10/19/2019 10:19:[address] [facility] [id number] Sprain of ligaments of lumbar spine, ini tial encounter Sprain of ligaments of lumbar spine, initial encounter Diagnosis 0 03:40:[address] [facility] F339 Major depressive disorder, recurrent, un specified Major depressive disorder, recurrent, unspecified Diagnosis 10/05/2019 03:01:[address] [facility] A6004 Herpesviral vulvovaginitis Herpesviral vulvovaginitis Diagnosis 09/17/2019 08:43:[address] [facility] R309 Painful micturition, unspecified Painful micturi tion, unspecified Diagnosis 09/17/2019 08:43:[address] [facility] K219 Gastro-esophageal reflux disease without esophagitis Gastro-esophageal reflux disease without esophagitis Diagnosis 09/17/2019 08:43:[address] [facility] K5900 Constipation, unspecified Constipation, unspecified Di agnosis 09/17/2019 08:43:[address] [facility] Z7984 intermediate designer (current) use of oral hypoglyc emic drugs intermediate designer (current) use of oral hypoglycemic drugs Diagnosis 08/28/2019 02:05:00 PM [facility] J78023 Nicotine dependence, other tobacco produ ct, uncomplicated Nicotine dependence, other tobacco product, uncomplicated Diagnosis 08/28 02:05:00 PM [facility] R1033 Periumbilical pain Periumbilical pain Diagnosis 02:05:00 PM [facility] R1031 Right lower quadrant pain Right lower quadrant pain Di agnosis 08/28/2019 02:05:00 PM [facility] N760 Acute vaginitis Acute vaginitis Diagnosis 08/10/2019 02:1 0:00 PM [facility] Z113 Encounter for screening for infections with a predominantly sexual mode of transmission Encounter for screening for infections w ith a predominantly sexual mode of transmission Diagnosis 08/10/2019 01:22:00 PM [facility] E559 Vitamin D deficiency, unspecified Vitamin D defi ciency, unspecified Diagnosis 08/04/2019 01:01:00 PM [facility] F419 Anxiety disorder, unspecified Anxiety disorder, unspec ified Diagnosis 08/04/2019 01:01:00 PM [facility] F3289 Other specified depressive episodes Other specif ied depressive episodes Diagnosis 08/04/2019 01:01:00 PM [facility] Z6841 Body mass index (BMI) 40.0-44.9, adult B majo mass index (BMI) 40.0-44.9, adult Diagnosis 08/04/2019 01:01:00 PM [facility] E669 Obesity, unspecified Obesity, unspecified Diagnosis 08/04/2019 01:01:00 PM [facility] L309 Dermatitis, unspecified Dermatitis, unspecified Diagno sis 08/04/2019 01:01:00 PM [facility] Z0001 Encounter for general adult medical exam ination with abnormal findings Encounter for general adult medical examination with abnormal findings Diagnosis 08/04/2019 01:01:00 PM [facility] E871 Hypo-osmolality and hyponatremia Hypo-osmolality and hyponatremia Diagnosis 07/21/2019 08:38:00 AM [facility] D649 Anemia, unspecified Anemia, unspecified Diagnosis 0 07/21/2019 08:38:00 AM [facility] R946 Abnormal results of thyroid function amparo dies Abnormal results of thyroid function studies Diagnosis 06/08/2019 10:02:00 AM [facility] R0789 Other chest pain Other chest pain Diagnosis 06/08/2019 10 :02:00 AM [facility] F319 Bipolar disorder, unspecified Bipolar disorder, unspec ified Diagnosis 06/08/2019 10:02:00 AM [facility] L739 Follicular disorder, unspecified Follicular diso rder, unspecified Diagnosis 06/08/2019 10:02:00 AM [facility] Surgeries/Procedures Procedure Description Date Indications Data Source(s) MRI SPINAL CANAL LUMBAR W/O CONTRAST MATERIAL MR LUMB AR SPINE WITHOUT CONTRAST 98021 STAT 07/14/2020 7:37 AM EST 07/14/2020 07:37 :27 AM [facility] Needle electromyography, each extremity, with related paraspinal areas, when performed, done with nerve conduction, amplitude and latency/velocity study; complete, five or more muscles studied, innervated by three or more nerves or four or more spinal levels (list separately in addition to the code for primary procedure). 01/12/2020 12:00:00 AM EDT [facility] T ([facility]) 99360 Nerve conduction studies 7-8 studies NEW 201201/12/2020 12:00:00 AM EDT [facility] ([facility]) THERAPEUTIC PX 1/> AREAS EACH 15 MIN EXERCISES 12:00:00 AM EDT [facility] ([facility]) MANUAL THERAPY TQS 1/> REGIONS EACH 15 MINUTES 12:00:00 AM EDT [facility] ([facility] ) THERAPEUTIC PX 1/> AREAS EACH 15 MIN EXERCISES 12:00:00 AM EDT [facility] ([facility] ) MANUAL THERAPY TQS 1/> REGIONS EACH 15 MINUTES 12:00:00 AM EDT [facility] ([facility]) APPL MODALITY 1/> AREAS ELEC STIMJ EA 15 MIN 0 12:00:00 AM EDT [facility] ([facility]) THERAPEUTIC PX 1/> AREAS EACH 15 MIN EXERCISES 12:00:00 AM EDT [facility] ([facility]) MANUAL THERAPY TQS 1/> REGIONS EACH 15 MINUTES 12:00:00 AM EDT [facility] ([facility]) APPL MODALITY 1/> AREAS ELEC STIMJ EA 15 MIN 0 12:00:00 AM EDT [facility] ([facility]) THERAPEUTIC PX 1/> AREAS EACH 15 MIN EXERCISES 12:00:00 AM EDT [facility] ([facility]) MANUAL THERAPY TQS 1/> REGIONS EACH 15 MINUTES 12:00:00 AM EDT [facility] ([facility]) APPL MODALITY 1/> AREAS ELEC STIMJ EA 15 MIN 0 12:00:00 AM EDT [facility] ([facility]) Physical Therapy Eval - Mod Complexity 11/23/2019 12:0 0:00 AM EDT [facility] ([facility]) X-Ray Spine Lumbosacral Complete Inc Bending Views Min Of 6 11/09/2019 12:00:00 AM EDT [facility] ([facility]) Brief Emotional/Behav Assessment W/ Scoring Doc Per Standard Inst 07/21/2019 12:00:00 AM EST [facility] ([facility]) Results ID Date Data Source [id number] 07/16/2020 08:49:07 AM EST [facility] Name Value Range Interpretation Code Description Data Maribell rce(s) Supporting Document(s) Consultation [facility] ABTQXb0vOhLJUwDf22/ISEvbCAEbl0HoYGdaZEj8SOpnHEXdZ0EiTFW7iK8zLNI9CNxOKvPqDxWyEUVo [facility] QwIicREfWsRGYuOmqSGzHvBCynPlvgvWUlZG1IgMB7LLEdA39uXNPkROMtW3NrUQApWls+Xz3TVLExmA SrQY4ETwsU7R5rAicVTw4+1i5Sou96j2yKmrzn0sfhV5fOQnDndGWukI6g1Ep5XnIbu8Jf033kXu4rtd V2942z8j2XOW3prrr350boJ0Q91s9nG/SjndK1q3Bb [file] 4EBBBkPM9JFWRqJdVcATGWMfSaGLUmSiIwSjNvWIQG KZroCSKyX8LwFRD8LOGvYc7WZZQeWV2QOWSaFXPhXLG+Lj1SDXExYT2cfzJiiZS1GYW+Od1NMDMwRZl3 B3W3GGOkLXf5M6EDS5MIINJyNJabBKtfLREvVEx1Y6H8SWRwZ4BLG4Rmzhshlh9+IZ8UU94FCJDmZSh5 W4D2iFZmL8E0sUeDhVN2CW2YHM1XvJo9uZTesT2+IC 7NU3ZKJaBpDRo7G3V1jOUgY3X2nMdWbUR0AV9UAK8ToDKaDFAzjzIjUx1kK6ZWGTpGWbMALLR7DV8VaW PdQA0MrIQTK0XfbJPcFc6xVJnmrEZzwC3oCq2yKFbvPH5XGcTHFBjCDFJ0VN5WsIZeVI0XwLZRK6JvpD ZtAv5oFHxsmIYzcm5+RV0ZTHNpMe6CFf8+DQplbmRv XvuQUlXrIYHqh2LcOSf3BS9PYL6isBkvUZI1Cj6OiUI1nWHkD5kIFN0ArCUzR71cpYMrQQGmSv6XLlK3 fbIjkH6VXA83kLZzx3S5DOHxU3fcBWxpo77qMByoFWfUUI9tPKCBMMyaVBxcHOE3WwVjkzhoYCFxVr6P GbKvKTz7hT6iyYR3YHN3RftbmDTsLUirOuWoQjSzSb I0rIsujeu6SLaeTW6kUMfypmofKYXiRrq+IBrtYYXfUXUuOhcMTEDimI2kucI7mnZtLBedwZBwJo5wp5 f3OjguFh8pBf8nZMl0UeRrTkSgIQEqVt8roT70AYcperRwZh5UZlWbKEF3Z7YaXvfFOMS+DQogIDwveD l5cBGrRGVsZw8INLTqBXYeTLDsQACjFKSzBSKfTSMr ICAgICAgICAgICAgICAgICAgICAgICAgICAgICAgICAgICAgICAgICAgICAgICAgICAgICAgICAgICAg XYHfWKUeUKAwXYEuUBXiXMAcAV3KNMDgVBBsPBArJJBxOLFbFXBaTMTaSDJlTLGpJXTgHHSoATRsAWYz ICAgICAgICAgICAgICAgICAgICAgICAgICAgICAgIC AdUTZvSXMqZRLpDFHgZCApPZQjUZUxIFRlNUEhRE3ELCOlGAAgMRUqZALdGIIuSBDxJYVdJNWtFHVbHY AgICAgICAgICAgICAgICAgICAgICAgICAgICAgICAgICAgICAgICAgICAgICAgICAgICAgICAgICAgIC GnFOPbQBBxYITiHO4PIUJiFABrWEKuWFTuXKApGWRp ICAgICAgICAgICAgICAgICAgICAgICAgICAgICAgICAgICAgICAgICAgICAgICAgICAgICAgICAgICAg ZVDoHYNjTANfPIRtTQPdJYDuKXXfXQ7YEMQeYNWjSXOxCOSxGFOgJUYtWKCvBNMxFJQnFPZrSOYcHIId ICAgICAgICAgICAgICAgICAgICAgICAgICAgICAgIC XlHXUjMRTwOBLwXBYfJAPbQBHiTSMxXKTnJFAmQWHlQL8NXTXsCEJvTYMbTCLnDASgRIAcALXhGBLuQQ AgICAgICAgICAgICAgICAgICAgICAgICAgICAgICAgICAgICAgICAgICAgICAgICAgICAgICAgICAgIC AtCYAtEDRjDHDlFFTxDE9DCZPwTMUcTYLrYYRtHCCy ICAgICAgICAgICAgICAgICAgICAgICAgICAgICAgICAgICAgICAgICAgICAgICAgICAgICAgICAgICAg RMSfEMDdTTDlEGDsMDOiMABnXWElGEMnZA6EUSEwLULrRIWnEDUqSRFiLGAlWJGyGILwTHJdFREaEZUd ICAgICAgICAgICAgICAgICAgICAgICAgICAgICAgIC IqEDKrLFLsXQVrBBClYZFhALPpCVOvRRJoKAGqSGUbEXVqOT2EUGQzLLCaILYkLKDzVZKyMAQeGNIwBW AgICAgICAgICAgICAgICAgICAgICAgICAgICAgICAgICAgICAgICAgICAgICAgICAgICAgICAgICAgIC KdPHElXVXyKOJlBNNhSOPvYO5KDHJqEMWtLCCpRVKp ICAgICAgICAgICAgICAgICAgICAgICAgICAgICAgICAgICAgICAgICAgICAgICAgICAgICAgICAgICAg VLLcWWYiNOIdNVWdQZBgTZRyJBIpOKQfUIEgXX2DNN79eFQlk8S4YCLkMS8yyyg/Jj5CJBhsdrNkxLIq WR3ONuCtIW9jdj9WRqWmBZ3hxl9UETxWSbWyH8V2kL UcIJAmEIRFPnOnU46eCXwuSx52SOwqZYXoNzJoJMr1Yt7XNmUxZ3juWSQzFnT7WRDpLkE3LMCdCoL6GM KhLvNnYQSqSGInKS1KWVMvM731suHmXI0SJp7KXiPiNS4jqe3ACwWsPNPmMohEZrz3OPbiLD7LsQRrgC ShDFYpFWAUWyGgM1svp4XyLqYnBFLQEQbqDA8Qh3Wf dCAxDQo+Ky2EWT8fr0PtVQmnETTsQM0sbf6PVCyGQcGmR0VpeIdvXCUjlvT8xMKuKJO2OR6rpRGkPYkd PIXIcs53RTFfIO3REDE8IHKwEF6aJALlGJIwCvTcIYZQGK9CSBKdKZPumCQuCBOaCBBVBT5FFVkjPMN9 BGLhbgFktHQbKZdsKZ6YIORnpyJiKyItQRVHEUj+Pg 0MCG7vw1ZwSBnhTOPhVT3eff8LNJgXPfMvT2S8iTAxS2K7FCgoQb6FZSBuWSMnGiAlUXFPOYwwHW7ZFC 8auuI0QZ3WdXVpQIVtKLXbjLOoXXo0M47cdFUuRRevTW1XURO+Nuvia+Xm1OPXOlDSEyQBWfStUcAGBGSk AlA6AfM2WEv0YkS4YeYV43vTnbylKuNQaqHF9KHS4r TYBbBKPHKP7PbOBcrQ8nhnEjKoLlZUISSrHkV64onHQwLSJgZQGwZQHsMj8HAQXjS9BqmnFrjGosnnZp EUAzVELVYR3IPCedgbVybEJoiSpqWC57yWqxOJ3EVw9NUgSwTM9yhc6ViAKtPk3EWWKlHj9QTXKuMTVs KMNxJEQ9FMKrJdVbXVyyBDKmGKSoSDK0SJCtBAPqOH 8KDoVsXBEbZCksCYZjPDQuSHExjd8QRSDnQRL1CFXsYbMjJOWrKZGzDRdlSBLqHSEaCTK0UOMzPXXuWL 4AAuEuWQWbYXQ3CbMeQTEfSSMynk1YOQXpPUWaCgr2RJElKHChFWUcKLwwBXVcYAC8GSo9EMLeEDNrXL 6ZAbFbPUJnVWZwPNFiKMYwGDBcka5ARFZkYIPzAMf9 CiVaEUKaKXFgNAlkUZMbVGTkYEh6RQLhOSSgFG1FZeLkDEJlRKHuBFBaZKVuAODskm0VWKUuSEIhYCZj AUFjJCDsUFGzREooHPOsYEUdKrZ3SLGzHKBePF3FVdLmSTVcZBL8ZnDbRKQoVEWnct1UYIZwZRFiIgO2 GZNlVXBaMYWuDOwbZCLiPUNpJqI7FKWlWFVbRE2EWx HsJOKtSIC8NRzxVACoIAUmtm0BZPWvFGUxYiy1NjAhDHLeMCCdEPivEHZnLPI7NOYfZRVuOMTeNK4GFq AiTLLcHsJ4VsSlOHIzGWHgsa9CYCAkZHSdXTJ8JRDnECRzLMVfLSkqQGFnYCS6LKZ2DANsFBPnBE4VMj NqBKYdKlC3WnHyHNRtDJHgtg5SVUIsSLIkDoPpCTBz MGCqEZMvZClcBUExIAA0Wio1DQJzONYyBJ9OVqDaWIPgIzE1GrGnOXRzHSStqo0WRTOgHFX0HKD1QNWi STHhQSUpHCaxOCFmNAX7NiI0TBOtFXQiEN8VDuChLUReHOl6TpxwBRNgCCDokf6OYASxEAC2LZLqNjKl KFYcZAOmOZyrKFVnFMX8UdGvQXAwSYWrXT8VKzPrSK KnIKv1INDbWMEwOQMkkg3FKZQwOWV6KUR8JxRlKUWlBKRxSAdzQWZkIWXxVfK0MBNvZTZwXQ5IVrNnHV ImKIWdIfhfQOJyATYxeq6RpAWezKtdhn3WJVnIVh3DvEhzVLM0ZZqjOu6gsMYvRXRvUPBZCt8JkqDzWY TjDUZFEYedSQRzYRS9UtN1BOSwI4UwYYM0GmVbLYG7 NPL3EDIbUVEmUIB0JhE1XuaiXTogZrTxQDFgRUt3DMBeBlp2HgccTHU5RVVcBll+OF1lQVw+Uz3Xd1Ry ecP1lcQyOHn7SJNrWz5RKPMCU9VYJq== ID Date Data Source [id number] 07/14/2020 02:30:56 PM EST [facility] Name Value Range Interpretation Code Description Data Maribell rce(s) Supporting Document(s) ED Provider Note [facility] VPTCBq8dSwBHTuZp45/WMUtdTVYcq2NfSPavWPi0LYdmINKwT6KfWON1yD3aFID6XPjUVgKjUdRuIDP7 lbm [file] Zd8FvLnMDIYjvP1J2aauJLXKNPJS0+e3iN4EDHPHG+ 1I0rNM7OSDs3AdiFu7OS9ERTsciAZiHfbyxhHlj8iTJvjJWrTLMuF+aOjUaM7boo3V8zwztInOlf+iQs u/97+HzYuMdB7QXzEIObdRyU4aZAyhFuArliVwQjxNdSVWEq/bdM007C3FPKmUdVJ340MHygWD4S+ul6 xWXfrtBPxR+WxNrAXFPEPZBGuEusEJeqkmUFKIQBBq jMgRVYpIFqtrRiGwJqjhZ7Gr+WkJwXR7ttcdR+KzRIkzxSBwt1chmA5C/Edxjbp4fiz2SQETE3RqAJYj Y9/LkZ/LmjbrlBybFV+NHYzHq3S/E/Rk8uDOW/5NdP0Wkw78LIyiUjXvw7ZtFZRdI/8Jy2pgOz4Q3W7Q joyez5AuMXjHJQc0Qoz6dDDGP/B5TQE4QmokYsvuNC LMao+2aSXXFT1CnbtJZh61g2vnhmE+pOLlof6eSQyh+zH9oEtkUfCr4MQPsh6gcMbOxmBb1VMjzLjgmK 6biSbudcwJEpWoQawKpSGdSM8sRaMOZ+4Y3sLjyw+GpVmNRO3ewPdEVvdz9J6LXJNWOyP5KxRWQIJZKJ 37akme2+PUfCLDtS8BBZS0UEOOimWKW4Q8gmXJU4/L qEr6DbIbm2cxWBSbYsVD2Q05cUdQ8vECYUCSOEiosokVhSqiAHEsrTjNKIEUHBO1v9/ocQC5F6t1iJyh /+DgdKQzVOkbHrIyHYAVoLBPzZEKY+psYSL3pusjBj8GQWTSJs3nAOOv1WFyyLnGVy9xiQfaUdXAw6rc SMkvjeZCNZ195or5Ik47XyA9F77+qOmJuLxefJ7tWz 8bzvpfzr3tIrWwtNJ59lOXJCWzfuB95TgzSpxNYi+x9MmUg8VFxvXrc8srxPmfcPDpcv8W07bDQyOoj1 1MRUBFUTl0GfgFSfzqyltLohrtqHyP4MEmQUl3JblMR02AObq15YeXpO9+TvNzMYgRW+sKBm+jMzIcdr cot assembler/6UFq4omXFZyELLRHovAWvmz3JqtQWsRl4YXXcg [file] ICAgICAgICAgICAgICAgICAgICAgICAgICAgICAgIC AgICAgICAgICAgICAgICAgICAgICAgICAgICAgICAgICAgICAgICAgICAgICAgICAgICAgICAgICAgDQ ogICAgICAgICAgICAgICAgICAgICAgICAgICAgICAgICAgICAgICAgICAgICAgICAgICAgICAgICAgIC AgICAgICAgICAgICAgICAgICAgICAgICAgICAgICAg ICAgICAgICAgDQogICAgICAgICAgICAgICAgICAgICAgICAgICAgICAgICAgICAgICAgICAgICAgICAg ICAgICAgICAgICAgICAgICAgICAgICAgICAgICAgICAgICAgICAgICAgICAgICAgICAgDQogICAgICAg ICAgICAgICAgICAgICAgICAgICAgICAgICAgICAgIC AgICAgICAgICAgICAgICAgICAgICAgICAgICAgICAgICAgICAgICAgICAgICAgICAgICAgICAgICAgIC AgDQogICAgICAgICAgICAgICAgICAgICAgICAgICAgICAgICAgICAgICAgICAgICAgICAgICAgICAgIC AgICAgICAgICAgICAgICAgICAgICAgICAgICAgICAg ICAgICAgICAgICAgDQogICAgICAgICAgICAgICAgICAgICAgICAgICAgICAgICAgICAgICAgICAgICAg ICAgICAgICAgICAgICAgICAgICAgICAgICAgICAgICAgICAgICAgICAgICAgICAgICAgICAgDQogICAg ICAgICAgICAgICAgICAgICAgICAgICAgICAgICAgIC AgICAgICAgICAgICAgICAgICAgICAgICAgICAgICAgICAgICAgICAgICAgICAgICAgICAgICAgICAgIC AgICAgDQogICAgICAgICAgICAgICAgICAgICAgICAgICAgICAgICAgICAgICAgICAgICAgICAgICAgIC AgICAgICAgICAgICAgICAgICAgICAgICAgICAgICAg ICAgICAgICAgICAgICAgDQogICAgICAgICAgICAgICAgICAgICAgICAgICAgICAgICAgICAgICAgICAg ICAgICAgICAgICAgICAgICAgICAgICAgICAgICAgICAgICAgICAgICAgICAgICAgICAgICAgICAgDQog ICAgICAgICAgICAgICAgICAgICAgICAgICAgICAgIC AgICAgICAgICAgICAgICAgICAgICAgICAgICAgICAgICAgICAgICAgICAgICAgICAgICAgICAgICAgIC MzUNAiVQHrNHv8S2zbDVGnEHZoHH0wZVh6Rt4+XQlOHrFvYHW1sqZliV1FOJ5yu1SeHVnyIZWsu8RaXN n7ZV4OXDPsLJsoSN0OZKnkyd3XJDGlYWAsiYERe7lt NgZyYFH8MCTcLzcmGM5OHJEvJ2giewUuICXrWUIVKCljNEYSMLkqSPJCFLPqLKVyCwDkHJnuBE6Vb2Ol nCH1KDl+Cp9DPD6mn0JmJTszTUCyDY3buh2GQLbVOmLjE6QnanL8HCI2XUYtAc8JWLYhFBKuaPX4ZHXm YJBMBsRkB2FwiJ98RMOwNWf+Vq5OZZ8wf3LeSUwbVT JtTG3lxx6QBLwXOlJjB5RkdTkqADEPKGHte7AiOVMmFM6tvKOmQRN5EQKkr8UtC38tn46xsohzXOViDM SbAR63GiRyRpRzHBw5ZHHaWG5zMYstKI6RTTD7FVwrPWEzRJNtE4bBOxLuILbgYWRvnWzmPA6EJyBkC0 WduvKupMThZIHuKRXGFhZhS47voVMqUmFyPUPISBr+ Jl9NNW1lk0IbHPeoBHJyUT9oez0NULdORhTmN9ZfvQcfWYBLVOHyw0AfSIVtNX1qlWXpFLL7WDCoj1Rx S84tl38ojcaeIVPbASPtFG46UsPsSqXsHKj1TRPzNJ0cBXcxLY6SPAJ0RHfxAVJyZXUoT1iQTbVvKFh1 RD42eBjrOV1AXMLpYTQhQO41BSE2IGSpLk4NHLLpKB CvhrMiGZFnOJRUChTwJ80sqXGkYrInNFHHYYm+Sg7ILM2qz8RrKFamVAXhAE8gvu0KLAsUUyZvY0VsaY gaDQQRFW1ihOYpNVM2ZUagDL7wRZBStyClXTAYJyJqfDDoPmkpItYcLZZxLXehIBJRGFiCHnXoS7Qmg6 HcCiC1HUExTmSaSZgqVFBwCPagWY55pIjlBA5VVNEw FWHdUW12BQV0JQJwBr5FLBBqNXAipvInGFPqTMWVPgQbV30shSTkEvWpPCUQMRq+Kc2DMG9we9YpTUij DhGkEU0wlt2NFBiAMqLsU1ZryWmpQJXWWF9tdTHuBGI9QHwrLQ6bMCLJhbZpSWJEYkJoiYZbEupqDsYr FSLkJHpiPGBJWVbJVfPkY5Dkq4YnGeG9YZGtZdHoLD ujWUGiQVEvprMyuXKtXIumFX1AFMCaacOaHmlsRTVXTJomIB1TfkR8STZgIDXtEr4ZETEkYrS7mMQzCs AwIFINCj4+ZKdpmlNuJwaCKbUaNDPpa9VzPLd2BG1NNTRzGDf0iPOkCMBkIx88MNAqCtmmMGOsxc7pMX yqCPFrYGPWUSW7FPAvHP4uVJPmUCJyLjAxYNNEHF5N XNAdQPJpqVLzDDzuGVNYLS4XDEmlMWE7VNqbmnRhbNTyRXwiFV5FHBPryxWoKsrlZPBQCRqoSE9RbdD0 KCUmLJJpDw5OMVQhTrX2eOSaVRMyUBYOSm5+YVtadnHrUmxTVqT2AYEtz8TzXWx0RM7MBTJhMAs8vTAj EVYlTu89CCKsCnepILJsde0vFDbfTSBcVOTPIWO0IR OmYI2yZLOtVGD9WbM1OVVFUJ7IKWBoNLXjxAKfDZwlPJVGVC6ZCTnxTWO4BeQdlnHzbAYoSWoeUY7HGG AggbSmCudsWKTVAYszPW6QujV0YQWaVKEoFw3GTCXpHmY0bZRkACXfTVUGQm3+SUjzehLnRrtZHzH2HO Wkg0UhRJx7QG1GZYIgIXl0tTKmSAHaXz58QFAbEvle NVPgnc4qOAmcSVDrRWMBEZO7CIVmVA0qCHJyVCF3EvQ2TQVNPK2EZTLpSQPwnJChQWeiQZVFMT3INXde BUT0ZFKgpfPjkXWjGIvnUU5GZLJzhwWjZsmwSKQMHAeeMC1FgbB1ACO6YAWvMh8SYLJpXpN5eGYvWmLs IFINCj4+VGqcqqJzYolGMzT9BJZcu6RnDFl0UP2ZDX SbLPm1xTAbRVYgRp22WSMdXgtnKEGosb6rAVquWRZjIFTMNDA4JQAcDR9xUPDlQJR7WmV7YXLCTC7OUZ ZgKQHbaVLxEVtwFTALSD0IONfaAXAoAsPwyxDvfYNzYLyjIB1SVRTvyoCiMfmbWYZKSNvhPK9DfhW5GT W0BZRgBz7OMFRlGdT1oTLbYcKyGMSQKx5+DQplbmRv DizDXaU3QGXyy8NgWMj6WI9XACMvMVl9bOZoNMBvHe38XYVhBekcLVAoyv7dNCikNPMtOVTUKMV4DCYk AN1gOIEgBQZ2VmE5XFCAIO4DDGPcRIQsiEEyAWfhFONAED2UDVruAXOtZvGlylGfxRStPEbjGO3CCDEq wdKqYpegVLVUHMkeUD1DzgL4MIQ0JRUiEr2EZFSiVw N4tRRyJITaNFSVMf5+VApahaOhTmfOAbB8EKElq2UpSJz1DH0BSKAsPUz6aDWvDNDfZb96TKZnMixnDX Bqjf1hUZxqIKIfHRYABIH7UPQiQU8cXGRjHAH4FvZ7EQXBJU0VCWFkDYRdoRTfJHgoTWFJPH6POOxlAA XhXzJdbbHdoBZdJXgqFA1WCVGsagOvNojsRBPPBFgq UB6HztW8EDB8IGLeYe9WWLUuHlO0hACzMPLvQARQTc0+LJokvjDqGxnFFoF8FBRms0DzVSi2MJ1LQUHj HIh0kQPmLHNcGv85QEAjZjqeRVJtgu4kNFpoFBUkUURTSBK9RPPcFZ9fJROcIYA8XaCnCWODQK8ZYDKh KUZboYEiHCBbZYHnJvEjJQhzHBZmZwM1PD11mKvqZH 5VFKCfGWRoEO61PFA2AFErRr3JIACyRBHlvmEiLTArIJYZBcVeT75zcEPhRFXySYDIBAj+Sg9ECA9bl1 EzWPb9VLAhMD2qlm5SJFhNMxRzE8VojKgkIOIWOP0gcBSbCCC8WVGsnCOjrOphGYgaB9PzK7adgAchKG VHNXK8NMUoXZ2wRFJtJRH2MuL9HTJYYF2LWFWcYOSa dWAjJKNqHAMmPlUhUJifFFPgQSGeRI17sNqzCX8EEXDmCNOoZG93XBI0PPHoKi4NXPUeTRFadsZdNNYb LRCIJbTmW67laRSmLNHqAKIFUWh+Bz6ZUB6ed0JpPHl1SAEzRF7zrt0MPVfNOaNsD7JiiLurOBAMAVXo xNMyUBQYe7RkdrKhcZFXcMBlWEldIGHTwKYfxfAny5 3eXUEOSnNwhIBwAjerZnWcIZVyLoasTOCHWSrIOdJlW1Mtg6WwGaSnHDWdZSGsB0iPAvPbPKY6TPFdsX exLK7UBkOjT1VmooLknBRzNXZbZIHKIlHnC1KpHXWwNLHbLXSDMHq+Uw1FZD6ce6YpMHu5MkXsST7btu 2DKGeKAoDsX2N4vHAqS2Z2QCxlSy4AHZHpOCFeJhSg QDZOJChhOP2CQL7uuqT6US8WzYDzZFEjDSXinBKiPIm6A36krXZzYXxsXT5UXMG+Nuvia+Fy9RCTQxCEZl TWZhFcZjKBQYZpUpO1UoX0CEr0FtO2GlMR61cFvfqvOqMKvzNU2GXD7hVDGzMSZBIH9UhQOuiB7dxfJw SJArZVPBJvAeK08gkQKfWDBaUOD1NSTlAa7AMGUzX5 IfnlUmeUhvqgLqBWNeELYOVN5GNLfvdeBksOZjuYiyUC69hLgfEK3FDo7EPgJeEP1ryw6EyEQoJu7QDM E6Uo9NVEHhVSNlHUZaFYY4VRBgFhJkUCifHNDxLSIsDKY3MZKaLZLoII5EPgRwCYWzXba6ECruAVAyKA Mpgt4NKNRsCOZaQNC2SUHqZFBwTBRrPYvwBIXiUAXb FJB8LNAjDJSeKL2QOtQrDDNxFPZjCUmvUAMnTDUjhy0EVVDcYQTaGrS8NAIgTKSvWWFyIQqtDACnLTM5 JyGfIIQzBMNlOS5XRnDcSEZoJEZ2ENxuHOEvYCKxno6MHATrAVJrLCJtUpBlTOKxWXKcVLckXMOnYRI0 KsE7LWKkJAPeMY9CPmUhCSOrAUM1AgYoYNGgEQVzuo 6KRZXaADBnZJT4YqHyHTGcEGEoJNvwJXFmKMGaAtT5ABMmCENeWL3KEvVyXLCjNOW4FeZyRVRgKFKfpj 7XVUKbUYYcRxPaCyDbKBBzUBOeLLldTILeBJZfFEe2YGLdXREyVO8PEsKwHPWsSOJrEebuEUXxZQFdtz 2AVWUuDTYnASK6RUYiJMPpMMDfQKnvVYYmYHV3HuV1 VLWlPJJwHY3HQpCbXUXvTNF1EwOlNTRoLZHddg4XCYJsDOGjIBpeRJDxOBUoMVUjSVxqJRSjINW4RAQ2 FRYvVCLgDN7PYxIpASCmEhcaLLReJZJfXFCryf7PPMMoZTHrFwKqGiQdUVRxMKSbZTjqRGXzKSW1FoKl ZTXhGBWcUE5XFlRmKJAyIud5YQonEIBwSYSows4BQU ZbLQGwPNHmKWMnETRxIPIsIHnuGDDyEXA7HylsJMEaUTIkZS6XVrMwZDZnZcu1QUQuZXRvTESyjq3YVI JjZTDqRWXaAKDzTNQhZHQhADjoKXLbMHEsYOk6ZDBiPGDwYJ1UCxWuUCFcTiKkZFioPVSsCUMmdu5HPS AwMDAzMDUyOSAwMDAwMCBuDQowMDAwMDMwNzAwIDAw SODbER0AQsXvVXVcIkE8ZwSpMIDsAEBoxt5JXEVhZMPfRRU5FwYoGESrFESfDMboGEEvUELuVdOcNGLf ARDlYO3YDpMyPKLzFxToZPSwUWQfJJDoll6ZZWGwDCKuEHZ9CZQkLNCzQNXvPHwoINPeCPEtMuT1DVBm GXOyKD4LCkRaXVPoXxG3VYxiAJQpZBKnhg6KBKLwVK FkCbZ0LGSyUXLmVAGlLFf6bbAjrMXmCKq4SW8UL2LycrOxPUAHVb2Ad817AAKpDMZbNj3OW4ceIo4jPG KsVSNBSn7OMEd1CqXaNXKhVEQ8GiF6PHu4VbilCSZ3VwWdNVWcCZmrAeC+IDxmYmVlZWFkZjgzMjhhNz P1IBT7UGXaIKNjQMK3CWEzJF6gYLXFHh0+SEskyVStoLtpJRMAMlKkOyFyYQbkLFPUYp5V ID Date Data Source [id number] 07/14/2020 11:45:00 [place] [address] PHONE: [phone] FAX: [phone] Name .................. : MOE Friend Acct Number.................. : [id number] ROOM. ................. : VT-04 MR Number ................... : [id number] Stay type ............. : E/R Discharge Date......... ... : 07/14/20 Admit Date ......... : 07/13/20 Admit Phys .................... : REHAN Date of ....... : 1995 Family Phys ................... : VIOLETTE Phone .................. : [phone] Age ................................ : 24 Film# .................. .:[id number] Sex ................................. : F Unsigned transcriptions are preliminary reports and do not represent a medical or legal document CT LUMBAR SP W/O CONT [id number] COMPLETE:07/13/20 22:06 DLA 1705 Reason(s): R sided lower back pain with R leg numbness/tingling CT OF THE LUMBAR SPINE WITHOUT CONTRAST: INDICATION: Right-sided lower back pain with right-sided numbness. FINDINGS: Alignment is maintained. Anterior vertebral body heights are maintained. There is no evidence of fracture or dislocation. At L4-5, there is a tiny circumferential subsegmental disc bulge. At L5-S1, there is a moderate circumferential disc osteophyte complex causing mild narrowing of the central canal and moderate narrowing of the bilateral neural foramina. IMPRESSION: L5- S1 disc osteophyte complex causing moderate neuroforaminal narrowing and mild c entral canal narrowing. While performing the above CT examination, radiation dose reduction was accomplished utilizing automated exposure control, adjusting of the mA and kV based on the patient's body size and/or the use of imperative reconstructive techniques. CT dose: 1217.6 mGycm Electronically Reviewed and Signed By Sina West M.D. , 07/14/20 11:45, INY Transcribe Initials: DZ , Transcribe Date: 07/14/20 02:37, Dictation Date: Copy for: KEE Kyle via fax Copy for: EMERGENCY DEPT via [employer] Page 1 of 2 [facility] [address] [place] [address] PHONE: [phone] FAX: [phone] Name .................. : MOE Friend Acct Number.................. : [id number] ROOM. ................. : VT-04 MR Number ................... : [id number] Stay type ............. : E/R Discharge Date......... ... : 07/14/20 Admit Date ......... : 07/13/20 Admit Phys .................... : [facility] Date of ....... : 1995 Family Phys ................... : VIOLETTE Phone .................. : [phone] Age ................................ : 24 Film# .................. .:[id number] Sex ................................. : F Unsigned transcriptions are preliminary reports and do not represent a medical or legal document CT LUMBAR SP W/O CONT [id number] COMPLETE:07/13/20 22:06 DLA 1705 Reason(s): R sided lower back pain with R leg numbness/tingling Copy for: 710 MED REC DISCHARGED Page 2 of 2 Name Value Range Interpretation Code Description Data Maribell rce(s) Supporting Document(s) ID Date Data Source [id number] 07/14/2020 08:37:25 AM [facility] MR LUMBAR SPINE WITHOUT CONTRAST [id number] NAL RESULTInterpreted by:Federico Butterfield MDEXAMINATION: MR LUMBAR SPINE WITHOUT IV CONTRAST [id number] INDICATION: Lumbar pain, leg numbness. Canal narrowing on prior outside CT.TECHNIQUE: Multiplanar, multisequence MR images of the lumbar spine were obtained without contrast.COMPARISON: Outside CT lumbar spine dated 07/13/2020.FINDINGS: For the purpose of counting the vertebrae, the lowest complete intervertebral disc space is designated L5-S1. No significant scoliotic changes. Mild intervertebral disc space narrowing with disc desiccation at L5- S1 level. Vertebral heights are preserved. Focal T2 [...] narrowing is seen throughout. There is no high- grade central canal or neural narrowing or nerve root impingement seen and lumbar spine. The ligaments are intact. No prevertebral collections are seen. Sacroiliac joint is grossly unremarkable bilaterally. The paraspinal soft tissues are unremarkable.IMPRESSION:1. Mild discogenic degenerative changes with large central disc protrusion at L5-S1 with 5 mm of retropulsion causing moderate central canal stenosis and mild bilateral neural foraminal narrowing.2. Signal characteristics in the conus medullaris and cauda equina nerve roots is normal. No evidence of arachnoiditis. No intradural or extradural collection. No edematous changes.This document has been electronically signed by Liane Berg MD on 07/14/2020 8:35 AM Name Value Range Interpretation Code Description Data Maribell rce(s) Supporting Document(s) ID Date Data Source [id number] 07/13/2020 06:06:[address] [facility] [address] [facility] Emergency Department [address] [place] [address] Phone #: ext- [phone] 07/13/2020 17:55 Patient: SUJATA ROSA Sex: F : 1995 Age: 24yWEIGHT:123.8 kg (S) HEIGHT:64 inches (S) BMI:46.9ALLERGIES: No Known Drug Allergy, SeasonalCHIEF COMPLAINT: back pain, chronic back painDIAGNOSIS: Lumbar radiculopathyLAB ORDERSOrder Description Priority Entered Acknowledged InitialedDIAGNOSTIC STUDY ORDERSOrder Description Priority Entered Acknowledged InitialedCT LUMBAR SP STAT 19:09 07/13/2020 19:12 DorisW/O CONT Gonsalo SIMMS; Joy DIAZ(Oxygen?(No))(IV?(No)) Reason for Study: R sided lower back pain with R leg numbness/tinglingMEDICATION/IV/DRIP/FLUID ORDERSOrder Description Priority Entered Acknowledged InitialedAcetaminophen 1 g 19:09 07/13/2020 19:15 Melaragno,PO X1 dose: 1000 Gonsalo SIMMS; Yvonne Carrillo.NRubymg (NOW x1)Vicodin (5-325mg) 22:40 07/13/2020 22:47 Melaragno,PO 1 tab (HIGH Gonsalo SIMMS; Yvonne Carrillo.NRubyALERTMEDICATION)GENERAL ORDERSOrder Description Priority Entered Acknowledged Initialed[Electronically signed by Gonsalo Sandoval (21:58 07/13/2020)][Electronically signed by Yvonne Velázquez R.N. (00:59 07/14/2020)][Electronically locked by Yvonne Velázquez R.N. (00:59 07/14/2020)] Name Value Range Interpretation Code Description Data Maribell rce(s) Supporting Document(s) ID Date Data Source [id number] 07/13/2020 06:06:[address] [facility] [address] [facility] Emergency Department [address] [place] [address] Phone #: ext- [phone] 07/13/2020 17:55 Patient: SUJATA ROSA Sex: F : 1995 Age: 24yWeight: 123.8 kgHeight/Length: 64 in.BMI: 46.9ALLERGIES: No Known Drug Allergy, SeasonalThe patient's Home Medications are listed below:THE FOLLOWING MEDICATIONS NEED TO BE RECONCILED: ARIPiprazole Oral (10 mg) 1 tablet, daily buPROPion HCl Oral 150 mg, daily Gabapentin Oral (300 mg) 1 ca psule, 3x a day OXcarbazepine Oral 150 mg, daily tiZANidine HCl Oral 4 mg, 3x a day, prn TraZODone HCl Oral 100 mg, daily, at bedtime valACYclovir HCl Oral (1 gm) 1 tablet, prn [facility] source(s) of the original Home Medication information:patientThe following Medications were given to the patient in the Emergency Department:Acetaminophen [PO] PO 1000 mg, administered: 19:15 07/13/2020VICODIN (5-325MG) [PO] PO 1 tab, administered: 22:47 07/13/2020The following Medications were prescribed to the patient:None. Name Value Range Interpretation Code Description Data Maribell rce(s) Supporting Document(s) ID Date Data Source [id number] 07/13/2020 06:06:00 PM [facility] [address] [facility] Emergency Department [address] [place] [address] Phone #: ext [phone] 07/13/2020 17:55 Patient: SUJATA ROSA Sex: F : 1995 Age: 24yWeight: 123.8 kgHeight/Length: 64 inBMI: 46.9ALLERGIES: No Known Drug Allergy, Seasonal Date/Time Medication Administered Medication OrderedGiven ACETAMINOPHEN [PO] Acetaminophen 1 g PO X1 dose:19:15 07/13/2020 Dose: 1000 mg PO 1000 mg (NOW x1)Yvonne Velázquez, R.N.Given VICODIN (5-325MG) [PO] Vicodin (5-325mg) PO 1 tab (HIGH22:47 07/13/2020 (ACETAMINOPHEN-HYDROCODONE) ALERT MEDICATION)Yvonne Velázquez R.NRuby Dose: 1 tab PO Name Value Range Interpretation Code Description Data Maribell rce(s) Supporting Document(s) ID Date Data Source [id number] 07/13/2020 06:06:00 PM [facility] [address] [facility] Emergency Department [address] [place] [address] Phone #: ext- [phone] 07/13/2020 17:55 Patient: SUJATA ROSA Sex: F : 1995 Age: 24yLumbar radiculopathy (L5 S1 disc osteophyte moderate neuroforaminal narrowing).(Electronically signed by MENDEZ Koehler 07/13/2020 21:58) Name Value Range Interpretation Code Description Data Maribell rce(s) Supporting Document(s) ID Date Data Source [id number] 07/13/2020 06:06:[address] [facility] 1 Clinical Report - Nurses [facility] Emergency Department [address] [place] [address] Phone #: ext- [phone] 07/13/2020 17:55 Patient: SUJATA ROSA Sex: F : 1995 Age: 24yTRIAGEArrived by private vehicle. Historian: patient. Accompanied by (Dropped off by step father).Triage time: late entry - 18:15 07/13/2020. Acuity: LEVEL 4.Chief Complaint: BACK PAIN.Alert. No acute distress.Onset. (2 weeks ago). ( Pt states "i have a slipped disc between L5-S1" and sometimes has problemswith this. Pt c/o lower back/right lower back pain that she states is not new; Pt states this radiates to herright hip. Pt states she currently has numbness down right leg also which is also not new but is moresevere than prior. Pt also states "my right calf and right foot hurt" which is also new, and is intermittentalso. Pt states today she noticed numbness in her private/vulvar area, worse when sitting and this is new.Pt denies incontinence. Pt states she has seen ortho in the past and was told to go to ER if she getsvulvar numbness.). She has had numbness of the right leg and foot. She has had left leg pain.Treatment PHYSICAL MEDICINE PHYSICIAN:None.SEPSIS SCREEN: SIRS SCREEN NEGATIVE: heart rate greater than 90. SEPSIS SCREEN NEGATIVE.No suspected or confirmed signs of infection present. --18:25 07/13/20 Latanya Lyons R.N.18:18 07/13/20. BP: 137/81. MAP: 99. HR: 93. RR: 18. O2 saturation: 98% on room air. Temp: 97.8 F(oral). Pain level now 01/13. --18:25 07/13/20 Latanya Lyons R.N.Weight: 123.8 kg stated. Height/Length: 64 inches Per Patient. BMI: 46.9. --18:15 07/13/20 Latanya Lyons R.N.MedicationsTraZODone HCl Oral 100 mg, daily at bedtime. [facility]. --18:22 07/13/20 Latanya Lyons R.N. valACYclovir HCl Oral (Tablet 1 gm) 1 tablet, as needed. --18:22 07/13/20 Latanya Lyons R.N. buPROPion HCl Oral 150 mg, daily. --18:23 07/13/20 Latanya Lyons R.N. OXcarbazepine Oral 150 mg, daily. --18:23 07/13/20 Latanya Lyons R.N. ARIPiprazole Oral (Tablet 10 mg) 1 tablet, daily. --18:23 07/13/20 Latanya Lyons R.N. Gabapentin Oral (Capsule 300 mg) 1 capsule, 3x a day. --18:23 07/13/20 Latanya Lyons R.N. tiZANidine HCl Oral 4 mg, 3x a day as needed. --18:23 07/13/20 Latanya Lyons R.N.AllergiesNo Known Drug Allergy.Seasonal. --18:22 07/13/20 Latanya Lyons R.N. 2 Clinical Report - Nurses [facility] Emergency Department [address] [place] [address] Phone #: ext- [phone] 07/13/2020 17:55 [facility] TWOSUJ[facility] [id number] Sex: F : 1995 Age: 24yPROBLEMS:Herniated Disk.Schizoaffective Disorder: (Bipolar type).Personality Disorder.Pcos. --18:24 07/13/20 Latanya Lyons R.N.The following entry was modified by Latanya Lyons R.N., 18:24 07/13/20PTSD. --18:24 07/13/20 Latanya Lyons R.N..Medication/allergy information source: the patient. --18:25 07/13/20 Latanya Lyons R.N.ADDITIONAL SURGERIES:. --18:24 07/13/20 Latanya Lyons R.N.HistoryPAST MEDICAL HX: Tetanus status: up-to-date. Immunizations: up-to-date. Last normal menstrualperiod- Pt states "I dont get a period i have the mirena". Uses an intrauterine device.SOCIAL HX: Current every day smoker (Pt vapes). Occasional alcohol use. No drug use. She wasoffered HIV testing but declined. Patient education was provided. She was offered hepatitis C testing butdeclined. Patient education was provided. ( COVID screen negative). She has not traveled outside the.[place].Infectious disease exposure: No infectious disease exposure. Patient is not a known carrier of tuberculosis,hepatitis, HIV, MRSA or VRE. Patient is not a known carrier of CRE.SELF HARM ASSESSMENT: Self harm assessment was performed. The patient answered "no" to thequestion(s) "Do you have thoughts of harming or killing yourself?" and "Do you have a plan for harming orkilling yourself?".ABUSE ASSESSMENT: Abuse assessment. The patient had positive responses to the question(s) "Do youfeel safe in your home?". Abuse denied. No suspicion of abuse. No report of abuse.NUTRITIONAL RISK ASSESSMENT: The nutritional risk assessment revealed no deficiencies.FUNCTIONAL ASSESSMENT: Functional assessment: no impairments noted.LEARNING NEEDS ASSESSMENT: The learning needs assessment revealed no barriers.FALL RISK ASSESSMENT: Fall risk assessment completed. No risk factors identified.SKIN INTEGRITY ASSESSMENT: Skin integrity risk assessment completed. No skin integrity riskidentified. --18:25 07/13/20 Latanya Lyons R.N.Interventions 3 Clinical Report - Nurses [facility] Emergency Department [address] [place] [address] Phone #: ext- [phone] 07/13/2020 17:55 Patient: SUJATA ROSA Sex: F : 1995 Age: 24y Identification band on patient. --18:25 07/13/20 Latanya Lyons R.N.PHYSICAL ASSESSMENTlate entry - 19:30 07/13/20. Ambulatory to room.GENERAL / NEURO / PSYCH: Alert. Oriented X 4. Appears in no acute distress.RESPIRATORY: Respirations not labored. Chest nontender. Breath sounds within normal limits.CVS: Normal heart rate and rhythm. Capillary refill less than 2 se conds.GI / : Abdomen soft and nontender. Bowel sounds within normal limits.EXTREMITIES: Sensation intact in extremities. ROM of extremities within normal limits.BACK: ( hx of slipped disc to L5-S1 per patient. Pt reporting lower back pain that radiates down right legwith numbness and tingling. +CMS, +ROM. Pt able to ambulate with steady gait.). Normal inspection ofthe neck and back. No neck or back tenderness. ROM of neck and back within normal limits. --22: Yvonne Velázquez R.N.NURSING PROGRESS NOTESlate entry - 18:20 07/13/20. Reassurance given. Two patient identifiers checked. Call light placed inreach. Side rails up x 2. Bed placed in lowest position. Brakes of bed on. --22:11 07/13/20 Yvonne Velázquez R.N. 19:15 07/13/2020 Acetaminophen PO 1000 mg given. Allergies verified and confirmed 5 rights. Information reviewed with patient. Verbalizes understanding. --19:15 07/13/20 Yvonne Velázquez R.N. 22:47 07/13/2020 VICODIN (5-325MG) (Acetaminophen-HYDROcodone) PO 1 tab given. Allergies verified and confirmed 5 rights. Information reviewed with patient including sedative warning. Verbalizes understanding. --22:47 07/13/20 Yvonne Velázquez R.N.DISPOSITION / DISCHARGE Report was given to a nurse via a phone call and fax. Report included information regarding patient's care, treatment, allergies and condition including: recent changes, current vital signs and abnormal labs. Report included treatment information regarding medications given or pending; type and amount of IV fluids and medications infusing and total volume infused. All questions were answered. Report was acknowledged. (JOE Crawford at [facility]). ( Awaiting for ambulance to accept transfer for patient to [facility]). --22:11 07/13/20 Yvonne Velázquez R.N. Departure time: late entry - 00:42 07/14/2020. --00:58 07/14/20 Yvonne Velázquez R.N. 00:26 07/14/20. BP: 148/92. MAP: 110. HR: 85. RR: 16. O2 saturation: 100% on room air. Temp: 98.2 F. Pain level now: 11/13. --00:58 07/14/20 Yvonne Velázquez R.N. Transported via ambulance by transport team. --00:58 07/14/20 Yvonne Velázquez R.N. Transferred to [facility]. Visit overview, summary of care (CCDA), Emtala forms and Face Sheet provided to transport team and transfer facility via paper. --00:59 07/14/20 Yvonne Velázquez R.N. 4 Clinical Report - Nurses [facility] Emergency Department [address] [place] [address] Phone #: ext- [phone] 07/13/2020 17:55 Patient: SUJATA ROSA Sex: F : 1995 Age: 24yLocked/Released at 07/14/2020 00:59 by Yvonne Velázquez R.N. Name Value Range Interpretation Code Description Data Maribell rce(s) Supporting Document(s) ID Date Data Source [id number] 07/13/2020 06:06:[address] [facility] 1 Clinical Report - Physicians/Mid Levels [facility] Emergency Department [address] [place] [address] Phone #: ext- [phone] 07/13/2020 17:55 Patient: SUJATA ROSA Sex: F : 1995 Age: 24y Time Seen: 18:48 07/13/2020. Arrived- By private vehicle. Historian- patient. Disposition decision: 21:26 07/13/2020.HISTORY OF PRESENT ILLNESS Chief Complaint: BACK PAIN and CHRONIC BACK PAIN. (Pt states 2 week hx increasing LBP radiating into R leg with intermittent tingling and numbness to R foot. Intermittent R sided vaginal numbness. States she has hx "slipped disc" L5- S1. Has been seen prior by [place] ortho for her back pain.). It is described as being moderate in degree and in the area of the right SI joint and right gluteus and radiating to the right hip, thigh and knee. The quality is noted to be sharp, aching and similar to prior episodes. No bladder dysfunction, bowel dysfunction or motor loss. Sensory loss (states vaginal numbness). Patient denies an injury. No injury to the head or neck or other injury. Similar sym ptoms previously. Recent medical care: Not recently seen/assessed.REVIEW OF SYSTEMSNo menstrual periods. Uses an intrauterine device. No fever, chills, eye irritation, difficulty with urination orurinary frequency. No hematuria, vaginal discharge, skin rash, headache or depression. No sore throat,cough, difficulty breathing, chest pain or abdominal pain. No nausea, vomiting, diarrhea, black stools orbloody stools.PAST HISTORYSee nurses notes. Problems: Depression. Contusion. Eating Disorder. Diarrhea. Borderline personality disorder. Abdominal Pain. Bipolar Disorder. Back Pain. PTSD. UTI - Urinary Tract Infection. Ocd. Knee Injury. Other Disease. Herniated Disk. Anxiety Reaction. 2 Clinical Report - Physicians/Mid Levels [facility] Emergency Department [address] [place] [address] Phone #: ext- [phone] 07/13/2020 17:55 Patient: SUJATA ROSA Sex: F : 1995 Age: 24y Schizoaffective Disorder. (Bipolar type) Personality Disorder. Pcos. Additional Surgeries: . Medications: tiZANidine HCl Oral 4 mg, 3x a day as needed. Gabapentin Oral (Capsule 300 mg) 1 capsule, 3x a day. ARIPiprazole Oral (Tablet 10 mg) 1 tablet, daily. OXcarbazepine Oral 150 mg, daily. buPROPion HCl Oral 150 mg, daily. valACYclovir HCl Oral (Tab let 1 gm) 1 tablet, as needed. TraZODone HCl Oral 100 mg, daily at bedtime. [facility]. Allergies: No Known Drug Allergy. Seasonal.SOCIAL HISTORYLight tobacco smoker. Occasional alcohol use. No drug use. No recent travel.ADDITIONAL NOTESThe nursing notes have been reviewed with agreement regarding the chief complaint, HPI, ROS, PMH andpatient medications and allergies.PHYSICAL EXAMVital Signs: 07/13/2020 18:18 BP: 137/81. MAP: 99. HR: 93. RR: 18. O2 saturation: 98% on room air.Temp: 97.8 F. Have been reviewed as normal and appear to be correct. Blood pressure normal. Meanarterial pressure- normal. Heart rate normal. Respiratory rate normal. Temperature normal. Oxygensaturation normal.Appearance: Alert. No acute distress.HEENT: Normal external inspection.Eyes: Pupils equal, round and reactive to light.ENT: Ears normal. Pharynx normal.Neck: Normal inspection. Neck nontender. Painless ROM.CVS: Heart sounds normal. Pulses normal.Respiratory: No respiratory distress. Painless inspiration. Breath sounds normal.Abdomen: No visible injury. Soft and nontender. Bowel sounds normal. No organomegaly. No mass.Femoral pulses equal. Severely obese.Back: Normal inspection. Painless ROM. Vertebral point tenderness over the lower lumbar spine. Softtissue tenderness in the right lower lumbar area. No CVA tenderness.Rectal: Rectal exam normal. No decrease in rectal tone. 3 Clinical Report - Physicians/Mid Levels [facility] Emergency Department [address] [place] [address] Phone #: ext- [phone] 07/13/2020 17:55 Patient: SUJATA ROSA Sex: F : 1995 Age: 24y Skin: Skin warm and dry. Normal skin color. No rash. Normal skin turgor. E xtremities: Extremities exhibit normal ROM. Extremities nontender. Neuro: Oriented X 3. Mood/affect normal. No motor deficit. Reflexes normal. Normal gait. (ambulates normally and without difficulty in ED).LABS, X-RAYS, AND EKGCT L-Spine: Note- L5 S1 disc osteophyte complex causing moderate neuroforaminal area mild centralcanal narrowing. The study was independently viewed by me and interpreted by the radiologist andcontemporaneously by me. Interpretation time: 21:28 07/13/2020.PROGRESS AND PROCEDURESCourse of Care: 19:15 [address] LS spine results. 21:31 Jul 13 2020. Pt with increasing numbness/tingling to foot RLE, c/o R sided vulval numbness, rectal sphincter tone normal on exam and pt can ambulate well, however C LS spine shows osteophyte complex causing moderate neuroforaminal stenosis area mild central canal narrowing, no MRI capability tonight here, no ortho spine or neurosurgery here, pt will be transferred to [facility] ED (auto accept) Dr Castillo for further evaluation and treatment. Disposition: Benefits, risks and alternatives to transfer explained to patient. Transferred to [facility]. Summary of care (CCDA) provided to transport team, EMS, patient and transfer facility via paper. UTI (catheter associated) was not present prior to transfer. Pressure ulcer was not present prior to transfer. Vascular infection (catheter associated) was not present prior to transfer. Surgical site infection was not present prior to transfer. An object left in surgery was not present prior to transfer. Blood incompatibility was not present prior to transfer. Air embolism was not present prior to transfer.CLINICAL IMPRESSION Lumbar radiculopathy (L5 S1 disc osteophyte moderate neuroforaminal narrowing).(Electronically signed by MENDEZ Koehler 07/13/2020 21:58) Name Value Range Interpretation Code Description Data Maribell rce(s) Supporting Document(s) ID Date Data Source [id number] 07/13/2020 06:06:00 PM [facility] for SUJATA ROSA VisitID: [id number] Date: 22:48Faxed Transportation request to [facility](Electronically signed by Tahir Martinez 07/13/2020 22:48) Name Value Range Interpretation Code Description Data Maribell rce(s) Supporting Document(s) ID Date Data Source [id number] 05/02/2020 12:00:00 AM EDT [facility] Imaging Maykel Valdes MD Patient Name: SUJATA ROSA[facility] Date of : 1995[place] [id number] Date of Exam: 05/02/2020PH#: Fax: [phone] EXAM: LUMBSACRAL SPINE (2 OR 3 VIEWS) XRAYCLINICAL INFORMATION: Disability determination.Comparison full series 08/15/2017.Limited three view exam of the lumbar spine AP and lateral with a coneddown view at the L5-S1, shows vertebral body height and alignment to bewithin normal limits with normal appearing disc spaces. The pediclesappear to be intact bilaterally.IMPRESSION:Unremarkable limited exam.No significant change from the prior exam.There is a T-shaped radiodensity in the pelvis most consistent with an IUD.VISHNU Potter/Prince you for referring SUJATA ROSA to our office. Electronically Signed - BERNARD KANG DO 05/03/20 14:35 Name Value Range Interpretation Code Description Data Maribell rce(s) Supporting Document(s) ID Date Data Source [id number] 02/01/2020 09:54:00 AM EDT [facility] ([facility]) Name Value Range Interpretation Code Description Data Maribell rce(s) Supporting Document(s) Inhouse [place] Laboratory test result [facility] ([facility]) ID Date Data Source [id number] 02/01/2020 09:53:00 AM EDT [facility] ([facility]) Name Value Range Interpretation Code Description Data Maribell rce(s) Supporting Document(s) Source: Laboratory test result [facility] ([facility]) {SOURCE: Genital Neisseria gonorrhoeae,[place]edra Laboratory test result [facility] ([facility]) {SOURCE: Genital Chlamydia trachomatis,Nedra Laboratory test result Abnormal (applies to non- numeric results) [facility] ([facility]) {SOURCE: Genital ID Date Data Source [id number] 02/03/2020 06:33:00 AM EDT [facility] Name Value Range Interpretation Code Description Data Maribell rce(s) Supporting Document(s) SOURCE: Genital [facility] Chlamydia trachomatis rRNA [Presence] in Unspecified specimen by Probe and target amplification method Positive Negative A [facility] Neisseria gonorrhoeae rRNA [Presence] in Unspecified specimen by Probe and target amplification method Negative Negative [facility] ID Date Data Source [id number] 01/05/2020 03:05:00 PM EDT [facility] ([facility]) Name Value Range Interpretation Code Description Data Maribell rce(s) Supporting Document(s) Hemoglobin A1c/Hemoglobin.total in Blood 5.5 [facility] ([facility]) Glucose [Mass/volume] in Serum or Plasma 131 [facility] ([facility]) ID Date Data Source [id number] 11/25/2019 12:00:00 AM EDT [facility] Suleiman Brown MD Patient Name: ADELINA ROSA [facility] 1995[facility] [address] Date of Exam: 11/25/2019PH#: Fax: [phone] EXAM: MRI LUMBAR SPINE WITHOUT CONTRASTCLINICAL INFORMATION: Low back pain. Injury in a fall.TECHNIQUE:3T multiplanar MRI imaging of the lumbar spine was obtained using varioussequences.Comparison lumbar spine CT study is from 10/15/2019.MRI FINDINGS:At L5-S1, there is degenerative narrowing of the disc with decreased discspace signal intensity. There is a fairly large broad based central focaldisc protrusion at L5-S1 which compresses the thecal sac and the right S1root. It contacts the ventral aspect of the left S1 root. There is noneural foraminal encroachment. There is a annulus tear. This is felt nabila unchanged from the 10/15/2019 CT study.At L4-5, posterior disc margin is intact. Disc signal intensity and heightare normal. No neural foraminal narrowing is seen. No spinal stenosis isnoted.The L3-4, L2-3, and L1-2 disc levels are unremarkable as well. There is noevidence of spondylolysis or spondylolisthesis. No extravertebralabnormality is observed. The conus medullaris is normal in position andappearance at T12-L1. IMPRESSION:Fairly large central focal disc protrusion at L5-S1 with thecal sac andright S1 nerve root compression.Accredited by the [employer] in MR.CHAR Taylor/Prince you for referring SUJATA ROSA to our office. Electronically Signed - MERCED WALKER MD 11/25/19 15:34 Name Value Range Interpretation Code Description Data Maribell rce(s) Supporting Document(s) ID Date Data Source [id number] 09/18/2019 09:41:00 AM EDT [facility] [address] Name Value Range Interpretation Code Description Data Maribell rce(s) Supporting Document(s) Urine culture result No growth [facility] ID Date Data Source [id number] 09/17/2019 10:07:00 AM EDT [facility] ([facility]) Name Value Range Interpretation Code Description Data Maribell rce(s) Supporting Document(s) Bacteria identified in Urine by Culture Laboratory test result [facility] ([facility]) R30.9 ID Date Data Source [id number] 09/17/2019 10:07:00 AM EDT [facility] ([facility]) Name Value Range Interpretation Code Description Data Maribell rce(s) Supporting Document(s) [facility] Urine Culture Laboratory test result [facility] ([facility]) _CULTURE URINE_ TEST PERFORMED AT [facility] [id number] [place] [address] CLIA# [id number] SEE SCANNED REPORT Result: ID Date Data Source [id number] 09/17/2019 10:07:00 AM EDT [facility] ([facility]) Name Value Range Interpretation Code Description Data Maribell rce(s) Supporting Document(s) Appearance of Urine Laboratory test result [facility] ([facility]) Color of Urine Laboratory test result [facility] ([facility]) Leukocytes Laboratory test result [facility] ([facility]) Spec [place] 1.020 [facility] ([facility]) pH of Urine by Test strip 5 [facility] NT ([facility]) Nitrate [Presence] in Urine Laboratory test result [facility] ([facility]) Protein [Presence] in Urine by Test strip Laboratory test result [facility] ([facility]) Inhouse Glucose Laboratory test result [facility] ([facility]) Ketones [Presence] in Urine by Test strip Laboratory test result [facility] ([facility]) Blood type and Indirect antibody screen panel - Blood Laboratory test result [facility] ([facility]) Bilirubin.total [Presence] in Urine by Test strip Laboratory test res ult [facility] ([facility]) Urobilinogen Laboratory test result [facility] ([facility]) ID Date Data Source [id number] 09/24/2019 08:27:[address] [facility] Name Value Range Interpretation Code Description Data Maribell rce(s) Supporting Document(s) [facility] URINE CULTURE [facility] _CULTURE URINE_ TEST PERFORMED AT [facility] [address] [place] [address] CLIA# [id number] SEE SCANNED REPORT Result: ID Date Data Source [id number] 08/30/2019 08:48:00 AM EST [facility] [address] [place] [address] PHONE: [phone] FAX: [phone] Name .................. : MOE Friend Acct Number.................. : [id number] ROOM. ................. : TR-02 Number ................... : [id number] Stay type ............. : E/R Discharge Date......... ... : 08/28/19 Admit Date ......... : 08/28/19 Admit Phys .................... : LISA SIMMS Date of ....... : 1995 Family Phys ................... : VIOLETTE Phone .................. : [phone] Age ................................ : 23 Film# .................. .:[id number] Sex ................................. : F Unsigned transcriptions are preliminary reports and do not represent a medical or legal document CT ABD & PELVIS W/ IV ONLY [id number] COMPLETE:08/28/19 17:00 KAH [id number] Reason(s): PENDING CMP: Abd pain, RLQ tenderness. CT OF THE ABDOMEN AND PELVIS WITH CONTRAST: HISTORY: Abdominal pain, right lower quadrant tenderness. FINDINGS: The lung bases are clear. The liver and spleen appear normal. The adrenals and kidneys appear normal. The pancreas and gallbladder appear normal. There is a moderate amount of stool identified within the colon. IUD present within the uterus in good position. The bowel loops are otherwise within normal limits. No signs of any free fluid. The appendix is visualized and is found to be within normal limits. The bladder appears normal. IMPRESSION: No signs of any acute disease. Appendix is visualized and found to be within normal limits. While performing the above CT examination, radiation dose reduction was accomplished utilizing automated exposure control, adjusting of the mA and kV based on the patient's body size and/or the use of imperative reconstructive techniques. CT dose: 1761.4 mGycm Contrast agent in mL: 75 Isovue 370 Method of administration: Intravenous Electronically Reviewed and Signed By CRISTINO BORJA MD , 08/30/19 08:49, Darline Transcribe Initials: EDMOND , Transcribe Date: 08/29/19 11:36, Dictation Date: Page 1 of 2 [place] [address] PHONE: [phone] FAX: [phone] Name .................. : MOE Friend Acct Number.................. : [id number] ROOM. ................. : TR-02 MR Number .. ................. : [id number] Stay type ............. : E/R Discharge Date......... ... : 08/28/19 Admit Date ......... : 08/28/19 Admit Phys .................... : LISA SIMMS Date of ....... : 1995 Family Phys ................... : [employer] Phone .................. : [phone] Age ................................ : 23 Film# .................. .:[id number] Sex ................................. : F Unsigned transcriptions are preliminary reports and do not represent a medical or legal document CT ABD & PELVIS W/ IV ONLY [id number] COMPLETE:08/28/19 17:00 KAH [id number] Reason(s): PENDING CMP: Abd pain, RLQ tenderness. Copy for: ZELDA ELIAS via fax Copy for: EMERGENCY DEPT via modem Copy for: 710 MED REC DISCHARGED Page 2 of 2 Name Value Range Interpretation Code Description Data Maribell rce(s) Supporting Document(s) ID Date Data Source [id number] 08/30/2019 08:43:00 AM EST [facility] [address] [place] [address] PHONE: [phone] FAX: [phone] Name .................. : MOE Friend Acct Number.................. : [id number] ROOM. ................. : TR MR Number ................... : [id number] Stay type ............. : E/R Discharge Date......... ... : 08/28/19 Admit Date ......... : 08/28/19 Admit Phys .................... : LISA SIMMS Date of ....... : 1995 Family Phys ................... : [employer] Phone .................. : [phone] Age ................................ : 23 Film# .................. .:[id number] Sex ................................. : F Unsigned transcriptions are preliminary reports and do not represent a medical or legal document CHEST 2 VIEWS [id number] COMPLETE:08/28/19 17:00 [facility] [id number] Reason(s): abd pain CHEST X-RAY: PA AND LATERAL VIEWS HISTORY: Abdominal pain. FINDINGS: The lungs are clear. The heart and mediastinum are normal. No signs of any acute disease noted. IMPRESSION: No acute disease. Electronically Reviewed and Signed By CRISTINO BORJA MD , 08/30/19 08:43, [facility] Transcribe Initials: EDMOND , Transcribe Date: 08/29/19 11:34, Dictation Date: Copy for: ZELDA ELIAS via fax Copy for: EMERGENCY DEPT via modem Copy for: 710 MED REC DISCHARGED Page 1 of 1 Name Value Range Interpretation Code Description Data Maribell rce(s) Supporting Document(s) ID Date Data Source [id number] 08/28/2019 02:05:[address] [facility] [address] [facility] Emergency Department [address] [place] [address] Phone #: ext- [phone] 08/28/2019 13:44 Patient: SUJATA ROSA Sex: F : 1995 Age: 23yWEIGHT:118.3 kgALLERGIES: No Known Drug Allergy, SeasonalCHIEF COMPLAINT: abdominal pain, nauseaDIAGNOSIS: Abdominal painLAB ORDERSOrder Description Priority Entered Acknowledged InitialedCBC w Diff STAT 14:23 08/28/2019 14:23 Colin Jacques R.N. PRubyARuby-C;CMP STAT 14:23 08/28/2019 14:23 Colin Jacques R.N. PRubyARuby-C;Lipase STAT 14:23 08/28/2019 14:23 Colin Jacques R.N. P.A.- C;Urinalysis (Clean STAT 14:23 08/28/2019 14:23 Sawyer,Catch) Colin Rivera R.N. PRubyARuby-Aye;HCG Serum Qual STAT 14:08/28/2019 14:24 Colin Jacques R.N. PRubyA.-C;Occult Blood Stool 14:08/28/2019 14:26 Nelsyostic 1 slide Colin StoreyARuby-C P.A.-C;Lactic Acid STAT 14:08/28/2019 14:24 [place], Christopher Lares Miguel R.N. P.A.- C;DIAGNOSTIC STUDY ORDERSOrder Description Priority Entered Acknowledged InitialedCT Abd PEL W/ IV STAT 15:18 08/28/2019 15:24 Amado Lamb RN(Oxygen?(No)) P.A.- C;(IV?(Yes)) Reason for Study: PENDING CMP: Abd pain, RLQ tenderness.Chest 2 View STAT 15:18 08/28/2019 15:24 Helena Lamb(Oxygen?(No)) Colin Lares RN [address] [facility] Emergency Department [address] [place] [address] Phone #: ext- [phone] 08/28/2019 13:44 Patient: SUJATA ROSA Sex: F : 1995 Age: 23y P.A.-C; Reason for Study: abd painMEDICATION/IV/DRIP/FLUID ORDER SOrder Description Priority Entered Acknowledged InitialedNS IV : Bolus 500 14:23 08/28/2019 14:45 [place],mL, then 125 mL/hr Colin Rivera R.N. P.A.-C;Zofran IVP 4 mg 14:23 08/28/2019 14:45 Colin Jacques R.N. P.A.-C;Protonix IVPB 40 14:23 08/28/2019 14:47 Sawyer,mg with Dextrose Colin Rivera R.N.100 ml spike bag P.A.-C;(D5W)Benadryl IVP 25 mg 14:23 08/28/2019 14:47 Colin Jacques R.N. P.A.-C;Phenergan 25 mg 15:47 08/28/2019 15:53 Sawyer,in 50 mL NS, give Colin Rivera R.N.wide open: 25 mg P.A.-C;(NOW x1, HIGHALERTMEDICATION)GENERAL ORDERSOrder Description Priority Entered Acknowledged InitialedNPO 14:23 08/28/2019 14:23 Colin Jacques R.N., P.A.-C;Saline Lock 14:08/28/2019 14:23 Colin Jacques R.N., P.A.-C;[Electronically signed by Miguel Jacques R.N. (17:58 0)][Electronically signed by Colin Lares P.A.-C (00:58 08/29/2019)][Electronically locked by Miguel Jacques R.N. (17:58 08/28/2019)] Name Value Range Interpretation Code Description Data Maribell rce(s) Supporting Document(s) ID Date Data Source [id number] 08/28/2019 02:05:[address] [facility] [address] [facility] Emergency Department [address] [place] [address] Phone #: ext- [phone] 08/28/2019 13:44 Patient: SUJATA ROSA Sex: F : 1995 Age: 23yWeight: 118.3 kgHeight/Length: 64 in.BMI: 44.8ALLERGIES: No Known Drug Allergy, SeasonalThe patient's Home Medications are listed below:THE FOLLOWING MEDICATIONS NEED TO BE RECONCILED: Acyclovir Oral MetFORMIN HCl Oral PROzac Oral RisperDAL Oral TraZODone HCl Oral [facility] source(s) of the original Home Medication information:patientThe following Medications were given to the patient in the Emergency Department:NS [IV] IV Fluids bolus 0, then 500 mL/hr, administered: 08/28/2019 2:45:00 PMZofran [IVP] IVP 4 mg, administered: 08/28/2019 2:40:00 PMProtonix [IVPB] IVPB bolus 0, then 40 mg 40 mg/hr, administered: 08/28/2019 2:42:00 PMBenadryl [IVP] IVP 25 mg, administered: 08/28/2019 2:42:00 PMPHENERGAN [IVP] IVP 25 mg, administered: 08/28/2019 3:53:00 PM [address] [facility] Emergency Department [address] [place] [address] Phone #: ext- [phone] 08/28/2019 13:44 Patient: SUJTAA ROSA Sex: F : 1995 Age: 23yThe following Medications were prescribed to the patient:Colace 100 mg capsule Take 1 capsule twice a day for 5 days -- Dispense 10 capsule. Refills: 0.Substitution permitted.[facility] - [id number] [phone] FaxNumber: .polyethylene glycol 3350 17 gram oral powder packet Take 1 packet once a da y for 10 days --Dispense 10 packet. Refills: 0. Substitution permitted.[facility] #[id number] [phone]. . -- Colin Lares P.A.-C Name Value Range Interpretation Code Description Data Maribell rce(s) Supporting Document(s) ID Date Data Source [id number] 08/28/2019 02:05:[address] [facility] [address] [facility] Emergency Department [address] [place] [address] Phone #: ext- [phone] 08/28/2019 13:44 [id number] Sex[facility] F : 1995 Age: 23yWeight: 118.3 kgHeight/Length: 64 inBMI: 44.8ALLERGIES: Seasonal, No Known Drug Allergy Date/Time Medication Administered Medication OrderedStart NS [IV] NS IV : Bolus 500 mL, then 86313:45 08/28/2019 Dose: IV Fluids mL/hrMiguel Jacques R.N. Rate: 500 mL/hr over 1 hour(s)---- Dispensed: 500 mL bagStop Site: #1 left AC17:52 08/28/2019Miguel Jacques R.N.Given ZOFRAN [IVP] (ONDANSETRON HCL) Zofran IVP 4 mg14:40 08/28/2019 Dose: 4 mg IVPGMiguel ramírez R.N. Site: #1Start PROTONIX [IVPB] (PANTOPRAZOLE Protonix IVPB 40 mg with14:42 08/28/2019 SODIUM) Dextrose 100 ml spike bag (D5W)Miguel Jacques R.N. Dose: 40 mg IVPB---- Rate: 40 mg/hr over 15 minute(s)Stop Dispensed: 100 mL bag14:58 08/28/2019 Site: #1GMiguel ramírez R.N.Given BENADRYL [IVP] (DIPHENHYDRAMINE Benadryl IVP 25 mg14:42 08/28/2019 HCL)Miguel Jacques R.N. Dose: 25 mg IVP Site: #1 Given PHENERGAN [IVP] (PROMETHAZINE Phenergan 25 mg in 50 mL NS,15:53 08/28/2019 HCL) give wide open: 25 mg (NOW x1Sawyer John, R.N. Dose: 25 mg IVP HIGH ALERT MEDICATION) Site: #1 left AC Name Value Range Interpretation Code Description Data Maribell rce(s) Supporting Document(s) ID Date Data Source [id number] 08/28/2019 02:05:[address] [facility] [address] [facility] Emergency Department [address] [place] [address] Phone #: ext- [phone] 08/28/2019 13:44 Patient: SUJATA ROSA [facility]#: [id number] Sex: F : 1995 Age: 23yAcute periumbilical and right lower quadrant abdominal pain of unknown cause.INSTRUCTIONSTake Tylenol (Acetaminophen) or Motrin (Ibuprofen) as needed for fever control. Take medicationaccording to label instructions.Drink plenty of fluids. No dietary restrictions.(Recommend to util ize OTC Motrin and Tylenol to control inflammation and pain management.Recommend to follow the instructions on the bottle and not to exceed.).Warnings: Further evaluation is necessary.GENERAL WARNINGS: Return or contact your physician immediately if your condition worsens orchanges unexpectedly, if not improving as expected, or if other problems arise.Prescription Medications:Colace 100 mg capsule Take 1 capsule twice a day for 5 days -- Dispense 10 capsule. Refills: 0.Substitution permitted.[facility] #[id number] [phone] FaxNumber: .polyethylene glycol 3350 17 gram oral powder packet Take 1 packet once a day for 10 days --Dispense 10 packet. Refills: 0. Substitution permitted.[id number] [address], [place] [phone]. .Follow-up:Return to the emergency department as needed. Follow up with your healthcare provider in about twodays if not better.Understanding of the discharge instructions verbalized by patient.Follow-up with: Juan Hsu MD, Gastroenterology, [phone], [facility],[address] [place] [address], [address], [place], [address] Follow up Friday. Call for the next available appointment. Reason for referral: evaluation and treatment. ADDITIONAL INFORMATION [address] [facility] Emergency Department [address] [place] [address] Phone #: ext- [phone] 08/28/2019 13:44 [id number] Sex: F : 1995 Age: 23yUnknown Causes of Abdominal Pain (Female)The exact cause of your belly (abdominal) pain is not clear. This does not mean that this is somethingto worry about. Everyone likes to know the exact cause of the problem. But sometimes with bellypain, there is no clear-cut cause, and this could be a good thing. The good news is that yoursymptoms can be treated, and you will feel better.Your condition does not seem serious now. But sometimes the signs of a serious problem may takemore time to appear. For this reason, it is important for you to watch for any new symptoms,problems, or worsening of your condition.Over the next few days, the abdominal pain may come and go. Or it may be constant. Other commonsymptoms can include nausea and vomiting. Sometimes it can be difficult to tell if you feel nauseous.You may just feel bad and not connect that feeling to nausea. Constipation, diarrhea, and a fever maygo along with the pain.The pain may continue even if treated correctly over the following days. Depending on how things go,sometimes the cause can become clear and may need more or different treatment. Additionalevaluations, medicines, or tests may also be needed.Home care [address] [facility] Emergency Department [address] [place] [address] Phone #: ext- [phone] 08/28/2019 13:44 Patient: SUJATA ROSA Sex: F : 1995 Age: 23yYour healthcare provider may prescribe medicine for pain, symptoms, or an infection. Follow thehealthcare provider's instructions for taking these medicines.General care Rest as much as you can until your next ex am. No strenuous activities. Try to find positions that ease discomfort. A small pillow placed on the abdomen may help relieve pain. Something warm on your abdomen (such as a heating pad) may help, but be careful not to burn yourself.Diet Don't force yourself to eat, especially if having cramps, vomiting, or diarrhea. Water is important so you don't get dehydrated. Soup may also be good. Sports drinks may also help, especially if they are not too acidic. Don't drink sugary drinks as this can make things worse. Take liquids in small amounts. Don't guzzle them. Caffeine sometimes makes the pain and cramping worse. Don't take dairy products if you have vomiting or diarrhea. Don't eat large amounts at a time. Wait a few minutes between bites. Eat a diet low in fiber (called a low-residue diet). Foods allowed include refined breads, white rice, fruit and vegetable juices without pulp, tender meats. These foods will pass more easily through the intestine. D on't have whole-grain foods, whole fruits and vegetables, meats, seeds and nuts, fried or fatty foods, dairy, alcohol and spicy foods until your symptoms go away.Follow-up careFollow up with your healthcare provider, or as advised, if your pain does not begin to improve in thenext 24 hours.Call [phone] if any of these occur: Trouble breathing Confusion Fainting or loss of consciousness [address] [facility] Emergency Department [address] [place] [address] Phone #: ext- [phone] 08/28/2019 13:44 Patient: SUJATA ROSA Sex: F : 1995 Age: 23y Rapid heart rate SeizureWhen to seek medical adviceCall your healthcare provider right away if any of these occur: Pain gets worse or moves to the right lower abdomen New or worsening vomiting or diarrhea Swelling of the abdomen Unable to pass stool for more than 3 days Fever of 100.4F (38C) or higher, or as directed by your healthcare provider. Blood in vomit or bowel movements (dark red or black color) Yellow color of eyes and skin (jaundice) Weakness, dizziness Chest, arm, back, neck, or jaw pain Unexpected vaginal bleeding or missed period Can't keep down liquids or water and you are getting dehydrated [phone] [employer]. [address] [place] [address]. All rights reserved. This information is not intended as asubstitute for professional medical care. Always follow your healthcare professional's instructions. You have been given the following additional information: Abdominal Pain, Unknown Cause, (Female)(Electronically signed by Colin Lares P.A.-C 08/29/2019 00:58) Name Value Range Interpretation Code Description Data Maribell rce(s) Supporting Document(s) ID Date Data Source [id number] 08/28/2019 02:05:[address] [facility] 1 Clinical Report - Nurses [facility] Emergency Department [address] [place] [address] Phone #: ext- [phone] 08/28/2019 13:44 Patient: SUJATA ROSA Sex: F : 1995 Age: 23yTRIAGEArrived by private vehicle. Historian: patient. Unaccompanied. ( c/o abdominal pain, fell 3 times in lastweek, nausea).Triage time: 13:44 08/28/2019. Acuity: LEVEL 3.Chief Complaint: ABDOMINAL PAIN and NAUSEA.Alert. No acute distress.This is a recurrent problem. Symptoms are intermittent (1 week). The patient has had nausea andabdominal pain. Last oral intake by patient was last night.Treatment PHYSICAL MEDICINE PHYSICIAN:None.SEPSIS SCREEN: Negative (no infection suspected/documented). --13:49 08/28/19 Galo Rosa R.N.13:44 08/28/19. BP: 116/70. MAP: 85. HR: 79. RR: 16. O2 saturation: 100%. Temp: 97.7 F. Pain levelnow: 11/13. --13:49 08/28/19 Galo Rosa R.N.Weight: 118.3 kg. Height/Length: 64 inches. BMI: 44.8. --13:43 08/28/19 Galo Rosa R.N.[facility] [place]. --13:50 08/28/19 Galo Rosa R.N. Acyclovir Oral. MetFORMIN HCl Oral. PROzac Oral. RisperDAL Oral. TraZODone HCl Oral. Zyrtec. --14:09 08/28/19 Galo Rosa R.N.AllergiesSeasonal. --13:46 08/28/19 Galo Rosa R.N.No Known Drug Allergy. --14:09 08/28/19 Galo Rosa R.N.PROBLEMS:Depres juana.Contusion.Eating Disorder.Diarrhea.Back Pain.Anxiety Reaction. 2 Clinical Report - Nurses [facility] Emergency Department [address] [place] [address] Phone #: ext- [phone] 08/28/2019 13:44 [id number] Sex[facility] F : 1995 Age: 23yBorderline personality disorder.Bipolar Disorder.Knee Injury.UTI - Urinary Tract Infection.Schizoaffective Disorder: (Bipolar type).Other Disease.Ocd.Personality Disorder.Pcos. --14:09 08/28/19 Galo Rosa R.N.The following entry was modified by Galo Rosa R.N., 14:09 08/28/19PTSD. --14:08/28/19 Galo Rosa R.N..Medication/allergy information source: the patient. --13:49 08/28/19 Galo Rosa R.N.ADDITIONAL SURGERIES:. --14:08/28/19 Galo Rosa R.N.HistoryPAST MEDICAL HX: Denies current : denies.SOCIAL HX: Smoker- current status unknown (electronic cigarrettes) (vap). Occasional alcohol use. Nodrug use. No recent travel. No known contact with a sick individual. The patient was offered HIV testingbut declined and hepatitis C testing but declined. The patient has not traveled outside the [place]Infectious disease exposure: No infectious disease exposure. Patient is not a known carrier of tuberculosis,hepatitis, HIV, MRSA or VRE. Patient is not a known carrier of CRE.SELF HARM ASSESSMENT: Self harm assessment was performed. The patient answered "no" to thequestion(s) "Have you recently felt down, depressed, or hopeless?", "Do you have thoughts of harming orkilling yourself?" and "Do you have a plan for harming or killing yourself?".ABUSE ASSESSMENT: No report of abuse.NUTRITIONAL RISK ASSESSMENT: The nutritional risk assessment revealed no deficiencies.FUNCTIONAL ASSESSMENT: Functional assessment: no impairments noted.LEARNING NEEDS ASSESSMENT: The learning needs assessment revealed no barriers.FALL RISK ASSESSMENT: Fall risk assessment completed. Risk factors identified include patient historyof fall.SKIN INTEGRITY ASSESSMENT: Skin integrity risk assessment completed. No skin integrity riskidentified. --13:49 08/28/19 Galo Rosa R.N. 3 Clinical Report - Nurses [facility] Emergency Department [address] [place] [address] Phone #: ext- [phone] 08/28/2019 13:44 Patient: SUJATA ROSA Sex: F : 1995 Age: 23y Assessment The patient states feels the same. --13:49 08/28/19 Galo Rosa R.N. Interventions Identification band on patient. To room. --13:49 08/28/19 Galo Rosa R.N.PHYSICAL ASSESSMENTGENERAL / NEURO / PSYCH: Appears in no acute distress.RESPIRATORY: Respirations not labored.CVS: Normal sinus rhythm noted.GI / : The patient has had constant nausea. Blood present in the stool, as blood streaks. ( HX of IBSfor several years).SKIN: Skin is warm and dry. --13:54 08/28/19 Miguel Jacques R.N.NURSING PROGRESS NOTESReassurance given. Bed placed in lowest position. Brakes of bed on. --13:55 08/28/19 Miguel Jacques R.N. 14:40 08/28/2019 Zofran (Ondansetron HCl) IVP 4 mg given over 3 minute(s) via site #1. --14:45 08/28/19 Miguel Jacques R.N. 14:46 08/28/19. BP: 106/70. MAP: 82. HR: 59. RR: 17. O2 saturation: 98%. --14:47 08/28/19 [facility] [place] [address] 14:42 08/28/2019 Started 40 mg of Protonix (Pantoprazole Sodium) IVPB in bag #1 100 mL; at 40 mg/hr over 15 minute(s) via site #1. --14:47 08/28/19 Miguel Jacques R.N. 14:42 08/28/2019 Benadryl (diphenhydrAMINE HCl) IVP 25 mg given over 3 minute(s) via site #1. --14:47 08/28/19 Miguel Jacques R.N. 14:45 08/28/2019 Site #1 started via IV in the left antecubital space with an 20g angiocath; one attempt. Saline lock flushed with 5 mL saline. --14:45 08/28/19 Miguel Jacques R.N. 14:45 08/28/2019 Started bag #1 500 mL IV Fluids NS; at 500 mL/hr over 1 hour(s) via site #1 --14:45 08/28/19 Miguel Jacques R.N. 15:08 08/28/19. BP: 119/71. MAP: 87. HR: 70. RR: 18. O2 saturation: 100%. Temp: deferred. Pain level now: 10/14. --15:10 08/28/19 Miguel Jacques R.N. Reassessment after medication administered. Pain still present but improving. Nausea still present but improving. --15:10 08/28/19 Miguel Jacques R.N. 15:53 08/28/2019 PHENERGAN (Promethazine HCl) IVP 25 mg given over 5 minute(s) via site #1. --15:53 08/28/19 Miguel Jacques R.N. 4 Clinical Report - Nurses [facility] Emergency Department [address] [place] [address] Phone #: ext- [phone] 08/28/2019 13:44 Patient: SUJATA ROSA Sex: F : 1995 Age: 23y Reassessment after medication administered. Nausea still present but improving. --16:03 08/28/19 Miguel Jacques R.N. 16:10 08/28/19. BP: 111/48. MAP: 69. HR: 63. RR: 17. O2 saturation: 100%. --16:30 08/28/19 Gareth manager discoverySusana ER Tech1 Patient transported to [place] by wheelchair with isotope technician. --16:34 08/28/19 Miguel Jacques R.N. 14:58 08/28/2019 Protonix IVPB via IV site #1 Discontinued: bag #1. Total amount infused: 50 mL. --17:58 08/28/19 Miguel Jacques R.N. 17:52 08/28/2019 IV Fluids NS via IV site #1 Discontinued: bag #1 infused. Total amount infused: 1000 mL. --17:57 08/28/19 Miguel Jacques R.N.DISPOSITION / DISCHARGE 17:41 08/28/19. BP: 117/49. MAP: 71. HR: 61. RR: 16. O2 saturation: 98%. Temp: 97.7 F. Pain level now: 09/13. --17:41 08/28/19 [facility], EVY Meza Tech Condition at departure: improved. Discharge instructions provided and reviewed with the patient. Patient verbalized understanding. Written instructions provided in Peruvian. The patient was discharged by the physician technical services assistant. She was discharged home. She left ambulatory and via private vehicle. Patient driving. --17:56 08/28/19 Miguel Jacques R.N. 17:56 08/28/19. BP: 117/68. MAP: 84. HR: 77. RR: 16. O2 saturation: 100%. Temp: 98.1 F. Pain level now: 08/16. --17:56 08/28/19 Miguel Jacques R.N.Locked/Released at 08/28/2019 17:58 by Miguel Jacques R.N. Name Value Range Interpretation Code Description Data Maribell rce(s) Supporting Document(s) ID Date Data Source [id number] 08/28/2019 02:05:[address] [facility] 1 Clinical Report - Physicians/Mid Levels [facility] Emergency Department [address] [place] [address] Phone #: ext- [phone] 08/28/2019 13:44 Patient: SUJATA ROSA Sex: F : 1995 Age: 23y Time Seen: 14:11 08/28/2019; initial patient contact, initial documentation. Arrived- By private vehicle. Historian- patient.HISTORY OF PRESENT ILLNESS Chief Complaint: ABDOMINAL PAIN and NAUSEA. This started about 1 weeks and is still present. It is described as "pain", cramping and dull and it is described as located in the right lower quadrant. The patient has had nausea and loss of appetite. (Pt sts that she has developed abd pain, nausea, and ntoed bloody stools. Sts that s/s for about 1 week. Has hx of GI type issues, but has not seen a GI specilatist yet). Similar symptoms previously. Patient has had similar symptoms frequently. Recent medical care: Not recently seen/assessed.REVIEW OF SYSTEMSNo constipation, black stools, hematemesis, difficulty with urination or pain with urination. No urinaryfrequency, fever, headache, sore throat or petar rred vision. No chest pain, difficulty breathing, cough, jointpain or skin rash. No chills or back pain. Denies current . Last bowel movement: today. Thepatient has had bloody stools. All other systems reviewed and are negative.PAST HISTORYSee nurses notes. Problems: PTSD. Depression. Contusion. Eating Disorder. Diarrhea. Back Pain. Anxiety Reaction. Borderline personality disorder. Bipolar Disorder. Knee Injury. UTI - Urinary Tract Infection. Schizoaffective Disorder. Other Disease. Ocd. Personality Disorder. Pcos. 2 Clinical Report - Physicians/Mid Levels [facility] Emergency Department [address] [place] [address] Phone #: ext- [phone] 08/28/2019 13:44 Patient: SUJATA ROSA 89 Sex: F : 1995 Age: 23y Additional Surgeries: . Medications: Acyclovir Oral. MetFORMIN HCl Oral. PROzac Oral. RisperDAL Oral. TraZODone HCl Oral. Zyrtec. [facility]. Allergies: No Known Drug Allergy. Seasonal.SOCIAL HISTORYSmoker- current status unknown (Vapes). Occasional alcohol use. No drug use.ADDITIONAL NOTESThe nursing notes have been reviewed.PHYSICAL EXAMVital Signs: 08/28/2019 13:44 BP: 116/70. MAP: 85. HR: 79. RR: 16. O2 saturation: 100%. Temp: 97.7 F.Pain level now: 11/13. Have been reviewed. Oxygen saturation normal.Appearance: Alert. Oriented X3. No acute distress.ENT: Voice normal.Neck: Normal inspection. Neck supple.CVS: Normal heart rate and rhythm. No JVD present. Pulses normal. Capillary refill normal. Strongperipheral pulses. Heart sounds normal. Pulses: right radial 2+; left radial 2+; right dorsalis pedis 2+; leftdorsalis pedis 2+; right posterior tibial 2+; left posterior tibial 2+.Respiratory: Chest normal on inspection. No respiratory distress. Unlabored respirations. Lungs clear.Good chest movement. Breath sounds normal and equal.Abdomen: Soft. Tenderness in the periumbilical area and right lower quadrant. Bowel sounds normal.No distention. Obese. Surgical scar present in the lower abdomen. Compatible with prior C- section.Back: Normal inspection.Rectal: Magneto Repairer present (Helena Lamb RN). Rectal exam normal and nontender. Externalhemorrhoids (small). No inflamed external hemorrhoids, thrombosed external hemorrhoids, bleedingexternal hemorrhoids or ruptured external hemorrhoids. Sphincter tone normal. ( Pt gives verbal consentfor exam.).Skin: Skin warm and dry.Extremities: Extremities exhibit normal ROM. No lower extremity edema. No calf tenderness. No lowerextremity edema.Neuro: Awake. Alert. Mood/affect normal. Speech normal. 3 Clinical Report - Physicians/Mid Levels [facility] Emergency Department [address] [place] [address] Phone #: ext- [phone] 08/28/2019 13:44 Patient: SUJATA ROSA [facility]#: [id number] Sex: F : 1995 Age: 23y Psych: Cognition normal. Thought process and content normal. Insight and judgement normal.LABS, X-RAYS, AND EKGChest X-ray: No acute disease. The X-rays were interpreted by the radiologist.KUB: (Ruth torres Michael - 08/28/2019 5:15:36 PM No acute disease). The X-rays were interpreted by the radiologist. Laboratory Tests: CBC w Diff: (CYN: 08/28/2019 14:31) ( MsgRcvd 08/28/2019 15:05) Final results Test Result Flag Units (Reference) CBC W/AUTOMATED DIFF COMPLETE BLOOD COUNT WBC 6.4 10/uL (4.2 - 11.0) RBC 4.65 10/uL (4.20 - 5.40) HEMOGLOBIN 12.2 g/dL (12.0 - 16.0) HEMATOCRIT 38.2 % (37.0 - 47.0) MCV 82.2 fL (81.0 - 101) MCH 26.2 L pg (27.0 - 34.0) MCHC 31.9 g/dL (31.0 - 36.0) RDW 16.1 H % (11.5 - 14.5) PLATELETS 299 10/uL (150 - 450) MPV 9.4 fL (7.4 - 10.4) NEUT 46.9 % (37.0 - 80.0) LYMPH 41.4 H % (25.0 - 40.0) MONO 7.7 % (3.0 - 8.0) EOS 3.6 % (0.0 - 7.0) BASO 0.2 % (0.0 - 2.5) %IG 0.2 H % (0.0 - 0.0) %NRBC 0.0 % (0.0 - 0.0) #NEUT 2.98 10/uL (2.00 - 6.90) #LYMPH 2.63 10/uL (0.60 - 3.40) #MONO 0.49 10/uL (0.00 - 0.90) #EOS 0.23 10/uL (0.00 - 0.70) #BASO 0.01 10/uL (0.00 - 0.20) #IG 0.01 10/uL (0.00 - 0.10) #NRBC 0.00 10/uL (0.00 - 0.00) MANUAL DIFF NOT INDICATED RBC MORPH NOT INDICATED CMP: (CYN: 08/28/2019 14:31) ( MsgRcvd 08/28/2019 15:23) Final results Test Result Flag Units ( Reference) COMPREHENSIVE METABOLIC PANEL COMPREHENSIVE METABOLIC PANEL SODIUM 139 mEq/L (134 - 153) POTASSIUM 4.2 mEq/L (3.6 - 5.0) CHLORIDE 108 H mEq/L (98 - 107) CO2 23 MEQ/L (22 - 30) GLUCOSE 93 MG/DL (65 - 110) BUN 8 MG/DL (7 - 21) CREATININE 0.8 MG/DL (0.7 - 1.5) BUN/CREAT 10 (8 - 27) TOTAL PROTEIN 6.8 G/DL (6.3 - 8.2) ALBUMIN 4.4 G/DL (3.9 - 5.0) GLOBULIN 2.4 GM/DL (2.4 - 3.2) A/G RATIO 1.8 (0.8 - 2.0) CALCIUM 9.4 MG/DL (8.4 - 10.2) TOTAL BILI <0.7 MG/DL (0.2 - 1.3) ALKALINE PHOS 81 U/L (38 - 126) SGOT/AST 28 U/L (5 - 40) SGPT/ALT 32 U/L (7 - 56) ANION GAP 8.0 mmol/L (8.0 - 16.0) 4 Clinical Report - Physicians/Mid Levels [facility] Emergency Department [address] [place] [address] Phone #: ext- [phone] 08/28/2019 13:44 [id number] Sex: F : 1995 Age: 23y AGE 23 yrs NON-AA GFR >60 mL/min AFR AMER GFR >60 mL/min Male GFR Interprentation 20-49 yrs >60 mL/min Normal 50-59 yrs >56 mL/min Normal 60-69 yrs >49 mL/min Normal 70-79yrs >42 mL/min Normal 80 and above >35 mL/min Normal Female GFR Interpretation 20-39 yrs >60 mL/min Normal 40-49 yrs >58 mL/min Normal 50-59 yrs >51 mL/min Normal 60-69 yrs >45 mL/min Normal 70-79 yrs >39 mL/min Normal 80 and above >32 mL/min Normal Lipase: (CYN: 08/28/2019 14:31) ( [facility] Final results Test Result Flag Units (Reference) LIPASE 15 U/L (13 - 60) Urinalysis: (CYN: 08/28/2019 14:10) ( MsgRcvd 08/28/2019 14:39) Final results Test Result Flag Units (Reference) URINALYSIS URINALYSIS SOURCE R COLOR yellow (NORMAL: Yello CLARITY clear (NORMAL: Clear SPEC GRAVITY 1.015 (1.001 - 1.030 pH 5 (5 - 9) GLUCOSE NORM (NORMAL: Negat BILIRUBIN NEG (NORMAL: Negat KETONE NEG (NORMAL: Negat PROTEIN NEG (NORMAL: Negat NITRITE NEG (NORMAL: Negat BLOOD 250 A (NORMAL: Negat LEUK EST NEG (NORMAL: Negat UROBILINOGEN NOR (less than 1.0 MICROSCOPIC See Below WBC None Seen (NORMAL: NONE RBC 0 - 1 (NORMAL: NONE EPITHELIAL FEW (NORMAL: NONE BACTERIA None Seen (NORMAL: NONE Beta-HCG, Qual Serum: (CYN: 08/28/2019 14:31) ( CtgRcvd 08/28/2019 15:09) Final results Test Result Flag Units (Reference) HCG SERUM QUAL NEGATIVE (NORMAL: NEGAT HCG SERUM QL REENTER NEGATIVE (NORMAL: NEGAT { KIT LOT # [id number] ){ KIT EXP DATE [id number] ){ PROCEDURAL CONTROL VALID ) Occult Blood Stool Diagnostic 1 slide: (CYN: 08/28/2019 14:25) ( MsgRcvd 08/28/2019 15:11) Final results Test Result Flag Units (Reference) OCCULT BLOOD NEGATIVE (NORMAL: NEGAT OCCULT BLOOD REENTER NEGATIVE (NORMAL: NEGAT { HEMOCCULT LOT # [id number] ){ LOT EXP DATE ){ PROCEDURAL CONTROL POS/NEG VALID ) Lactic Acid: (CYN: 08/28/2019 14:31) ( MsgRcvd 08/28/2019 14:43) Final results Test Result Flag Units (Reference) LACTIC ACID 1.3 MMOL/L (0.2 - 2.2). 5 Clinical Report - Physicians/Mid Levels [facility] Emergency Department [address] [place] [address] Phone #: ext- [phone] 08/28/2019 13:44 Patient: SUJATA ROSA Sex: F : 1995 Age: 23yPROGRESS AND PROCEDURESCourse of Care: VSS, NAD, AOx3, interacting well and appropriately, no use of accessory muscle, able tospeak full sentences, stable, non-toxic looking. Enter room and pt lying peacefully in bed in NAD. Patient stable. Denies any new issues, concerns, or complaints. PE demos NV intact b/l UE and LE. Noted TTP of the RLQ. Will obtain labs and imaging for further eval. Pending resutls. Reviewed results. Enter room and patient lying peacefully in bed in NAD. Patient stable. Denies any new issues, concerns, or complaints. Discussed results with pt. Discussed tx plan with pt. Discussed and counseled on stable condition. Discussed importance of a f/u with PCP. Discussed return to ER criteria. Answered their questions. Indicates and verbalizes that they understand, agree, and will comply with above. Denies any new questions or concerns. Patient has capacity to understand. Discharge decision based on the following: patient's condition is stable; patient's exam is stable; social support is adequate; transportation is available; follow-up is available. Discussed of OTC Motrin and Tylenol to control inflammation and pain management. Informed to follow directions on bottle that are appropriate for age and/or weight. Disposition: Discharged home in good and improved condition. Condition: good and stable.CLINICAL IMPRESSION Acute periumbilical and right lower quadrant abdominal pain of unknown cause.INSTRUCTIONS Take Tylenol (Acetaminophen) or Motrin (Ibuprofen) as needed for fever control. Take medication according to label instructions. Drink plenty of fluids. No dietary restrictions. (Recommend to utilize OTC Motrin and Tylenol to control inflammation and pain management. Recommend to follow the instructions on the bottle and not to exceed.). Warnings: Further evaluation is necessary. GENERAL WARNINGS: Return or contact your physician immediately if your condition worsens or 6 Clinical Report - Physicians/Mid Levels [facility] Emergency Department [address] [place] [address] Phone #: ext- [phone] 08/28/2019 13:44 Patient: SUJATA ROSA 89 Sex: F : 1995 Age: 23y changes unexpectedly, if not improving as expected, or if other problems arise. Prescription Medications: Colace 100 mg capsule Take 1 capsule twice a day for 5 days -- Dispense 10 capsule. Refills: 0. Substitution permitted. Pharmacy - [facility] #[id number] - [address] [place], [place] [id number]. . polyethylene glycol 3350 17 gram oral powder packet Take 1 packet once a day for 10 days -- Dispense 10 packet. Refills: 0. Substitution permitted. Pharmacy - [facility] #[id number] - [address] [facility] ; [place], [place] [phone]. . Follow-up: Return to the emergency department as needed. Follow up with your healthcare provider in about two days if not better. Understanding of the discharge instructions verbalized by patient. Follow-up with: Juan Hsu MD, Gastroenterology, [id number], [facility], [address] [place] [address], [address], [place], [address] Follow up Friday. Call for the next available appointment. Reason for referral: evaluation and treatment.(Electronically blaze d by Colin Lares P.A.-C 08/29/2019 00:58) Name Value Range Interpretation Code Description Data Maribell rce(s) Supporting Document(s) ID Date Data Source [id number] 08/28/2019 02:31:00 PM EST [facility] ([facility]) Name Value Range Interpretation Code Description Data [facility] rce(s) Supporting Document(s) Comprehensive Metabo Laboratory test result [facility] ([facility]) COMPREHENSIVE METABOLIC PANEL Sodium 139 meq/L 134-153 [facility] ([facility]) Potassium 4.2 meq/L 3.6-5.0 [facility] ([facility]) Chloride 108 meq/L 98-107 Above high normal [facility] ([facility]) Co2 23 meq/L 22-30 [facility] ([facility]) BUN 8 mg/dL 7-21 [facility] ([facility]) Glucose 93 mg/dL 65-110 [facility] ([facility]) Creatinine 0.8 mg/dL 0.7-1.5 [facility] ([facility]) Albumin 4.4 g/dL 3.9-5.0 [facility] ([facility]) BUN/Creat 10 8-27 [facility] ([facility]) Total Protein 6.8 g/dL 6.3-8.2 [facility] ([facility]) Globulin 2.4 GM/DL 2.4-3.2 [facility] ([facility]) A/G Ratio 1.8 0.8-2.0 [facility] ([facility]) Calcium 9.4 mg/dL 8.4-10.2 [facility] ([facility]) SGPT/Alt 32 U/L 7-56 [facility] ([facility]) Sgot/Ast 28 U/L 5-40 [facility] ([facility]) Alkaline Phos 81 U/L 38-126 [facility] ([facility]) Total Bili Laboratory test result 0.2-1.3 [facility] ([facility]) Non-Aa GFR Laboratory test result [facility] ([facility]) Anion Gap 8.0 mmol/L 8.0-16.0 [facility] ([facility]) Age 23 yrs [facility] ([facility]) Afr Amer GFR Laboratory test result [facility] ([facility]) Male GFR Interprentation 20-49 yrs >60 mL/min Normal 50-59 yrs >56 mL/min Normal 60-69 yrs >49 mL/min Normal 70-79yrs >42 mL/min Normal 80 and above >35 mL/min Normal Female GFR Interpretation 20-39 yrs >60 mL/min Normal 40-49 yrs >58 mL/min Normal 50-59 yrs >51 mL/min Normal 60-69 yrs >45 mL/min Normal 70-79 yrs >39 mL/min Normal 80 and above >32 mL/min Normal ID Date Data Source [id number] 08/28/2019 02:31:00 PM EST [facility] ([facility]) Name Value Range Interpretation Code Description Data Maribell rce(s) Supporting Document(s) Lipase [Enzymatic activity/volume] in Serum or Plasma 15 U/L 13-6 0 [facility] ([facility]) ID Date Data Source [id number] 08/28/2019 02:31:00 PM EST [facility] ([facility]) Name Value Range Interpretation Code Description Data Maribell rce(s) Supporting Document(s) HCG Serum Qual Laboratory test result [facility] ([facility]) HCG Serum QL Reenter Laboratory test result [facility] ([facility]) { KIT LOT # [id number] ) { KIT EXP DATE [id number] ) { PROCEDURAL CONTROL VALID ) ID Date Data Source [id number] 08/28/2019 02:31:00 PM EST [facility] ([facility]) Name Value Range Interpretation Code Description Data Maribell rce(s) Supporting Document(s) RBC 4.65 10^6/uL 4.20-5.40 [facility] ([facility]) CBC W/Automated Diff Laboratory test result [facility] ([facility]) COMPLETE BLOOD COUNT WBC 6.4 10^3/uL 4.2-11.0 [facility] ([facility]) Hemoglobin 12.2 g/dL 12.0-16.0 [facility] ([facility]) MCV 82.2 fL 81.0-101 [facility] ([facility]) Hematocrit 38.2 % 37.0-47.0 [facility] ([facility]) MCH 26.2 pg 27.0-34.0 Below low normal [facility] ( [facility]) RDW 16.1 % 11.5-14.5 Above high normal [facility] ([facility]) MCHC 31.9 g/dL 31.0-36.0 [facility] ([facility]) Lymph 41.4 % 25.0-40.0 Above high normal [facility] ([facility]) Platelets 299 10^3/uL 150-450 [facility] ([facility]) Neut 46.9 % 37.0-80.0 [facility] ([facility]) MPV 9.4 fL 7.4-10.4 [facility] ([facility]) [place] 7.7 % 3.0-8.0 [facility] ([facility]) Baso 0.2 % 0.0-2.5 [facility] ([facility]) Eos 3.6 % 0.0-7.0 [facility] ([facility]) %NRBC 0.0 % 0.0-0.0 [facility] ([facility]) #Neut 2.98 10^3/uL 2.00-6.90 [facility] ([facility]) %Ig 0.2 % 0.0-0.0 Above high normal [facility] ([facility]) #[place] 0.49 10^3/uL 0.00-0.90 [facility] ([facility]) #Lymph 2.63 10^3/uL 0.60-3.40 [facility] ([facility]) #Eos 0.23 10^3/uL 0.00-0.70 [facility] ([facility]) #NRBC 0.00 10^3/uL 0.00-0.00 [facility] ([facility]) #Ig 0.01 10^3/uL 0.00-0.10 [facility] ([facility]) #Baso 0.01 10^3/uL 0.00-0.20 [facility] ([facility]) Manual Diff Laboratory test result [facility] ([facility]) RBC Morph Laboratory test result [facility] ([facility]) ID Date Data Source [id number] 08/28/2019 02:31:00 PM EST [facility] ([facility]) Name Value Range Interpretation Code Description Data Maribell rce(s) Supporting Document(s) Lactate [Mass/volume] in Serum or Plasma 1.3 mmol/L 0.2-2.2 [facility] ([facility]) ID Date Data Source [id number] 08/28/2019 03:22:[address] [facility] Name Value Range Interpretation Code Description Data Maribell rce(s) Supporting Document(s) COMPREHENSIVE METABOLIC PANEL [facility] COMPREHENSIVE METABOLIC PANEL Sodium [Moles/volume] in Serum or Plasma 139 mEq/L 134 - 153 [facility] Potassium [Moles/volume] in Serum or Plasma 4.2 mEq/L 3.6 - 5.0 [facility] Chloride [Moles/volume] in Serum or Plasma 108 mEq/L 98 - [address] [facility] Carbon dioxide, total [Moles/volume] in Serum or Plasma 23 MEQ/L 22 - 30 [facility] Glucose [Mass/volume] in Serum or Plasma 93 MG/DL 65 - 110 [facility] BUN 8 MG/DL 7 - 21 [facility] Creatinine [Mass/volume] in Serum or Plasma 0.8 MG/DL 0.7 - 1.5 [facility] BUN/CREAT 10 8 - 27 [facility] al Protein [Mass/volume] in Serum or Plasma 6.8 G/DL 6.3 - 8.2 [facility] Albumin [Mass/volume] in Serum or Plasma 4.4 G/DL 3.9 - 5.0 [facility] Globulin [Mass/volume] in Serum by calculation 2.4 GM/DL 2.4 - 3.2 [facility] A/G RATIO 1.8 0.8 - 2.0 [facility] Calcium [Mass/volume] in Serum or Plasma 9.4 MG/DL 8.4 - 10.2 [facility] Bilirubin.total [Mass/volume] in Serum or Plasma <0.7 MG/DL 0.2 - 1.3 [facility] Alkaline phosphatase [Enzymatic activity/volume] in Serum or Plasma 81 U/L 38 - 126 [facility] Aspartate aminotransferase [Enzymatic activity/volume] in Serum or Plasma 28 U/L 5 - 40 [facility] Alanine aminotransferase [Enzymatic activity/volume] in Seru m or Plasma 32 U/L 7 - 56 [facility] Anion gap 3 in Serum or Plasma 8.0 mmol/L 8.0 - 16.0 [facility] AGE 23 yrs [facility] al NON-AA GFR >60 mL/min [facility] ital AFR AMER GFR >60 mL/min [facility] Male GFR In terprentation 20-49 yrs >60 mL/min Normal 50-59 yrs >56 mL/min Normal 60-69 yrs >49 mL/min Normal 70-79yrs >42 mL/min Normal 80 and above >35 mL/min Normal Female GFR Interpretation 20-39 yrs >60 mL/min Normal 40-49 yrs >58 mL/min Normal 50-59 yrs >51 mL/min Normal 60-69 yrs >45 mL/min Normal 70-79 yrs >39 mL/min Normal 80 and above >32 mL/min Normal ID Date Data Source [id number] 08/28/2019 03:12:[address] [facility] Name Value Range Interpretation Code Description Data Maribell rce(s) Supporting Document(s) Lipase [Enzymatic activity/volume] in Serum or Plasma 15 U/L 13 - 60 [facility] ID Date Data Source [id number] 08/28/2019 03:09:[address] [facility] Name Value Range Interpretation Code Description Data Maribell rce(s) Supporting Document(s) HCG SERUM QUAL NEGATIVE NORMAL: NEGATIVE [facility] HCG SERUM QL REENTER NEGATIVE NORMAL: NEGATIVE [facility] { KIT LOT # [id number] ){ KIT EXP DATE [id number] ){ PROCEDURAL CONTROL VALID ) ID Date Data Source [id number] 08/28/2019 03:05:00 PM [facility] Name Value Range Interpretation Code Description Data Maribell rce(s) Supporting Document(s) CBC W/AUTOMATED DIFF [facility] COMPLETE BLOOD COUNT Leukocytes [#/volume] in Blood by Automated count 6.4 10^3/uL 4.2 - [address] [facility] Erythrocytes [#/volume] in Blood by Automated count 4.65 10^6/uL 4. 20 - 5.40 [facility] Hemoglobin [Mass/volume] in Blood 12.2 g/dL 12.0 - 16.0 [facility] Hematocrit [Volume Fraction] of Blood by Automated count 38.2 % 3 7.0 - 47.0 [facility] Erythrocyte mean corpuscular volume [Entitic volume] by Auto mated count 82.2 fL 81.0 - 101 [facility] Erythrocyte mean corpuscular hemoglobin [Entitic mass] by Automated count 26.2 pg 27.0 - 34.[address] [facility] Erythrocyte mean corpuscular hemoglobin concentration [Mass/volume] by Automated count 31.9 g/dL 31.0 - 36.0 [facility] Erythrocyte distribution width [Ratio] by Automated count 16.1 % 11.5 - 14.[address] [facility] Platelets [#/volume] in Blood by Automated count 299 10^3/uL 150 - [address] [facility] Platelet mean volume [Entitic volume] in Blood by Automated count 9.4 fL 7.4 - 10.4 [facility] Neutrophils/100 leukocytes in Blood by Automated count 46.9 % 37. 0 - 80.0 [facility] Lymphocytes/100 leukocytes in Blood by Manual count 41.4 % 25.0 - 40.[address] [facility] Monocytes/100 leukocytes in Blood by Automated count 7.7 % 3.0 - 8.0 [facility] Eosinophils/100 leukocytes in Blood by Automated count 3.6 % 0.0 - 7.0 [facility] Basophils/100 leukocytes in Blood by Automated count 0.2 % 0.0 - 2.5 [facility] %IG 0.2 % 0.0 - 0.0 [facility] %NR[facility] 0.0 % 0.0 - 0.0 [facility] al Neutrophils [#/volume] in Blood by Automated count 2.98 10^3/uL 2.00 - 6.90 [facility] Lymphocytes [#/volume] in Blood by Automated count 2.63 10^3/uL 0.60 - 3.40 [facility] Monocytes [#/volume] in Blood by Automated count 0.49 10^3/uL 0.00 - 0.90 [facility] Eosinophils [#/volume] in Blood by Automated count 0.23 10^3/uL 0.00 - 0.70 [facility] Basophils [#/volume] in Blood by Automated count 0.01 10^3/uL 0.00 - 0.20 [facility] #IG 0.01 10^3/uL 0.00 - 0.10 [facility] ospital #NRBC 0.00 10^3/uL 0.00 - 0.00 [facility]ital MANUAL DIFF NOT INDICATED [facility] RBC MORPH NOT INDICATED [facility] spital ID Date Data Source [id number] 08/28/2019 02:43:[address] [facility] Name Value Range Interpretation Code Description Data Maribell rce(s) Supporting Document(s) Lactate [Moles/volume] in Serum or Plasma 1.3 MMOL/L 0.2 - 2.2 [facility] ID Date Data Source [id number] 08/28/2019 02:25:00 PM EST [facility] ([facility]) Name Value Range Interpretation Code Description Data Maribell rce(s) Supporting Document(s) Occult Blood Laboratory test result [facility] ([facility]) Occult Blood Reenter Laboratory test result [facility] ([facility]) { HEMOCCULT LOT # [id number] ) { LOT EXP DATE ) { PROCEDURAL CONTROL POS/NEG VALID ) ID Date Data Source [id number] 08/28/2019 03:10:[address] [facility] Name Value Range Interpretation Code Description Data Maribell rce(s) Supporting Document(s) OCCULT BLOOD NEGATIVE NORMAL: NEGATIVE [facility] OCCULT BLOOD REENTER NEGATIVE NORMAL: NEGATIVE [facility] { HEMOCCULT LOT # [id number] ){ LOT EXP DATE ){ PROCEDURAL CONTROL POS/NEG VALID ) ID Date Data Source [id number] 08/30/2019 01:30:00 PM EST [facility] [id number] Name Value Range Interpretation Code Description Data Maribell rce(s) Supporting Document(s) Bacteria identified in Urine by Culture [facility] ID Date Data Source [id number] 08/28/2019 02:10:00 PM EST [facility] ([facility]) Name Value Range Interpretation Code Description Data Maribell rce(s) Supporting Document(s) Urinalysis Laboratory test result [facility] ([facility]) SOURCE: Clean Catch Source Laboratory test result [facility] ([facility]) SOURCE: Clean Catch Color Laboratory test result [facility] ([facility]) SOURCE: Clean Catch Spec [place] 1.015 1.001-1.030 [facility] ([facility]) SOURCE: Clean Catch pH 5 5-9 [facility] ([facility]) SOURCE: Clean Catch Clarity Laboratory test result [facility] ([facility]) SOURCE: Clean Catch Ketone Laboratory test result [facility] ([facility]) SOURCE: Clean Catch Bilirubin Laboratory test result [facility] ([facility]) SOURCE: Clean Catch Glucose Laboratory test result [facility] ([facility]) SOURCE: Clean Catch Leuk Est Laboratory test result [facility] ([facility]) SOURCE: Clean Catch Blood 250 Abnormal (applies to non-numeric res ults) [facility] ([facility]) SOURCE: Clean Catch Protein Laboratory test result [facility] ([facility]) SOURCE: Clean Catch Nitrite Laboratory test result [facility] ([facility]) SOURCE: Clean Catch WBC Laboratory test result [facility] ([facility]) SOURCE: Clean Catch Microscopic Laboratory test result [facility] ([facility]) SOURCE: Clean Catch Urobilinogen Laboratory test result [facility] ([facility]) SOURCE: Clean Catch RBC Laboratory test result [facility] ([facility]) SOURCE: Clean Catch Epithelial Laboratory test result [facility] ([facility]) SOURCE: Clean Catch Bacteria Laboratory test result [facility] SOURCE: Clean Catch ID Date Data Source [id number] 08/28/2019 02:32:[address] [facility] Name Value Range Interpretation Code Description Data Maribell rce(s) Supporting Document(s) URINALYSIS [facility] guru URINALYSIS SOURCE [facility] COL[facility] yellow NORMAL: Yellow [facility] CLARITY clear NORMAL: Clear [facility] Specific gravity of Urine by Test strip 1.015 1.001 - 1.030 [facility] pH 5 5 - 9 [facility] al Glucose [Mass/volume] in Urine by Test strip NORM NORMAL: Negat [facility] Bilirubin.total [Presence] in Urine by Test strip NEG NORMAL: Negative [facility] Ketones [Presence] in Urine by Test strip NEG NORMAL: Negative [facility] Protein [Mass/volume] in Urine by Test strip NEG NORMAL: Negat [facility] Nitrite [Presence] in Urine by Test strip NEG NORMAL: Negative [facility] BLOOD 250 NORMAL: Negative [facility] Leukocyte esterase [Presence] in Urine by Test strip NEG MOE L: Negative [facility] Urobilinogen [Mass/volume] in Urine by Test strip NOR less violetta n 1.0 mg/dL [facility] MICROSCOPIC See Below [facility] ital WBC None Seen NORMAL: NONE SEEN [facility] Erythrocytes [#/volume] in Urine by Test strip 0 - 1 NORMAL: NON E SEEN [facility] EPITHELIAL FEW NORMAL: NONE SEEN [facility] Bacteria [Presence] in Urine sediment by Light microscopy No ne Seen NORMAL: NONE SEEN [facility] ID Date Data Source [id number] 08/10/2019 03:33:00 PM EST [facility] ([facility]) Name Value Range Interpretation Code Description Data Maribell rce(s) Supporting Document(s) Source: Laboratory test result [facility] ([facility]) {SOURCE: Random Void~VAGINAL SOURCE Chlamydia trachomatis,Nedra Laboratory test result [facility] ([facility]) {SOURCE: Random Void~VAGINAL SOURCE Neisseria gonorrhoeae,Nedra Laboratory test result [facility] ([facility]) {SOURCE: Random Void~VAGINAL SOURCE ID Date Data Source [id number] 08/13/2019 08:59:[address] [facility] Name Value Range Interpretation Code Description Data Maribell rce(s) Supporting Document(s) SOURCE: Random Void [facility] ital Chlamydia trachomatis rRNA [Presence] in Unspecified specimen by Probe and target amplification method Negative Negative [facility] Neisseria gonorrhoeae rRNA [Presence] in Unspecified specimen by Probe and target amplification method Negative Negative [facility] ID Date Data Source [id number] 08/10/2019 02:17:00 PM EST [facility] ([facility]) Name Value Range Interpretation Code Description Data Maribell rce(s) Supporting Document(s) Color of Urine Laboratory test result [facility] ([facility]) pH of Urine by Test strip 6 MEDE NT ([facility]) Spec [place] 1.010 [facility] ([facility]) Leukocytes Laboratory test result [facility] ([facility]) Appearance of Urine Laboratory test result [facility] ([facility]) Protein [Presence] in Urine by Test strip Laboratory test result [facility] ([facility]) Nitrate [Presence] in Urine Laboratory test result [facility] ([facility]) Inhouse Glucose Laboratory test result [facility] ([facility]) Ketones [Presence] in Urine by Test strip Laboratory test result [facility] ([facility]) Bilirubin.total [Presence] in Urine by Test strip Laboratory test res ult [facility] ([facility]) Urobilinogen Laboratory test result [facility]) Blood type and Indirect antibody screen panel - Blood 250 [facility] ([facility]) ID Date Data Source [id number] 07/21/2019 09:13:00 AM EST [facility] ([facility]) Name Value Range Interpretation Code Description Data Maribell rce(s) Supporting Document(s) Calcidiol [Mass/volume] in Serum or Plasma 26 ng/mL [facility] ([facility]) Is patient fasting? N Hemoglobin A1c/Hemoglobin.total in Blood 5.1 % 4.4-6.1 [facility] ([facility]) Is patient fasting? N ID Date Data Source [id number] 07/21/2019 09:13:00 AM EST [facility] ([facility]) Name Value Range Interpretation Code Description Data Maribell rce(s) Supporting Document(s) Comprehensive Metabo Laboratory test result [facility] ([facility]) Is patient fasting? N Sodium 141 meq/L 134-153 [facility] ([facility]) Is patient fasting? N Potassium 4.4 meq/L 3.6-5.0 [facility] ([facility]) Is patient fasting? N Chloride 106 meq/L 98-107 [facility] ([facility]) Is patient fasting? N Co2 24 meq/L 22-30 [facility] ([facility]) Is patient fasting? N Glucose 93 mg/dL 65-110 [facility] ([facility]) Is patient fasting? N Creatinine 0.8 mg/dL 0.7-1.5 [facility] ([facility]) Is patient fasting? N BUN 15 mg/dL 7-21 [facility] ([facility]) Is patient fasting? N Total Protein 7.1 g/dL 6.3-8.2 [facility] ([facility]) Is patient fasting? N BUN/Creat 19 8-27 [facility] ([facility]) Is patient fasting? N Globulin 2.5 GM/DL 2.4-3.2 [facility] ([facility]) Is patient fasting? N Albumin 4.6 g/dL 3.9-5.0 [facility] ([facility]) Is patient fasting? N Calcium 10.0 mg/dL 8.4-10.2 [facility] ([facility]) Is patient fasting? N A/G Ratio 1.8 0.8-2.0 [facility] ([facility]) Is patient fasting? N Alkaline Phos 83 U/L 38-126 [facility] ([facility]) Is patient fasting? N Total Bili 0.7 mg/dL 0.2-1.3 [facility] ([facility]) Is patient fasting? N SGPT/Alt 37 U/L 7-56 [facility] ([facility]) Is patient fasting? N Sgot/Ast 24 U/L 5-40 [facility] ([facility]) Is patient fasting? N Anion Gap 11.0 mmol/L 8.0-16.0 [facility] ([facility]) Is patient fasting? N Age 23 yrs [facility] ([facility]) Is patient fasting? N Afr Amer GFR Laboratory test result [facility] ([facility]) Is patient fasting? N Non-Aa GFR Laboratory test result [facility] ([facility]) Is patient fasting? N ID Date Data Source [id number] 07/21/2019 09:13:00 AM EST [facility] ([facility]) Name Value Range Interpretation Code Description Data Maribell rce(s) Supporting Document(s) Thyrotropin [Units/volume] in Serum or Plasma 2.96 uIU/mL 0.47-5.01 [facility] ([facility]) Is patient fasting? N ID Date Data Source [id number] 07/21/2019 09:13:00 AM EST [facility] ([facility]) Name Value Range Interpretation Code Description Data Maribell rce(s) Supporting Document(s) CBC No Diff Laboratory test result [facility] ([facility]) Is patient fasting? N RBC 4.85 10^6/uL 4.20-5.40 [facility] ([facility]) Is patient fasting? N WBC 5.7 10^3/uL 4.2-11.0 [facility] ([facility]) Is patient fasting? N MCV 83.1 fL 81.0-101 [facility] ([facility]) Is patient fasting? N Hemoglobin 12.5 g/dL 12.0-16.0 [facility] ([facility]) Is patient fasting? N MCH 25.8 pg 27.0-34.0 Below low normal [facility] ( [facility]) Is patient fasting? N Hematocrit 40.3 % 37.0-47.0 [facility] ([facility]) Is patient fasting? N RDW 15.6 % 11.5-14.5 Above high normal [facility] ([facility]) Is patient fasting? N MCHC 31.0 g/dL 31.0-36.0 [facility] ([facility]) Is patient fasting? N Platelets 322 10^3/uL 150-450 [facility] ([facility]) Is patient fasting? N MPV 10.2 fL 7.4-10.4 [facility] ([facility]) Is patient fasting? N ID Date Data Source [id number] 07/21/2019 11:27:00 AM [facility] Value Range Interpretation Code Description Data Maribell rce(s) Supporting Document(s) Calcidiol [Moles/volume] in Serum or Plasma 26 NG/ML [facility] VITAMIN-D(2 5HYDROXY) Deficiency: <=20 ng/ml Insufficiency: 21-29 ng/ml Preferred level: => 30 ng/ml ID Date Data Source [id number] 07/21/2019 11:27:00 AM [facility] Name Value Range Interpretation Code Description Data Maribell rce(s) Supporting Document(s) Thyrotropin [Units/volume] in Serum or Plasma by Detec tion limit <= 0.05 mIU/L 2.96 uIU/mL 0.47 - 5.01 [facility] ID Date Data Source [id number] 07/21/2019 11:25:00 AM [facility] Value Range Interpretation Code Description Data Maribell rce(s) Supporting Document(s) CBC NO DIFF [facility] ital COMPLETE BLOOD COUNT Leukocytes [#/volume] in Blood by Automated count 5.7 10^3/uL 4.2 - [address] [facility] Erythrocytes [#/volume] in Blood by Automated count 4.85 10^6/uL 4. 20 - 5.40 [facility] Hemoglobin [Mass/volume] in Blood 12.5 g/dL 12.0 - 16.0 [facility] Hematocrit [Volume Fraction] of Blood by Automated count 40.3 % 3 7.0 - 47.0 [facility] Erythrocyte mean corpuscular volume [Entitic volume] by Auto mated count 83.1 fL 81.0 - 101 [facility] Erythrocyte mean corpuscular hemoglobin [Entitic mass] by Automated count 25.8 pg 27.0 - 34.[address] [facility] Erythrocyte mean corpuscular hemoglobin concentration [Mass/volume] by Automated count 31.0 g/dL 31.0 - 36.0 [facility] Erythrocyte distribution width [Ratio] by Automated count 15.6 % 11.5 - 14.[address] [facility] Platelets [#/volume] in Blood by Automated count 322 10^3/uL 150 - [address] [facility] Platelet mean volume [Entitic volume] in Blood by Automated count 10.2 fL 7.4 - 10.4 [facility] ID Date Data Source [id number] 07/21/2019 11:16:[address] [facility] Name Value Range Interpretation Code Description Data Maribell rce(s) Supporting Document(s) Hemoglobin A1c/Hemoglobin.total in Blood 5.1 % 4.4 - 6.1 [facility] {A1]{HB] ID Date Data Source [id number] 07/21/2019 11:15:[address] [facility] Name Value Range Interpretation Code Description Data Maribell rce(s) Supporting Document(s) COMPREHENSIVE METABOLIC PANEL [facility] COMPREHENSIVE METABOLIC PANEL Sodium [Moles/volume] in Serum or Plasma 141 mEq/L 134 - 153 [facility] Potassium [Moles/volume] in Serum or Plasma 4.4 mEq/L 3.6 - 5.0 [facility] Chloride [Moles/volume] in Serum or Plasma 106 mEq/L 98 - 107 [facility] Carbon dioxide, total [Moles/volume] in Serum or Plasma 24 MEQ/L 22 - 30 [facility] Glucose [Mass/volume] in Serum or Plasma 93 MG/DL 65 - 110 [facility] BUN 15 MG/DL 7 - 21 [facility] Creatinine [Mass/volume] in Serum or Plasma 0.8 MG/DL 0.7 - 1.5 [facility] BUN/CREAT 19 8 - 27 [facility] Protein [Mass/volume] in Serum or Plasma 7.1 G/DL 6.3 - 8.2 [facility] Albumin [Mass/volume] in Serum or Plasma 4.6 G/DL 3.9 - 5.0 [facility] Globulin [Mass/volume] in Serum by calculation 2.5 GM/DL 2.4 - 3.2 [facility] A/G RATIO 1.8 0.8 - 2.0 [facility] Calcium [Mass/volume] in Serum or Plasma 10.0 MG/DL 8.4 - 10.2 [facility] Bilirubin.total [Mass/volume] in Serum or Plasma 0.7 MG/DL 0.2 - 1.3 [facility] Alkaline phosphatase [Enzymatic activity/volume] in Serum or Plasma 83 U/L 38 - 126 [facility] Aspartate aminotransferase [Enzymatic activity/volume] in Serum or Plasma 24 U/L 5 - 40 [facility] Alanine aminotransferase [Enzymatic activity/volume] in Seru m or Plasma 37 U/L 7 - 56 [facility] Anion gap 3 in Serum or Plasma 11.0 mmol/L 8.0 - 16.0 [facility] AGE 23 yrs [facility] NON-AA GFR >60 mL/min [facility] ital AFR AMER GFR >60 mL/min [facility] Male GFR In terprentation 20-49 yrs >60 mL/min Normal 50-59 yrs >56 mL/min Normal 60-69 yrs >49 mL/min Normal 70-79yrs >42 mL/min Normal 80 and above >35 mL/min Normal Female GFR Interpretation 20-39 yrs >60 mL/min Normal 40-49 yrs >58 mL/min Normal 50-59 yrs >51 mL/min Normal 60-69 yrs >45 mL/min Normal 70-79 yrs >39 mL/min Normal 80 and above >32 mL/min Normal Procedure Social History Code Duration Value Status Description Data Source(s ) Smoking 07/14/2020 12:00:00 AM EST Former smoker completed Former smoker [facility] Vital Signs ID Date Data Source [id number] Name Value Range Interpretation Code Description Data Source(s) Body surface area 2.24 m2 2.24 m2 [facility] ([facility]) Body mass index (BMI) [Ratio] 47.2 kg/m2 47.2 k g/m2 [facility] ([facility]) Body height 64 [in_i] 64 [in_i] [facility] ([facility]) 5'4" Body weight 124.740 kg 124.740 kg [facility] ([facility]) Body weight 275.00 [lb_av] 275.00 [lb_av] [facility] ([facility]) Body temperature 98.2 [degF] 98.2 [degF] [facility] ([facility]) Heart rate 86 /min 86 /min [facility] ([facility]) Diastolic blood pressure 68 mm[Hg] 68 mm[Hg] [facility] ([facility]) Systolic blood pressure 118 mm[Hg] 118 mm[Hg] [facility] ([facility]) Body mass index (BMI) [Ratio] 46.3 kg/m2 46.3 k g/m2 [facility] ([facility]) Body weight 278.00 [lb_av] 278.00 [lb_av] [facility] T ([facility]) Body height 65 [in_i] 65 [in_i] [facility] ([facility]) 5'5" Body temperature 96.0 [degF] 96.0 [degF] [facility] ([facility]) Oxygen saturation in Arterial blood by Pulse oximetry 97 % 97 % [facility] ([facility]) Body mass index (BMI) [Ratio] 46.5 kg/m2 46.5 k g/m2 [facility] ([facility]) Body weight 272.50 [lb_av] 272.50 [lb_av] [facility] ([facility]) Body height 64.2 [in_i] 64.2 [in_i] [facility] ([facility]) 5'4.20" Heart rate 66 /min 66 /min [facility] ([facility]) Diastolic blood pressure 64 mm[Hg] 64 mm[Hg] [facility] ([facility]) Systolic blood pressure 124 mm[Hg] 124 mm[Hg] [facility] ([facility]) Systolic blood pressure 112 mm[Hg] 112 mm[Hg] [facility] ([facility]) Body surface area 2.23 m2 2.23 m2 [facility] ([facility]) Body mass index (BMI) [Ratio] 46.9 kg/m2 46.9 k g/m2 [facility] ([facility]) Body height 64 [in_i] 64 [in_i] [facility] ([facility]) 5'4" Body weight 123.889 kg 123.889 kg [facility] ([facility]) Body weight 273.12 [lb_av] 273.12 [lb_av] [facility] T ([facility]) Oxygen saturation in Arterial blood by Pulse oximetry 97 % 97 % [facility] ([facility]) Respiratory rate 16 /min 16 /min [facility] ( [facility]) Body temperature 98.4 [degF] 98.4 [degF] [facility] ([facility]) Heart rate 85 /min 85 /min [facility] ([facility]) Diastolic blood pressure 68 mm[Hg] 68 mm[Hg] [facility] ([facility]) Body surface area 2.18 m2 2.18 m2 [facility] ([facility]) Body mass index (BMI) [Ratio] 44.2 kg/m2 44.2 k g/m2 [facility] ([facility]) Body height 64 [in_i] 64 [in_i] [facility] ([facility]) 5'4" Body weight 116.689 kg 116.689 kg [facility] ([facility]) Body weight 257.25 [lb_av] 257.25 [lb_av] [facility] T ([facility]) Oxygen saturation in Arterial blood by Pulse oximetry 98 % 98 % [facility] ([facility]) Respiratory rate 16 /min 16 /min [facility] ( [facility]) Body temperature 98.5 [degF] 98.5 [degF] [facility] ([facility]) Heart rate 88 /min 88 /min [facility] ([facility]) Diastolic blood pressure 80 mm[Hg] 80 mm[Hg] [facility] ([facility]) Systolic blood pressure 126 mm[Hg] 126 mm[Hg] [facility] Body surface area 2.20 m2 2.20 m2 [facility] ([facility]) Body mass index (BMI) [Ratio] 45.3 kg/m2 45.3 k g/m2 [facility] ([facility]) Body height 64 [in_i] 64 [in_i] [facility] ([facility]) 5'4" Body weight 119.750 kg 119.750 kg [facility] ([facility]) Body weight 264.00 [lb_av] 264.00 [lb_av] [facility] ([facility]) Heart rate 56 /min 56 /min [facility] ([facility]) Diastolic blood pressure 66 mm[Hg] 66 mm[Hg] [facility] ([facility]) Systolic blood pressure 126 mm[Hg] 126 mm[Hg] [facility] ([facility]) Body surface area 2.19 m2 2.19 m2 [facility] ([facility]) Body mass index (BMI) [Ratio] 44.9 kg/m2 44.9 k g/m2 [facility] ([facility]) Body height 64 [in_i] 64 [in_i] [facility] ([facility]) 5'4" Body weight 118.560 kg 118.560 kg [facility] ([facility]) Body weight 261.38 [lb_av] 261.38 [lb_av] [facility] ([facility]) Oxygen saturation in Arterial blood by Pulse oximetry 98 % 98 % [facility] ([facility]) Respiratory rate 16 /min 16 /min [facility] ( [facility]) Body temperature 97.8 [degF] 97.8 [degF] [facility] ([facility]) Heart rate 86 /min 86 /min [facility] ([facility]) Diastolic blood pressure 68 mm[Hg] 68 mm[Hg] [facility] ([facility]) Systolic blood pressure 122 mm[Hg] 122 mm[Hg] [facility] Body surface area 2.19 m2 2.19 m2 [facility] ([facility]) Body mass index (BMI) [Ratio] 44.8 kg/m2 44.8 k g/m2 [facility] ([facility]) Body height 64 [in_i] 64 [in_i] [facility] ([facility]) 5'4" Body weight 118.446 kg 118.446 kg [facility] ([facility]) Body weight 261.12 [lb_av] 261.12 [lb_av] [facility] ([facility]) Oxygen saturation in Arterial blood by Pulse oximetry 98 % 98 % [facility] ([facility]) Respiratory rate 16 /min 16 /min [facility] ( [facility]) Body temperature 98.7 [degF] 98.7 [degF] [facility] ([facility]) Heart rate 92 /min 92 /min [facility] ([facility]) Diastolic blood pressure 78 mm[Hg] 78 mm[Hg] [facility] ([facility]) Systolic blood pressure 110 mm[Hg] 110 mm[Hg] [facility]) Body surface area 2.17 m2 2.17 m2 [facility] ([facility]) Body mass index (BMI) [Ratio] 43.6 kg/m2 43.6 k g/m2 [facility] ([facility]) Body height 64 [in_i] 64 [in_i] [facility] ([facility]) 5'4" Body weight 115.271 kg 115.271 kg [facility] ([facility]) Body weight 254.12 [lb_av] 254.12 [lb_av] [facility] ([facility]) Oxygen saturation in Arterial blood by Pulse oximetry 98 % 98 % [facility]) Respiratory rate 16 /min 16 /min [facility] ( [facility]) Body temperature 98.5 [degF] 98.5 [degF] [facility] ([facility]) Heart rate 87 /min 87 /min [facility] ([facility]) Diastolic blood pressure 76 mm[Hg] 76 mm[Hg] [facility] ([facility]) Systolic blood pressure 118 mm[Hg] 118 mm[Hg] [facility] ([facility]) ID Date Data Source [id number] 07/16/2020 08:49:07 AM [facility] Name Value Range Interpretation Code Description Data Source(s) WEIGHT RECORDED [address] [facility] Body height Measured 64 in 64 in [facility] TRANSFER FROM [facility] Patient Treatment Plan of Care Planned Activity Planned Date Details Description Data Source (s) methylPREDNISolone 4 MG Oral Tablet Therapy Pack (MEDR OL DOSEPACK) 07/14/2020 12:00:00 AM [facility] ospital aripiprazole 10 MG Oral Tablet 07/11/2020 12:00:00 AM [facility] oxcarbazepine 150 MG Oral Tablet 07/06/2020 12:00:00 AM [facility] Trazodone Hydrochloride 100 MG Oral Tablet 07/05/2020 12:00:00 AM [facility] 24 HR Bupropion Hydrochloride 300 MG Extended Release Oral Tablet 07/05/2020 12:00:00 AM [facility] ospital gabapentin 300 MG Oral Capsule 06/16/2020 12:00:00 AM [facility] tizanidine 4 MG Oral Tablet 06/14/2020 12:00:00 AM [facility]
[2020-07-17] MEDS ORDERED: ABIL10TA9 PO ×2 (18:30→22:30)
[2020-07-17] MEDS ORDERED: WELLTAB40 PO (18:30)
[2020-07-17] MEDS ORDERED: OXCA150T21 PO (18:30)
[2020-07-17 19:15] LABS: HEMATOCRIT 44.3 % (36.0-47.0); HEMOGLOBIN 13.4 g/dl (12.0-15.5); MEAN CORPUSCULAR HEMOGLOBIN 25.2 pg (27.0-33.0); MEAN CORPUSCULAR HGB CONC 30.2 g/dl (32.0-36.5); MEAN CORPUSCULAR VOLUME 83.4 fl (80.0-96.0); PLATELET COUNT, AUTOMATED 317 10^3/uL (150-450); RED BLOOD COUNT 5.31 10^6/uL (4.00-5.40); WHITE BLOOD COUNT 8.9 10^3/uL (4.0-10.0)
[2020-07-17 19:40] LABS: AMPHETAMINES LEVEL URINE NEGATIVE (NEGATIVE); BARBITURATES URINE NEGATIVE (NEGATIVE); BENZODIAZEPINES URINE NEGATIVE (NEGATIVE); CANNABINOIDS URINE NEGATIVE (NEGATIVE); COCAINE METABOLITE URINE NEGATIVE (NEGATIVE); METHADONE URINE NEGATIVE (NEGATIVE); OPIATES URINE NEGATIVE (NEGATIVE); PHENCYCLIDINE URINE NEGATIVE (NEGATIVE)
[2020-07-17 20:06] LABS: ACETAMINOPHEN LEVEL < 2.0 UG/ML (10.0-30.0); ALBUMIN 4.2 GM/DL (3.2-5.2); ALT/SGPT 60 U/L (12-78); BILIRUBIN,DIRECT < 0.1 MG/DL (0.0-0.2); BILIRUBIN,TOTAL 0.4 MG/DL (0.2-1.0); BLOOD UREA NITROGEN 8 MG/DL (7-18); CALCIUM LEVEL 9.3 MG/DL (8.5-10.1); CARBON DIOXIDE LEVEL 25 MEQ/L (21-32); CHLORIDE LEVEL 107 MEQ/L (98-107); CREATININE FOR GFR 0.93 MG/DL (0.55-1.30); ETHYL ALCOHOL (ETHANOL) < 0.003 % (0.000-0.010); GLOMERULAR FILTRATION RATE > 60.0 (>60); GLUCOSE, FASTING 111 MG/DL (70-100); SALICYLATE LEVEL < 1.7 MG/DL (5.0-30.0); SODIUM LEVEL 140 MEQ/L (136-145); TOTAL PROTEIN 7.4 GM/DL (6.4-8.2)
[2020-07-17] MEDS: OXcarbazepine 150 MG TAB PO SCH ×2 (21:00→22:51)
[2020-07-17 21:23] LABS: HCG, SERUM QUANTITATIVE < 1.0 MIU/ML
--- OUTSIDE RECORDS SUMMARY | 2020-07-17 21:40 | CCD ---
Author Author [facility] Organization [facility] Address Unknown Phone Unavailable Care Team Providers Care Technical Assistant Name Role Phone Aye VAN Unavailable Unavailable Shelia Brown MD Unavailable Unavailable Shelia Brown MD Unavailable Unavailable Shelia Brown MD Unavailable Unavailable Shelia Brown MD Unavailable Unavailable Shelia Brown MD Unavailable Unavailable Shelia Brown MD Unavailable Unavailable Shelia Brown MD Unavailable Unavailable Shelia Brown MD Unavailable Unavailable Shelia Brown MD Unavailable Unavailable Shelia Brown MD Unavailable Unavailable Sehlia Brown MD Unavailable Unavailable Shelia Brown MD [...] Unavailable Unavailable Cathie MAYER MD Unavailable Unavailable DRAZEK, I JERMAINE PA [...] JERMAINE PA Unavailable Unavailable COOK, B KALEB MOLASSES COLORING OPERATOR Unavailable Unavailable COOK, B KALEB MOLASSES COLORING OPERATOR Unavailable Unavailable COOK, B KALEB MOLASSES COLORING OPERATOR Unavailable Unavailable COOK, B KALEB MOLASSES COLORING OPERATOR Unavailable Unavailable COOK, B KALEB MOLASSES COLORING OPERATOR Unavailable Unavailable COOK, B KALEB MOLASSES COLORING OPERATOR Unavailable Unavailable COOK, B KALEB MOLASSES COLORING OPERATOR Unavailable Unavailable COOK, B KALEB MOLASSES COLORING OPERATOR Unavailable Unavailable COOK, B KALEB MOLASSES COLORING OPERATOR Unavailable Unavailable COOK, B KALEB MOLASSES COLORING OPERATOR Unavailable Unavailable COOK, B KALEB MOLASSES COLORING OPERATOR Unavailable Unavailable COOK, B KALEB MOLASSES COLORING OPERATOR Unavailable Unavailable COOK, B KALEB MOLASSES COLORING OPERATOR Unavailable Unavailable COOK, B KALEB MOLASSES COLORING OPERATOR Unavailable Unavailable COOK, B KALEB MOLASSES COLORING OPERATOR Unavailable Unavailable COOK, B KALEB MOLASSES COLORING OPERATOR Unavailable Unavailable COOK, B KALEB MOLASSES COLORING OPERATOR Unavailable Unavailable COOK, B KALEB MOLASSES COLORING OPERATOR Unavailable Unavailable COOK, B KALEB MOLASSES COLORING OPERATOR Unavailable Unavailable COOK, B KALEB MOLASSES COLORING OPERATOR Unavailable Unavailable COOK, B KALEB MOLASSES COLORING OPERATOR Unavailable Unavailable COOK, B KALEB MOLASSES COLORING OPERATOR Unavailable Unavailable COOK, B KALEB MOLASSES COLORING OPERATOR Unavailable Unavailable COOK, B KALEB MOLASSES COLORING OPERATOR Unavailable Unavailable COOK, B KALEB MOLASSES COLORING OPERATOR Unavailable Unavailable COOK, B KALEB MOLASSES COLORING OPERATOR Unavailable Unavailable COOK, B KALEB MOLASSES COLORING OPERATOR Unavailable Unavailable COOK, B KALEB MOLASSES COLORING OPERATOR Unavailable Unavailable COOK, B KALEB MOLASSES COLORING OPERATOR Unavailable Unavailable COOK, B KALEB MOLASSES COLORING OPERATOR Unavailable Unavailable COOK, B KALEB MOLASSES COLORING OPERATOR Unavailable Unavailable COOK, B KALEB MOLASSES COLORING OPERATOR Unavailable Unavailable COOK, B KALEB MOLASSES COLORING OPERATOR Unavailable Unavailable COOK, B KALEB MOLASSES COLORING OPERATOR Unavailable Unavailable COOK, B KALEB MOLASSES COLORING OPERATOR Unavailable Unavailable COOK, B KALEB MOLASSES COLORING OPERATOR Unavailable Unavailable COOK, B KALEB MOLASSES COLORING OPERATOR Unavailable Unavailable COOK, B KALEB MOLASSES COLORING OPERATOR Unavailable Unavailable COOK, B KALEB MOLASSES COLORING OPERATOR Unavailable Unavailable COOK, B KALEB MOLASSES COLORING OPERATOR Unavailable Unavailable COOK, B KALEB MOLASSES COLORING OPERATOR Unavailable Unavailable COOK, B KALEB MOLASSES COLORING OPERATOR Unavailable Unavailable COOK, B KALEB MOLASSES COLORING OPERATOR Unavailable Unavailable COOK, B KALEB MOLASSES COLORING OPERATOR Unavailable Unavailable COOK, B KALEB MOLASSES COLORING OPERATOR Unavailable Unavailable COOK, B KALEB MOLASSES COLORING OPERATOR Unavailable Unavailable COOK, B KALEB MOLASSES COLORING OPERATOR Unavailable Unavailable COOK, B KALEB MOLASSES COLORING OPERATOR Unavailable Unavailable COOK, B KALEB MOLASSES COLORING OPERATOR Unavailable Unavailable COOK, B KALEB MOLASSES COLORING OPERATOR Unavailable Unavailable COOK, B KALEB MOLASSES COLORING OPERATOR Unavailable Unavailable COOK, B KALEB MOLASSES COLORING OPERATOR Unavailable Unavailable COOK, B KALEB MOLASSES COLORING OPERATOR Unavailable Unavailable COOK, B KALEB MOLASSES COLORING OPERATOR Unavailable Unavailable COOK, B KALEB MOLASSES COLORING OPERATOR Unavailable Unavailable COOK, B KALEB MOLASSES COLORING OPERATOR Unavailable Unavailable COOK, B KALEB MOLASSES COLORING OPERATOR Unavailable Unavailable COOK, B KALEB MOLASSES COLORING OPERATOR Unavailable Unavailable COOK, B KALEB MOLASSES COLORING OPERATOR Unavailable Unavailable COOK, B KALEB MOLASSES COLORING OPERATOR Unavailable Unavailable COOK, B KALEB MOLASSES COLORING OPERATOR Unavailable Unavailable COOK, B KALEB MOLASSES COLORING OPERATOR Unavailable Unavailable COOK, B KALEB MOLASSES COLORING OPERATOR Unavailable Unavailable Crystal DIXON MD Unavailable Unavailable Crystal DIXON MD Unavailable Unavailable Crystal DIXON MD Unavailable Unavailable Crystal DIXON MD Unavailable Unavailable Crystal DIXON MD Unavailable Unavailable GALSUSANA SIMS MD Unavailable Unavailable GALGANOSUSANA MD Unavailable Unavailable [...] MD Unavailable Unavailable GALGANOSUSANA MD Unavailable Unavailable ChauhanDarlinee PA-C Unavailable Unavailable Chauhan, M Kate PA-C [...] LISA, F AURORA DO Unavailable LISA, F AUORRA DO Unavailable LISA, F AURORA DO Unavailable [...] Jagjit CNM Unavailable Unavailable TOVAR, FRANCISCO HERNANDEZ MOLASSES COLORING OPERATOR Unavailable Unavailable TOVAR, FRANCISCO HERNANDEZ MOLASSES COLORING OPERATOR Unavailable Unavailable TOVAR, FRANCISCO HERNANDEZ MOLASSES COLORING OPERATOR Unavailable Unavailable TOVAR, FRANCISCO HERNANDEZ MOLASSES COLORING OPERATOR Unavailable Unavailable TOVAR, FRANCISCO HERNANDEZ MOLASSES COLORING OPERATOR Unavailable Unavailable TOVAR, FRANCISCO HERNANDEZ MOLASSES COLORING OPERATOR Unavailable Unavailable TOVAR, FRANCISCO HERNANDEZ MOLASSES COLORING OPERATOR Unavailable Unavailable TOVAR, FRANCISCO HERNANDEZ MOLASSES COLORING OPERATOR Unavailable Unavailable TOVAR, FRANCISCO HERNANDEZ MOLASSES COLORING OPERATOR Unavailable Unavailable TOVAR, FRANCISCO HERNANDEZ MOLASSES COLORING OPERATOR Unavailable Unavailable TOVAR, FRANCISCO HERNANDEZ MOLASSES COLORING OPERATOR Unavailable Unavailable TOVAR, FRANCISCO HERNANDEZ MOLASSES COLORING OPERATOR Unavailable Unavailable TOVAR, FRANCISCO HERNANDEZ MOLASSES COLORING OPERATOR Unavailable Unavailable TOVAR, FRANCISCO HERNANDEZ MOLASSES COLORING OPERATOR Unavailable Unavailable TOVAR, FRANCISCO HERNANDEZ MOLASSES COLORING OPERATOR Unavailable Unavailable TOVAR, FRANCISCO HERNANDEZ MOLASSES COLORING OPERATOR Unavailable Unavailable TOVAR, FRANCISCO HERNANDEZ MOLASSES COLORING OPERATOR Unavailable Unavailable TOVAR, FRANCISCO HERNANDEZ MOLASSES COLORING OPERATOR Unavailable Unavailable TOVAR, FRANCISCO HERNANDEZ MOLASSES COLORING OPERATOR Unavailable Unavailable TOVAR, FRANCISCO HERNANDEZ MOLASSES COLORING OPERATOR Unavailable Unavailable TOVAR, FRANCISCO HERNANDEZ MOLASSES COLORING OPERATOR Unavailable Unavailable TOVAR, FRANCISCO HERNANDEZ MOLASSES COLORING OPERATOR Unavailable Unavailable TOVAR, FRANCISCO HERNANDEZ MOLASSES COLORING OPERATOR Unavailable Unavailable Chauhan, M Kate PA-C Unavailable [...] Unavailable Chauhan, M Kate PA-C Unavailable Unavailable Madrid, Nik Unavailable Unavailable Madrid, [...] Unavailable Unavailable BrownShelia MD Unavailable Unavailable Brown, Shelia Bearden MD Unavailable Unavailable BrownShelia MD Unavailable Unavailable Brown, Shelia Bearden MD Unavailable Unavailable BrownShelia MD Unavailable Unavailable Brown, Shelia Bearden MD Unavailable Unavailable Brown, Shelia Bearden MD Unavailable Unavailable BrownShelia MD Unavailable Unavailable BrownShelia MD Unavailable Unavailable BrownShelia MD Unavailable Unavailable BrownShelia MD Unavailable Unavailable BrownShelia MD Unavailable Unavailable BrownShelia MD Unavailable Unavailable Rbown, Shelia Bearden MD Unavailable Unavailable BrownShelia MD [...] MD Unavailable Unavailable BrownShelia MD Unavailable Unavailable Brown L Suleiman ADRIAN Unavailable Unavailable BrownShelia MD Unavailable Unavailable Brown, [...] Brown, L Suleiman MD Unavailable Unavailable Brown, Shelia Bearden MD Unavailable Unavailable Re-disclosure Warning The records [...] is protected by Article 27-F of the [facility] Public Health law. If you continue you may have access to information: Regarding HIV / AIDS; Provided by facilities licensed or operated by the [facility] Office of Mental Health; or Provided by the [facility] Office for People With Developmental Disabilities. If such information is present, then the following [facility] mandated warning applies: This information has [...] law may result in a fine or senior care sentence or both. A general authorization for the release of medical or other information is NOT sufficient authorization for further disc losure. Allergies and Adverse Reactions Type Description Substance Reaction Status Data Source(s ) No Known Drug Allergies No Known Drug Allergies [facility] No Known Environmental Allergies No Known Environmental Al lergies [facility] No Known Food Allergies No Known Food Allergies [facility] Family History Family Member Name Family Member Gender Family Member Status Date o f Status Description Data Source(s) Unknown Female Problem [facility] ([facility]) Encounters Encounter Providers Location Date Indications Data Source(s ) Outpatient Attender: SUSANA DUKES MD 07/25/2020 12:00:[address] [facility] [place] Emergency Attender: FLORENCIO DIXON MDAttender: ALEXEI MAYER MD [id number] 07/13/2020 09:32:00 PM EST - 07/14/2020 01:36:00 PM EST Other intervertebral disc displacement, lumbosacral region [facility] [place] Other intervertebral disc displacement, lumbosacral region Patient discharged. Emergency Attender: REHAN MOSERCOConsultant: Elba orta MD 07/13/2020 06:06:00 PM EST - 07/14/2020 12:42:00 AM EST [facility] Patient discharged. Office Visit Attender: JERMAINE SIMMS Physical Therapy 2019 01:40:00 PM EST [facility] ([facility]) Outpatient Attender: JERMAINE SIMMS Physical Therapy 02/22/2020 1 1:00:00 AM EDT [facility] ([facility]) Outpatient Attender: HERNANDEZ TOVAR NPConsultant: Elba mcdermott MD 02/01/2020 09:01:00 AM EDT - 02/01/2020 09:01:00 AM EDT [facility] Outpatient Attender: HERNANDEZ TOVAR NP Family Practice 02/01/2020 09 :00:00 AM EDT [facility] ([facility]ics) OFFICE OUTPATIENT NEW 30 MINUTES Attender: Nik Madrid Physical Therapy 01/12/2020 11:00:00 AM EDT [facility] ([facility]) Outpatient Attender: KALEB ARROYO NP Physical Therapy 01/05/2020 0 2:45:00 PM EDT [facility] ([facility]) Outpatient Attender: Kate SIMMS-CConsultant: Elba rose MD 12/30/2019 11:22:00 AM EDT - 12/30/2019 11:22:00 AM EDT [facility] Outpatient Attender: Elba Frazier MD Family Practice 0 12/28/2019 03:20:00 PM EDT [facility] ([facility]) Outpatient Attender: Elba Frazier MDConsultant: Elba scruggs MD 12/28/2019 02:59:00 PM EDT - 12/28/2019 02:59:00 PM EDT [facility] Outpatient Attender: JERMAINE SIMMS Physical Therapy 12/20/2019 0 1:00:00 PM EDT [facility] ([facility]) Outpatient Referrer: Suleiman [...] Therapy 11/09/2019 1 0:30:00 AM EDT [facility] ([facility]) Outpatient Attender: Kate SIMMS-CConsultant: Elba rose MD 10/29/2019 08:13:00 AM EDT - 10/29/2019 08:13:00 AM EDT [facility] Outpatient Attender: Elba Frazier MDConsultant: Elba scruggs MD 10/19/2019 10:19:00 AM EDT - 10/19/2019 10:19:00 AM EDT [facility] Outpatient Attender: Elba Frazier MDConsultant: Elba scruggs MD 10/15/2019 01:25:00 PM EDT - 10/15/2019 01:25:00 PM EDT [facility] Office Visit Attender: Elba Frazier MD Family Practice 0 10/15/2019 01:00:00 PM EDT [facility] ([facility]) Outpatient Attender: Elba Frazier MDAttender: Kate THOMASCConsultant: Elba Frazier MD 10/13/2019 03:40:00 PM EDT - 10/13/2019 03:40:00 PM EDT [facility] Outpatient Attender: Elba Frazier MD Family Practice 0 10/13/2019 03:40:00 PM EDT [facility] ([facility]) Outpatient Attender: Kate THOMASCConsultant: Elba rose MD 10/05/2019 03:01:00 PM EDT - 10/05/2019 03:01:00 PM EDT [facility] Outpatient Attender: Kate Chauhan PA-C 09/17/2019 10:07:00 AM EDT R30.9 [facility] R30.9 Outpatient Attender: Kate GILMOREonsultant: Elba rose MD 09/17/2019 08:43:00 AM EDT - 09/17/2019 08:43:00 AM EDT [facility] Outpatient 08/28/2019 02:10:00 PM EST [facility] Emergency Attender: AURORA GONZALEZ DOConsultant: Elba wan MD 08/28/2019 02:05:00 PM EST - 08/28/2019 05:58:00 PM [facility] Patient discharged. Outpatient Attender: Jagjit BARRIOSMAtt teresa: Elba Frazier MDConsultant: Elba Frazier MD 08/10/2019 02:10:00 PM EST - 08/10/2019 02:10:00 PM EST [facility] Outpatient Attender: Jagjit Hill CNMRef errer: Jagjit BARRIOSonsultant: Elba Frazier MD 08/10/2019 01:22:00 PM EST - 08/10/2019 01:32:00 PM [facility] Patient discharged. Outpatient Attender: Jagjit BARRIOS Family Practice 08/10/2019 0 1:15:00 PM EST [facility] ([facility]) Outpatient Attender: Elba Frazier MDConsultant: Elba scruggs MD 08/04/2019 01:01:00 PM EST - 08/04/2019 01:01:00 PM EST [facility] Outpatient Attender: Elba Frazier MD Family Practice 0 08/04/2019 12:00:00 PM EST [facility] ([facility]) Outpatient Attender: Elba Frazier MDConsultant: Elba scruggs MD 07/21/2019 08:38:00 AM EST - 07/21/2019 08:38:00 AM EST [facility] Outpatient Attender: Elba Frazier MD Family Practice 0 07/21/2019 07:40:00 AM EST [facility] ([facility]) Outpatient Attender: Elba Frazier MDConsultant: Elba scruggs MD 06/08/2019 10:02:00 AM EST - 06/08/2019 10:02:00 AM [facility] Outpatient Attender: Elba Frazier MD Family Practice 1 08/09/2018 09:00:00 AM EST [facility] Outpatient Attender: Jagjit ENCISOonsultant: Elba wan MD 05/07/2019 08:27:00 AM EDT - 05/07/2019 08:27:00 AM EDT [facility] Emergency Attender: ZOILA DUConsultant: Elba wan MD 05/03/2019 01:53:00 PM EDT - 05/03/2019 02:44:00 PM EDT [facility] Patient discharged. Outpatient Attender: Jagjit ENCISOonsultant: Elba wan MD 04/27/2019 11:50:00 AM EDT - 04/27/2019 12:50:00 PM EDT [facility] Outpatient Attender: Kate SIMMS-CConsultant: Elba rose MD 04/12/2019 12:46:36 PM EDT - 04/12/2019 02:09:00 PM EDT [facility] Patient discharged. Medications Medication Brand Name Start Date Product Form Dose Route Admi nistrative Instructions Pharmacy Instructions Status Indications Reaction Description Data Source(s) 4 mg 07/15/2020 12:00:00 AM EST tablets,dose pack 21 TAKE DIRECTED TAKE DIRECTED SOLD: 07/15/2020 Kianna tao Ondansetron 4 MG Disintegrating Oral Tab let ondansetron (ZOFRAN-ODT) disintegrating tablet 4 mg ondansetron (ZOFRAN-ODT) disintegrating tablet 4 mg 07/14/2020 11:30:00 AM EST 4 mg Oral completed 4 mg, Oral, Once, Fri07/14/20 at 1130, For 1 dose
Dissolve on tongue.
[facility] [place] Medication administered onsite Acetaminophen 325 MG Oral Tablet acetaminophen (TYLENO L) tablet 975 mg acetaminophen (TYLENOL) tablet 975 mg 07/14/2020 10:45:00 AM EST 97 5 mg Oral completed 975 mg, Oral, O nce, Fri07/14/20 at 1045, For 1 dose
Maximum daily dose of acetaminophen is 3,000 mg from all sources in [address]
[facility] [place] Medication administered onsite methylPREDNISolone 4 MG Oral Tablet Therapy Pack (MEDROL DOS LUDMILACK) 3324-9855-00 07/14/2020 12:00:00 AM EST active follow package directions [facility] aripiprazole 10 MG Oral Tablet ARIPiprazole 10 MG Oral Tablet (ABILIFY) ARIPiprazole 10 MG Oral Tablet (ABILIFY) 07/11/2020 12:00:00 AM EST active [facility] oxcarbazepine 150 MG Oral Tablet OXcarbazepine 150 MG Oral Tablet (TRILEPTAL) OXcarbazepine 150 MG Oral Tablet (TRILEPTAL) 07/06/2020 12:00:00 AM EST active [facility] 24 HR Bupropion Hydrochloride 300 MG Ext ended Release Oral Tablet buPROPion HCl ER (XL) 300 MG Oral Tablet Extended Release 24 Hour (WELLBUTRIN XL) buPROPion HCl ER (XL) 300 MG Oral Tablet Extended Release 24 Hour (WELLBUTRIN XL) 07/05/2020 12:00:[address] [facility] [place] Trazodone Hydrochloride 100 MG Oral Tabl et traZODone HCl 100 MG Oral Tablet (DESYREL) traZODone HCl 100 MG Oral Tablet (DESYREL) 07/05/2020 12:00: [address] [facility] [place] gabapentin 300 MG Oral Capsule Gabapentin 300 MG Oral Capsule (NEURONTIN) Gabapentin 300 MG Oral Capsule (NEURONTIN) 06/16/2020 12:00:00 AM EST active [facility] tizanidine 4 MG Oral Tablet tiZANidine HCl 4 MG Oral T ablet (ZANAFLEX) tiZANidine HCl 4 MG Oral Tablet (ZANAFLEX) 06/14/2020 12:00:00 AM EST active [facility] tizanidine 4 MG Oral Tablet Tizanidine HCL 05/18/2020 12:00:00 AM EST ORAL active [facility] ([facility]) gabapentin 300 MG Oral Capsule Gabapentin 05/18/2020 12:00:00 AM EST ORAL completed [facility] ([facility]) gabapentin 300 MG Oral Capsule Gabapentin 05/18/2020 12:00:00 AM EST ORAL active [facility] ([facility] Azithromycin 500 MG Oral Tablet Azithromycin 02/03/2020 12:00:00 AM E DT ORAL active [facility] ([facility]) Fluconazole 150 MG Oral Tablet Fluconazole 02/01/2020 12:00:00 AM EDT ORAL active [facility] ([facility]) 24 HR Metformin hydrochloride 500 MG Extended Release Oral Tablet Metformin HCL ER 01/05/2020 12:00:00 AM EDT ORAL active [facility] ([facility] meloxicam 7.5 MG Oral Tablet Meloxicam 11/12/2019 12:00:00 AM EDT active [facility] ([facility]) gabapentin 300 MG Oral Capsule Gabapentin 10/13/2019 12:00:00 AM EDT ORAL active [facility] ([facility]) Prednisone 10 MG Oral Tablet Prednisone 10/13/2019 12:00:00 AM EDT ORAL completed [facility] ([facility]) Baclofen 10 MG Oral Tablet Baclofen 10/05/2019 12:00:00 AM EDT ORAL active [facility] ([facility]) Omeprazole 20 MG Delayed Release Oral Capsule Omeprazole 09/17/2019 12:00:00 AM EDT ORAL active [facility] ([facility]) meloxicam 7.5 MG Oral Tablet [Mobic] Mobic 09/17/2019 12:00:00 AM EDT ORAL completed [facility] ([facility]) Metronidazole 500 MG Oral Tablet Metronidazole 08/17/2019 12:00:00 AM EST ORAL completed [facility] ([facility]) Cholecalciferol 1000 UNT Oral Capsule Vitamin D3 08/04/2019 12:00:00 AM EST ORAL completed [facility] ([facility]) Triamcinolone Acetonide 5 MG/ML Topical Cream Triamcinolone Acetonide 08/04/2019 12:00:00 AM EST completed [facility] ([facility]) Mupirocin 0.02 MG/MG Topical Ointment Mupirocin 06/08/2019 12:00:00 AM EST completed [facility] ([facility]) Prednisone 10 MG Oral Tablet Prednisone 04/21/2019 12:00:00 AM EDT ORAL completed [facility] ([facility]) Azithromycin 250 MG Oral Tablet Azithromycin 04/17/2019 12:00:00 AM E DT ORAL completed [facility] ([facility]) Nebulizer 04/17/2019 12:00:00 AM EDT complete d [facility] ([facility]) Albuterol 0.83 MG/ML Inhalant Solution Albuterol Sulfate 1 12:00:00 AM EDT completed [facility] ([facility]) Nebulizer Kit/Tubing/Mouthpiece 04/17/2019 12:00:00 AM EDT completed [facility] ([facility]) Misoprostol 0.2 MG Oral Tablet Misoprostol 04/15/2019 12:00:00 AM EDT completed [facility] ([facility]) cetirizine hydrochloride 10 MG Oral Tablet [Zyrtec] Zyrtec A llergy 03/25/2019 12:00:00 AM EDT ORAL completed [facility] ([facility]) Insurance Providers Payer name Policy type / Coverage type Policy ID Covered constitution party ID Covered constitution party's relationship to [place] Policy [place] Plan Information PHILLIP [id number] SP [id number] PHILLIP I [id number] Self [id number] [place] [id number] 18 [id number] [facility] O [id number] S [id number] [place] [id number] S [id number] [place]PHYS[place] [id number] 18 [id number] [place] [id number] 18 74 [id number] PHILLIP CARE [id number] 18 [id number] UNAVAILABLE UNAVAILA BLE [place] -RECURRING [id number] 18 [id number] [place] -[place]/P [id number] 18 [id number] [employer] Commercial [id number] Self [id number] [place] [id number] Self 7 [id number] [employer] Commercial [id number] Self 7 [id number] [place] [id number] Self 7 [id number] [employer] Commercial [id number] Self 7 [id number] [employer] [place] [employer] [place] [id number] Self 7 [id number] [employer] Commercial [id number] Self 7 [id number] [employer] [place] [employer] [place] [id number] Self 7 [id number] [employer] Commercial [id number] Self 7 [id number] [place] [employer] [place] [id number] Self 7 [id number] [employer] Commercial [id number] Self [id number] [place] [employer] [place] [id number] Self 7 [id number] [employer] Commercial [id number] Self 7 [id number] [place] [employer] [place] [id number] Self 7 [id number] [employer] Commercial [id number] Self 7 [id number] [employer] [place] [employer] [place] [id number] Self 7 [id number] [employer] Commercial [id number] Self 7 [id number] [place] [employer] [place] [id number] Self 7 [id number] [employer] Commercial [id number] Self 7 [id number] [place] [employer] [place] [id number] Self 7 [id number] [employer] Commercial [id number] Self 7 [id number] [employer] [place] [employer] [place] [id number] Self 7 [id number] [employer] Commercial [id number] Self 7 [id number] [employer] [place] [id number] Self 7 [id number] [employer] Commercial [id number] Self 7 [id number] [employer] [facility] [place] Commercial [id number] Self [id number] ANSI-Medicaid [id number] ANSI-Commercial [id number] [employer] Commercial [id number] Self 7 [id number] [employer] [place] Commercial [id number] Self [id number] [facility] OFFICE OF VICTIM SERVICES [id number] SP [id number] MEDICAID [id number] SP [id number] [facility] [id number] ANSI-Commercial [id number] [employer] Commercial [id number] Self 7 [id number] [employer] [place] Commercial [id number] Self 7 [id number] [employer] Commercial [id number] Self 7 [id number] [employer] [place] Commercial [id number] Self 7 [id number] [employer] Commercial [id number] Self 7 [id number] [employer] [place] Commercial [id number] Self 7 [id number] [employer] [place] Commercial [id number] Self 7 [id number] [employer] Commercial [id number] Self 7 [id number] [place] XIX MAN -CLINIC [id number] 18 [id number] [employer] [place] Commercial [id number] Self 7 [id number] [employer] Commercial [id number] Self 7 [id number] [employer] Commercial [id number] Self 7 [id number] [employer] [place] Commercial [id number] Self 7 [id number] [employer] Commercial [id number] Self 7 [id number] [place] [id number] Self [id number] [place] [id number] Self 7 [id number] [place] [facility] [id number] Self [id number] [place] [id number] [id number] MEDICAID -RECURRING [id number] 1 [id number] [place] [id number] 18 [id number] [place] [id number] Self 7 [id number] [place] [id number] [place] Self [place] Self N [place] CLAIMS JENNIFER-PHYSICIAN [id number] 19 [id number] N REGIONAL CLAIMS JENNIFER-CLINIC [id number] 19 [id number] [facility] [place] [place] [facility] [id number] 18 [id number] [facility] [place] [place] [id number] 18 [id number] N REGIONAL CLAIMS JENNIFER-RECURRING [id number] 19 [id number] N REGIONAL CLAIMS JENNIFER-O/P [id number] 19 [id number] Problems, Conditions, and Diagnoses Code Display Name Description Problem Type Effective Dates Data Source(s) 952140868 Obesity Obesity Problem 08/04/2019 12:00:00 AM ES T [facility] ([facility]) [id number] Contact dermatitis Contact dermatitis Problem 12:00:00 AM EST [facility] ([facility]) [id number] Polycystic ovary syndrome Polycystic ovary syndrome Pr oblem 07/21/2019 12:00:00 AM EST [facility] ([facility]) M51.27 Other intervertebral disc displacement, lumbosacral region Other intervertebral disc displacement, lumbosacral region Diagnosis 0 07/14/2020 02:34:00 AM [facility] R sided leg numbness, CT of the spine shows bone pressing on the nerve, needs MRI and ortho spine eval R sided leg numbness, CT of the spine sh ows bone pressing on the nerve, needs MRI and ortho spine eval Diagnosis 07/14/2020 02:34:00 AM [facility] E282 Polycystic ovarian syndrome Polycystic ovarian syndrom e Diagnosis 02/01/2020 09:01:00 AM [facility] [id number] Encounter for routine checking of intrau terine contraceptive device Encounter for routine checking of intrauterine contraceptive device Diagnosis 02/01/2020 09:01:00 AM [facility] B373 Candidiasis of vulva and vagina Candidiasis of vulva a nd vagina Diagnosis 02/01/2020 09:01:00 AM [facility] [id number] Encounter for gynecological examination (general) (routine) with abnormal findings Encounter for gynecological examination (general) (routine) with abnormal findings Diagnosis 02/01/2020 09:01:00 AM [facility] R635 Abnormal weight gain Abnormal weight gain Diagnosis 12/30/2019 11:22:00 AM [facility] 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, lumbar region Other intervertebral disc displacement, lumbar region Diagnosis 10/29/2019 08:13:00 AM [facility] M545 Low back pain Low back pain Diagnosis 10/19/2019 10:19:00 AM [facility] [id number] Sprain of ligaments of lumbar spine, ini tial encounter Sprain of ligaments of lumbar spine, initial encounter Diagnosis 0 03:40:00 PM [facility] F339 Major depressive disorder, recurrent, un specified Major depressive disorder, recurrent, unspecified Diagnosis 10/05/2019 03:01:00 PM [facility] A6004 Herpesviral vulvovaginitis Herpesviral vulvovaginitis Diagnosis 09/17/2019 08:43:00 AM [facility] R309 Painful micturition, unspecified Painful micturi tion, unspecified Diagnosis 09/17/2019 08:43:00 AM [facility] K219 Gastro-esophageal reflux disease without esophagitis Gastro-esophageal reflux disease without esophagitis Diagnosis 09/17/2019 08:43:00 AM ED T [facility] [id number] Constipation, unspecified Constipation, unspecified Di agnosis 09/17/2019 08:43:00 AM EDT 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 Diagnosis 08/28/2019 02:05:00 PM [facility] [id number] Nicotine dependence, other tobacco produ ct, uncomplicated Nicotine dependence, other tobacco product, uncomplicated Diagnosis 08/28 02:05:00 PM [facility] R1033 Periumbilical pain Periumbilical pain Diagnosis 02:05:00 PM [facility] R1031 Right lower quadrant pain Right lower quadrant pain Di agnosis 08/28/2019 02:05:00 PM [facility] N760 Acute vaginitis Acute vaginitis Diagnosis 08/10/2019 02:1 0:00 PM [facility] Z113 Encounter for screening for infections with a predominantly sexual mode of transmission Encounter for screening for infections w ith a predominantly sexual mode of transmission Diagnosis 08/10/2019 01:22:00 PM [facility] E559 Vitamin D deficiency, unspecified Vitamin D defi ciency, unspecified Diagnosis 08/04/2019 01:01:00 PM [facility] F419 Anxiety disorder, unspecified Anxiety disorder, unspec ified Diagnosis 08/04/2019 01:01:00 PM [facility] F3289 Other specified depressive episodes Other specif ied depressive episodes Diagnosis 08/04/2019 01:01:00 PM [facility] Z6841 Body mass index (BMI) 40.0-44.9, adult B majo mass index (BMI) 40.0-44.9, adult Diagnosis 08/04/2019 01:01:00 PM [facility] E669 Obesity, unspecified Obesity, unspecified Diagnosis 08/04/2019 01:01:00 PM [facility] L309 Dermatitis, unspecified Dermatitis, unspecified Diagno sis 08/04/2019 01:01:00 PM [facility] Z0001 Encounter for general adult medical exam ination with abnormal findings Encounter for general adult medical examination with abnormal findings Diagnosis 08/04/2019 01:01:00 PM [facility] E871 Hypo-osmolality and hyponatremia Hypo-osmolality and hyponatremia Diagnosis 07/21/2019 08:38:00 AM [facility] D649 Anemia, unspecified Anemia, unspecified Diagnosis 0 07/21/2019 08:38:00 AM [facility] R946 Abnormal results of thyroid function amparo dies Abnormal results of thyroid function studies Diagnosis 06/08/2019 10:02:00 AM [facility] R0789 Other chest pain Other chest pain Diagnosis 06/08/2019 10 :02:00 AM [facility] F319 Bipolar disorder, unspecified Bipolar disorder, unspec ified Diagnosis 06/08/2019 10:02:00 AM [facility] L739 Follicular disorder, unspecified Follicular diso rder, unspecified Diagnosis 06/08/2019 10:02:00 AM [facility] Surgeries/Procedures Procedure Description Date Indications Data Source(s) MRI SPINAL CANAL LUMBAR W/O CONTRAST MATERIAL MR LUMB AR SPINE WITHOUT CONTRAST [id number] STAT 07/14/2020 7:37 AM EST 07/14/2020 07:37 :27 AM [facility] Needle electromyography, each extremity, with related paraspinal areas, when performed, done with nerve conduction, amplitude and latency/velocity study; complete, five or more muscles studied, innervated by three or more nerves or four or more spinal levels (list separately in addition to the code for primary procedure). 01/12/2020 12:00:00 AM EDT [facility] ([facility] ) 25879 Nerve conduction studies 7-8 studies NEW 201201/12/2020 12:00:00 AM EDT [facility] ([facility] ) THERAPEUTIC PX 1/> AREAS EACH 15 MIN EXERCISES 12:00:00 AM EDT [facility] ([facility] ) MANUAL THERAPY TQS 1/> REGIONS EACH 15 MINUTES 12:00:00 AM EDT [facility] ([facility] ) THERAPEUTIC PX 1/> AREAS EACH 15 MIN EXERCISES 12:00:00 AM EDT [facility] ([facility] ) MANUAL THERAPY TQS 1/> REGIONS EACH 15 MINUTES 12:00:00 AM EDT [facility] ([facility]) APPL MODALITY 1/> AREAS ELEC STIMJ EA 15 MIN 0 12:00:00 AM EDT [facility] ([facility]) THERAPEUTIC PX 1/> AREAS EACH 15 MIN EXERCISES 12:00:00 AM EDT [facility] ([facility]) MANUAL THERAPY TQS 1/> REGIONS EACH 15 MINUTES 12:00:00 AM EDT [facility] ([facility]) APPL MODALITY 1/> AREAS ELEC STIMJ EA 15 MIN 0 12:00:00 AM EDT [facility] ([facility]) THERAPEUTIC PX 1/> AREAS EACH 15 MIN EXERCISES 12:00:00 AM EDT [facility] ([facility]) MANUAL THERAPY TQS 1/> REGIONS EACH 15 MINUTES 12:00:00 AM EDT [facility] ([facility]) APPL MODALITY 1/> AREAS ELEC STIMJ EA 15 MIN 0 12:00:00 AM EDT [facility] ([facility]) Physical Therapy Eval - Mod Complexity 11/23/2019 12:0 0:00 AM EDT [facility] ([facility]) X-Ray Spine Lumbosacral Complete Inc Bending Views Min Of 6 11/09/2019 12:00:00 AM EDT [facility] ([facility]) Brief Emotional/Behav Assessment W/ Scoring Doc Per Standard Inst 07/21/2019 12:00:00 AM EST [facility] Results ID Date Data Source [id number] 07/16/2020 08:49:07 AM [facility] Name Value Range Interpretation Code Description Data Maribell rce(s) Supporting Document(s) Consultation [facility] UQWNWz9aZgEWUwJy76/KIDxdTYPsg0ZlCOqtNDo5CMimSFNkL2KePVQ4yE7oKQS8MAdQJdMmPlRfDIMb lbm VnSbjXLoEoTKMrHkiDXgXtMKakShqeaHOoOW5GvCO1PYGiQ67jKPRcNQCrR1AiDVRlGqt+Ae8SDKEuwA CkFA7YFvtK2E9oPdyCMz3+0k9Jde41v1qVjwzu4qjaW6pGFwHscVJpqV7y3Qy1FnMcb3Pv046mIr5oas L2741w1b8SZX7smvo618gdU6U49f8fZ/UqclK1o2Lu [file] 9NVCZeNQ1LJZKnYsUiBUSQOrNzBDSlJuVdRyXlMRTE KNkeCOAdN3HdYTP3WBIbAl6HKQSrET8CAXGsXXDpRDJ+Af8LYTLbWR0dzqGmbGS5YGZ+Dc8AKGIrLMn5 B9J1ZNIlVWm2K9VZL9ZLPHUcRVbrCAhwLDVaFGd1H0W6SKDiN1NVP5Ljkxcaxw7+IF2XV61OPXRvMFb8 L0K8gUFiN5Z0qWkUlHH5WO8XSW9SjSj9hFXxzF4+IC 1GU6HZCwQiROz1S1F7zUGaS5X8zDxCdWQ5NW2XEI6CzCOqFJCsmgXrPh2sO3SREDnTBkYRSMN7ZD1ClP BrTE7GaFPJF4OaiQUsNx3qGNmkjMDtqD3uFn6cDKtdJU2MMdFUMSaKKVW8WX9MtBXoIZ4WvGRWA4GeqL NtLf1qJMbpjCWjxa5+MA9SNAGmTm4PDj1+DQplbmRv SlaSTaXsLXCuw0NzYEi7PV2OJM5faDwyVEJ9Ag5BcUO1gFStJ0pNFH7OxLExG70anGOvZCLyBa9HYqC1 fzTgvA2IBE69eTZrg7L3RAOrR2tqKGhnd63rYSliCYcSOF0uKZQXMSkcRMjlEEY2EtZjfcweIUJzGv7X XzFpWMe5vI5gyBV6ARQ1LxgfsAVnFQgxOoXzMuQkSb W3iNebvxj6QZpeLQ9xXFnojztvEOSrIsu+NAhvIFYlACWkDupZLVCceC9ltyA3vsCkSOyxfPWoZj4ld5 z4RnowSw0vYn6lXYb9XpVqUhQxTFTkSu7elZ41AWfynrWnNs7KHtZvXCU7I6SrVvmFXXR+DQogIDwveD i3aNKkVNIsMx2ZGBDiHXJnGKXxVVJfIIXpXEGvUQHx ICAgICAgICAgICAgICAgICAgICAgICAgICAgICAgICAgICAgICAgICAgICAgICAgICAgICAgICAgICAg QGOrXXTiUPSxKGOxBRYjMSPcJI1JKBEqJPByKOIxINCnKVAgJTFxUMHoVKIqZBZkEHTkNAWyQZNnXEIg ICAgICAgICAgICAgICAgICAgICAgICAgICAgICAgIC SmQBSkCSNrODQrFUPlICRiNBYeGTQiBTRrRQJbPY4TUJPyNBTkDXAsJFIyCSBkYEGjRUGzTAGjNIDwBJ AgICAgICAgICAgICAgICAgICAgICAgICAgICAgICAgICAgICAgICAgICAgICAgICAgICAgICAgICAgIC WpCJExXXIiTDCdOH1IRVChGDZbXWSjWSUsTTToYCPh ICAgICAgICAgICAgICAgICAgICAgICAgICAgICAgICAgICAgICAgICAgICAgICAgICAgICAgICAgICAg LVUpSCUkPMEsEHTtGWZmSRUoCCSlLK4FITHgVJYcDUEtKGPqDGAsUXYxYIQrBXEqHUUcKYElKGLdXXCo ICAgICAgICAgICAgICAgICAgICAgICAgICAgICAgIC RvRZGgJGWzSYWhCNOlZHZnACCpQHBqFIAlTGMyYTNxOB1VYOFhSYEuYRZkZIHaDXMsFNEtYYKpYBDdYS AgICAgICAgICAgICAgICAgICAgICAgICAgICAgICAgICAgICAgICAgICAgICAgICAgICAgICAgICAgIC ZmSFJiKOLrACCzXTJaDD5YSMAsGTUjKMHkEKSjGMPb ICAgICAgICAgICAgICAgICAgICAgICAgICAgICAgICAgICAgICAgICAgICAgICAgICAgICAgICAgICAg QTGiJKUpBNAsZCNuIOLlDYTqTMNvORZeHQ0OXFPjQHAnZEBwWHRwMHQqIGZmANJlOSCzYHGhCKZvRRGe ICAgICAgICAgICAgICAgICAgICAgICAgICAgICAgIC XwRELtMDStMJPdWKNlFXGhAGCySIWqUZGbQZSuJRFpXUBvYY2ZDKPsWITgMVFmSFTcICZlZZXuUPMbJW AgICAgICAgICAgICAgICAgICAgICAgICAgICAgICAgICAgICAgICAgICAgICAgICAgICAgICAgICAgIC IiLQUdUQYkLERaVZHlJKVlZP3TOBGnGJNdADSxXHIq ICAgICAgICAgICAgICAgICAgICAgICAgICAgICAgICAgICAgICAgICAgICAgICAgICAgICAgICAgICAg FUOoXMQkTGLiDWExRTFuJOUeHQYbLFNhKFWgZG6PMK56nVSda0N6AJObLB3uget/Jy4XJEsgasAzgHHf ZI5LRjDoNJ3nrb8OQvQmSC6doz9XKPnIKbEbJ3P4eY XrQEDwKEKACoPjM86bEGqqWh76TZhmKYKzYdCuYYq5Ok5NOlAlX9peUNYbNeF1CEAyGaB5VYKgGkF3PH RwKdRfYSUsAZIsWI0VMCQxM872gfQcMK2QDr0MDcEyGH0deb4AWkWcHQAhIkeAOok7VJzkRJ0JuOJtbK OxGXFtBYOQZtXwO5ugj2YcSkTvYGNSXCflSR1Vr6Ag dCAxDQo+Nj7CIU2dz7AzRQhvMWWzGB2ixy9CBXsZUnXrV4OoeOaaHVNarhL9uWXoCPI2AN1uzRAmOGmx HFOLaf92KFJmHP5STPO3ZCPlMM3vKBNuJORxWiScTUYYJQ1XKADtXEGnbNNiSJQaEEPGAR7MRXkaASE7 ZFFazxOqnBPvGWnoCA6ZOLWctaDlQrEnFQDMFPh+Pg 9PTR1qw5CcUXczUGOrIW3hos8JHPeQFbFpM8G2kYPtN8U2VHxfDh7MYENfQSGpCkKnYFHKDOwbZW7PRP 1dnzL0IM5UvWObEUWuMUIckDMhQGh7A96vdQKwRVneQH0BOJV+Nuvia+Xc5QKEEiJCElHLWiDtBmERRYBx TzE0FmY9AKh2MuS0DiMA74dUfttsBqWEmpOC7TSL0y ERJaCDIKIX8KtZWflJ5hfhHjYtOmCMIGUhBjP37ghMEeKCWoWHRrKTNvTx7TKKEuC1VnwtXpxZzvcwGx NZGwPBZZWF3GBXbxvkFowIMccUtgWY28lZfbMJ5WZp4BTzVeJF1kvs2PaOQwMs4AEFMhKj2EHPDuZKVm TRVsAHV8ONVzXvCgLEoyJHSuSWNhKQE5XJGrYRTaBS 8JLyMsARDvGWwdGVEgRWJwDKWtpv2HOAHcLHC8YNYtVuYyLHCxULCcENgfLUNoHHKaQGZ2EBNhWMKmJA 4KHiWlKFCzWDY1ZoVcZUOkLFBtzu3QAWSbFSWpWfm6VCHkVFZhRBSaKBljKLEpQIH1MBp4ZENaZHQeNI 3MDvDpNNOlRDXrSXYoOIRsJENcnd8PQMLqNPUfQLh5 HpDzUAOaWCZePPhoFDDvOBIeEVu2ZOEfKHJiDU9ZDaLnGPPrCBWmCXXrNWYmJVRece4CRTKxCSBkKXFz JRWyOTEjNQJrIUfzRMHbLYWpCrQ1RQXoTMTlSZ6XEfQgPXOdLQF4VeMrDCJdZYTmkx4WIARgWTXxUzM8 JSTyAFLtZVTzFDwtYYHqKBFzHgK2FLIrKWGpIM4PWf LxVCScOSE9CThqGAJtCLYsjf1AJRGaAAWhSrt8TySeYPEmUYBwZRgyVAKiEGS9XBRiXUTcOFZnBF7KRy IvDNHpYmI4GeWuPFTiCXFuwm7HWYSsFGQdSEM8MYRjVZFyAVIcDOdiVZYpKSZ8SQV9DVXmTSXnHD4KBz MtLLHwYeO5HaMfDNMcCCLjhc1KZWLpAHYrBiVcXLVt GPPwMLXiHVuwOBGvCMS9Aco3NDImTPGiLX2QQvAvHDDgQtD6OqVcGDNmMNQkiz5TSTVsCHK6ZQM0ZVVq MTPqGSWpKAbvFREfIJF9OaG1ZBWqUHMcEA5JCjHnJJDwFEe2PtjrNOOzWJAaku4EGRDsWIE8FPGkVcRl JITdCQOdYCvpQSUzPZZ4IlAvCXOaIAGeXX8WRqQwOP DmZPj8NOBxPOXcPAEjgr2RQOAmBYF9KDL5ZcZaFIYxMLYsRTrbXAYxIZIhXcK7KCBrNZPgFR0CThJjWM EqOKZwFxbfCISlEJOcxc8UcMXkbLuuoa6KESyFBz4DjJtrRRA9SSgtUh8yvVYuUTMjXIILVd8SxqFxCL GyCSBVYNvnHPTrOQP4BdO0AYCkG2XpEHE8JwXjNUG4 JHG8YRMhOQJkBXN1GbW8AuwmXCfbTdIcEYHoDEl6TKXdIli9LeqnFFP0OBWyJbn+KW3mARg+Jh6Xu6Wi pwL1wxXyPKa6ZOCdVf3UAMNSA9JRZt== ID Date Data Source [id number] 07/14/2020 02:30:[address] [facility] Name Value Range Interpretation Code Description Data Maribell rce(s) Supporting Document(s) ED Provider Note [facility] LRKRKr8iFdAXPjPv37/CMUdhGMMks3JsXZujJNz1GYylXZXdX5WkMVM1mM9aBWT7AHzBJhNpPbNwWRQ5 lbm [file] Mb5LbFuZUYFobX9L5vpkYXUIOMKP1+k1fP7OXCVJF+ 9B2bMH2IKQz9ZftJf6YE8KEXgqwEUgKdogdbTmw8yNZhiRUeABWyF+rZfNnB0nqz8T6tyniKoZzb+iQs u/97+BuYpAqX4YHeHIOhlYfZ3jZCooAeGyhcPuAnsGfZKXXj/iuI321J4LCJfRjKW592VHpxPM1I+ul6 xWXfrtBPxR+WxNrAXFPEPZBGuEusEJeqkmUFKIQBBq fBbHXOpHSgvaTyJlNwcxM0Mq+HjClQN0uhfvY+TdGYnhwPApw6otrI1N/Uvshzv4zqs9ADAKE3IvEPYl Y9/LkZ/LmjbrlBybFV+RZUuKv8A/E/Sn4bGBF/2BpH2Ttn54GSwdOmGzw2QhMFSiG/2Nv1edHf3R9W9C axxyn7CjCKwZGDc6Lyl2iKEIR/J4AHV7BtsjUfdcFT LMao+6oAMFGK5XwrtZKz68h5iqlkK+jYPaoo8pIYxn+tH9rOahWwTu1FTZmh0thWnUswBo0GTsiRdfyR 6smTldmeqZBuEfIyjLiYPeBE3jGeYKW+9S3kNxjy+MsAzWHC7utHuWSkyv7A2EKVCMSrM5ZjNVDKJUJS 64ulei7+ZJsWZDaD2FRKW3GXUPzsCXJ5W4lpBCL0/L kQv2ZrQix6cgPEKlVqGR4V84oLsA2jDMPZZWIFyzrlsUfXxtIBXusBoHAXQISRN7r5/hnVC7U2r8fNrf /+DgdKQzVOkbHrIyHYAVoLBPzZEKY+wnLMM4dphcVe7TYZCNYz7sCGSs4HQqsWxRRn7aoTdhXjUZg6wb SCwekkJOHP892qj6Ud01RzT7X14+yGuLxBsahA1eQc 7kjddcyo5sBhQcfCG07sEYFXVipxF85PiqJzbSQe+i0XnPt6YCsmJrk3uyzXuvwDHdtp4B72gAYzXsx2 6YGDRAWMk9EfgMGszfndbMhkvikUlS7HEyTVt2DssYE49CLlm16IoMqP4+TvNzMYgRW+sKBm+jMzIcdr office inspector/3MDs4fxHRUiGPNMPgiMKcxh3WuxVRiIs3HVLfd [file] ICAgICAgICAgICAgICAgICAgICAgICAgICAgICAgIC AgICAgICAgICAgICAgICAgICAgICAgICAgICAgICAgICAgICAgICAgICAgICAgICAgICAgICAgICAgDQ ogICAgICAgICAgICAgICAgICAgICAgICAgICAgICAgICAgICAgICAgICAgICAgICAgICAgICAgICAgIC AgICAgICAgICAgICAgICAgICAgICAgICAgICAgICAg ICAgICAgICAgDQogICAgICAgICAgICAgICAgICAgICAgICAgICAgICAgICAgICAgICAgICAgICAgICAg ICAgICAgICAgICAgICAgICAgICAgICAgICAgICAgICAgICAgICAgICAgICAgICAgICAgDQogICAgICAg ICAgICAgICAgICAgICAgICAgICAgICAgICAgICAgIC AgICAgICAgICAgICAgICAgICAgICAgICAgICAgICAgICAgICAgICAgICAgICAgICAgICAgICAgICAgIC AgDQogICAgICAgICAgICAgICAgICAgICAgICAgICAgICAgICAgICAgICAgICAgICAgICAgICAgICAgIC AgICAgICAgICAgICAgICAgICAgICAgICAgICAgICAg ICAgICAgICAgICAgDQogICAgICAgICAgICAgICAgICAgICAgICAgICAgICAgICAgICAgICAgICAgICAg ICAgICAgICAgICAgICAgICAgICAgICAgICAgICAgICAgICAgICAgICAgICAgICAgICAgICAgDQogICAg ICAgICAgICAgICAgICAgICAgICAgICAgICAgICAgIC AgICAgICAgICAgICAgICAgICAgICAgICAgICAgICAgICAgICAgICAgICAgICAgICAgICAgICAgICAgIC AgICAgDQogICAgICAgICAgICAgICAgICAgICAgICAgICAgICAgICAgICAgICAgICAgICAgICAgICAgIC AgICAgICAgICAgICAgICAgICAgICAgICAgICAgICAg ICAgICAgICAgICAgICAgDQogICAgICAgICAgICAgICAgICAgICAgICAgICAgICAgICAgICAgICAgICAg ICAgICAgICAgICAgICAgICAgICAgICAgICAgICAgICAgICAgICAgICAgICAgICAgICAgICAgICAgDQog ICAgICAgICAgICAgICAgICAgICAgICAgICAgICAgIC AgICAgICAgICAgICAgICAgICAgICAgICAgICAgICAgICAgICAgICAgICAgICAgICAgICAgICAgICAgIC ZoDOYwVZTkTZg1X8gsPUKlLNUqTA2dNOp9Mv6+FOmYXhQgZJD6dcWbgA8CHS4cu5JsPWflYFMwz8HdGX v4UA1TYAXkGXzlIJ2MTOhcqm1WLJDmXMCkkBDFm8qb DyIdTFS8KBEsMngwYK3FIIRuO6dwlfSvVTHiWCWEWIdfUMYTFGklPZHJEGXwIAYmAvBzGTxbIU2Hq7Gx uZS5IHg+Hf6OMA3fs7GcGChmZORuVV6olu7YHNoEJmGoJ4QjhyN7PSC6PAMbVn1GTSWmHJFvcBB3YDSc CNYIWxQhO2UmcT29IEWdJAg+Na0QMC3cc4DjCBtrWM MpMI0uff1WZLsWZeDpG7IlkDhvCTIWQSUny8ArSWSaEI1ewVHwOSE6UGQly7WjQ92wf54xitftASYcDN CeQJ41RwSzLnQcNKs4CJJxYP1aWBwjDG0FEFU9IBcmXCQkVAGxL3fIDqXvUIflFTRqpWeeBX1DWcLfB8 VgevFhtIAiHPUeUOHMBuGnC61xlXAmKqGpZRVERQi+ Ek9VWS9rh8NoANmiFGUuKO8vpy7JTDeSQfNaG4JnbUluBHUSMWGnb8EiNZPyOD8ioVRwXWF2MRFxg5We X08xf98fxuquHFLvMIXgFU17PxMiKfOyTJz1CVNwSW8xLUliKF8UQOF2KXwmRGJrTWGkH0qGClHvPYw1 VJ39oPdgPZ0NYQJgWVXeLJ68EYV0TQLvHp1WOIGvSQ RhpcAvMETxACBZKuKiR20uwQFyRuEgOFGTJLk+It9MUC0ot2UjHUfxWNCdPB6wxn5FKPyBFdNoO6YeuA ugFBETNB3jsQTtNUQ9FTsfSX6oMTPPqaGoYWESQqXosKXqRzygFoZhTYUgUNwjSTZWHOtSQjVgL5Eie5 FyXtP9IFTvAtObLIbpBOQyXAgdCH55vYbmVK5RQQHy UQBcVS61EUE8CUHzOi4NUAMoRBWfmsXyCIKwXMSWPdNoR33jhFGkCrMrSTVYTOy+Nu7ERR9bt5ZjTEmt XfSjNM9zmz0XQPjQYcFyU4MahSipYXBKZA2doTNcSCO7OUqcAC6rKTVJodIaFGALUgLtwDEiYqzoFbXm RLNaVJqqMKCRGPhEInRjE8Ovy9BeFaN1XFYsUyBjLG ilLNKwTTBsfiYxfVPrBThhZO2AGYMtqhVmJkofVKWXRCrnJD9AibZ1DVPwXUAgSa5RFFCvWrM1wAAcUc AwIFINCj4+YQadreTdMvmRIyAiUWRfe7ZqQDc3ES2JQVLcGJq0cPSlEQGdWu76RLCzVkqeRLSgzc3oHE bzOZNwDEIOURY4OBXwWJ5dMCFnZJTmYdKkYQKLCA4P ONZjZAEkwCVzULyjDQDJIB5AAImeMIR5CPghtuDbwGPlGYnxVY5DTYZmqsRvIostXQOSAEfwFQ1WtvS3 JIDqHROvEr7XRZStByK4hYEuHFQfHGINXz4+SXjgdmUqOhvQFqI7IGBao3HeGNt9IZ3AHZSjLEe0fQBf CKHbHe33OFWuJhdpFRRyll8cYNjgKDTgMXILPYQ8FW NqRD5wMNTfMBI4OvF5MRPDEU7WTOKnVSNprYNxBGjgIWXBYB3HCTvtULF1KiEzogDdtOIhKDbmJN3KXZ QrwbHwRkthLRUFETqyAN0FebE5QYQtDKPhNe1JBIWbDsL1hQVaNMDdBZWSFl7+JYjkdwThPodOVhJ0US Nvl8PkIVl5SK8YRFZvDUx7zCNiXSKeBz81KYVzYnjs RQCojs5yHXxrYMXkTIGFFZY7CCGdAX9tTUSeZEO5LyN9HCXLPQ8IEPXlHRDkwTCvXOrcLHLDZX9XZSkm MCI6TFEswpCpvPKdRBplLU6GPXHyqgTlIosqOAZEESreXW5MexW8TCU4ODJmQq9DONJuYtT9xZPxJiKx IFINCj4+JTwmmkUyNxnHOoY2SKVgl8YtQPp6NP8PUF JjNCv1iOKvHNRgPv97HDZyXucgUPNmab9lODvkYJYnIDYEQDP7UCZfBU9aKKXeANI5OwY4IYYSLJ3ODA AqARObvFMpJXbkTKHSRC3NJEqzXXXqTkZlvgHvwKTsVYqjNU6ISTLuuwYmHixvJNDRIKgdFW9LwpP7VG O9MLBwFi4CRXBzZbO1sMVsCdUbJFVLDq1+DQplbmRv XiaZIqK8FGUjo5OoBDj4LE4PCNPbQWt7jMOiEPTiSy22WPIvEvarKQXbvi6sLOrkYDZjINFSZGK8NPAv KU5wIPKoFKI8XoY7USTNZT5HCNHxSTNszPDbJFnxADYRBM8UBHsgACEgAfNtaxLspEVsLKvuVY8YHFUh eeSgQcucXTEARPxsPC3LveQ8ILE0QPWaGp7EGBBeZt R4dASaFNSeJQRUIb7+LNhckrVbRcbNUmW4TGGas8ZvKOh4YF4SSJEiZEh0cMSvTKIdWr09VDDeGtjkDZ Olnx8tLFeeCFHiZUUIYGD7CCOrCL4dUUYwUSG8KpJ9CNKLMP5IGUXwVNAekZSiZWacSRRHFE8ZLHadTJ McTeFyiqVmiUSfPUtiCK5EFNYawrZkFnrqVUTRNQjw PU5QuqD3EYU5KRAoOt2DAIJpYbY2gEMkOZOzIKPINu4+USpzvfJlFbdJWkL1HARfh5HkXAb7KW9XVESc FHt5ySCeXHChZs18ASAbXtdaXEMdlo2eOToiUGNgRPLQEPR5FOJjYV8vCALeGNL3NsJtMXBLDE8ETATn JHMttSZwNVGbXPZjLqLaTVhzRHPaOxG0RD04iAkkAT 9FGSXoNHFwZD62WZZ1SPKhFd1ONXCwWNOufoPrHKSvUPHJHhSkZ57svXPtJJHuKUFECLk+Bx6VQQ7tv5 MsMYp9FSEvCD2idv3ZTEyXOcZxX5SnyRnbIUSAZH1shGZvODB5JRRpcZNbtKlcYEsfU5GpC1eskHjjIQ QIVEI3HRTkRL6kOIGrDJE5AiJ8XZHPMD9FDQIsQDDl oXWvFGSvLDSzEdAzZZuuEIPpLTOpJT82pPjtUC4IMFJvZOMdWI74WXN2XHQhYf4TBMExNJVdfgCeHGCr ONQSTaJhS60kbZMyVHGtTIBBLRi+Rb6IXY6hw3PzXOr4SHLaOB6mlh9LGQbHGwVeL3HuvPyaRKNILUIj sAQmRAKWo5WdcbUmkWFSlYGcHMtoPGISpTNlipAqk2 1wEWZPHmVgdPPzYzwlQxWjJNWwTcykPEFIMQmZAmKiS3Dun4AmOyIcYBUoLQNbU0eVHxGgQWZ7VRLmvC ugRV7WUdXvV1OmmdOasIYeDRIkINTQPwFaN7DdPDGqHZLtPCKSBNi+Cz5AZR2ye8DlMNc5UzDhYL6wqf 0IQJuBQwVpZ5W8hMDmL6M3FLbzNr8SJBBsTKMeEqTd JJSBPHdpZH3SRJ6cdcP7PD0ZvPZpXJErPTJncTXvQBr5P02lkDSqJYscXJ6JMWN+Nuvia+Ph8MAGFnPZNa IACiWzCgZMUEQeCnM3WvA2ZGc2EfB0QtUQ33dVakoiGkAKmtGI1RNJ3uPIOfINMKDE3LiCDsbL0xijLn TGOrRXDJDlKcV74ehUTuUTNaBQA9WYUoLf3KRVAkY5 XeoiSmvIkdxgRmQIRcYQYUAK0HUNwkbdWpmRMirWjvZO83qJufIG4NDp7CYgGeCJ0spx1TfQQxQt6UTW C2Zn3OLSZoANZaGGZrFXZ3BCGnHsZgIXsvJRCtGILfCQP4GOAhOIVbTX0BRmBtBDUcJzg6ZDpgEPWyTS Hiau8BUSWrHGTcIBE3DOUcHGXkZJVpZOemIMMpSCCg UKL0ZAUzPXMuGO5WMrWwQWRpGWHiEGobWGPtENHuze2JYFOsRSSuCtR8ENOlPKRiTRPpRCuoVLDjUFG0 WaPoFMNmBJOlFH6DMmBbMONhRZA6IWcuHAAmSOHzeo4JSZIlQIMkCXEkVoFzYGRaJBIdLUrjFFQwBGN4 DqH9ZGMiOMEsZZ6RRyNpHGZwTCC0CnPkTLLhVRBphu 8RAUMeZLSoAUH1LtKsCOHnFNUdYVygEUQaDPFoVjS9EOOsMBTxRJ7TWzEaXEGaXIC3ZgKcAMPoDNLtem 8HLSLvRRJvQbRqCjHvACYbXPNrOUceZFDgYTSyACb0LFDfQAVvAZ6WUcZyQOVcQEUrChjqKWFsATNqkb 2DOGGwCFBmEDQ9NKLyDLRfUJPhBQxiAMMyHLV1IeN8 OUPsCNSyAA6PJkYdXLRqVJS7GkYyOPJqLZMlgt1PSBMsJUCuTTfsLEDlLGKvKXNqLDciLIJdWRN8FVM6 KJDqHLCrKU8JJqRnLXVsLafsFPXjRJWtNJJccq3HKMWzCPSoDoSpRtKbJPDmSGBeUEraPQUtXFW8ZkJl GCKmNZIcWE7YPkOzXBXzUpr8DAkeMLAmPKTkbx8SPA ClQFCjUBNrYYDsJWAnCLJaCAleEBTbSWM9AppzBHRzYSWxWS7DCtWhIVWoByx0YSUjGSTlAMHosi2YRV NzORPtPZXwATAwIDQpXXGrXHreVRJmMOKsRGg7PIYkRAKkYV6BCfGzXRZdMfTeSKgnSTHdBHHdfh2AFK AwMDAzMDUyOSAwMDAwMCBuDQowMDAwMDMwNzAwIDAw NYHqUE8TReYaZGOeVoP4YkOfERGkVUJbfz6ISUCyIRQtCTK7QbLeLPUdIRIqGZsaNREeRZVnVzYkRAYx WXDlOR0IUuXlPTSbLyEcEJNpDGKuYYUcei0YGHUnMSYnYYR0CBZoDXQeIILyZSnhJJFkSBBkWbG0BJQf DCCtBN9FVqAbEKPuZaX6LWxwZTDeIAJdpm4WTUMmUS YxTcZ9LVGsBPKoPSScJOn6niCovDRjPCs5NL8EM4ZyjiVsPBIHYp2Zu224JKMcJLFxFx6TQ4xlJq4uUR PmYHBMQc8BXWg3GcEvADDgDWD6PcV6GRc0IhgpHYU4TtJkJVEbHNcnJnU+IDxmYmVlZWFkZjgzMjhhNz W5XKL8EVOrSGGeYNH5ATMiEX2dGKZRIk1+VQfjmWVylNyvBURRQjUfYxOnTYrtRQLFJl3Z ID Date Data Source [id number] 07/14/2020 11:45:00 AM EST [facility] [address] [place] [address] PHONE: [phone] FAX: [phone] Name .................. : MOE Friend Acct Number.................. : [id number] ROOM. ................. : VT-04 MR Number ................... : [id number] Stay type ............. : E/R Discharge Date......... ... : 07/14/20 Admit Date ......... : 07/13/20 Admit Phys .................... : REHAN Date of ....... : 1995 Family Phys ................... : VIOLETTE Phone .................. : [phone] Age ................................ : 24 Film# .................. .:[id number] Sex ................................. : F Unsigned transcriptions are preliminary reports and do not represent a medical or legal document CT LUMBAR SP W/O CONT [id number] COMPLETE:07/13/20 22:06 DLA 1705 Reason(s): R sided [...] By Sina West M.D. , 07/14/20 11:45, NJY Transcribe Initials: EDMOND , Transcribe Date: 07/14/20 02:37, Dictation Date: Copy for: KEE Kyle via fax Copy for: EMERGENCY DEPT via modem Page 1 of [address] [place] [address] PHONE: [phone] FAX: [phone] Name .................. : MOE Friend Acct Number.................. : [id number] ROOM. ................. : VT-04 Number ................... : [id number] Stay type ............. : E/R Discharge Date......... ... : 07/14/20 Admit Date ......... : 07/13/20 Admit Phys .................... : [facility] Date of ....... : 1995 Family Phys ................... : VIOLETTE Phone .................. : [phone] Age ................................ : 24 Film# .................. .:[id number] Sex ................................. : F Unsigned transcriptions are preliminary reports and do not represent a medical or legal document CT LUMBAR SP W/O CONT [id number] COMPLETE:07/13/20 22:06 DLA 1705 Reason(s): R sided lower back pain with R leg numbness/tingling Copy for: 710 MED REC DISCHARGED Page 2 of 2 Name Value Range Interpretation Code Description Data Maribell rce(s) Supporting Document(s) ID Date Data Source [id number] 07/14/2020 08:37:25 AM [facility] MR LUMBAR SPINE WITHOUT CONTRAST [id number] NAL RESULTInterpreted by:Federico Butterfield MDEXAMINATION: MR LUMBAR SPINE WITHOUT IV CONTRAST [id number] INDICATION: Lumbar pain, leg numbness. Canal narrowing [...] rce(s) Supporting Document(s) ID Date Data Source [id number] 07/13/2020 06:06:00 PM EST [facility] 1 OrderSheet [facility] Emergency Department [address] [place] [address] Phone #: [phone] 07/13/2020 17:55 Patient: [...] Melaragno,PO X1 dose: 1000 Gonsalo SIMMS; Yvonne R.NRubymg (NOW x1)Vicodin (5-325mg) 22:40 07/13/2020 22:47 Melaragno,PO 1 tab (HIGH Gonsalo SIMMS; Yvonne R.NRubyALERTMEDICATION)GENERAL ORDERSOrder Description Priority Entered Acknowledged Initialed[Electronically signed by Gonsalo Sandoval (21:58 07/13/2020)][Electronically signed by Yvonne Velázquez R.N. (00:59 07/14/2020)][Electronically locked by Yvonne Velázquez R.N. (00:59 07/14/2020)] Name Value Range Interpretation Code Description Data Maribell rce(s) Supporting Document(s) ID Date Data Source [id number] 07/13/2020 06:06:00 PM EST [facility] 1 Medication Reconciliation Report [facility] Emergency Department [address] [place] [address] Phone #: ext- [phone] 07/13/2020 17:55 Patient: [...] HCl Oral (1 gm) 1 tablet, prn [facility] source(s) of the original Home Medication information:patientThe following Medications were given to the patient in the Emergency Department:Acetaminophen [PO] PO 1000 mg, administered: 19:15 07/13/2020VICODIN (5-325MG) [PO] PO 1 tab, administered: 22:47 07/13/2020The following Medications were prescribed to the patient:None. Name Value Range Interpretation Code Description Data Maribell rce(s) Supporting Document(s) ID Date Data Source [id number] 07/13/2020 06:06:00 PM [facility] 1 Medication Administration Record [facility] Emergency Department [address] [place] [address] Phone #: ext- [phone] 07/13/2020 17:55 Patient: SUJATA ROSA Sex: F : 1995 Age: 24yWeight: 123.8 kgHeight/Length: 64 inBMI: 46.9ALLERGIES: No Known Drug Allergy, Seasonal Date/Time Medication Administered Medication OrderedGiven ACETAMINOPHEN [PO] Acetaminophen 1 g PO X1 dose:19:15 07/13/2020 Dose: 1000 mg PO 1000 mg (NOW x1)Yvonne Velázquez, R.N.Given VICODIN (5-325MG) [PO] Vicodin (5-325mg) PO 1 tab (HIGH22:47 07/13/2020 (ACETAMINOPHEN-HYDROCODONE) ALERT MEDICATION)Yvonne Velázquez R.N. Dose: 1 tab PO Name Value Range Interpretation Code Description Data Maribell rce(s) Supporting Document(s) ID Date Data Source [id number] 07/13/2020 06:06:00 PM [facility] 1 General Instructions [facility] Emergency Department [address] [place] [address] Phone #: ext [phone] 07/13/2020 17:55 Patient: SUJATA ROSA Sex: F : 1995 Age: 24yLumbar radiculopathy (L5 S1 disc osteophyte moderate neuroforaminal narrowing).(Electronically signed by MENDEZ Koehler 07/13/2020 21:58) Name Value Range Interpretation Code Description Data Maribell rce(s) Supporting Document(s) ID Date Data Source [id number] 07/13/2020 06:06:00 PM EST [facility] 1 Clinical Report - Nurses [facility] Emergency Department [address] [place] [address] Phone #: ext- [phone] 07/13/2020 17:55 Patient: SUJATA ROSA Sex: F [...] foot. She has had left leg pain.Treatment CONTROL ROOM TENDER:None.SEPSIS SCREEN: SIRS SCREEN NEGATIVE: heart rate greater [...] HCl Oral 100 mg, daily at bedtime. [facility]. --18:22 07/13/20 Latanya Lyons R.N. valACYclovir HCl [...] Lyons R.N. 2 Clinical Report - Nurses [facility] Emergency Department [address] [place] [address] Phone #: ext- [phone] 07/13/2020 17:55 Patient: SUJATA ROSA [facility]#: [id number] Sex: F : 1995 Age: 24yPROBLEMS:Herniated Disk.Schizoaffective [...] Lyons R.N.Interventions 3 Clinical Report - Nurses [facility] Emergency Department [address] [place] [address], [place] [address] Phone #: ext- [phone] 07/13/2020 17:55 Patient: SUJATA ROSA Sex: F [...] answered. Report was acknowledged. (JOE Crawford at [facility]). ( Awaiting for ambulance to accept transfer for patient to [facility]). --22:11 07/13/20 Yvonne Velázquez R.N. Departure time: late entry - 00:42 07/14/2020. --00:58 07/14/20 Yvonne Velázquez R.N. 00:26 07/14/20. BP: 148/92. MAP: 110. HR: 85. RR: 16. O2 saturation: 100% on room air. Temp: 98.2 F. Pain level now: 11/13. --00:58 07/14/20 Yvonne Velázquez R.N. Transported via ambulance by transport team. --00:58 07/14/20 Yvonne Velázquez R.N. Transferred to [facility]. Visit overview, summary of care (CCDA), Emtala forms and Face Sheet provided to transport team and transfer facility via paper. --00:59 07/14/20 Yvonne Velázquez R.N. 4 Clinical Report - Nurses [facility] Emergency Department [address] [place] [address] Phone #: ext- [phone] 07/13/2020 17:55 Patient: TWOMBLEY, SUJATA K Sex: F : 1995 Age: 24yLocked/Released at 07/14/2020 00:59 by Yvonne Velázquez R.N. Name Value Range Interpretation Code Description Data Maribell rce(s) Supporting Document(s) ID Date Data Source [id number] 07/13/2020 06:06:00 PM EST [facility] 1 Clinical Report - Physicians/Mid Levels [facility] Emergency Department [address] [place] [address] Phone #: ext- [phone] 07/13/2020 17:55 Patient: [...] L5- S1. Has been seen prior [place] for her back pain.). It is [...] Reaction. 2 Clinical Report - Physicians/Mid Levels [facility] Emergency Department [address] [place] [address] Phone #: ext- [phone] 07/13/2020 17:55 Patient: SUJATA ROSA Sex: F [...] HCl Oral 100 mg, daily at bedtime. [facility]. Allergies: No Known Drug Allergy. Seasonal.SOCIAL HISTORYLight [...] tone. 3 Clinical Report - Physicians/Mid Levels [facility] Emergency Department [address] [place] [address] Phone #: ext- [phone] 07/13/2020 17:55 Patient: [...] neurosurgery here, pt will be transferred to [facility] ED (auto accept) Dr Castillo for further evaluation and treatment. Disposition: Benefits, risks and alternatives to transfer explained to patient. Transferred to [facility]. Summary of care (CCDA) provided to transport [...] rce(s) Supporting Document(s) ID Date Data Source [id number] 07/13/2020 06:06:00 PM [facility] for SUJATA ROSA VisitID: [id number] Date: 22:48Faxed Transportation request to [facility](Electronically signed by Tahir Martinez 07/13/2020 22:48) Name Value Range Interpretation Code Description Data Maribell rce(s) Supporting Document(s) ID Date Data Source [id number] 05/02/2020 12:00:00 AM EDT [facility] Maykel Valdes MD Patient Name: SUJATA ROSA[address] [facility] Date of : 1995[place] [id number] Date of Exam: 05/02/2020PH#: Fax: [phone] EXAM: [...] pelvis most consistent with an IUD.VISHNU Potter/Prince winslow for referring SUJATA ROSA to our office. Electronically Signed - BERNARD KANG DO 05/03/20 14:35 Name Value Range Interpretation Code Description Data Maribell rce(s) Supporting Document(s) ID Date Data Source [id number] 02/01/2020 09:54:00 AM EDT [facility] ([facility]) Name Value Range Interpretation Code Description Data Maribell rce(s) Supporting Document(s) Inhouse Wet Mount Laboratory test result [facility] ([facility]) ID Date Data Source [id number] 02/01/2020 09:53:00 AM EDT [facility] ([facility]) Name Value Range Interpretation Code Description Data Maribell rce(s) Supporting Document(s) Source: Laboratory test result [facility] ([facility]) {SOURCE: Genital Neisseria gonorrhoeae,Nedra Laboratory test result [facility] ([facility]) {SOURCE: Genital Chlamydia trachomatis,Nedra Laboratory test result Abnormal (applies to non- numeric results) [facility] ([facility]) {SOURCE: Genital ID Date Data Source [id number] 02/03/2020 06:33:00 AM EDT [facility] Name Value Range Interpretation Code Description Data Maribell rce(s) Supporting Document(s) SOURCE: Genital [facility] Chlamydia trachomatis rRNA [Presence] in Unspecified specimen by Probe and target amplification method Positive Negative A [facility] Neisseria gonorrhoeae rRNA [Presence] in Unspecified specimen by Probe and target amplification method Negative Negative [facility] ID Date Data Source [id number] 01/05/2020 03:05:00 PM EDT [facility] ([facility]) Name Value Range Interpretation Code Description Data Maribell rce(s) Supporting Document(s) Hemoglobin A1c/Hemoglobin.total in Blood 5.5 [facility] ([facility]) Glucose [Mass/volume] in Serum or Plasma 131 [facility] ([facility]) ID Date Data Source [id number] 11/25/2019 12:00:00 AM EDT [facility] Suleiman Brown MD Patient Name: SUJATA ROSA[address] [facility] Date of : 1995[place] [address] Date of Exam: 11/25/2019#: Fax: [phone] EXAM: MRI LUMBAR SPINE WITHOUT [...] andright S1 nerve root compression.Accredited by the [employer] in MR.CHAR Taylor/Prince winslow for referring SUJATA ROSA to our office. Electronically Signed - MERCED WALKER MD 11/25/19 15:34 Name Value Range Interpretation Code Description Data Maribell rce(s) Supporting Document(s) ID Date Data Source [id number] 09/18/2019 09:41:00 AM EDT [facility] [address] Name Value Range Interpretation Code Description Data Mraibell rce(s) Supporting Document(s) Urine culture result No growth [facility] ID Date Data Source [id number] 09/17/2019 10:07:00 AM EDT [facility] ([facility]) Name Value Range Interpretation Code Description Data Maribell rce(s) Supporting Document(s) Bacteria identified in Urine by Culture Laboratory test result [facility] ([facility]) R30.9 ID Date Data Source [id number] 09/17/2019 10:07:00 AM EDT [facility] ([facility]) Name Value Range Interpretation Code Description Data Maribell rce(s) Supporting Document(s) [facility] Urine Culture Laboratory test result [facility] ([facility]) _CULTURE URINE_ TEST PERFORMED AT [facility] [address] [place] [address] CLIA# [id number] SEE SCANNED REPORT Result: ID Date Data Source [id number] 09/17/2019 10:07:00 AM EDT [facility] ([facility]) Name Value Range Interpretation Code Description Data Maribell rce(s) Supporting Document(s) Appearance of Urine Laboratory test result [facility] ([facility]) Color of Urine Laboratory test result [facility] ([facility]) Leukocytes Laboratory test result [facility] ([facility]) Spec Cheyney 1.020 [facility] ([facility]) pH of Urine by Test strip 5 [facility] NT ([facility]) Nitrate [Presence] in Urine Laboratory test result [facility] ([facility]) Protein [Presence] in Urine by Test strip Laboratory test result [facility] ([facility]) Inhouse Glucose Laboratory test result [facility] ([facility]) Ketones [Presence] in Urine by Test strip Laboratory test result [facility] ([facility]) Blood type and Indirect antibody screen panel - Blood Laboratory test result [facility] ([facility]) Bilirubin.total [Presence] in Urine by Test strip Laboratory test res ult [facility] ([facility]) Urobilinogen Laboratory test result [facility] ([facility]) ID Date Data Source [id number] 09/24/2019 08:27:00 AM EDT [facility] Name Value Range Interpretation Code Description Data Maribell rce(s) Supporting Document(s) [facility] URINE CULTURE [facility] _CULTURE URINE_ TEST PERFORMED AT [facility] [address] [place] [address] CLIA# [id number] SEE SCANNED REPORT Result: ID Date Data Source [id number] 08/30/2019 08:48:00 AM EST [facility] [address] [place] [address] PHONE: [phone] FAX: [phone] Name .................. : MAIRACHENG SEGURASUJATA Phuc Acct Number.................. : [id number] ROOM. ................. : TR-02 Number ................... : [id number] Stay type ............. : E/R Discharge Date......... ... : 08/28/19 Admit Date ......... : 08/28/19 Admit Phys .................... : LISA SIMMS Date of ....... : 1995 Family Phys ................... : VIOLETTE Phone .................. : [phone] Age ................................ : 23 Film# .................. .:[id number] Sex ................................. : F Unsigned transcriptions are preliminary reports and do not represent a medical or legal document CT ABD & PELVIS W/ IV ONLY [id number] COMPLETE:08/28/19 17:00 KAH [id number] Reason(s): PENDING CMP: Abd pain, RLQ tenderness. [...] 11:36, Dictation Date: Page 1 of 2 [place] [address] PHONE: [phone] FAX: [phone] Name .................. : MOE Friend Acct Number.................. : [id number] ROOM. ................. : TR-02 MR Number .. ................. : [id number] Stay type ............. : E/R Discharge Date......... ... : 08/28/19 Admit Date ......... : 08/28/19 Admit Phys .................... : LISA SIMMS Date of ....... : 1995 Family Phys ................... : VIOLETTE Phone .................. : [phone] Age ................................ : 23 Film# .................. .:[id number] Sex ................................. : F Unsigned transcriptions are preliminary reports and do not represent a medical or legal document CT ABD & PELVIS W/ IV ONLY [id number] COMPLETE:08/28/19 17:00 KAH 37534 Reason(s): PENDING CMP: Abd pain, RLQ tenderness. Copy for: ZELDA ELIAS via fax Copy for: EMERGENCY DEPT via modem Copy for: 710 MED REC DISCHARGED Page 2 of 2 Name Value Range Interpretation Code Description Data Maribell rce(s) Supporting Document(s) ID Date Data Source [id number] 08/30/2019 08:43:00 AM EST [facility] [address] [place] [address] PHONE: [phone] FAX: [phone] Name .................. : MOE Friend Acct Number.................. : [id number] ROOM. ................. : TR MR Number ................... : [id number] Stay type ............. : E/R Discharge Date......... ... : 08/28/19 Admit Date ......... : 08/28/19 Admit Phys .................... : LISA SIMMS Date of ....... : 1995 Family Phys ................... : [employer] Phone .................. : [phone] Age ................................ : 23 Film# .................. .:[id number] Sex ................................. : F Unsigned transcriptions are preliminary reports and do not represent a medical or legal document CHEST 2 VIEWS [id number] COMPLETE:08/28/19 17:00 [facility] [address] Reason(s): abd pain CHEST X-RAY: PA AND LATERAL VIEWS HISTORY: Abdominal pain. FINDINGS: The lungs are clear. The heart and mediastinum are normal. No signs of any acute disease noted. IMPRESSION: No acute disease. Electronically Reviewed and Signed By CRISTINO BORJA MD , 08/30/19 08:43, [facility] Transcribe Initials: EDMOND , Transcribe Date: 08/29/19 11:34, Dictation Date: Copy for: ZELDA ELIAS via fax Copy for: EMERGENCY DEPT via modem Copy for: 710 MED REC DISCHARGED Page 1 of 1 Name Value Range Interpretation Code Description Data Maribell rce(s) Supporting Document(s) ID Date Data Source [id number] 08/28/2019 02:05:00 PM EST [facility] 1 OrderSheet [facility] Emergency Department [address] [place] [address] Phone #: ext- [phone] 08/28/2019 13:44 Patient: SUJATA ROSA Sex: F : 1995 Age: 23yWEIGHT:118.3 kgALLERGIES: No Known Drug Allergy, SeasonalCHIEF COMPLAINT: abdominal pain, nauseaDIAGNOSIS: Abdominal painLAB ORDERSOrder Description Priority Entered Acknowledged InitialedCBC w Diff STAT 14:23 08/28/2019 14:23 Colin Jacques R.N. P.A.-C;CMP STAT 14:08/28/2019 14:23 Colin Jacques R.N. P.A.-C;Lipase STAT 14:08/28/2019 14:23 Colin Jacques R.N. P.A.- C;Urinalysis (Clean STAT 14:23 08/28/2019 14:23 Sawyer,Catch) Colin Rivera R.N. P.A.-C;HCG Serum Qual STAT 14:08/28/2019 14:24 Colin Jacques R.N. P.A.-C;Occult Blood Stool 14:08/28/2019 14:26 Nelsyostic 1 slide Colin Rinaldi-C P.A.-C;Lactic Acid STAT 14:08/28/2019 14:24 Rosharon, Christopher Lares Miguel R.N. P.A.- C;DIAGNOSTIC STUDY ORDERSOrder Description Priority Entered Acknowledged InitialedCT Abd PEL W/ IV STAT 15:18 08/28/2019 15:24 Amado Lamb RN(Oxygen?(No)) P.A.- C;(IV?(Yes)) Reason for Study: PENDING CMP: Abd pain, RLQ tenderness.Chest 2 View STAT 15:18 08/28/2019 15:24 Helena Lamb(Oxygen?(No)) Colin Lares RN 2 OrderSheet [facility] Emergency Department [address] [place] [address] Phone #: ext- [phone] 08/28/2019 13:44 Patient: SUJATA ROSA Sex: F : 1995 Age: 23y P.A.-C; Reason for Study: abd painMEDICATION/IV/DRIP/FLUID ORDER SOrder Description Priority Entered Acknowledged InitialedNS IV : Bolus 500 14:23 08/28/2019 14:45 Sawyer,mL, then 125 mL/hr Colin Rivera R.N. P.A.-C;Zofran [...] 08/28/2019 14:23 Colin Jacques R.N., P.A.-C;Saline Lock 14:23 08/28/2019 14:23 Colin Jacques R.N., P.A.-C;[Electronically signed by Miguel Jacques R.N. (17:58 0)][Electronically signed by Colin Lares P.A.-C (00:58 08/29/2019)][Electronically locked by Miguel Jacques R.N. (17:58 08/28/2019)] Name Value Range Interpretation Code Description Data Maribell rce(s) Supporting Document(s) ID Date Data Source [id number] 08/28/2019 02:05:00 PM [facility] 1 Medication Reconciliation Report [facility] Emergency Department [address] [place] [address] Phone #: ext- [phone] 08/28/2019 13:44 Patient: SUJATA ROSA Sex: F : 1995 Age: 23yWeight: 118.3 kgHeight/Length: 64 in.BMI: 44.8ALLERGIES: No Known Drug Allergy, SeasonalThe patient's Home Medications are listed below:THE FOLLOWING MEDICATIONS NEED TO BE RECONCILED: Acyclovir Oral MetFORMIN HCl Oral PROzac Oral RisperDAL Oral TraZODone HCl Oral [facility] source(s) of the original Home Medication information:patientThe [...] 08/28/2019 3:53:00 PM 2 Medication Reconciliation Report [facility] Emergency Department [address] [place] [address] Phone #: ext- [phone] 08/28/2019 13:44 Patient: SUJATA ROSA Sex: F : 1995 Age: 23yThe following Medications were prescribed to the patient:Colace 100 mg capsule Take 1 capsule twice a day for 5 days -- Dispense 10 capsule. Refills: 0.Substitution permitted.Pharmacy - [id number] [phone]. FaxNumber: .polyethylene glycol 3350 17 gram oral powder packet Take 1 packet once a da y for 10 days --Dispense 10 packet. Refills: 0. Substitution permitted.Pharmacy [id number] [phone]. . -- Colin Lares P.A.-C Name Value Range Interpretation Code Description Data Maribell rce(s) Supporting Document(s) ID Date Data Source [id number] 08/28/2019 02:05:00 PM EST [facility] 1 Medication Administration Record [facility] Emergency Department [address] [place] [address] Phone #: ext- [phone] 08/28/2019 13:44 Patient: SUJATA ROSA [facility]#: [id number] Sex: F : 1995 Age: 23yWeight: 118.3 kgHeight/Length: 64 inBMI: 44.8ALLERGIES: Seasonal, No Known Drug Allergy Date/Time Medication Administered Medication OrderedStart NS [IV] NS IV : Bolus 500 mL, then 47199:45 08/28/2019 Dose: IV Fluids mL/hrMiguel Jacques R.N. [...] HCL) give wide open: 25 mg (NOW x1,Miguel Jacques R.N. Dose: 25 mg IVP HIGH ALERT MEDICATION) Site: #1 left AC Name Value Range Interpretation Code Description Data Maribell rce(s) Supporting Document(s) ID Date Data Source [id number] 08/28/2019 02:05:00 PM EST [facility] 1 General Instructions [facility] Emergency Department [address] [place] [address] Phone #: ext- [phone] 08/28/2019 13:44 Patient: SUJATA ROSA [facility]#: [id number] Sex: F : 1995 Age: 23yAcute periumbilical [...] days -- Dispense 10 capsule. Refills: 0.Substitution permitted.[id number] [phone]. FaxNumber: .polyethylene glycol 3350 17 gram oral powder packet Take 1 packet once a day for 10 days --Dispense 10 packet. Refills: 0. Substitution permitted.[id number] [address] [place], [place] [id number]. .Follow-up:Return to the emergency department as needed. Follow up with your healthcare provider in about twodays if not better.Understanding of the discharge instructions verbalized by patient.Follow-up with: Juan Hsu MD, Gastroenterology, [id number],[address], [address], [place], [address] Follow up Friday. Call for the next available appointment. Reason for referral: evaluation and treatment. ADDITIONAL INFORMATION 2 General Instructions [facility] Emergency Department [address] [place] [address] Phone #: ext- [phone] 08/28/2019 13:44 Patient: SUJATA ROSA Sex: F : 1995 Age: 23yUnknown Causes [...] also be needed.Home care 3 General Instructions [facility] Emergency Department [address] [place] [address] Phone #: ext- [phone] 08/28/2019 13:44 Patient: [...] begin to improve in thenext 24 hours.Call [phone] if any of these occur: Trouble breathing Confusion Fainting or loss of consciousness 4 General Instructions [facility] Emergency Department [address] [place] [address] Phone #: ext- [phone] 08/28/2019 13:44 Patient: [...] or water and you are getting dehydrated [id number] [employer]. [address] [place] [address]. All rights reserved. This information is not intended as asubstitute for professional medical care. Always follow your healthcare professional's instructions. You have been given the following additional information: Abdominal Pain, Unknown Cause, (Female)(Electronically signed by Colin Lares P.A.-C 08/29/2019 00:58) Name Value Range Interpretation Code Description Data Maribell rce(s) Supporting Document(s) ID Date Data Source [id number] 08/28/2019 02:05:00 PM EST [facility] 1 Clinical Report - Nurses [facility] Emergency Department [address] [place] [address] Phone #: ext- [phone] 08/28/2019 13:44 Patient: SUJATA ROSA Sex: F [...] oral intake by patient was last night.Treatment CONTROL ROOM TENDER:None.SEPSIS SCREEN: Negative (no infection suspected/documented). --13:49 08/28/19 Galo Rosa R.N.13:44 08/28/19. BP: 116/70. MAP: 85. HR: 79. RR: 16. O2 saturation: 100%. Temp: 97.7 F. Pain levelnow: 11/13. --13:49 08/28/19 Galo Rosa R.N.Weight: 118.3 kg. Height/Length: 64 inches. BMI: 44.8. --13:43 08/28/19 Galo Rosa R.N.[employer]. --13:50 08/28/19 Galo Rosa R.N. Acyclovir Oral. MetFORMIN HCl Oral. PROzac Oral. RisperDAL Oral. TraZODone HCl Oral. Zyrtec. --14:09 08/28/19 Galo Rosa R.N.AllergiesSeasonal. --13:46 08/28/19 Galo Rosa R.N.No Known Drug Allergy. --14:09 08/28/19 Galo Rosa R.N.PROBLEMS:Depres juana.Contusion.Eating Disorder.Diarrhea.Back Pain.Anxiety Reaction. 2 Clinical Report - Nurses [facility] Emergency Department [address] [place] [address] Phone #: ext- [phone] 08/28/2019 13:44 [id number] Sex: F : 1995 Age: 23yBorderline personality [...] Rosa R.N. 3 Clinical Report - Nurses [facility] Emergency Department [address] [place] [address] Phone #: ext- [phone] 08/28/2019 13:44 [id number] Sex: F : 1995 Age: 23y Assessment [...] RR: 17. O2 saturation: 98%. --14:47 08/28/19 Gareth accounts payable coordinatorSusana Tech 14:42 08/28/2019 Started 40 mg of Protonix [...] Jacques R.N. 4 Clinical Report - Nurses [facility] Emergency Department [address] [place] [address] Phone #: ext- [phone] 08/28/2019 13:44 Patient: SUJATA ROSA Sex: F : 1995 Age: 23y Reassessment after medication administered. Nausea still present but improving. --16:03 08/28/19 Miguel Jacques R.N. 16:10 08/28/19. BP: 111/48. MAP: 69. HR: 63. RR: 17. O2 saturation: 100%. --16:30 08/28/19 [facility] Tech, EVY Meza Tech1 Patient transported to [place] by wheelchair with accounts payable technician. --16:34 2/22/20 Miguel Jacques R.N. 14:58 08/28/2019 Protonix IVPB [...] F. Pain level now: 09/13. --17:41 08/28/19 [facility], [place] [address] Condition at departure: improved. Discharge instructions provided and reviewed with the patient. Patient verbalized understanding. Written instructions provided in German. The patient was discharged by the physician animal assistant. She was discharged home. She left [...] rce(s) Supporting Document(s) ID Date Data Source [id number] 08/28/2019 02:05:00 PM EST [facility] 1 Clinical Report - Physicians/Mid Levels [facility] Emergency Department [address] [place] [address] Phone #: ext- [phone] 08/28/2019 13:44 Patient: [...] Pcos. 2 Clinical Report - Physicians/Mid Levels [facility] Emergency Department [address] [place] [address] Phone #: ext- [phone] 08/28/2019 13:44 Patient: SUJATA ROSA 89 Sex: F : 1995 Age: 23y Additional Surgeries: . Medications: Acyclovir Oral. MetFORMIN HCl Oral. PROzac Oral. RisperDAL Oral. TraZODone HCl Oral. Zyrtec. [facility]. Allergies: No Known Drug Allergy. Seasonal.SOCIAL HISTORYSmoker- [...] Compatible with prior C- section.Back: Normal inspection.Rectal: Contract Forester present (Helena Lamb, JOE). Rectal exam normal and nontender. Externalhemorrhoids (small). No inflamed external hemorrhoids, thrombosed external hemorrhoids, bleedingexternal hemorrhoids or ruptured external hemorrhoids. Sphincter tone normal. ( Pt gives verbal consentfor exam.).Skin: Skin warm and dry.Extremities: Extremities exhibit normal ROM. No lower extremity edema. No calf tenderness. No lowerextremity edema.Neuro: Awake. Alert. Mood/affect normal. Speech normal. 3 Clinical Report - Physicians/Mid Levels [facility] Emergency Department [address] [place] [address] Phone #: ext- [phone] 08/28/2019 13:44 Patient: SUJATA ROSA [facility]#: [id number] Sex: F : 1995 Age: 23y Psych: [...] 16.0) 4 Clinical Report - Physicians/Mid Levels [facility] Emergency Department [address] [place] [address] Phone #: ext- [phone] 08/28/2019 13:44 [id number] Sex[facility] F : 1995 Age: 23y AGE [...] mL/min Normal Lipase: (CYN: 08/28/2019 14:31) ( MsgRcvd 08/28/2019 15:12) Final results Test Result Flag [...] Beta-HCG, Qual Serum: (CYN: 08/28/2019 14:31) ( MsgRcvd 08/28/2019 15:09) Final results Test Result Flag Units (Reference) HCG SERUM QUAL NEGATIVE (NORMAL: NEGAT HCG SERUM QL REENTER NEGATIVE (NORMAL: NEGAT { KIT LOT # [id number] ){ KIT EXP DATE [id number] ){ PROCEDURAL CONTROL VALID ) Occult Blood Stool Diagnostic 1 slide: (CYN: 08/28/2019 14:25) ( MsgRcvd 08/28/2019 15:11) Final results Test Result Flag Units (Reference) OCCULT BLOOD NEGATIVE (NORMAL: NEGAT OCCULT BLOOD REENTER NEGATIVE (NORMAL: NEGAT { HEMOCCULT LOT # [id number] ){ LOT EXP DATE ){ PROCEDURAL CONTROL POS/NEG VALID ) Lactic Acid: (CYN: 08/28/2019 14:31) ( MsgRcvd 08/28/2019 14:43) Final results Test Result Flag Units (Reference) LACTIC ACID 1.3 MMOL/L (0.2 - 2.2). 5 Clinical Report - Physicians/Mid Levels [facility] Emergency Department [address] [place] [address] Phone #: ext- [phone] 08/28/2019 13:44 Patient: [...] or 6 Clinical Report - Physicians/Mid Levels [facility] Emergency Department [address] [place] [address] Phone #: ext- [phone] 08/28/2019 13:44 Patient: SUJATA ROSA 89 Sex: F : 1995 Age: 23y changes unexpectedly, if not improving as expected, or if other problems arise. Prescription Medications: Colace 100 mg capsule Take 1 capsule twice a day for 5 days -- Dispense 10 capsule. Refills: 0. Substitution permitted. [facility] - [id number] [address] [place], [place] [id number]. . polyethylene glycol 3350 17 gram oral powder packet Take 1 packet once a day for 10 days -- Dispense 10 packet. Refills: 0. Substitution permitted. Pharmacy - [facility] #[id number] - [address] [facility] ; [place], [place] [phone]. . Follow-up: Return to the emergency department as needed. Follow up with your healthcare provider in about two days if not better. Understanding of the discharge instructions verbalized by patient. Follow-up with: Juan Hsu MD, Gastroenterology, [id number], [facility], [address] [place] [address], [address], [place], [address] Follow up Friday. Call for the next available appointment. Reason for referral: evaluation and treatment.(Electronically blaze d by Colin Lares P.A.-C 08/29/2019 00:58) Name Value Range Interpretation Code Description Data Maribell rce(s) Supporting Document(s) ID Date Data Source [id number] 08/28/2019 02:31:00 PM EST [facility] ([facility]) Name Value Range Interpretation Code Description Data Maribell rce(s) Supporting Document(s) Comprehensive Metabo Laboratory test result [facility] ([facility]) COMPREHENSIVE METABOLIC PANEL Sodium 139 meq/L 134-153 [facility] ([facility]) Potassium 4.2 meq/L 3.6-5.0 [facility] ([facility]) Chloride 108 meq/L 98-107 Above high normal [facility] ([facility]) Co2 23 meq/L 22-30 [facility] ([facility]) BUN 8 mg/dL 7-21 [facility] ([facility]) Glucose 93 mg/dL 65-110 [facility] ([facility]) Creatinine 0.8 mg/dL 0.7-1.5 [facility] ([facility]) Albumin 4.4 g/dL 3.9-5.0 [facility] ([facility]) BUN/Creat 10 8-27 [facility] ([facility]) Total Protein 6.8 g/dL 6.3-8.2 [facility] ([facility]) Globulin 2.4 GM/DL 2.4-3.2 [facility] ([facility]) A/G Ratio 1.8 0.8-2.0 [facility] ([facility]) Calcium 9.4 mg/dL 8.4-10.2 [facility] ([facility]) SGPT/Alt 32 U/L 7-56 [facility] ([facility]) Sgot/Ast 28 U/L 5-40 [facility] ([facility]) Alkaline Phos 81 U/L 38-126 [facility] ([facility]) Total Bili Laboratory test result 0.2-1.3 [facility] ([facility]) Non-Aa GFR Laboratory test result [facility] ([facility]) Anion Gap 8.0 mmol/L 8.0-16.0 [facility] ([facility]) Age 23 yrs [facility] ([facility]) Afr Amer GFR Laboratory test result [facility] ([facility]) Male GFR Interprentation 20-49 yrs >60 mL/min [...] >32 mL/min Normal ID Date Data Source [id number] 08/28/2019 02:31:00 PM EST [facility] ([facility]) Name Value Range Interpretation Code Description Data Maribell rce(s) Supporting Document(s) Lipase [Enzymatic activity/volume] in Serum or Plasma 15 U/L 13-6 0 [facility] ([facility]) ID Date Data Source [id number] 08/28/2019 02:31:00 PM EST [facility] ([facility]) Name Value Range Interpretation Code Description Data Maribell rce(s) Supporting Document(s) HCG Serum Qual Laboratory test result [facility] ([facility]) HCG Serum QL Reenter Laboratory test result [facility] ([facility]) { KIT LOT # [id number] ) { KIT EXP DATE [id number] ) { PROCEDURAL CONTROL VALID ) ID Date Data Source [id number] 08/28/2019 02:31:00 PM EST [facility] ([facility]) Name Value Range Interpretation Code Description Data Maribell rce(s) Supporting Document(s) RBC 4.65 10^6/uL 4.20-5.40 [facility] ([facility]) CBC W/Automated Diff Laboratory test result [facility] ([facility]) COMPLETE BLOOD COUNT WBC 6.4 10^3/uL 4.2-11.0 [facility] ([facility]) Hemoglobin 12.2 g/dL 12.0-16.0 [facility] ([facility]) MCV 82.2 fL 81.0-101 [facility] ([facility]) Hematocrit 38.2 % 37.0-47.0 [facility] ([facility]) MCH 26.2 pg 27.0-34.0 Below low normal [facility] ( [facility]) RDW 16.1 % 11.5-14.5 Above high normal [facility] ([facility]) MCHC 31.9 g/dL 31.0-36.0 [facility] ([facility]) Lymph 41.4 % 25.0-40.0 Above high normal [facility] ([facility]) Platelets 299 10^3/uL 150-450 [facility] ([facility]) Neut 46.9 % 37.0-80.0 [facility] ([facility]) MPV 9.4 fL 7.4-10.4 [facility] ([facility]) [place] 7.7 % 3.0-8.0 [facility] ([facility]) Baso 0.2 % 0.0-2.5 [facility] ([facility]) Eos 3.6 % 0.0-7.0 [facility] ([facility]) %NRBC 0.0 % 0.0-0.0 [facility] ([facility]) #Neut 2.98 10^3/uL 2.00-6.90 [facility] ([facility]) %Ig 0.2 % 0.0-0.0 Above high normal [facility] ([facility]) #[place] 0.49 10^3/uL 0.00-0.90 [facility] ([facility]) #Lymph 2.63 10^3/uL 0.60-3.40 [facility] ([facility]) #Eos 0.23 10^3/uL 0.00-0.70 [facility] ([facility]) #NRBC 0.00 10^3/uL 0.00-0.00 [facility] ([facility]) #Ig 0.01 10^3/uL 0.00-0.10 [facility] ([facility]) #Baso 0.01 10^3/uL 0.00-0.20 [facility] ([facility]) Manual Diff Laboratory test result M [facility] ([facility]) RBC Morph Laboratory test result [facility] ([facility]) ID Date Data Source [id number] 08/28/2019 02:31:00 PM EST [facility] ([facility]) Name Value Range Interpretation Code Description Data Maribell rce(s) Supporting Document(s) Lactate [Mass/volume] in Serum or Plasma 1.3 mmol/L 0.2-2.2 [facility] ([facility]) ID Date Data Source [id number] 08/28/2019 03:22:00 PM [facility] Name Value Range Interpretation Code Description Data Maribell rce(s) Supporting Document(s) COMPREHENSIVE METABOLIC PANEL [facility] COMPREHENSIVE METABOLIC PANEL Sodium [Moles/volume] in Serum or Plasma 139 mEq/L 134 - 153 [facility] Potassium [Moles/volume] in Serum or Plasma 4.2 mEq/L 3.6 - 5.0 [facility] Chloride [Moles/volume] in Serum or Plasma 108 mEq/L 98 - 107 H [facility] Carbon dioxide, total [Moles/volume] in Serum or Plasma 23 MEQ/L 22 - 30 [facility] Glucose [Mass/volume] in Serum or Plasma 93 MG/DL 65 - 110 [facility] BUN 8 MG/DL 7 - 21 [facility] Creatinine [Mass/volume] in Serum or Plasma 0.8 MG/DL 0.7 - 1.5 [facility] BUN/CREAT 10 8 - 27 [facility] Protein [Mass/volume] in Serum or Plasma 6.8 G/DL 6.3 - 8.2 [facility] Albumin [Mass/volume] in Serum or Plasma 4.4 G/DL 3.9 - 5.0 [facility] Globulin [Mass/volume] in Serum by calculation 2.4 GM/DL 2.4 - 3.2 [facility] A/G RATIO 1.8 0.8 - 2.0 [facility] Calcium [Mass/volume] in Serum or Plasma 9.4 MG/DL 8.4 - 10.2 [facility] Bilirubin.total [Mass/volume] in Serum or Plasma <0.7 MG/DL 0.2 - 1.3 [facility] Alkaline phosphatase [Enzymatic activity/volume] in Serum or Plasma 81 U/L 38 - 126 [facility] Aspartate aminotransferase [Enzymatic activity/volume] in Serum or Plasma 28 U/L 5 - 40 [facility] Alanine aminotransferase [Enzymatic activity/volume] in Seru m or Plasma 32 U/L 7 - 56 [facility] Anion gap 3 in Serum or Plasma 8.0 mmol/L 8.0 - 16.0 [facility] AGE 23 yrs [facility] NON-AA GFR >60 mL/min [facility] ital AFR AMER GFR >60 mL/min [facility] Male GFR In terprentation [...] >32 mL/min Normal ID Date Data Source [id number] 08/28/2019 03:12:00 PM EST [facility] Name Value Range Interpretation Code Description Data Maribell rce(s) Supporting Document(s) Lipase [Enzymatic activity/volume] in Serum or Plasma 15 U/L 13 - 60 [facility] ID Date Data Source [id number] 08/28/2019 03:09:00 PM EST [facility] Name Value Range Interpretation Code Description Data Maribell rce(s) Supporting Document(s) HCG SERUM QUAL NEGATIVE NORMAL: NEGATIVE [facility] HCG SERUM QL REENTER NEGATIVE NORMAL: NEGATIVE [facility] { KIT LOT # [id number] ){ KIT EXP DATE [id number] ){ PROCEDURAL CONTROL VALID ) ID Date Data Source [id number] 08/28/2019 03:05:00 PM [facility] Name Value Range Interpretation Code Description Data Mariebll rce(s) Supporting Document(s) CBC W/AUTOMATED DIFF [facility] COMPLETE BLOOD COUNT Leukocytes [#/volume] in Blood by Automated count 6.4 10^3/uL 4.2 - 1 1.0 [facility] Erythrocytes [#/volume] in Blood by Automated count 4.65 10^6/uL 4. 20 - 5.40 [facility] Hemoglobin [Mass/volume] in Blood 12.2 g/dL 12.0 - 16.0 [facility] Hematocrit [Volume Fraction] of Blood by Automated count 38.2 % 3 7.0 - 47.0 [facility] Erythrocyte mean corpuscular volume [Entitic volume] by Auto mated count 82.2 fL 81.0 - 101 [facility] Erythrocyte mean corpuscular hemoglobin [Entitic mass] by Automated count 26.2 pg 27.0 - 34.0 L [facility] Erythrocyte mean corpuscular hemoglobin concentration [Mass/volume] by Automated count 31.9 g/dL 31.0 - 36.0 [facility] Erythrocyte distribution width [Ratio] by Automated count 16.1 % 11.5 - 14.5 H [facility] Platelets [#/volume] in Blood by Automated count 299 10^3/uL 150 - 45 0 [facility] Platelet mean volume [Entitic volume] in Blood by Automated count 9.4 fL 7.4 - 10.4 [facility] Neutrophils/100 leukocytes in Blood by Automated count 46.9 % 37. 0 - 80.0 [facility] Lymphocytes/100 leukocytes in Blood by Manual count 41.4 % 25.0 - 40.0 H [facility] Monocytes/100 leukocytes in Blood by Automated count 7.7 % 3.0 - 8.0 [facility] Eosinophils/100 leukocytes in Blood by Automated count 3.6 % 0.0 - 7.0 [facility] Basophils/100 leukocytes in Blood by Automated count 0.2 % 0.0 - 2.5 [facility] %IG 0.2 % 0.0 - 0.0 H [facility] %NRBC 0.0 % 0.0 - 0.0 [facility] al Neutrophils [#/volume] in Blood by Automated count 2.98 10^3/uL 2.00 - 6.90 [facility] Lymphocytes [#/volume] in Blood by Automated count 2.63 10^3/uL 0.60 - 3.40 [facility] Monocytes [#/volume] in Blood by Automated count 0.49 10^3/uL 0.00 - 0.90 [facility] Eosinophils [#/volume] in Blood by Automated count 0.23 10^3/uL 0.00 - 0.70 [facility] Basophils [#/volume] in Blood by Automated count 0.01 10^3/uL 0.00 - 0.20 [facility] #IG 0.01 10^3/uL 0.00 - 0.10 [facility] ospital #NRBC 0.00 10^3/uL 0.00 - 0.00 [facility] MANUAL DIFF NOT INDICATED [facility] RBC MORPH NOT INDICATED [facility] spital ID Date Data Source [id number] 08/28/2019 02:43:00 PM EST [facility] Name Value Range Interpretation Code Description Data Maribell rce(s) Supporting Document(s) Lactate [Moles/volume] in Serum or Plasma 1.3 MMOL/L 0.2 - 2.2 [facility] ID Date Data Source [id number] 08/28/2019 02:25:00 PM EST [facility] ([facility]) Name Value Range Interpretation Code Description Data Maribell rce(s) Supporting Document(s) Occult Blood Laboratory test result [facility] ([facility]) Occult Blood Reenter Laboratory test result [facility] ([facility]) { HEMOCCULT LOT # [id number] ) { LOT EXP DATE ) { PROCEDURAL CONTROL POS/NEG VALID ) ID Date Data Source [id number] 08/28/2019 03:10:00 PM EST [facility] Name Value Range Interpretation Code Description Data Maribell rce(s) Supporting Document(s) OCCULT BLOOD NEGATIVE NORMAL: NEGATIVE [facility] OCCULT BLOOD REENTER NEGATIVE NORMAL: NEGATIVE [facility] { HEMOCCULT LOT # [id number] ){ LOT EXP DATE ){ PROCEDURAL CONTROL POS/NEG VALID ) ID Date Data Source [id number] 08/30/2019 01:30:00 PM EST [facility] [id number] Name Value Range Interpretation Code Description Data Maribell rce(s) Supporting Document(s) Bacteria identified in Urine by Culture [facility] ID Date Data Source [id number] 08/28/2019 02:10:00 PM EST [facility] ([facility]) Name Value Range Interpretation Code Description Data Maribell rce(s) Supporting Document(s) Urinalysis Laboratory test result [facility] ([facility]) SOURCE: Clean Catch Source Laboratory test result [facility] ([facility]) SOURCE: Clean Catch Color Laboratory test result [facility] ([facility]) SOURCE: Clean Catch Spec [place] 1.015 1.001-1.030 [facility] ([facility]) SOURCE: Clean Catch pH 5 5-9 [facility] ([facility]) SOURCE: Clean Catch Clarity Laboratory test result [facility] ([facility]) SOURCE: Clean Catch Ketone Laboratory test result [facility] ([facility]) SOURCE: Clean Catch Bilirubin Laboratory test result [facility] ([facility]) SOURCE: Clean Catch Glucose Laboratory test result [facility] ([facility]) SOURCE: Clean Catch Leuk Est Laboratory test result [facility] ([facility]) SOURCE: Clean Catch Blood 250 Abnormal (applies to non-numeric res ults) [facility] ([facility]) SOURCE: Clean Catch Protein Laboratory test result [facility] ([facility]) SOURCE: Clean Catch Nitrite Laboratory test result [facility] ([facility]) SOURCE: Clean Catch WBC Laboratory test result [facility] ([facility]) SOURCE: Clean Catch Microscopic Laboratory test result [facility] ([facility]) SOURCE: Clean Catch Urobilinogen Laboratory test result [facility] ([facility]) SOURCE: Clean Catch RBC Laboratory test result [facility] ([facility]) SOURCE: Clean Catch Epithelial Laboratory test result [facility] ([facility]) SOURCE: Clean Catch Bacteria Laboratory test result [facility]) SOURCE: Clean Catch ID Date Data Source [id number] 08/28/2019 02:32:00 PM EST [facility] Name Value Range Interpretation Code Description Data Maribell rce(s) Supporting Document(s) URINALYSIS [facility] guru [facility] yellow NORMAL: Yellow [facility] CLARITY clear NORMAL: Clear [facility] Specific gravity of Urine by Test strip 1.015 1.001 - 1.030 [facility] pH 5 5 - 9 [facility] al Glucose [Mass/volume] in Urine by Test strip NORM NORMAL: Negat [facility] Bilirubin.total [Presence] in Urine by Test strip NEG NORMAL: Negative [facility] Ketones [Presence] in Urine by Test strip NEG NORMAL: Negative [facility] Protein [Mass/volume] in Urine by Test strip NEG NORMAL: Negat [facility] Nitrite [Presence] in Urine by Test strip NEG NORMAL: Negative [facility] BLOOD 250 NORMAL: Negative [facility] Leukocyte esterase [Presence] in Urine by Test strip NEG MOE L: Negative [facility] Urobilinogen [Mass/volume] in Urine by Test strip NOR less violetta n 1.0 mg/dL [facility] MICROSCOPIC See Below [facility] ital WBC None Seen NORMAL: NONE SEEN [facility] Erythrocytes [#/volume] in Urine by Test strip 0 - 1 NORMAL: NON E SEEN [facility] EPITHELIAL FEW NORMAL: NONE SEEN [facility] Bacteria [Presence] in Urine sediment by Light microscopy No ne Seen NORMAL: NONE SEEN [facility] ID Date Data Source [id number] 08/10/2019 03:33:00 PM EST [facility] ([facility]) Name Value Range Interpretation Code Description Data Maribell rce(s) Supporting Document(s) Source: Laboratory test result [facility] ([facility]) {SOURCE: Random Void~VAGINAL SOURCE Chlamydia trachomatis,Nedra Laboratory test result [facility] ([facility]) {SOURCE: Random Void~VAGINAL SOURCE Neisseria gonorrhoeae,Nedra Laboratory test result [facility] ([facility]) {SOURCE: Random Void~VAGINAL SOURCE ID Date Data Source [id number] 08/13/2019 08:59:00 PM EST [facility] Name Value Range Interpretation Code Description Data Maribell rce(s) Supporting Document(s) SOURCE: Random Void [facility] ital Chlamydia trachomatis rRNA [Presence] in Unspecified specimen by Probe and target amplification method Negative Negative [facility] Neisseria gonorrhoeae rRNA [Presence] in Unspecified specimen by Probe and target amplification method Negative Negative [facility] ID Date Data Source [id number] 08/10/2019 02:17:00 PM EST [facility] ([facility]) Name Value Range Interpretation Code Description Data Maribell rce(s) Supporting Document(s) Color of Urine Laboratory test result [facility] ([facility]) pH of Urine by Test strip 6 [facility] ([facility]) [facility] [place] [facility] Leukocytes Laboratory test result [facility] ([facility]) Appearance of Urine Laboratory test result [facility] ([facility]) Protein [Presence] in Urine by Test strip Laboratory test result [facility] ([facility]) Nitrate [Presence] in Urine Laboratory test result [facility] ([facility]) Inhouse Glucose Laboratory test result [facility] ([facility]) Ketones [Presence] in Urine by Test strip Laboratory test result [facility] ([facility]) Bilirubin.total [Presence] in Urine by Test strip Laboratory test res ult [facility]) Urobilinogen Laboratory test result [facility] ([facility]) Blood type and Indirect antibody screen panel - Blood 250 [facility] ([facility]) ID Date Data Source [id number] 07/21/2019 09:13:00 AM EST [facility]) Name Value Range Interpretation Code Description Data Maribell rce(s) Supporting Document(s) Calcidiol [Mass/volume] in Serum or Plasma 26 ng/mL [facility] ([facility]) Is patient fasting? N Hemoglobin A1c/Hemoglobin.total in Blood 5.1 % 4.4-6.1 [facility] ([facility]) Is patient fasting? N ID Date Data Source [id number] 07/21/2019 09:13:00 AM EST [facility] ([facility]) Name Value Range Interpretation Code Description Data Maribell rce(s) Supporting Document(s) Comprehensive Metabo Laboratory test result [facility] ([facility]) Is patient fasting? N Sodium 141 meq/L 134-153 [facility] ([facility]) Is patient fasting? N Potassium 4.4 meq/L 3.6-5.0 [facility] ([facility]) Is patient fasting? N Chloride 106 meq/L 98-107 [facility] ([facility]) Is patient fasting? N Co2 24 meq/L 22-30 [facility] ([facility]) Is patient fasting? N Glucose 93 mg/dL 65-110 [facility] ([facility]) Is patient fasting? N Creatinine 0.8 mg/dL 0.7-1.5 [facility] ([facility]) Is patient fasting? N BUN 15 mg/dL 7-21 [facility] ([facility]) Is patient fasting? N Total Protein 7.1 g/dL 6.3-8.2 [facility]) Is patient fasting? N BUN/Creat 19 8-27 [facility] ([facility]) Is patient fasting? N Globulin 2.5 GM/DL 2.4-3.2 [facility] ([facility]) Is patient fasting? N Albumin 4.6 g/dL 3.9-5.0 [facility] ([facility]) Is patient fasting? N Calcium 10.0 mg/dL 8.4-10.2 [facility] ([facility]) Is patient fasting? N A/G Ratio 1.8 0.8-2.0 [facility] ([facility]) Is patient fasting? N Alkaline Phos 83 U/L 38-126 [facility] ([facility]) Is patient fasting? N Total Bili 0.7 mg/dL 0.2-1.3 [facility] ([facility]) Is patient fasting? N SGPT/Alt 37 U/L 7-56 [facility] ([facility]) Is patient fasting? N Sgot/Ast 24 U/L 5-40 [facility] ([facility]) Is patient fasting? N Anion Gap 11.0 mmol/L 8.0-16.0 [facility] ([facility]) Is patient fasting? N Age 23 yrs [facility] ([facility]) Is patient fasting? N Afr Amer GFR Laboratory test result [facility] ([facility]) Is patient fasting? N Non-Aa GFR Laboratory test result [facility] ([facility]) Is patient fasting? N ID Date Data Source [id number] 07/21/2019 09:13:00 AM EST [facility] ([facility]) Name Value Range Interpretation Code Description Data Maribell rce(s) Supporting Document(s) Thyrotropin [Units/volume] in Serum or Plasma 2.96 uIU/mL 0.47-5.01 [facility] ([facility]) Is patient fasting? N ID Date Data Source [id number] 07/21/2019 09:13:00 AM EST [facility] ([facility]) Name Value Range Interpretation Code Description Data Maribell rce(s) Supporting Document(s) CBC No Diff Laboratory test result M EDENT ([facility]) Is patient fasting? N RBC 4.85 10^6/uL 4.20-5.40 [facility] ([facility]) Is patient fasting? N WBC 5.7 10^3/uL 4.2-11.0 [facility] ([facility]) Is patient fasting? N MCV 83.1 fL 81.0-101 [facility] ([facility]) Is patient fasting? N Hemoglobin 12.5 g/dL 12.0-16.0 [facility] ([facility]) Is patient fasting? N MCH 25.8 pg 27.0-34.0 Below low normal [facility] ( [facility]) Is patient fasting? N Hematocrit 40.3 % 37.0-47.0 [facility] ([facility]) Is patient fasting? N RDW 15.6 % 11.5-14.5 Above high normal [facility] ([facility]) Is patient fasting? N MCHC 31.0 g/dL 31.0-36.0 [facility] ([facility]) Is patient fasting? N Platelets 322 10^3/uL 150-450 [facility] ([facility]) Is patient fasting? N MPV 10.2 fL 7.4-10.4 [facility] ([facility]) Is patient fasting? N ID Date Data Source [id number] 07/21/2019 11:27:00 AM [facility] Value Range Interpretation Code Description Data Maribell rce(s) Supporting Document(s) Calcidiol [Moles/volume] in Serum or Plasma 26 NG/ML [facility] VITAMIN-D(2 5HYDROXY) Deficiency: <=20 ng/ml Insufficiency: 21-29 ng/ml Preferred level: => 30 ng/ml ID Date Data Source [id number] 07/21/2019 11:27:00 AM [facility] Name Value Range Interpretation Code Description Data Maribell rce(s) Supporting Document(s) Thyrotropin [Units/volume] in Serum or Plasma by Detec tion limit <= 0.05 mIU/L 2.96 uIU/mL 0.47 - 5.01 [facility] ID Date Data Source [id number] 07/21/2019 11:25:00 AM [facility] Value Range Interpretation Code Description Data Maribell rce(s) Supporting Document(s) CBC NO DIFF [facility] ital COMPLETE BLOOD COUNT Leukocytes [#/volume] in Blood by Automated count 5.7 10^3/uL 4.2 - 1 1.0 [facility] Erythrocytes [#/volume] in Blood by Automated count 4.85 10^6/uL 4. 20 - 5.40 [facility] Hemoglobin [Mass/volume] in Blood 12.5 g/dL 12.0 - 16.0 [facility] Hematocrit [Volume Fraction] of Blood by Automated count 40.3 % 3 7.0 - 47.0 [facility] Erythrocyte mean corpuscular volume [Entitic volume] by Auto mated count 83.1 fL 81.0 - 101 [facility] Erythrocyte mean corpuscular hemoglobin [Entitic mass] by Automated count 25.8 pg 27.0 - 34.0 L [facility] Erythrocyte mean corpuscular hemoglobin concentration [Mass/volume] by Automated count 31.0 g/dL 31.0 - 36.0 [facility] Erythrocyte distribution width [Ratio] by Automated count 15.6 % 11.5 - 14.5 H [facility] Platelets [#/volume] in Blood by Automated count 322 10^3/uL 150 - 45 0 [facility] Platelet mean volume [Entitic volume] in Blood by Automated count 10.2 fL 7.4 - 10.4 [facility] ID Date Data Source [id number] 07/21/2019 11:16:00 AM EST [facility] Name Value Range Interpretation Code Description Data Maribell rce(s) Supporting Document(s) Hemoglobin A1c/Hemoglobin.total in Blood 5.1 % 4.4 - 6.1 [facility] {A1]{HB] ID Date Data Source [id number] 07/21/2019 11:15:00 AM [facility] Name Value Range Interpretation Code Description Data Maribell rce(s) Supporting Document(s) COMPREHENSIVE METABOLIC PANEL [facility] COMPREHENSIVE METABOLIC PANEL Sodium [Moles/volume] in Serum or Plasma 141 mEq/L 134 - 153 [facility] Potassium [Moles/volume] in Serum or Plasma 4.4 mEq/L 3.6 - 5.0 [facility] Chloride [Moles/volume] in Serum or Plasma 106 mEq/L 98 - 107 [facility] Carbon dioxide, total [Moles/volume] in Serum or Plasma 24 MEQ/L 22 - 30 [facility] Glucose [Mass/volume] in Serum or Plasma 93 MG/DL 65 - 110 [facility] BUN 15 MG/DL 7 - 21 [facility] Creatinine [Mass/volume] in Serum or Plasma 0.8 MG/DL 0.7 - 1.5 [facility] BUN/CREAT 19 8 - 27 [facility] Protein [Mass/volume] in Serum or Plasma 7.1 G/DL 6.3 - 8.2 [facility] Albumin [Mass/volume] in Serum or Plasma 4.6 G/DL 3.9 - 5.0 [facility] Globulin [Mass/volume] in Serum by calculation 2.5 GM/DL 2.4 - 3.2 [facility] A/G RATIO 1.8 0.8 - 2.0 [facility] Calcium [Mass/volume] in Serum or Plasma 10.0 MG/DL 8.4 - 10.2 [facility] Bilirubin.total [Mass/volume] in Serum or Plasma 0.7 MG/DL 0.2 - 1.3 [facility] Alkaline phosphatase [Enzymatic activity/volume] in Serum or Plasma 83 U/L 38 - 126 [facility] Aspartate aminotransferase [Enzymatic activity/volume] in Serum or Plasma 24 U/L 5 - 40 [facility] Alanine aminotransferase [Enzymatic activity/volume] in Seru m or Plasma 37 U/L 7 - 56 [facility] Anion gap 3 in Serum or Plasma 11.0 mmol/L 8.0 - 16.0 [facility] AGE 23 yrs [facility] NON-AA GFR >60 mL/min [facility] ital AFR AMER GFR >60 mL/min [facility] Male GFR In terprentation [...] AM EST Former smoker completed Former smoker [facility] [place] Vital Signs ID Date Data Source UNK Name Value Range Interpretation Code Description Data Source(s) Body surface area 2.24 m2 2.24 m2 [facility] ([facility]) Body mass index (BMI) [Ratio] 47.2 kg/m2 47.2 [facility] Body height 64 [in_i] 64 [in_i] [facility] ([facility]) 5'4" Body weight 124.740 kg 124.740 kg [facility] ([facility]) Body weight 275.00 [lb_av] 275.00 [lb_av] [facility] T ([facility]) Body temperature 98.2 [degF] 98.2 [degF] [facility] ([facility]) Heart rate 86 /min 86 /min [facility] ([facility]) Diastolic blood pressure 68 mm[Hg] 68 mm[Hg] [facility] ([facility]) Systolic blood pressure 118 mm[Hg] 118 mm[Hg] M [facility] ([facility]) Body mass index (BMI) [Ratio] 46.3 kg/m2 46.3 k g/m2 [facility] ([facility]) Body weight 278.00 [lb_av] 278.00 [lb_av] [facility] T ([facility]) Body height 65 [in_i] 65 [in_i] [facility] ([facility]) 5'5" Body temperature 96.0 [degF] 96.0 [degF] [facility] ([facility]) Oxygen saturation in Arterial blood by Pulse oximetry 97 % 97 % [facility]) Body mass index (BMI) [Ratio] 46.5 kg/m2 46.5 k g/m2 [facility] ([facility]) Body weight 272.50 [lb_av] 272.50 [lb_av] [facility] T ([facility]) Body height 64.2 [in_i] 64.2 [in_i] [facility] ([facility]) 5'4.20" Heart rate 66 /min 66 /min [facility] ([facility]) Diastolic blood pressure 64 mm[Hg] 64 mm[Hg] [facility] ([facility]) Systolic blood pressure 124 mm[Hg] 124 mm[Hg] M ED[facility] ([facility]) Systolic blood pressure 112 mm[Hg] 112 mm[Hg] M [facility] ([facility]) Body surface area 2.23 m2 2.23 m2 [facility] ([facility]) Body mass index (BMI) [Ratio] 46.9 kg/m2 46.9 k g/m2 [facility] ([facility]) Body height 64 [in_i] 64 [in_i] [facility] ([facility]) 5'4" Body weight 123.889 kg 123.889 kg [facility] ([facility]) Body weight 273.12 [lb_av] 273.12 [lb_av] [facility] T ([facility]) Oxygen saturation in Arterial blood by Pulse oximetry 97 % 97 % [facility] ([facility]) Respiratory rate 16 /min 16 /min [facility] ( [facility]) Body temperature 98.4 [degF] 98.4 [degF] [facility] ([facility]) Heart rate 85 /min 85 /min [facility] ([facility]) Diastolic blood pressure 68 mm[Hg] 68 mm[Hg] [facility] ([facility]) Body surface area 2.18 m2 2.18 m2 [facility] ([facility]) Body mass index (BMI) [Ratio] 44.2 kg/m2 44.2 k g/m2 [facility] ([facility]) Body height 64 [in_i] 64 [in_i] [facility] ([facility]) 5'4" Body weight 116.689 kg 116.689 kg [facility] ([facility]) Body weight 257.25 [lb_av] 257.25 [lb_av] [facility] T ([facility]) Oxygen saturation in Arterial blood by Pulse oximetry 98 % 98 % [facility] ([facility]) Respiratory rate 16 /min 16 /min [facility] ( [facility]) Body temperature 98.5 [degF] 98.5 [degF] [facility] ([facility]) Heart rate 88 /min 88 /min [facility] ([facility]) Diastolic blood pressure 80 mm[Hg] 80 mm[Hg] [facility] ([facility]) Systolic blood pressure 126 mm[Hg] 126 mm[Hg] [facility] ([facility]) Body surface area 2.20 m2 2.20 m2 [facility] ([facility]) Body mass index (BMI) [Ratio] 45.3 kg/m2 45.3 k g/m2 [facility] ([facility]) Body height 64 [in_i] 64 [in_i] [facility] ([facility]) 5'4" Body weight 119.750 kg 119.750 kg [facility] ([facility]) Body weight 264.00 [lb_av] 264.00 [lb_av] [facility] T ([facility]) Heart rate 56 /min 56 /min [facility] ([facility]) Diastolic blood pressure 66 mm[Hg] 66 mm[Hg] [facility] ([facility]) Systolic blood pressure 126 mm[Hg] 126 mm[Hg] [facility] ([facility]) Body surface area 2.19 m2 2.19 m2 [facility] ([facility]) Body mass index (BMI) [Ratio] 44.9 kg/m2 44.9 k g/m2 [facility] ([facility]) Body height 64 [in_i] 64 [in_i] [facility] ([facility]) 5'4" Body weight 118.560 kg 118.560 kg [facility] ([facility]) Body weight 261.38 [lb_av] 261.38 [lb_av] [facility] T ([facility]) Oxygen saturation in Arterial blood by Pulse oximetry 98 % 98 % [facility] ([facility]) Respiratory rate 16 /min 16 /min [facility] ( [facility]) Body temperature 97.8 [degF] 97.8 [degF] [facility] ([facility]) Heart rate 86 /min 86 /min [facility] ([facility]) Diastolic blood pressure 68 mm[Hg] 68 mm[Hg] [facility] ([facility]) Systolic blood pressure 122 mm[Hg] 122 mm[Hg] [facility] ([facility]) Body surface area 2.19 m2 2.19 m2 [facility] ([facility]) Body mass index (BMI) [Ratio] 44.8 kg/m2 44.8 k g/m2 [facility] ([facility]) Body height 64 [in_i] 64 [in_i] [facility] ([facility]) 5'4" Body weight 118.446 kg 118.446 kg [facility] ([facility]) Body weight 261.12 [lb_av] 261.12 [lb_av] [facility] T ([facility]) Oxygen saturation in Arterial blood by Pulse oximetry 98 % 98 % [facility] ([facility]) Respiratory rate 16 /min 16 /min [facility] ( [facility]) Body temperature 98.7 [degF] 98.7 [degF] [facility] ([facility]) Heart rate 92 /min 92 /min [facility] ([facility]) Diastolic blood pressure 78 mm[Hg] 78 mm[Hg] [facility] ([facility]) Systolic blood pressure 110 mm[Hg] 110 mm[Hg] [facility] ([facility]) Body surface area 2.17 m2 2.17 m2 [facility] ([facility]) Body mass index (BMI) [Ratio] 43.6 kg/m2 43.6 k g/m2 [facility] ([facility]) Body height 64 [in_i] 64 [in_i] [facility] ([facility]) 5'4" Body weight 115.271 kg 115.271 [facility] Body weight 254.12 [lb_av] 254.12 [lb_av] [facility] T ([facility]) Oxygen saturation in Arterial blood by Pulse oximetry 98 % 98 % [facility]) Respiratory rate 16 /min 16 /min [facility] ( [facility]) Body temperature 98.5 [degF] 98.5 [degF] [facility] ([facility]) Heart rate 87 /min 87 /min [facility] ([facility]) Diastolic blood pressure 76 mm[Hg] 76 mm[Hg] [facility] ([facility]) Systolic blood pressure 118 mm[Hg] 118 mm[Hg] M [facility] ([facility]) ID Date Data Source [id number] 07/16/2020 08:49:07 AM [facility] Name Value Range Interpretation Code Description Data Source(s) WEIGHT RECORDED 273 lb 273 lb [facility] Body height Measured 64 in 64 in [facility] TRANSFER FROM [facility] Patient Treatment Plan of Care Planned Activity Planned Date Details Description Data Source (s) methylPREDNISolone 4 MG Oral Tablet Therapy Pack (MEDR OL DOSEPACK) 07/14/2020 12:00:00 AM [facility] aripiprazole 10 MG Oral Tablet 07/11/2020 12:00:00 AM [facility] oxcarbazepine 150 MG Oral Tablet 07/06/2020 12:00:00 AM [facility] Trazodone Hydrochloride 100 MG Oral Tablet 07/05/2020 12:00:00 AM [facility] 24 HR Bupropion Hydrochloride 300 MG Extended Release Oral Tablet 07/05/2020 12:00:00 AM [facility] gabapentin 300 MG Oral Capsule 06/16/2020 12:00:00 AM [facility] tizanidine 4 MG Oral Tablet 06/14/2020 12:00:00 AM [facility]
[2020-07-17] MEDS ORDERED: TIZA4TAB4 PO (22:28)
[2020-07-17] MEDS ORDERED: HYDR-3363 PO (22:30)
[2020-07-17] MEDS ORDERED: BUPR300T92 PO (22:30)
[2020-07-17] MEDS ORDERED: GABA-282 PO (22:30)
[2020-07-17] MEDS ORDERED: traZODone 100 MG TAB PO ONE (22:45)
[2020-07-17] MEDS ORDERED: GABAPENTIN 300 MG CAP PO ONE (22:45)
[2020-07-17] MEDS ORDERED: ARIPiprazole 10 MG TAB PO ONE (22:45)
[2020-07-18 01:22] VITALS: BP 139/72
--- NOTE | 2020-07-18 17:22 | ECGEPIP ---
[facility] - ED Test Date: 2020-07-17 Pat Name: SUJATA ROSA Department: Room: - Gender: Female Salon Coordinator: IDRIS : 1995 Requested By: CAMELIA HANDLEY Order Number: [id number] Reading MD: Lorenza Obregon Measurements Intervals [place] Rate: 75 P: 48 DC: 157 QRS: 42 QRSD: 89 T: 36 QT: 371 QTc: 415 Interpretive Statements SINUS RHYTHM INCREASED RATE 08/15/17 Electronically Signed on 07-18-2020 17:21:59 EST by Lorenza Obregon
== END 2020-07-18 01:24 ==
LOC: M ED 17:54
DX: R45.851 Suicidal ideations (principal); F31.9 Bipolar disorder, unspecified; F20.9 Schizophrenia, unspecified; K21.9 Gastro-esophageal reflux disease without esophagitis; E28.2 Polycystic ovarian syndrome; F17.200 Nicotine dependence, unspecified, uncomplicated; Z91.040 Latex allergy status; Z79.899 Other long term (current) drug therapy
CPT/HCPCS: 36415; 80048; 80076; 80307; 84443; 84702; 85027; 87486; 87581; 87633; 87798; 93005; 99285; G0480

== ENCOUNTER 2021-02-03 19:18 | Emergency (ER) | payer OTHER ==
[~2021-02-03] VITALS: Ht 162.6 cm; Wt 123.4 kg
[~2021-02-03 19:18] MED LIST changes: +ABIL10TA9 PO; +ACYC1TAB; -ACYC400T; +BUPR300T92 PO; +CETI-25 PO; -CETI10TA8 PO; -FLUO10CA16 PO; +FLUO10CA18 PO; +OMEP-173 PO; -OMEP-218 PO; +OXCA150T21 PO; +QUET50TA4 PO; -QUET5TAB PO; +TIZA10TA PO; +WELLTAB40 PO
[2021-02-03] MEDS ORDERED: ALBU8.5H INH (19:33)
[2021-02-03] MEDS ORDERED: BUDE10.2 INH (19:33)
[2021-02-03] MEDS ORDERED: METF-838 PO (19:33)
[2021-02-03] MEDS ORDERED: QUET50TA4 PO (19:33)
[2021-02-03] MEDS ORDERED: BACTDSTA PO (19:33)
[2021-02-03] MEDS ORDERED: LORA-674 PO (19:33)
[2021-02-03] MEDS ORDERED: D 50CAP2 PO (19:33)
[2021-02-03] MEDS ORDERED: NS 1,000 ML IV ONE (20:40)
[2021-02-03] MEDS ORDERED: CLINDAMYCIN 900 MG in IV 1 EA IV ONE (20:40)
[2021-02-03 22:12] VITALS: BP 137/76
[2021-02-03 22:13] LABS: BASO % 0.6 % (0.0-1.0); EOS # 0.2 10^3/uL (0.0-0.5); EOS % 2.4 % (0.0-3.0); HEMATOCRIT 37.9 % (36.0-47.0); HEMOGLOBIN 12.3 g/dl (12.0-15.5); LYMPH # 2.3 10^3/uL (1.5-5.0); LYMPH % 33.2 % (24.0-44.0); MEAN CORPUSCULAR HGB CONC 32.5 g/dl (32.0-36.5); MEAN CORPUSCULAR VOLUME 86.3 fl (80.0-96.0); MONO # 0.6 10^3/uL (0.0-0.8); NEUTROPHILS # 3.9 10^3/uL (1.5-8.5); NEUTROPHILS % 55.5 % (36.0-66.0); PLATELET COUNT, AUTOMATED 284 10^3/uL (150-450); RED BLOOD COUNT 4.39 10^6/uL (4.00-5.40)
[2021-02-03 22:32] LABS: ERYTHROCYTE SEDIMENTATION RATE 58 mm/hr (0-20)
[2021-02-03 22:41] LABS: ALBUMIN 3.8 GM/DL (3.2-5.2); ALT/SGPT 61 U/L (12-78); BILIRUBIN,DIRECT 0.1 MG/DL (0.0-0.2); BILIRUBIN,TOTAL 0.4 MG/DL (0.2-1.0); BLOOD UREA NITROGEN 6 MG/DL (7-18); C REACTIVE PROTEIN QUANTITATIV 6.98 MG/DL (0.00-0.30); CALCIUM LEVEL 8.3 MG/DL (8.5-10.1); CARBON DIOXIDE LEVEL 25 MEQ/L (21-32); CHLORIDE LEVEL 108 MEQ/L (98-107); CREATININE FOR GFR 0.84 MG/DL (0.55-1.30); GLOMERULAR FILTRATION RATE > 60.0 (>60); GLUCOSE, FASTING 81 MG/DL (70-100); SODIUM LEVEL 139 MEQ/L (136-145)
[2021-03-12] MEDS ORDERED: OMEP-173 (13:02)
[2021-03-12] MEDS ORDERED: VENL-37 PO (13:02)
== END 2021-02-03 23:20 | disposition home or self-care (01) ==
LOC: M ED 19:18
DX: L03.113 Cellulitis of right upper limb (principal); L02.91 Cutaneous abscess, unspecified; Z79.899 Other long term (current) drug therapy; Z91.040 Latex allergy status

== ENCOUNTER → 2021-03-09 | Outpatient (REF) | payer OTHER, MEDICAID ==
[~2021-03-09] MED LIST changes: +ALBU8.5H INH; +BACTDSTA PO; +BUDE10.2 INH; -CETI-25 PO; +CETI10TA8 PO; +D 50CAP2 PO; +FLUO10CA16 PO; -FLUO10CA18 PO; +LORA-674 PO; +METF-838 PO; -OMEP-173 PO; +OMEP-218; +OMEP-218 PO; +RISP-7; -TIZA10TA PO; +TIZA4TAB4 PO; +VENL-37
== END ==
LOC: M SFHCWAGY 19:10
PROVIDERS: ATTEND Obstetrics & Gynecology
DX: Z12.4 Encounter for screening for malignant neoplasm of cervix (principal)

== ENCOUNTER 2021-03-12 12:48 | Emergency (ER) | payer MEDICAID, OTHER ==
[~2021-03-12] VITALS: Ht 162.6 cm; Wt 118.3 kg
[~2021-03-12 12:48] MED LIST changes: -OMEP-218; -RISP-7; -VENL-37
[2021-03-12] MEDS ORDERED: RISP-7 (13:02)
[2021-03-12] MEDS ORDERED: VENL-37 (13:02)
[2021-03-12] MEDS ORDERED: HYDR50TA70 (13:02)
[2021-03-12] MEDS ORDERED: OMEP-218 (13:02)
--- NOTE | 2021-03-12 13:43 | REP ---
INDICATION: trauma. COMPARISON: None. TECHNIQUE: Four views of the right toes were obtained. FINDINGS: There is no evidence of fracture or dislocation. There is no arthropathy. The periarticular soft tissues are normal. IMPRESSION: Normal evaluation of the right toes. <Electronically signed by Joe Frederick > 03/12/21 0133
[2021-03-12 14:46] VITALS: BP 148/85
== END 2021-03-12 14:51 | disposition home or self-care (01) ==
LOC: M ED 12:48
DX: S90.31XA Contusion of right foot, initial encounter (principal); Z91.040 Latex allergy status; Y92.9 Unspecified place or not applicable; Y93.9 Activity, unspecified; Y99.9 Unspecified external cause status

== ENCOUNTER 2021-03-18 16:19 | Emergency (ER) | payer OTHER ==
[~2021-03-18] VITALS: Ht 160 cm; Wt 117.3 kg
[~2021-03-18 16:19] MED LIST changes: +OMEP-218; +RISP-7; +VENL-37 PO
[2021-03-18 16:20] VITALS: BP 139/77
== END 2021-03-18 17:14 | disposition left against medical advice (07) ==
LOC: M ED 16:19
DX: Z53.9 Procedure and treatment not carried out, unspecified reason (principal)

== ENCOUNTER → 2021-04-20 | Outpatient (CLI) | payer OTHER ==
--- NOTE | 2021-04-20 22:28 | REPVR ---
PROCEDURE INFORMATION: Exam: MR Lumbar Spine Without Contrast Exam date and time: 04/20/2021 3:39 PM Age: 25 years old Clinical indication: Low back pain; Additional info: Spondylosis w/ radiculopathy, R/O hnp vs stenosis TECHNIQUE: Imaging protocol: Multiplanar magnetic resonance images of the lumbar spine without intravenous contrast. COMPARISON: CT Spine, lumbar w/o contrast 10/15/2019 3:08 PM FINDINGS: Vertebral body heights are maintained. No abnormal marrow signal. No cord compression. No abnormal cord signal. Conus medullaris terminates at the L1 level. Paravertebral soft tissues are unremarkable. L1-L2: No significant canal or foraminal narrowing. L2-L3: No significant canal or foraminal narrowing. L3-L4: No significant canal or foraminal narrowing. L4-L5: No significant canal or foraminal narrowing. L5-S1: Prominent central disc extrusion causing mild canal narrowing and effacing the bilateral lateral recesses, with slight impingement upon the traversing right S1 nerve root. Mild bilateral foraminal narrowing. IMPRESSION: Prominent central disc extrusion at L5-S1 impinging the traversing right S1 nerve root. Recommend surgical consultation. Electronically signed by: Noé Owens On 04/20/2021 22:27:38 PM
== END ==
LOC: M PLAIMG 14:46
PROVIDERS: ATTEND Physician Assistant
DX: M51.27 Other intervertebral disc displacement, lumbosacral region (principal); 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, lumbosacral region

== ENCOUNTER → 2021-05-22 | Outpatient (CLI) | payer OTHER ==
[2021-05-22 11:19] LABS: HEMOGLOBIN A1c 5.2 %
[2021-05-22 11:29] LABS: BLOOD UREA NITROGEN 12 MG/DL (7-18); CALCIUM LEVEL 8.6 MG/DL (8.5-10.1); CARBON DIOXIDE LEVEL 29 MEQ/L (21-32); CHLORIDE LEVEL 108 MEQ/L (98-107); CHOLESTEROL LEVEL 177 MG/DL (<200); CHOLESTEROL RISK RATIO 4.214 (<5); CREATININE FOR GFR 0.79 MG/DL (0.55-1.30); FREE T4 0.78 NG/DL (0.76-1.46); GLOMERULAR FILTRATION RATE > 60.0 (>60); GLUCOSE, FASTING 102 MG/DL (70-100); HDL CHOLESTEROL 42 MG/DL (>40); LDL CHOLESTEROL 109 MG/DL (<100); NON-HDL-C 135 MG/DL; POTASSIUM SERUM 4.3 MEQ/L (3.5-5.1); PROLACTIN 110.2 NG/ML; SODIUM LEVEL 140 MEQ/L (136-145); TRIGLYCERIDES LEVEL 131 MG/DL (<150)
== END ==
LOC: M PLALAB 09:15
PROVIDERS: ATTEND Student in an Organized Health Care Education/Training Program
DX: Z13.1 Encounter for screening for diabetes mellitus (principal)

== ENCOUNTER → 2021-05-22 | Outpatient (REF) | payer OTHER | LOC: M SFHCPLAZ 09:05 | PROVIDERS: ATTEND Family Medicine | DX: Z53.9 Procedure and treatment not carried out, unspecified reason (principal); N64.52 Nipple discharge; F33.2 Major depressive disorder, recurrent severe without psychotic features; Z13.220 Encounter for screening for lipoid disorders; Z13.1 Encounter for screening for diabetes mellitus ==

== ENCOUNTER → 2021-07-02 | Outpatient (REF) | payer OTHER | LOC: M SFHCPLAZ 11:02 | PROVIDERS: ATTEND Family Medicine | DX: E22.1 Hyperprolactinemia (principal); F33.2 Major depressive disorder, recurrent severe without psychotic features; Z53.9 Procedure and treatment not carried out, unspecified reason ==

== ENCOUNTER → 2021-08-21 | Outpatient (CLI) | payer OTHER ==
[~2021-08-21] MED LIST changes: +CETI-25 PO; -CETI10TA8 PO; -FLUO10CA16 PO; +FLUO10CA18 PO; +OMEP-173; +OMEP-173 PO; -OMEP-218; -OMEP-218 PO; +TIZA10TA PO; -TIZA4TAB4 PO
== END ==
LOC: M PLAIMG 10:56
PROVIDERS: ATTEND Student in an Organized Health Care Education/Training Program
DX: E22.1 Hyperprolactinemia (principal)

== ENCOUNTER → 2021-11-16 | Outpatient (REF) | payer OTHER | LOC: M SFHCPLAZ 16:57 | PROVIDERS: ATTEND Physician Assistant | DX: R51.9 Headache, unspecified (principal) ==

== ENCOUNTER → 2021-12-05 | Outpatient (CLI) | payer OTHER, MEDICARE ==
[2021-12-05 13:13] LABS: BASO # 0.1 10^3/uL (0.0-0.2); BASO % 0.6 % (0.0-1.0); EOS # 0.1 10^3/uL (0.0-0.5); EOS % 1.1 % (0.0-3.0); HEMATOCRIT 44.7 % (36.0-47.0); LYMPH # 2.4 10^3/uL (1.5-5.0); LYMPH % 26.5 % (24.0-44.0); MEAN CORPUSCULAR HEMOGLOBIN 30.3 pg (27.0-33.0); MEAN CORPUSCULAR HGB CONC 33.6 g/dl (32.0-36.5); MEAN CORPUSCULAR VOLUME 90.3 fl (80.0-96.0); MONO # 0.5 10^3/uL (0.0-0.8); NEUTROPHILS # 5.9 10^3/uL (1.5-8.5); NEUTROPHILS % 65.5 % (36.0-66.0); PLATELET COUNT, AUTOMATED 295 10^3/uL (150-450); RED BLOOD COUNT 4.95 10^6/uL (4.00-5.40); WHITE BLOOD COUNT 8.9 10^3/uL (4.0-10.0)
[2021-12-05 13:54] LABS: ERYTHROCYTE SEDIMENTATION RATE 4 mm/hr (0-20)
[2021-12-05 14:00] LABS: ALBUMIN 4.1 GM/DL (3.2-5.2); ALT/SGPT 37 U/L (12-78); BILIRUBIN,TOTAL 0.6 MG/DL (0.2-1.0); BLOOD UREA NITROGEN 7 MG/DL (7-18); C REACTIVE PROTEIN QUANTITATIV 0.59 MG/DL (0.00-0.30); CALCIUM LEVEL 8.9 MG/DL (8.5-10.1); CARBON DIOXIDE LEVEL 26 MEQ/L (21-32); CHLORIDE LEVEL 108 MEQ/L (98-107); CREATININE FOR GFR 0.83 MG/DL (0.55-1.30); FERRITIN 12 NG/ML (8-252); FREE T4 1.01 NG/DL (0.76-1.46); GLOMERULAR FILTRATION RATE > 60.0 (>60); GLUCOSE, FASTING 84 MG/DL (70-100); IRON (FE) 91 UG/DL (50-170); POTASSIUM SERUM 4.1 MEQ/L (3.5-5.1); SODIUM LEVEL 138 MEQ/L (136-145); TOTAL PROTEIN 7.2 GM/DL (6.4-8.2)
== END ==
LOC: M PLALAB 10:09
PROVIDERS: ATTEND Physician Assistant
DX: R51.9 Headache, unspecified (principal); R42 Dizziness and giddiness; E66.01 Morbid (severe) obesity due to excess calories

== ENCOUNTER → 2021-12-19 | Outpatient (CLI) | payer MEDICARE, OTHER | LOC: M PLALAB 15:22 | PROVIDERS: ATTEND Physician Assistant | DX: K59.00 Constipation, unspecified (principal) ==

== ENCOUNTER → 2022-01-30 | Outpatient (REF) | payer MEDICARE, OTHER | LOC: M LAB REF 20:54 | PROVIDERS: ATTEND Physician Assistant | DX: R53.83 Other fatigue (principal); R05.9 Cough, unspecified ==

== ENCOUNTER → 2022-02-01 | Outpatient (REF) | payer MEDICARE, OTHER | LOC: M SFHCPLAZ 16:37 | PROVIDERS: ATTEND Physician Assistant | DX: R53.81 Other malaise (principal) ==

== ENCOUNTER → 2022-02-06 | Outpatient (CLI) | payer MEDICARE, OTHER | LOC: M PLAIMG 07:09 | PROVIDERS: ATTEND Physician Assistant | DX: M51.16 Intervertebral disc disorders with radiculopathy, lumbar region (principal) ==

== ENCOUNTER → 2022-07-17 | Outpatient (CLI) | payer MEDICARE, OTHER | LOC: M PLAIMG 07:54 | PROVIDERS: ATTEND Otolaryngology | DX: J32.4 Chronic pansinusitis (principal) ==

== ENCOUNTER → 2022-07-23 | Outpatient (REF) | payer MEDICARE, OTHER | LOC: M SFHCPLAZ 14:09 | PROVIDERS: ATTEND Family Medicine | DX: Z53.9 Procedure and treatment not carried out, unspecified reason (principal) ==

== ENCOUNTER → 2022-08-14 | Outpatient (REF) | payer MEDICARE, OTHER ==
[2022-08-15 16:01] LABS: CLOSTRIDIUM DIFFICILE PCR NEGATIVE (NEGATIVE)
== END ==
LOC: M LAB REF 14:58
PROVIDERS: ATTEND Internal Medicine Gastroenterology
DX: K62.5 Hemorrhage of anus and rectum (principal)

== ENCOUNTER → 2022-08-15 | Outpatient (CLI) | payer MEDICARE, OTHER | LOC: M PLARAD 13:19 | PROVIDERS: ATTEND Physician Assistant | DX: M51.16 Intervertebral disc disorders with radiculopathy, lumbar region (principal) ==

== ENCOUNTER → 2022-09-06 | Outpatient (CLI) | payer MEDICARE ==
[~2022-09-06] MED LIST changes: +OLAN2.5T25 PO; +PREG50CA2 PO; +SYED1TAB2 PO
== END ==
LOC: M PLALAB 08:42
PROVIDERS: ATTEND Student in an Organized Health Care Education/Training Program
DX: Z13.29 Encounter for screening for other suspected endocrine disorder (principal); Z79.899 Other long term (current) drug therapy

== ENCOUNTER → 2022-09-06 | Outpatient (CLI) | payer MEDICARE | LOC: M WHC 08:02 | PROVIDERS: ATTEND Internal Medicine Gastroenterology | DX: R11.2 Nausea with vomiting, unspecified (principal); Z13.29 Encounter for screening for other suspected endocrine disorder; Z79.899 Other long term (current) drug therapy ==

== ENCOUNTER → 2022-09-12 | Outpatient (CLI) | payer MEDICARE, OTHER | LOC: M LABSMTC 08:07 | PROVIDERS: ATTEND Anesthesiology | DX: Z01.812 Encounter for preprocedural laboratory examination (principal); Z20.822 Contact with and (suspected) exposure to COVID-19 ==

== ENCOUNTER 2022-09-17 11:13 | Day surgery (SDC) | payer MEDICARE ==
[~2022-09-17] VITALS: Ht 170.2 cm; Wt 115.7 kg
[~2022-09-17 11:13] MED LIST changes: +NS 1,000 ML IV ONE
[2022-09-17] MEDS ORDERED: LIDOCAINE 2% 100MG/5ML SDV (FOR ANES.) As Ordered ONE (13:02)
[2022-09-17] MEDS ORDERED: propofoL 200 MG/20 ML VIAL As Ordered ONE ×2 (13:02→13:15)
[2022-09-17] MEDS ORDERED: fentaNYL 100 MCG/2 ML INJECTION As Ordered ONE (13:02)
[2022-09-17 13:40] VITALS: BP 131/71
== END 2022-09-17 14:10 | disposition home or self-care (01) ==
LOC: M OPP 11:13
PROVIDERS: ATTEND Internal Medicine Gastroenterology
DX: K64.4 Residual hemorrhoidal skin tags (principal); K64.8 Other hemorrhoids; K52.9 Noninfective gastroenteritis and colitis, unspecified; K29.70 Gastritis, unspecified, without bleeding; K30 Functional dyspepsia; G43.909 Migraine, unspecified, not intractable, without status migrainosus; F32.9 Major depressive disorder, single episode, unspecified; F41.9 Anxiety disorder, unspecified; J45.909 Unspecified asthma, uncomplicated; F17.290 Nicotine dependence, other tobacco product, uncomplicated; Z79.3 Long term (current) use of hormonal contraceptives; Z79.51 Long term (current) use of inhaled steroids; Z79.899 Other long term (current) drug therapy; Z91.040 Latex allergy status
CPT/HCPCS: 43239; 45380; 88305; J3010

== ENCOUNTER → 2022-10-31 | Outpatient (CLI) | payer MEDICARE, OTHER ==
[~2022-10-31] MED LIST changes: -NS 1,000 ML IV ONE
[2022-11-03 00:07] LABS: ANA (HEP2) Negative (.)
== END ==
LOC: M PLALAB 14:28
PROVIDERS: ATTEND Physician Assistant
DX: L90.0 Lichen sclerosus et atrophicus (principal)

== ENCOUNTER → 2022-10-31 | Outpatient (CLI) | payer MEDICARE, OTHER ==
[2022-10-31 16:17] LABS: GLUCOSE,RANDOM 76 MG/DL (LESS THAN 200)
[2022-10-31 16:21] LABS: THYROID STIMULATING HORMONE 3.606 uIU/ML (0.55-4.78)
[2022-10-31 16:22] LABS: FOLLICLE STIMULATING HORMONE 7.1 mIU/ML; PROLACTIN 8.83 NG/ML
[2022-10-31 16:30] LABS: HCG, SERUM QUALITATIVE NEGATIVE (NEGATIVE)
[2022-11-09 23:07] LABS: 17 HYDROXY PROGESTERONE 23 ng/dL (.); DEHYDROEPIANDROSTERONE UNCONJ 228 ng/dL (31-701); INSULIN FREE 27 uU/mL (.); INSULIN TOTAL2 27 uU/mL (.); TESTOSTERONE FREE (DIRECT) 0.6 pg/mL (0.0-4.2)
== END ==
LOC: M PLALAB 14:25
PROVIDERS: ATTEND Obstetrics & Gynecology Obstetrics
DX: N94.6 Dysmenorrhea, unspecified (principal); Z79.899 Other long term (current) drug therapy

== ENCOUNTER → 2023-04-10 | Outpatient (CLI) | payer MEDICARE ==
[~2023-04-10] MED LIST changes: +ARNU1INH INH; +DEBL1TAB PO; +LITH150C PO; +LORA-1041 PO; -LORA-674 PO; +METF10004 PO; -PREG50CA2 PO; +PREG50CA3 PO; +VITMTA PO
[2023-04-10 10:17] LABS: HCG, SERUM QUALITATIVE NEGATIVE (NEGATIVE)
[2023-04-10 10:22] LABS: GLUCOSE,RANDOM 94 MG/DL (LESS THAN 200)
[2023-04-10 10:26] LABS: THYROID STIMULATING HORMONE 8.405 uIU/ML (0.55-4.78)
[2023-04-10 10:27] LABS: FOLLICLE STIMULATING HORMONE 5.7 mIU/ML; LUTEINIZING HORMONE 4.4 mIU/ML; TESTOSTERONE 27 NG/DL (14-76)
== END ==
LOC: M LAB 08:39
PROVIDERS: ATTEND Obstetrics & Gynecology Obstetrics
DX: E28.2 Polycystic ovarian syndrome (principal); R73.03 Prediabetes

== ENCOUNTER → 2023-04-10 | Outpatient (CLI) | payer MEDICARE, MEDICAID | LOC: M LAB 08:35 | PROVIDERS: ATTEND Student in an Organized Health Care Education/Training Program | DX: R73.03 Prediabetes (principal) ==

== ENCOUNTER → 2023-04-17 | Outpatient (REF) | payer MEDICARE | LOC: M SFHCPLAZ 21:57 | PROVIDERS: ATTEND Student in an Organized Health Care Education/Training Program | DX: Z53.9 Procedure and treatment not carried out, unspecified reason (principal); Z13.1 Encounter for screening for diabetes mellitus; E66.01 Morbid (severe) obesity due to excess calories; R79.89 Other specified abnormal findings of blood chemistry ==

== ENCOUNTER → 2023-05-16 | Outpatient (CLI) | payer MEDICARE ==
[~2023-05-16] MED LIST changes: +LEVOTAB10 PO; +TOPA50TA8 PO
[2023-05-16 18:23] LABS: ALKALINE PHOSPHATASE 66 U/L (46-116); ALT/SGPT 75 U/L (7.0-40); AST/SGOT 26 U/L (<34); BILIRUBIN,TOTAL 0.4 MG/DL (0.3-1.2); BLOOD UREA NITROGEN 18 MG/DL (9-23); CALCIUM LEVEL 9.5 MG/DL (8.5-10.1); CARBON DIOXIDE LEVEL 23 MMOL/L (20-31); CHLORIDE LEVEL 109 MMOL/L (98-107); CHOLESTEROL LEVEL 147 MG/DL (<200); GLOMERULAR FILTRATION RATE > 60.0 (>60); GLUCOSE, FASTING 80 MG/DL (60-100); HDL CHOLESTEROL 47.4 MG/DL (>40); LDL CHOLESTEROL 75.8 MG/DL (<100); NON-HDL-C 99.6 MG/DL; POTASSIUM SERUM 3.9 MMOL/L (3.5-5.1); SODIUM LEVEL 140 MMOL/L (136-145); TRIGLYCERIDES LEVEL 119 MG/DL (<150)
[2023-05-16 18:24] LABS: FREE T4 0.99 NG/DL (0.89-1.76); HEMATOCRIT 43.1 % (36.0-47.0); HEMOGLOBIN 14.6 g/dl (12.0-15.5); MEAN CORPUSCULAR HGB CONC 33.9 g/dl (32.0-36.5); MEAN CORPUSCULAR VOLUME 88.7 fl (80.0-96.0); PLATELET COUNT, AUTOMATED 290 10^3/uL (150-450); RED BLOOD COUNT 4.86 10^6/uL (4.00-5.40); WHITE BLOOD COUNT 7.2 10^3/uL (4.0-10.0)
[2023-05-16 18:25] LABS: THYROID STIMULATING HORMONE 3.274 uIU/ML (0.55-4.78)
[2023-05-21 17:08] LABS: HEMOGLOBIN A2 QUANTITATIVE 2.6 % (1.8-3.2)
== END ==
LOC: M PLALAB 16:20
PROVIDERS: ATTEND Student in an Organized Health Care Education/Training Program
DX: R79.89 Other specified abnormal findings of blood chemistry (principal); E66.01 Morbid (severe) obesity due to excess calories; Z13.1 Encounter for screening for diabetes mellitus; Z79.899 Other long term (current) drug therapy

== ENCOUNTER 2023-05-27 09:33 | Day surgery (SDC) | payer MEDICARE, MEDICAID ==
[~2023-05-27] VITALS: Ht 165.1 cm; Wt 122.6 kg
[2023-05-27] MEDS ORDERED: LR 1,000 ML IV SCH ×3 (10:05→14:15)
[2023-05-27] MEDS ORDERED: propofoL 200 MG/20 ML VIAL As Ordered ONE (11:13)
[2023-05-27] MEDS ORDERED: MIDAZOLAM INJ 2MG/2ML VIAL As Ordered ONE (11:13)
[2023-05-27] MEDS ORDERED: fentaNYL 100 MCG/2 ML INJECTION As Ordered ONE (11:13)
[2023-05-27] MEDS ORDERED: LIDOCAINE 2% 100MG/5ML SDV (FOR ANES.) As Ordered ONE (11:13)
[2023-05-27] MEDS ORDERED: ONDANSETRON 4MG 2ML VIAL As Ordered ONE (11:14)
[2023-05-27] MEDS ORDERED: ROCURONIUM BROMIDE 50MG/5ML VIAL As Ordered ONE (11:14)
[2023-05-27] MEDS ORDERED: SUGAMMADEX SODIUM 500 MG/5 ML VIAL (BRIDION) As Ordered ONE (11:14)
[2023-05-27] MEDS ORDERED: COCAINE 4% 4ML NASAL SOLUTION BTL As Ordered ONE (12:00)
[2023-05-27] MEDS ORDERED: LIDOCAINE W/EPINEPHRINE 1% 20ML VIAL As Ordered ONE (12:00)
[2023-05-27] MEDS ORDERED: OXYMETAZOLINE 0.05% NASAL SPRAY (AFRIN) As Ordered ONE (12:00)
[2023-05-27] MEDS ORDERED: ACETAMINOPHEN 1000MG 100ML IV BAG As Ordered ONE (13:43)
[2023-05-27] MEDS ORDERED: ONDANSETRON 4MG 2ML VIAL IV PRN (14:00)
[2023-05-27] MEDS ORDERED: fentaNYL 100 MCG/2 ML INJECTION IV PRN (14:00)
[2023-05-27] MEDS ORDERED: ANEXSIA, NORCO 7.5MG/325MG TABLET(HYDROCODONE/APAP) PO PRN (14:15)
[2023-05-27] MEDS ORDERED: METOCLOPRAMIDE INJ 10MG/2ML VIAL IV STA (14:36)
[2023-05-27] MEDS: oxyCODONE 5MG TAB PO PRN ×2 (14:55→15:28)
[2023-05-27] MEDS: HYDROMORPHONE HCL 0.5 MG/ 0.5 ML SYRINGE IV PRN ×2 (14:56→15:02)
[2023-05-27 15:40] VITALS: BP 126/74; TEMP 97.7; O2SAT 98
== END 2023-05-27 16:25 | disposition home or self-care (01) ==
LOC: M SDC 09:33
PROVIDERS: ATTEND Otolaryngology
DX: J34.2 Deviated nasal septum (principal); J34.3 Hypertrophy of nasal turbinates; R73.03 Prediabetes; Z79.899 Other long term (current) drug therapy; Z79.84 Long term (current) use of oral hypoglycemic drugs; Z88.8 Allergy status to other drugs, medicaments and biological substances; Z87.891 Personal history of nicotine dependence
CPT/HCPCS: 30140; 30520; 81025; C9143; J0131; J1100; J1170; J2250; J2405; J2765; J3010

== ENCOUNTER → 2023-08-27 | Outpatient (REF) | payer MEDICARE, MEDICAID ==
[~2023-08-27] MED LIST changes: -RISP-7; +RISP0.5T82
== END ==
LOC: M SFHCPLAZ 13:09
PROVIDERS: ATTEND Student in an Organized Health Care Education/Training Program
DX: R39.9 Unspecified symptoms and signs involving the genitourinary system (principal)

== ENCOUNTER → 2024-01-12 | Outpatient (CLI) | payer MEDICARE, MEDICAID ==
[~2024-01-12] MED LIST changes: +BUPR-597 PO; -BUPR300T92 PO; +FLUO-290 PO; +FLUO-365 PO; -FLUO10CA18 PO; -FLUO20CA22 PO
[2024-01-12 11:02] LABS: BASO % 0.4 % (0.0-1.0); EOS # 0.1 10^3/uL (0.0-0.5); EOS % 0.9 % (0.0-3.0); HEMATOCRIT 43.7 % (36.0-47.0); LYMPH # 1.9 10^3/uL (1.5-5.0); LYMPH % 28.4 % (24.0-44.0); MEAN CORPUSCULAR HEMOGLOBIN 31.4 pg (27.0-33.0); MEAN CORPUSCULAR HGB CONC 34.3 g/dl (32.0-36.5); MEAN CORPUSCULAR VOLUME 91.6 fl (80.0-96.0); MONO # 0.4 10^3/uL (0.0-0.8); MONO % 5.4 % (2.0-8.0); NEUTROPHILS # 4.4 10^3/uL (1.5-8.5); NEUTROPHILS % 64.5 % (36.0-66.0); PLATELET COUNT, AUTOMATED 255 10^3/uL (150-450); RED BLOOD COUNT 4.77 10^6/uL (4.00-5.40); WHITE BLOOD COUNT 6.8 10^3/uL (4.0-10.0)
[2024-01-12 11:06] LABS: ERYTHROCYTE SEDIMENTATION RATE 11 mm/hr (0-20)
[2024-01-12 11:43] LABS: THYROID STIMULATING HORMONE 2.755 uIU/ML (0.55-4.78)
[2024-01-12 11:44] LABS: FOLATE 17.9 NG/ML (>5.4)
[2024-01-12 11:46] LABS: RHEUMATOID FACTOR QUANT 4.5 IU/ML (<14); VITAMIN B12 LEVEL 495 PG/ML (211-911)
[2024-01-12 11:47] LABS: ALBUMIN 3.9 G/DL (3.2-5.2); ALKALINE PHOSPHATASE 63 U/L (46-116); ALT/SGPT 27 U/L (7.0-40); AST/SGOT 13 U/L (<34); BILIRUBIN,TOTAL 0.6 MG/DL (0.3-1.2); BLOOD UREA NITROGEN 10 MG/DL (9-23); CALCIUM LEVEL 9.2 MG/DL (8.5-10.1); CARBON DIOXIDE LEVEL 20 MMOL/L (20-31); CHLORIDE LEVEL 111 MMOL/L (98-107); CREATININE FOR GFR 0.85 MG/DL (0.55-1.30); GLOMERULAR FILTRATION RATE > 60.0 (>60); GLUCOSE, FASTING 95 MG/DL (60-100); SODIUM LEVEL 141 MMOL/L (136-145); TOTAL PROTEIN 6.6 G/DL (5.7-8.2)
[2024-01-13 13:56] LABS: ANA SCREEN, IFA NEGATIVE (NEGATIVE)
[2024-01-14 20:42] LABS: VITAMIN E(ALPHA TOCOPHEROL) 12.6 mg/L (5.7-19.9); VITAMIN E(GAMMA TOCOPHEROL) < 1.0 mg/L (<=4.3)
== END ==
LOC: M LAB 10:17
PROVIDERS: ATTEND Psychiatry & Neurology Neurology
DX: R51.9 Headache, unspecified (principal); H02.409 Unspecified ptosis of unspecified eyelid; K62.5 Hemorrhage of anus and rectum; Z79.899 Other long term (current) drug therapy

== ENCOUNTER → 2024-01-12 | Outpatient (CLI) | payer MEDICARE, MEDICAID ==
[2024-01-12 11:20] LABS: HEMATOCRIT 44.4 % (36.0-47.0); HEMOGLOBIN 15.1 g/dl (12.0-15.5); MEAN CORPUSCULAR HEMOGLOBIN 31.1 pg (27.0-33.0); MEAN CORPUSCULAR VOLUME 91.5 fl (80.0-96.0); PLATELET COUNT, AUTOMATED 266 10^3/uL (150-450); RED BLOOD COUNT 4.85 10^6/uL (4.00-5.40); WHITE BLOOD COUNT 6.8 10^3/uL (4.0-10.0)
== END ==
LOC: M LAB 10:13
PROVIDERS: ATTEND Student in an Organized Health Care Education/Training Program
DX: K62.5 Hemorrhage of anus and rectum (principal)

== ENCOUNTER → 2024-01-22 | Outpatient (CLI) | payer MEDICARE, MEDICAID ==
[2024-01-22 18:57] LABS: HEMOGLOBIN A1c 4.8 % (4.0-6.0)
[2024-01-26 08:34] LABS: INSULIN TOTAL2 22.8 uIU/mL (<=18.4)
== END ==
LOC: M PLALAB 16:27
PROVIDERS: ATTEND Student in an Organized Health Care Education/Training Program
DX: R79.89 Other specified abnormal findings of blood chemistry (principal)

== ENCOUNTER → 2024-02-25 | Outpatient (CLI) | payer MEDICARE, MEDICAID ==
[2024-02-25 16:29] LABS: MONO REFLEX EBV VCA IgM NEGATIVE (NEGATIVE)
[2024-02-27 15:02] LABS: EBV VIRAL CAPSID AG IgM < 36.00 U/mL (<36.00)
== END ==
LOC: M PLALAB 11:41
PROVIDERS: ATTEND Student in an Organized Health Care Education/Training Program
DX: T73.2XXA Exhaustion due to exposure, initial encounter (principal)

== ENCOUNTER → 2024-02-26 | Outpatient (REF) | payer MEDICARE | LOC: M SFHCPLAZ 18:04 | PROVIDERS: ATTEND Student in an Organized Health Care Education/Training Program | DX: T73.2XXA Exhaustion due to exposure, initial encounter (principal) ==

== ENCOUNTER → 2024-04-28 | Outpatient (REF) ==
[~2024-04-28] MED LIST changes: +GABA-1172 PO; -GABA-282 PO; -OLAN2.5T25 PO; +OLAN2.5T53 PO
== END ==
LOC: M EMP 12:58
PROVIDERS: ATTEND Family Medicine
DX: Z11.52 Encounter for screening for COVID-19 (principal)

== ENCOUNTER → 2024-05-01 | Outpatient (REF) | payer MEDICARE | LOC: M LAB REF 18:26 | PROVIDERS: ATTEND Physician Assistant | DX: J02.9 Acute pharyngitis, unspecified (principal) ==

== ENCOUNTER → 2025-01-11 | Outpatient (REF) ==
[~2025-01-11] MED LIST changes: +ACYC-438; -ACYC1TAB; -BUPR-597 PO; +BUPR-766 PO; +TOPI-256; +TOPI-256 PO; -TOPI25TA10; -TOPI25TA10 PO
[2025-01-11 15:51] LABS: SOFIA COVID ANTIGEN NEGATIVE (NEGATIVE)
== END ==
LOC: M EMP 15:31
PROVIDERS: ATTEND Family Medicine
DX: Z01.89 Encounter for other specified special examinations (principal)

== ENCOUNTER 2025-03-26 16:24 | Emergency (ER) | payer MEDICARE ==
[~2025-03-26] VITALS: Ht 160 cm; Wt 99.3 kg
[~2025-03-26 16:24] MED LIST changes: +PROZ10CA11 PO; -PROZ10CA7 PO
[2025-03-26 18:35] VITALS: BP 143/77; TEMP 98.5; O2SAT 98
[2025-03-26] MEDS ORDERED: VENTAER INH (19:05)
[2025-03-26] MEDS ORDERED: ONDA-282 PO (19:05)
== END 2025-03-26 19:12 | disposition home or self-care (01) ==
LOC: M ED 16:24
DX: J06.9 Acute upper respiratory infection, unspecified (principal); B34.8 Other viral infections of unspecified site; J45.909 Unspecified asthma, uncomplicated; Z88.6 Allergy status to analgesic agent; Z91.040 Latex allergy status; Z79.52 Long term (current) use of systemic steroids; Z79.83 Long term (current) use of bisphosphonates

== ENCOUNTER 2025-05-25 11:13 | Inpatient (IN) | payer MEDICARE, MEDICAID ==
[~2025-05-25] VITALS: Ht 160 cm; Wt 93.8 kg
[~2025-05-25 11:13] MED LIST changes: -BACTDSTA PO; +ONDA-282 PO; +SULF-8 PO; +VENTAER INH
[2025-05-25 11:56] LABS: PLATELET COUNT, AUTOMATED 430 10^3/uL (150-450)
[2025-05-25 12:23] LABS: ETHYL ALCOHOL (ETHANOL) 0.004 % (0.000-0.010)
[2025-05-25 12:25] LABS: ALT/SGPT 43 U/L (7.0-40); AST/SGOT 46 U/L (<34); CALCIUM LEVEL 10.0 MG/DL (8.5-10.1); CARBON DIOXIDE LEVEL 19 MMOL/L (20-31); CHLORIDE LEVEL 108 MMOL/L (98-107); CREATININE FOR GFR 0.70 MG/DL (0.55-1.30); GLOMERULAR FILTRATION RATE > 90.0 (>60); POTASSIUM SERUM 3.9 MMOL/L (3.5-5.1); SALICYLATE LEVEL < 3.0 MG/DL (<30); SODIUM LEVEL 142 MMOL/L (136-145)
[2025-05-25 12:28] LABS: HCG, SERUM QUALITATIVE NEGATIVE (NEGATIVE)
[2025-05-25 12:53] LABS: BARBITURATES URINE NEGATIVE (NEGATIVE); COCAINE METABOLITE URINE NEGATIVE (NEGATIVE); METHADONE URINE NEGATIVE (NEGATIVE); OPIATES URINE NEGATIVE (NEGATIVE)
[2025-05-25 12:54] LABS: AMPHETAMINES LEVEL URINE NEGATIVE (NEGATIVE); BENZODIAZEPINES URINE NEGATIVE (NEGATIVE); PHENCYCLIDINE URINE NEGATIVE (NEGATIVE)
[2025-05-25 12:55] LABS: CANNABINOIDS URINE POSITIVE (NEGATIVE)
[2025-05-25] MEDS ORDERED: MAALOX 30 ML SUSP *UDC PO PRN (13:55)
[2025-05-25] MEDS ORDERED: traZODone 50 MG TAB PO PRN (13:55)
[2025-05-25] MEDS ORDERED: ALBU8.5H INH (14:05)
[2025-05-25] MEDS ORDERED: NORE1TAB PO (14:05)
[2025-05-25] MEDS ORDERED: VALA1TAB5 PO (14:05)
[2025-05-25] MEDS ORDERED: HOME MED LIST COMPLETE! XX SCH (14:10)
[2025-05-25 15:20] VITALS: BP 149/72; TEMP 99.1; O2SAT 98
[2025-05-26 06:19] VITALS: BP 132/81; TEMP 98.8; O2SAT 99
[2025-05-26] MEDS: OLANZapine 5 MG TAB PO SCH (09:00)
[2025-05-26 17:10] VITALS: BP 144/86; TEMP 97.8; O2SAT 96
[2025-05-26] MEDS: HALOPERIDOL 5 MG TAB PO PRN (20:45)
[2025-05-27] MEDS: LORazepam 1 MG TAB PO PRN (01:33)
[2025-05-27 06:43] VITALS: BP 122/61; TEMP 97.3; O2SAT 98
[2025-05-27] MEDS: ACETAMINOPHEN 325 MG TAB PO PRN (07:52)
[2025-05-27 08:15] LABS: CHOLESTEROL LEVEL 131.0 MG/DL (<200); CHOLESTEROL RISK RATIO 2.63 (<5); LDL CHOLESTEROL 70.4 MG/DL (<100); NON-HDL-C 81.2 MG/DL; TRIGLYCERIDES LEVEL 54.0 MG/DL (<150)
[2025-05-27 14:29] VITALS: BP 147/76; TEMP 98; O2SAT 98
[2025-05-27] MEDS ORDERED: DOXYCYCLINE HYCLATE 100 MG TABLET As Ordered ONE (16:22)
[2025-05-27] MEDS: DOXYCYCLINE HYCLATE 100 MG TABLET PO SCH (16:37)
[2025-05-27] MEDS: NEOSPORIN TOP OINT 15 GM TOP SCH (16:38)
[2025-05-28 06:19] VITALS: BP 142/83; TEMP 97; O2SAT 97
[2025-05-28 15:23] VITALS: BP 130/70; TEMP 98.3; O2SAT 97
[2025-05-29 06:27] VITALS: BP 153/79; TEMP 98.3; O2SAT 97
[2025-05-29] MEDS: MOM 30 ML SUSPENSION UDC PO PRN (07:46)
[2025-05-29 15:29] VITALS: BP 140/79; TEMP 98.1; O2SAT 98
[2025-05-29] MEDS: NICOTINE POLACRILEX 2 MG GUM PO PRN (20:19)
[2025-05-30 06:48] VITALS: BP 120/67; TEMP 97.5; O2SAT 98
[2025-05-30 15:20] VITALS: BP 147/67; TEMP 97.7; O2SAT 99
[2025-05-30] MEDS: OLANZapine 10 MG TAB PO SCH (20:10)
[2025-05-31 06:27] VITALS: BP 151/73; TEMP 97.7; O2SAT 98
[2025-05-31] MEDS: OLANZapine 5 MG TAB PO SCH (08:19)
[2025-05-31 13:12] LABS: KETONE, URINE AUTO RFX NEGATIVE (NEGATIVE); LEUKOCYTE ESTERASE UR AUTO RFX NEGATIVE (NEGATIVE); MUCUS, URINE RFX SMALL (NEGATIVE); NITRITE, URINE AUTO RFX NEGATIVE (NEGATIVE); RBC, URINE AUTO RFX 0 /HPF (0-3); SQUAM EPITHELIAL CELL UR AURFX 1 /HPF (0-6); WBC, URINE AUTO RFX 0 /HPF (0-3)
[2025-05-31 15:10] VITALS: BP 128/74; TEMP 97.5; O2SAT 100
[2025-06-01 06:31] VITALS: BP 136/77; TEMP 97.8; O2SAT 97
[2025-06-01 17:26] VITALS: BP 122/75; TEMP 98.2; O2SAT 98
[2025-06-02 06:14] VITALS: BP 122/80; TEMP 97.9; O2SAT 98
[2025-06-02] MEDS ORDERED: OLAN15TA69 PO (08:31)
[2025-06-02] MEDS ORDERED: FLUO-290 PO (08:31)
[2025-06-02] MEDS ORDERED: TRAZ-252 PO (08:31)
[2025-06-02] MEDS ORDERED: NEOM28OI TOP (08:31)
[2025-06-02] MEDS ORDERED: DOXY100T PO (08:33)
[2025-06-02 14:36] VITALS: BP 144/81; TEMP 99.1; O2SAT 99
[2025-06-03 06:44] VITALS: BP 133/76; TEMP 97.7; O2SAT 97
[2025-06-03] MEDS ORDERED: TRAZ-252 PO (08:15)
== END 2025-06-03 10:45 | disposition home or self-care (01) | DRG 885 ==
LOC: M ED 11:13 → M ED INP 13:52 → M PSY 15:34
PROVIDERS: ADMIT General Practice; ATTEND General Practice
DX: F31.9 Bipolar disorder, unspecified (principal); R45.851 Suicidal ideations; F60.3 Borderline personality disorder; F43.10 Post-traumatic stress disorder, unspecified; F41.9 Anxiety disorder, unspecified; J45.909 Unspecified asthma, uncomplicated; S00.33XA Contusion of nose, initial encounter; W22.09XA Striking against other stationary object, initial encounter; Y92.9 Unspecified place or not applicable; Z79.899 Other long term (current) drug therapy; Z91.040 Latex allergy status; Z88.6 Allergy status to analgesic agent